=== PATIENT | female | born 1990 | race Caucasian/White ===

== ENCOUNTER 2018-02-10 18:05 | Inpatient (IN) | payer OTHER ==
[~2018-02-10] VITALS: Ht 162.6 cm; Wt 117.5 kg
[2018-02-10 17:45] VITALS: BP 99/73
[2018-02-10 17:46] VITALS: BP 109/77
[2018-02-10] MEDS: LEVETIRACETAM 500 MG (KEPPRA) TAB PO SCH (20:10)
[2018-02-11] MEDS: PANTOPRAZOLE 40 MG (PROTONIX) TAB PO SCH (06:28)
[2018-02-11 06:48] VITALS: BP 114/79
--- NOTE | 2018-02-11 08:59 | Consultation ---
History of Present Illness History of Present Illness Patient Consulted On(lashonda/time) 02/11/18 08:55 Time Seen by Provider: 08:55 History of Present Illness Patient had a hemorrhagic stroke one week after . Patient had a headache severe. Patient took 4 ibuprofen. Patient not able to feel the left side. Ambulance took patient to hospital. Patient states she had her to put in her head. This is patient's second . Patient admits to smoking. Patient not able to move the left lower extremity and upper extremity. Patient unable to make a fist on left side Allergies and Home Medications Allergies Coded Allergies: No Known Drug Allergies (Unverified , 02/10/18) Home Medications No Active Prescriptions or Reported Meds Patient Home Medication List Home Medication List Reviewed: Yes Past Dkgatsl-Wgpebs-Vthpdm Hx Patient Social History Alcohol Use: Denies Use Recreational Drug Use: No Smoking Status: Current Everyday Smoker Type Used: Cigarettes Recent Foreign Travel: No Contact w/Someone Who Travel: No Recent Infectious Disease Expo: No Recent Hopitalizations: Yes Immunizations Up To Date Date of Influenza Vaccine: Dec 04, 2017 Seasonal Allergies Seasonal Allergies: Yes Surgeries History of Surgeries: No Respiratory History of Respiratory Disorde: No Cardiovascular History of Cardiac Disorders: No Neurological History of Neurological Disord: No (Stroke on 01/23/18) Reproductive System : No Genitourinary History of Genitourinary Disor: No Gastrointestinal History of Gastrointestinal Di: No Musculoskeletal History of Musculoskeletal Dis: No Endocrine History of Endocrine Disorders: No HEENT History of HEENT Disorders: No Cancer History of Cancer: No Psychosocial History of Psychiatric Problem: No Integumentary History of Skin or Integumenta: No Blood Transfusions History of Blood Disorders: No Review of Systems-General Constitutional: weakness EENTM: no symptoms reported Respiratory: no symptoms reported Cardiovascular: no symptoms reported Gastrointestinal: no symptoms reported Genitourinary: no symptoms reported Physical Exam-General Problems Physical Exam Vital Signs Vital Signs - First Documented 02/10/18 17:45 Temp 97.8 Pulse 97 Resp 20 B/P (MAP) 99/73 (82) Pulse Ox 96 O2 Delivery Room Air Capillary Refill : General Appearance: WD/WN, no apparent distress Eyes: Bilateral Eye Normal Inspection HEENT: normal ENT inspection Neck: non-tender, full range of motion Respiratory: chest non-tender, lungs clear, normal breath sounds, no respiratory distress, no accessory muscle use Cardiovascular: regular rate, rhythm Gastrointestinal: non tender, soft Assessment/Plan Assessment/Plan Admission Diagnosis/Plan CVA with hemorrhage. Tobacco usage. Stroke on the left side of body. Recency of baby girl Admission Status: Inpatient Order (span 2 midnights) Clinical Quality Measures DVT/VTE Risk/Contraindication: Risk Factor Score Per Nursin RFS Level Per Nursing on Admit: 4+=Very High ASHANTI RUSH DO Feb 11, 2018 08:59
[2018-02-11] MEDS: LEVETIRACETAM 500 MG (KEPPRA) TAB PO SCH ×2 (09:12→20:15)
[2018-02-11] MEDS: amLODIPine 5 MG (NORVASC) TAB PO SCH (09:12)
[2018-02-11] MEDS ORDERED: fluCOnazole (DIFLUCAN) 100 MG TAB PO NR (10:00)
--- NOTE | 2018-02-11 10:29 | Physical Therapy Evaluation ---
PT Evaluation-General Medical Diagnosis Admission Date Feb 10, 2018 at 18:05 Medical Diagnosis: CVA Onset Date: Jan 23, 2018 Therapy Diagnosis Therapy Diagnosis: impaired mobility, strength, endurance, balance Height/Weight Height (Feet): 5 Height (Inches): 4.00 Weight (Pounds): 261 Weight (Ounces): 0.0 Precautions Precautions/Isolations: Seizure, Fall Prevention, Standard Precautions Referral Physician: Mundo Reason for Referral: Evaluation/Treatment Medical History Pertinent Medical History: Smoking Reviewed History: Yes Social History Home: Single Level Current Living Status: Spouse Entry Into Home: Stairs Without Railing PT Steps Into Home: 2 Prior/Core FIM Prior Level of Function Functional [place] Measure 0=Not Assessed/NA 4=Minimal Assistance 1=Total Assistance 5=Supervision or Setup 2=Maximal Assistance 6=Modified [place] 3=Moderate Assistance 7=Complete [place] Bed Mobility: 7 Transfers (B,C,W/C) (FIM): 7 Gait: 7 PT Evaluation-Current Subjective Patient in wheelchair at bedside pre tx, agrees to PT, no complaints of pain. Patient needs to get dressed upper and lower and she does so with max assist. Pt/Family Goals "to get her left side working" Objective Patient Orientation: Person, Place, Situation Attachments: Joiner Catheter ROM/Strength ROM Lower Extremities WNL Strenght Lower Extremities flaccid left lower extremity Integumentary/Posture Bladder Incontinence: Joiner Cath Neuromuscular (Tone, Coordination, Reflexes) increased extensor tone in left leg when laying down, Patient seems to have intact peripheral vision bilaterally and good tracking on the right and fair on the left. Patient does have some left neglect. Sensory Vision: Functional Hearing: Functional Sensation Right Lower Extremit: Intact Sensation Left Lower Extremity: Intact Sensation Lower Extremities Patient has no complaints of numbness or tingling. Transfers Functional [place] Measure 0=Not Assessed/NA 4=Minimal Assistance 1=Total Assistance 5=Supervision or Setup 2=Maximal Assistance 6=Modified [place] 3=Moderate Assistance 7=Complete IndependenceIRFPAI Quality Coding Scale 6 Independent with activity with or without an assistive device 5 Patient requires set up or clean up by helper. Patient completes activity by themselves 4 Supervision or touching assist (CGA). [place] provide cues , steadying assist 3 The helper provides less than half the effort to complete the activity 2 The helper provides more than half the effort to complete the activity 1 Dependent. The helper does all the effort to complete an activity 7 Patient refused to complete or attempt activity 9 The patient did not perform the activity before the current illness or injury 88 Not attempted due to Medical conditions or safety concerns Transfers (B, C, W/C) (FIM): 2 Scootin Rollin Roll Left to Right (QC): 2 Supine to/from Sit: 2 Sit to/from Stand: 2 bed t/f WC(FIM only if WC use): 2 Sit to Lying (QC): 2 Lying to Sitting/Side of Bed(Q: 2 Sit to Stand (QC): 2 Chair/Zsj-xj-Gavcu Xfer(QC): 2 Car Transfer (QC): 2 Patient performs bed mobility and transfers with max assist. She needs cues for positioning and hand placement. Gait Does the Patient Walk?: No and Walking Goal IS indicated Walk 10 feet (QC): 88 Walk 50 ft with 2 Turns(QC): 88 Walk 150 ft (QC): 88 Walking 10ft/uneven surface-QC: 88 Wheelchair Training Wheelchair (FIM): 2 Distance: 50' Wheelchair Level of Assist: 4 Wheel 50 ft with 2 turns (QC): 3 Wheel 150 ft (QC): 88 Type of Wheelchair: Manual Stairs 1 Step (curb) (QC): 88 4 Steps (QC): 88 12 Steps (QC): 88 If not tested on admit;explain Patient is not ambulating and has poor balance, not safe to perform stairs. Balance Sitting Static: Fair Sitting Dynamic: Poor Standing Static: Poor Standing Dynamic: Poor Picking up an Object (QC): 88 Treatment Patient performed bed mobility and transfers, wheelchair mobility, dressing. Patient stood in the parallel bars for about 5 min before needing to sit down. She needed min assist to remain standing and cues for positioning because she turns toward the parallel bar on the right side due to her neglect. Assessment/Needs Patient has impaired mobility,strength, endurance, balance. She has a flaccid left side and left neglect. She is a high fall risk. Rehab Potential: Fair PT Short Term Goals Short Term Goals Time Frame: Feb 18, 2018 Transfers (B,C,W/C) (FIM): 3 Wheelchair (FIM): 4 Wheelchair Distance: 150' Wheelchair Level of Assist: 4 PT Usp Goals Usp Goals PT Usp Goals Time Frame: Mar 04, 2018 Transfers (B,C,W/C) (FIM): 4 Sit to Lying (QC): 3 Lying-Sitting on Side/Bed(QC): 3 Sit to Stand (QC): 3 Rollin Roll Left to Right (QC): 3 Chair/Slq-my-[place]ef[place] Xfer(QC): 3 Car Transfer (QC): 3 Gait (FIM): 1 Distance: 20' Walk 10 feet (QC): 3 Gait Level of Assist: 4 Gait Assistive Device: Walker Gaurav Wheelchair (FIM): 5 Distance: 150' Wheelchair Level of Assist: 5 Wheel 50 feet with 2 turns (QC: 4 PT Plan Problem List Problem List: Activity Tolerance, Functional Strength, Safety, Balance, Gait, Transfer, Bed Mobility, ROM Treatment/Plan Treatment Plan: Continue Plan of Care Treatment Plan: Bed Mobility, Concurrent Therapy, Education, Functional Activity Steven, Functional Strength, Group Therapy, Gait, Safety, Therapeutic Exercise, Transfers Treatment Duration: Mar 04, 2018 Frequency: At least 5 of 7 days/Wk (IRF) Estimated Hrs Per Day: 1.5 hours per day Patient and/or Family Agrees t: Yes Safety Risks/Education Patient Education: Transfer Techniques, Correct Positioning, W/C Management, Disease Process, Safety Issues Teaching Recipient: Patient Teaching Methods: Demonstration, Discussion Response to Teaching: Reinforcement Needed Discharge Recommendations Plan Patient will perform bed mobility and transfer training, balance and endurance training, functional strengthening, stair training, gait training, and education , to improve functional mobility and independence at home. Therapy D/C Recommendations: Home w/ Family Support, Jail (TCU/NH) Time/GCodes Time In: 945 Time Out: 1030 Total Billed Treatment Time: 45 Total Billed Treatment 1 visit EVM 30' FA 15' JENIFER SOUSA PT Feb 11, 2018 10:28
--- NOTE | 2018-02-11 10:57 | Occupational Therapy Eval ---
OT Evaluation-General/PLF Medical Diagnosis Admission Date Feb 10, 2018 at 18:05 Medical Diagnosis: CVA Onset Date: Jan 23, 2018 Therapy Diagnosis Therapy Diagnosis: Weakness, Decreased ADL skills Height/Weight Height (Feet): 5 Height (Inches): 4.00 Weight (Pounds): 261 Weight (Ounces): 0.0 Precautions Precautions/Isolations: Seizure, Fall Prevention, Standard Precautions Safety Interventions: Bed Exit Alarm Weight Bear Status Weight Bearing Restriction: Weight Bearing/Tolerated Referral Physician: Mundo Referral Reason: Activity Tolerance, Self Care, Evaluation/Treatment, Strengthening/ROM Medical History Pertinent Medical History: HTN, Smoking Current History Pt. was 5 days . Had a CVA. Had a ventriculostomy placement with bur hole in left frontal area. Pt. has left sided weakness. Reviewed History: Yes Social History Home: Single Level Current Living Status: Spouse Entry Into Home: Stairs Without Railing Steps Into Home: 2 ADL-Prior Level of Function ADL PLOF Comments Pt. was independent with all tasks previous to CVA. DME/Equipment: Tub/Shower DME/Equipment Comments Pt. has no equipment at home. Drive Self: No OT Current Status Subjective No pain reported. Pt. is tearful however about current situation. Appearance Pt. in bed. Does demonstrate flat affect. Agrees to work with OT. Becomes tearful when talking about her family. Mental Status/Objective Patient Orientation: Person, Place, Time Current Dentures/Partials: Yes Hand Dominance: Right Upper Extremity ROM Right- WFL Left- no active movement noted. Upper Extremity Coordination left- impaired. Upper Extremity Strength Left-flaccid ADL-Treatment Functional [place] Measure 0=Not Assessed/NA 4=Minimal Assistance 1=Total Assistance 5=Supervision or Setup 2=Maximal Assistance 6=Modified [place] 3=Moderate Assistance 7=Complete IndependenceIRFPAI Quality Coding Scale 6 Independent with activity with or without an assistive device 5 Patient requires set up or clean up by helper. Patient completes activity by themselves 4 Supervision or touching assist (CGA). [place] provide cues , steadying assist 3 The helper provides less than half the effort to complete the activity 2 The helper provides more than half the effort to complete the activity 1 Dependent. The helper does all the effort to complete an activity 7 Patient refused to complete or attempt activity 9 The patient did not perform the activity before the current illness or injury 88 Not attempted due to Medical conditions or safety concerns Grooming (FIM): 4 (Min assist overall to brush teeth at sink.) Oral Hygiene (QC): 4 Bathing (FIM): 2 (Pt. required assist to wash under left UE, wash april area in stance, and to wash bilateral feet.) Shower/Bathe Self (QC): 2 Lower Body Dressing (FIM): 2 (Max assist to doff/don socks.) Lower Body Dressing (QC): 2 On/Off Footwear (QC): 2 Transfers (B, C, W/C) (FIM): 2 (Max assist supine-sit, and max sit-stand. Max assist to pivot transfer to wheelchair.) Other Treatments Once up in wheelchair, pt. was able to self propel to therapy gym with min assist. Pt. given tour of rehab area. Pt. states that she likes coffee. Taken to coffee station. Pt. was able to open several sugar packets with her mouth, but overall, OT assisted her. All needs met up in chair and then PT took over. Education OT Patient Education: Correct positioning, Modified ADL techniques, Progress toward Goal/Update tx plan, Purpose of tx/functional activities, Reviewed precautions, Rehab process, Transfer techniques Teaching Recipient: Patient Teaching Methods: Demonstration, Discussion Response to Teaching: Verbalize Understanding, Return Demonstration OT Short Term Goals Short Term Goals Time Frame: Feb 25, 2018 Eating(FIM): 5 Grooming(FIM): 5 Bathing(FIM): 4 Upper Body Dressing(FIM): 4 Lower Body Dressing(FIM): 3 Toileting(FIM): 4 Transfers (B,C,W/C) (FIM): 4 Toilet/Commode Transfer(FIM): 4 Additional Short Term Goals: 1-Demonstrate ADL Tasks, 2-Verbalize Understanding , 3-ImproveStrength/Steven 1=Demonstrate adherence to instructed precautions during ADL tasks. 2=Patient will verbalize/demonstrate understanding of assistive devices/ modifications for ADL. 3=Patient will improve strength/tolerance for activity to enable patient to perform ADL's. OT Tree Trimming Supervisor Goals Correction Goals Time Frame: Mar 11, 2018 Eating (FIM): 6 Eating (QC): 6 Groomin Oral Hygiene (QC): 6 Bathing(FIM): 5 Shower/Bathe Self (QC): 5 Upper Body Dressing(FIM): 6 Upper Body Dressing (QC): 6 Lower Body Dressing(FIM): 6 Lower Body Dressing (QC): 6 On/Off Footwear (QC): 6 Toileting(FIM): 6 Toileting Hygiene (QC): 6 Transfers (B,C,W/C) (FIM): 6 Toilet/Commode Transfer(FIM): 6 Toilet/Commode Transfer (QC): 6 Shower Transfer(FIM): 5 Additional Goals: 1-Demonstrate ADL Tasks, 2-Verbalize Understanding, 3- ImproveStrength/Steven 1=Demonstrate adherence to instructed precautions during ADL tasks. 2=Patient will verbalize/demonstrate understanding of assistive devices/ modifications for ADL. 3=Patient will improve strength/tolerance for activity to enable patient to perform ADL's. OT Education/Plan Problem List/Assessment Assessment: Decreased Activ Tolerance, Decreased UE Strength, Dependent Transfers, Impaired Bed Mobility, Impaired Cognition, Impaired Coordination, Impaired Funct Balance, Impaired I ADL's, Impaired Self-Care Skills, Restricted Funct UE ROM Discharge Recommendations Plan/Recommendations: Continue POC Therapy D/C Recommendations: Home w/ Family Support, Occupational Therapy Home Care, Scheduled Assistance Equpiment Recommendations-D/C: Extended Bath Bench Comment Equipment needs to be determined. Treatment Plan/Plan of Care Treatment,Training & Education: Yes Patient would benefit from OT for education, treatment and training to promote independence in ADL's, mobility, safety and/or upper extremity function for ADL' s. Plan of Care: ADL Retraining, Functional Mobility, Group Exercise/Act as Ind, UE Funct Exercise/Act Treatment Duration: Mar 11, 2018 Frequency: At least 5 of 7 days/Wk (IRF) Estimated Hrs Per Day: 1.5 hours per day Agreement: Yes Rehab Potential: Good Time/GCodes Start Time: 08:30 Stop Time: 09:45 Total Time Billed (hr/min): 75 Billed Treatment Time 1, EVH x 15minutes, ADL x 60minutes QAMAR SIMPSON OT Feb 11, 2018 10:57
--- NOTE | 2018-02-11 12:53 | ST Cognitive Linguistic Eval ---
Speech Evaluation-General Medical Diagnosis CVA Onset Date: Jan 23, 2018 Therapy Diagnosis Therapy Diagnosis: Cognitive Linguistic Skills WNL Precautions Precautions/Isolations: Seizure, Fall Prevention, Standard Precautions Referral Referring Physician: Dr. Deng Flower Reason for Referral: Evaluation/Treatment Cognitive, Speech, Language Evaluation Medical History Pertinent Medical History: HTN, Smoking Current History The patient recently gave to a daughter on January 16, 2018. Per patient , she developed HTN throughout , however, thought her blood pressure had returned to normal following the of her child. The patient recently experienced an ischemic CVA and was admitted to [facility] for additional therapy. At this time, the patient demonstrates left sided flaccidity. Reviewed History: Yes Social History Current Living Status: Spouse (Stefany, FRANK) Speech PLF-Current Status Prior Level of Function The patient denied prior challenges with speech, language, or cognition. Subjective The patient was laying in bed, talking to her on the phone, upon entrance. The patient greeted the clinician appropriately and was agreeable to participation in the cognitive evaluation. Language Eval: Auditory Comprehends Simple Yes/No Ques: Functional Indent/Objects Multiple Domingo: Functional Ident/Pics in Multiple Domingo: Functional Follows 1-Step Commands: Functional Follows Complex Directions: Functional Follows General Conversations: Functional Language Eval: Verbal Language Completes Spontaneous Greeting: Functional Produces Auto, Serial Info: Functional Imitates Simple Words/Phrases: Functional Word Finding: Functional Requests Basic Needs: Functional States Basic Personal Info: Functional Expresses Complex Ideas: Functional To note, the patient demonstrates flat affect throughout conversation and evaluation tasks. The patient did become tearful while discussing the events surrounding the of her daughter. Cognitive Patient Orientation The patient was independently oriented to self, location, rationale for therapy , month, day of week, date, and year. Objective Cognitive Domain Attention: WNL Memory: WNL Problem Solving: Functional Objective Impression The patient demonstrated cognitive linguistic skills appropriate for completion of ADL tasks. Communication/Social Cognition Comprehension: 5 Expression: 5 Social Interaction: 5 Problem Solvin Memory: 6 Speech Patient Assess Expression of Ideas/Wants: Expression (4) Understanding [place] Content: Usually Understands (3) Brief Interview-Mental Status: Yes Repetition of Three Words: Three (3) Temporal Orientation: Year: Correct (3) Temporal Orientation: Month: Accurate within 5 days(2) Temporal Orientation: Day: Correct (1) Recall : Wear to say "Sock": Yes, no cue required (2) Recall : Color: Yes, no cue required (2) Recall : Bed: Yes, no cue required (2) Speech-Plan Treatment Plan Speech Therapy Treatment Plan: Discontinue ST Evaluation, only. Frequency: Modified Program (IRF) Estimated Hrs Per Day: Other Rehab Potential: Good Safety Risks/Education Teaching Recipient: Patient Teaching Methods: Discussion Response to Teaching: Verbalize Understanding Education Topics Provided: Results, Recommendations, Plan of Care Time Speech Therapy Time In: 10:30 Speech Therapy Time Out: 10:45 Total Billed Time: 15 Billed Treatment Time 1, EVE NEVES Feb 11, 2018 12:52
--- NOTE | 2018-02-11 13:32 | Physical Therapy Daily Note ---
PT Daily Note-Current Subjective Patient in bed pre tx, agrees to PT, no complaints of pain. Appearance Patient in wheelchair at bedside post tx, has nurse call, phone, tray, all needs met. Mental Status Patient Orientation: Person, Place, Situation Attachments: Joiner Catheter Transfers Functional [place] Measure 0=Not Assessed/NA 4=Minimal Assistance 1=Total Assistance 5=Supervision or Setup 2=Maximal Assistance 6=Modified [place] 3=Moderate Assistance 7=Complete IndependenceIRFPAI Quality Coding Scale 6 Independent with activity with or without an assistive device 5 Patient requires set up or clean up by helper. Patient completes activity by themselves 4 Supervision or touching assist (CGA). [place] provide cues , steadying assist 3 The helper provides less than half the effort to complete the activity 2 The helper provides more than half the effort to complete the activity 1 Dependent. The helper does all the effort to complete an activity 7 Patient refused to complete or attempt activity 9 The patient did not perform the activity before the current illness or injury 88 Not attempted due to Medical conditions or safety concerns Transfers (B, C, W/C) (FIM): 2 Scootin Rollin Supine to/from Sit: 4 Sit to/from Stand: 2 Bed to/from Chair: 2 Patient performed 4 stand pivot transfers Wheelchair Training Does the Pt Use a Wheelchair?: Yes Wheelchair (FIM): 2 Distance: 75' Wheelchair Level of Assist: 4 Type of Wheelchair: Manual min assist with turning and cues for obstacles and direction Exercises sit to stand from mat 3 sets of 5 Neuromuscular core balance and strengthening, leaning side to side, limits of stability training Treatments wheelchair mobility, functional strengthening, core balance Assessment Current Status: Fair Progress patient has significant left neglect PT Short Term Goals Short Term Goals Time Frame: Feb 18, 2018 Transfers (B,C,W/C) (FIM): 3 Wheelchair (FIM): 4 Wheelchair Distance: 150' Wheelchair Level of Assist: 4 PT Petroleum Geologist Goals Senior Living Goals PT Senior Living Goals Time Frame: Mar 04, 2018 Transfers (B,C,W/C) (FIM): 4 Sit to Lying (QC): 3 Lying-Sitting on Side/Bed(QC): 3 Sit to Stand (QC): 3 Rollin Roll Left to Right (QC): 3 Chair/Mgb-zb-Bsnrx Xfer(QC): 3 Car Transfer (QC): 3 Gait (FIM): 1 Distance: 20' Walk 10 feet (QC): 3 Gait Level of Assist: 4 Gait Assistive Device: Walker Gaurav Wheelchair (FIM): 5 Distance: 150' Wheelchair Level of Assist: 5 Wheel 50 feet with 2 turns (QC: 4 PT Plan Problem List Problem List: Activity Tolerance, Functional Strength, Safety, Balance, Gait, Transfer, Bed Mobility, ROM Treatment/Plan Treatment Plan: Continue Plan of Care Treatment Plan: Bed Mobility, Concurrent Therapy, Education, Functional Activity Steven, Functional Strength, Group Therapy, Gait, Safety, Therapeutic Exercise, Transfers Treatment Duration: Mar 04, 2018 Frequency: At least 5 of 7 days/Wk (IRF) Estimated Hrs Per Day: 1.5 hours per day Patient and/or Family Agrees t: Yes Safety Risks/Education Patient Education: Transfer Techniques, Correct Positioning, W/C Management, Safety Issues Teaching Recipient: Patient Teaching Methods: Demonstration, Discussion Response to Teaching: Reinforcement Needed Time/GCodes Time In: 1300 Time Out: 1330 Total Billed Treatment Time: 30 Total Billed Treatment 1 visit FA 15' EX 15' JENIFER SOUSA PT Feb 11, 2018 13:32
[2018-02-11 13:43] LABS: BILIRUBIN,URINE NEGATIVE (NEGATIVE); CLARITY,URINE SLIGHTLY CLOUDY; COLOR,URINE YELLOW; GLUCOSE, URINE (UA) NEGATIVE (NEGATIVE); KETONES,URINE NEGATIVE (NEGATIVE); LEUKOCYTE ESTERASE ,URINE 3+ (NEGATIVE); NITRITE,URINE POSITIVE (NEGATIVE); PH,URINE 5 (5-9); PROTEIN,URINE 2+ (NEGATIVE); UROBILINOGEN,URINE NORMAL (NORMAL)
[2018-02-11 14:06] LABS: BACTERIA,URINE MODERATE /HPF; WBC,URINE >100 /HPF
--- NOTE | 2018-02-11 14:45 | Occupational Ther Daily Note ---
OT Current Status-Daily Note Subjective No pain reported. Pt. does become tearful when talking about her mother. Appearance Pt. in bed. Agrees to work with OT. Mental Status/Objective Patient Orientation: Person Functional [place] Measure 0=Not Assessed/NA 4=Minimal Assistance 1=Total Assistance 5=Supervision or Setup 2=Maximal Assistance 6=Modified [place] 3=Moderate Assistance 7=Complete [place] ADL-Treatment Functional [place] Measure 0=Not Assessed/NA 4=Minimal Assistance 1=Total Assistance 5=Supervision or Setup 2=Maximal Assistance 6=Modified [place] 3=Moderate Assistance 7=Complete IndependenceIRFPAI Quality Coding Scale 6 Independent with activity with or without an assistive device 5 Patient requires set up or clean up by helper. Patient completes activity by themselves 4 Supervision or touching assist (CGA). [place] provide cues , steadying assist 3 The helper provides less than half the effort to complete the activity 2 The helper provides more than half the effort to complete the activity 1 Dependent. The helper does all the effort to complete an activity 7 Patient refused to complete or attempt activity 9 The patient did not perform the activity before the current illness or injury 88 Not attempted due to Medical conditions or safety concerns Other Treatment Pt. supine in bed. OT asks if okay if left UE is better assessed. Pt. agreeable. Pt. reports feeling all sensations, just no movement. OT performs PROM in all planes, but no active movement noted. Able to achieve full ROM passively. Did note increased muscle tone with movement in left UE. This is involuntary. Pt. does not seem to notice this. Pt. is able to answer all questions appropriately, history questions, but does seem to demonstrate flat affect. Becomes somewhat labile when talking about children and husbands. All needs met in bed and pt. comfortable when OT left room. Education OT Patient Education: Correct positioning, Exercise program, Modified ADL techniques, Progress toward Goal/Update tx plan, Purpose of tx/functional activities, Reviewed precautions, Rehab process, Transfer techniques Teaching Recipient: Patient Teaching Methods: Demonstration, Discussion Response to Teaching: Verbalize Understanding, Return Demonstration OT Short Term Goals Short Term Goals Time Frame: Feb 25, 2018 Eating(FIM): 5 Grooming(FIM): 5 Bathing(FIM): 4 Upper Body Dressing(FIM): 4 Lower Body Dressing(FIM): 3 Toileting(FIM): 4 Transfers (B,C,W/C) (FIM): 3 Toilet/Commode Transfer(FIM): 4 Additional Short Term Goals: 1-Demonstrate ADL Tasks, 2-Verbalize Understanding , 3-ImproveStrength/Steven 1=Demonstrate adherence to instructed precautions during ADL tasks. 2=Patient will verbalize/demonstrate understanding of assistive devices/ modifications for ADL. 3=Patient will improve strength/tolerance for activity to enable patient to perform ADL's. OT Circuit Manager Goals Circuit Manager Goals Time Frame: Mar 11, 2018 Eating (FIM): 6 Eating (QC): 6 Groomin Oral Hygiene (QC): 6 Bathing(FIM): 5 Shower/Bathe Self (QC): 5 Upper Body Dressing(FIM): 6 Upper Body Dressing (QC): 6 Lower Body Dressing(FIM): 6 Lower Body Dressing (QC): 6 On/Off Footwear (QC): 6 Toileting(FIM): 6 Toileting Hygiene (QC): 6 Transfers (B,C,W/C) (FIM): 6 Toilet/Commode Transfer(FIM): 6 Toilet/Commode Transfer (QC): 6 Shower Transfer(FIM): 5 Additional Goals: 1-Demonstrate ADL Tasks, 2-Verbalize Understanding, 3- ImproveStrength/Steven 1=Demonstrate adherence to instructed precautions during ADL tasks. 2=Patient will verbalize/demonstrate understanding of assistive devices/ modifications for ADL. 3=Patient will improve strength/tolerance for activity to enable patient to perform ADL's. OT Education/Plan Problem List/Assessment Assessment: Decreased Activ Tolerance, Decreased Safety Aware, Decreased UE Strength, Dependent Transfers, Impaired Bed Mobility, Impaired Cognition, Impaired Coordination, Impaired Funct Balance, Impaired I ADL's, Impaired Self- Care Skills, Restricted Funct UE ROM, Visual-Perceptual Deficit Discharge Recommendations Plan/Recommendations: Continue POC Therapy D/C Recommendations: Home w/ Family Support, Occupational Therapy Home Care Equpiment Recommendations-D/C: Extended Bath Bench Treatment Plan/Plan of Care Treatment,Training & Education: Yes Patient would benefit from OT for education, treatment and training to promote independence in ADL's, mobility, safety and/or upper extremity function for ADL' s. Plan of Care: ADL Retraining, Functional Mobility, Group Exercise/Act as Ind, UE Funct Exercise/Act Treatment Duration: Mar 11, 2018 Frequency: At least 5 of 7 days/Wk (IRF) Estimated Hrs Per Day: 1.5 hours per day Agreement: Yes Rehab Potential: Good Time/GCodes Start Time: 14:15 Stop Time: 14:30 Total Time Billed (hr/min): 15 Billed Treatment Time 1, EX QAMAR SIMPSON OT Feb 11, 2018 14:45
[2018-02-11] MEDS: NYSTATIN CREAM (MYCOSTATIN) 30 GM TUBE TP SCH ×2 (15:15→20:15)
--- NOTE | 2018-02-11 15:51 | PM&R Post Admission Assessment ---
Post Admission Physician Asses The preadmission screen agrees with the post admission assessment that the patient is a good candidate for inpatient rehabilitation. The patient will have a comprehensive program of inpatient rehabilitation with a goal of maximizing level of functional independence prior to discharge home with spouse. The patient will have PT/OT ninety minutes per day, each discipline, five days a week for gait, strengthening, conditioning, balance, ADLs, any patient/family/caregiver training as necessary. Speech therapy to do cognitive assessment and treat as indicated. Rehabilitation nursing to assist with bowel, bladder, skin, wound care, medication administration, pain management. Transition Advisor to assist with discharge planning, community reentry. SCD's for DVT prophylaxis. She appears to be well motivated to participate in three hours of therapy a day. She should be able to tolerate three hours of therapy a day from a medical standpoint. She should benefit from the three hours of therapy a day. She has a reasonable discharge plan, reasonable discharge rehabilitation goals and a supportive family. She has various comorbidities that need to be closely monitored with medications and treatments adjusted on a daily basis as needed. These include: HTN status Barriers to discharge for this patient who had been independent prior to this are for her to be modified independent to supervision for ADLs and mobility skills prior to discharge home with spouse, so as to lessen the burden of the caregivers. Risks for this patient include: 1. Fall 2. Fracture 3. DVT 4. Pulmonary embolism 5. Poorly controlled HTN 6. Skin breakdown 7. Contractures 8. Poorly controlled pain 9. Urinary retention 10. UTI 11. Respiratory infection 12. Aspiration 13. Recurrent bleed Estimated Length of Stay: 21 days Prognosis: Rehab prognosis appears good for goal of discharge home with spouse modified independent to supervision for ADLs and mobility skills. 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
--- NOTE | 2018-02-11 16:52 | HISTORY AND PHYSICAL ---
DATE OF SERVICE: 02/11/2018 ADMISSION HISTORY AND PHYSICAL CHIEF COMPLAINT: Difficulty with walking. HISTORY OF PRESENT ILLNESS: The patient is a 27-year-old female, who was admitted to [facility] on 01/24/2018, who complains of headache and left-sided weakness. The patient was seen by Dr. Lucia, neurosurgeon on 01/24/2018. At that time, the patient was 5 days . She apparently took some ibuprofen for headache and then was found by her with left-sided weakness. She was transported to the hospital by EMS. She was started on Cardene drip and intubated due to altered mental status. Her reported that she does have hypertension towards the end of her . A CT of the brain was obtained, which showed a large right-sided bleed with ventricular extension. She demonstrated left facial weakness and left-sided weakness, full strength on the right. She was medically stabilized and referred for ongoing stroke rehabilitation. Admission CT angiogram revealed no obvious underlying vascular lesion. Chest x-ray on 01/24/2018, showed bilateral infiltrates, right more than left. She had been independent prior to this and living in [place] with her spouse. She is on Keppra for seizure prophylaxis. Currently, she is min assist for grooming, max assist for bathing, lower body dressing. The patient is max assist for transfers. Her Joiner catheter has just been removed, nursing is attempting a transfer to the bedside commode for her at this point. She is nonambulatory at this time. She is mod assist for wheelchair propulsion. Speech therapy has assessed her and found her to be cognitively intact and they have signed off. PAST MEDICAL HISTORY: Gestational hypertension. PAST SURGICAL HISTORY: Recent delivery. ALLERGIES: No known medication allergies. FAMILY HISTORY: Noncontributory. SOCIAL HISTORY: [place] Medicaid. REVIEW OF SYSTEMS: Ten-point review of systems significant for left-sided weakness, elevated blood pressure during . MEDICATIONS: Nystatin apply sparingly t.i.d. to affected area, Norvasc 5 mg p.o. daily, Protonix 40 mg p.o. daily, Keppra 500 mg p.o. b.i.d., Tylenol 650 mg p.o. q.4h. p.r.n. mild pain or fever. PHYSICAL EXAMINATION: GENERAL: Significant for a somewhat obese female appearing her stated age, sitting up at the side of the bed, in no acute distress. Her BMI is 44.8. VITAL SIGNS: She is afebrile, pulse is 90, respirations 21, blood pressure 114/79, O2 sat 97% on room air. HEENT: Vision, speech, hearing grossly intact. No oral lesion is noted. NECK: Supple without mass. HEART: Regular rhythm. CHEST: Clear. ABDOMEN: Soft, nontender, bowel sounds present. EXTREMITIES: No edema, no calf tenderness. MUSCULOSKELETAL: She has functional passive range of motion in all 4 extremities. NEUROLOGIC: She has normal strength on the right. Cognition, speech, swallow intact. She is fairly flaccid on the left. IMPRESSION: 1. Ambulatory dysfunction secondary to right intracerebral bleed associated with hypertension with a resulting left hemiparesis. 2. Hypertension, controlled with medication. 3. . PLAN: The patient will have comprehensive program with inpatient stroke rehabilitation goal of maximizing level of functional independence prior to discharge home with spouse. The patient will have PT, OT 90 minutes per day 5 days a week as per plan of care and post-admission physician evaluation. Please see that separate document. Speech therapy has done speech, swallow, cognitive assessment with outpatient is functional they have signed off. The patient requesting OB follow up for visit. We will see if we can arrange one of the sas administrator at this facility. We ask Dr. Acosta to follow this patient as well for any medical concerns, hypertension, etc. Social work to assist with discharge planning, community reentry. Rehabilitation nursing assist with bowel, bladder, skin care, medication administration, pain management. ESTIMATED LENGTH OF STAY: Three weeks. PROGNOSIS: Rehab prognosis good for goal of enhancing level of functional dependence prior to discharge home with spouse. Hopefully as the cerebral edema does down, she will have more return of strength on the left. DIET: Regular. CODE STATUS: Full code. ADDITIONAL DIAGNOSIS: Seizure prophylaxis, on Keppra. Job ID: [id number] DocumentID: [id number] Dictated Date: 02/11/2018 15:46:13 Chemical Process Engineer Date: 02/11/2018 16:52:15 Dictated By: ELAINE GIBBS MD
[2018-02-11 17:09] VITALS: BP 110/72
[2018-02-12 05:49] VITALS: BP 98/59
[2018-02-12 05:53] LABS: BASOPHILS % (AUTO) 0 % (0-10); EOSINOPHILS # (AUTO) 0.3 10^3/uL (0.0-0.3); EOSINOPHILS % (AUTO) 3 % (0-10); HEMATOCRIT 39 % (35-52); HEMOGLOBIN 12.4 G/DL (11.5-16.0); LYMPHOCYTES # (AUTO) 3.3 X 10^3 (1.0-4.0); LYMPHOCYTES % (AUTO) 38 % (12-44); MEAN CORPUSCULAR HEMOGLOBIN 29 PG (25-34); MEAN CORPUSCULAR HGB CONC 32 G/DL (32-36); MEAN CORPUSCULAR VOLUME 92 FL (80-99); MEAN PLATELET VOLUME 10.7 FL (7.4-10.4); MONOCYTES # (AUTO) 0.7 X 10^3 (0.0-1.0); MONOCYTES % (AUTO) 8 % (0-12); NEUTROPHILS # (AUTO) 4.4 X 10^3 (1.8-7.8); NEUTROPHILS % (AUTO) 51 % (42-75); PLATELET COUNT 392 10^3/uL (130-400); RED BLOOD COUNT 4.23 10^6/uL (4.35-5.85); RED CELL DISTRIBUTION WIDTH 13.8 % (10.0-14.5); WHITE BLOOD COUNT 8.8 10^3/uL (4.3-11.0)
[2018-02-12 06:06] LABS: ALANINE AMINOTRANSFERASE 40 U/L (0-55); ALKALINE PHOSPHATASE 69 U/L (40-136); BILIRUBIN,TOTAL 0.5 MG/DL (0.1-1.0); BUN/CREATININE RATIO 13; CALCIUM 9.5 MG/DL (8.5-10.1); CARBON DIOXIDE 23 MMOL/L (21-32); CHLORIDE 108 MMOL/L (98-107); CREATININE SERUM 0.77 MG/DL (0.60-1.30); GFR ESTIMATED > 60; GLUCOSE 91 MG/DL (70-105); POTASSIUM 3.8 MMOL/L (3.6-5.0); SODIUM 141 MMOL/L (135-145); TOTAL PROTEIN 6.6 GM/DL (6.4-8.2)
[2018-02-12] MEDS: PANTOPRAZOLE 40 MG (PROTONIX) TAB PO SCH (06:25)
--- NOTE | 2018-02-12 08:19 | Progress Note (SOAP) ---
Subjective Time Seen by Provider: 08:15 Subjective/Events-last exam Patient feeling okay today. Patient looks little depressed. CVA. . infection. Hypertension Objective Exam Vital Signs Date Time Temp Pulse Resp B/P (MAP) Pulse Ox O2 Delivery O2 Flow Rate FiO2 02/12/18 05:49 97.3 81 18 98/59 (72) 98 Room Air 02/11/18 21:00 Room Air 02/11/18 17:09 96.5 73 16 110/72 (85) 98 Room Air 02/11/18 09:45 Room Air I & O 02/12/18 07:00 Intake Total 870 ml Output Total 450 ml Balance 420 ml Capillary Refill : General Appearance: No Apparent Distress, WD/WN Respiratory: No Accessory Muscle Use, No Respiratory Distress Results Lab Laboratory Tests 02/11/18 13:30: Urine Color YELLOW, Urine Clarity SLIGHTLY CLOUDY, Urine pH 5, Urine Specific [place] 1.030H, Urine Protein 2+H, Urine Glucose (UA) NEGATIVE, Urine Ketones NEGATIVE, Urine Nitrite POSITIVEH, Urine Bilirubin NEGATIVE, Urine Urobilinogen NORMAL, Urine Leukocyte Esterase 3+H, Urine RBC (Auto) 4+H, Urine RBC 5-10H, Urine WBC >100H, Urine Squamous Epithelial Cells 2-5, Urine Crystals NONE, Urine Bacteria MODERATEH, Urine Casts NONE, Urine Mucus SMALLH, Urine Culture Indicated YES 02/12/18 05:00: White Blood Count 8.8, Red Blood Count 4.23L, Hemoglobin 12.4, Hematocrit 39, Mean Corpuscular Volume 92, Mean Corpuscular Hemoglobin 29, Mean Corpuscular Hemoglobin Concent 32, Red Cell Distribution Width 13.8, Platelet Count 392, Mean Platelet Volume 10.7H, Neutrophils (%) (Auto) 51, Lymphocytes (%) (Auto) 38 , Monocytes (%) (Auto) 8, Eosinophils (%) (Auto) 3, Basophils (%) (Auto) 0, Neutrophils # (Auto) 4.4, Lymphocytes # (Auto) 3.3, Monocytes # (Auto) 0.7, Eosinophils # (Auto) 0.3, Basophils # (Auto) 0.0, Sodium Level 141, Potassium Level 3.8, Chloride Level 108H, Carbon Dioxide Level 23, Anion Gap 10, Blood Urea Nitrogen 10, Creatinine 0.77, Estimat Glomerular Filtration Rate > 60, BUN/ Creatinine Ratio 13, Glucose Level 91, Calcium Level 9.5, Total Bilirubin 0.5, Aspartate Amino Transf (AST/SGOT) 14, Alanine Aminotransferase (ALT/SGPT) 40, Alkaline Phosphatase 69, Total Protein 6.6, Albumin 4.0 Microbiology 02/11/18 Urine Culture - Preliminary, Resulted Escherichia coli Assessment/Plan Assessment/Plan Assess & Plan/Chief Complaint CVA with hemorrhage. Tobacco usage. Stroke on the left side of body. Recency of baby girl. . 02/15/18. CVA with hemorrhage. Tobacco usage. Hypertension. Stroke on left side of the body. infection Clinical Quality Measures DVT/VTE Risk/Contraindication: Risk Factor Score Per Nursin RFS Level Per Nursing on Admit: 4+=Very High ASHANTI RUSH DO Feb 12, 2018 08:19
[2018-02-12] MEDS: LEVETIRACETAM 500 MG (KEPPRA) TAB PO SCH ×2 (08:58→20:20)
[2018-02-12] MEDS: amLODIPine 5 MG (NORVASC) TAB PO SCH (08:58)
[2018-02-12] MEDS: NYSTATIN CREAM (MYCOSTATIN) 30 GM TUBE TP SCH ×3 (08:58→20:23)
--- NOTE | 2018-02-12 09:30 | PM & R (SOAP) Progress Note ---
Subjective Time Seen by Provider: 08:30 Subjective/Events-last exam Patient was seen in her room this AM Patient with dysuria Discussed with DR Acosta U/A abnormal Awaiting C&S Patient max assist for transfers. Review of Systems Genitourinary: Dysuria Objective Exam Last Set of Vital Signs Vital Signs Date Time Temp Pulse Resp B/P (MAP) Pulse Ox O2 Delivery O2 Flow Rate FiO2 02/12/18 05:49 97.3 81 18 98/59 (72) 98 Room Air Capillary Refill : I&O Intake and Output 02/12/18 00:00 Intake Total 1170 ml Output Total 1150 ml Balance 20 ml Intake Oral 1170 ml Output Urine Total 1150 ml General: Alert, Oriented X3, Cooperative, No Acute Distress HEENT: Atraumatic, PERRLA, EOMI, Mucous Memb Moist/[place] Neck: Supple, No JVD Lungs: Clear to Auscultation Heart: Regular Rate Abdomen: Normal Bowel Sounds, Soft, No Tenderness Extremities: No Edema Neuro: Other (Left HP) Results Lab Laboratory Tests 02/11/18 13:30: Urine Color YELLOW, Urine Clarity SLIGHTLY CLOUDY, Urine pH 5, Urine Specific [place] 1.030H, Urine Protein 2+H, Urine Glucose (UA) NEGATIVE, Urine Ketones NEGATIVE, Urine Nitrite POSITIVEH, Urine Bilirubin NEGATIVE, Urine Urobilinogen NORMAL, Urine Leukocyte Esterase 3+H, Urine RBC (Auto) 4+H, Urine RBC 5-10H, Urine WBC >100H, Urine Squamous Epithelial Cells 2-5, Urine Crystals NONE, Urine Bacteria MODERATEH, Urine Casts NONE, Urine Mucus SMALLH, Urine Culture Indicated YES 02/12/18 05:00: White Blood Count 8.8, Red Blood Count 4.23L, Hemoglobin 12.4, Hematocrit 39, Mean Corpuscular Volume 92, Mean Corpuscular Hemoglobin 29, Mean Corpuscular Hemoglobin Concent 32, Red Cell Distribution Width 13.8, Platelet Count 392, Mean Platelet Volume 10.7H, Neutrophils (%) (Auto) 51, Lymphocytes (%) (Auto) 38 , Monocytes (%) (Auto) 8, Eosinophils (%) (Auto) 3, Basophils (%) (Auto) 0, Neutrophils # (Auto) 4.4, Lymphocytes # (Auto) 3.3, Monocytes # (Auto) 0.7, Eosinophils # (Auto) 0.3, Basophils # (Auto) 0.0, Sodium Level 141, Potassium Level 3.8, Chloride Level 108H, Carbon Dioxide Level 23, Anion Gap 10, Blood Urea Nitrogen 10, Creatinine 0.77, Estimat Glomerular Filtration Rate > 60, BUN/ Creatinine Ratio 13, Glucose Level 91, Calcium Level 9.5, Total Bilirubin 0.5, Aspartate Amino Transf (AST/SGOT) 14, Alanine Aminotransferase (ALT/SGPT) 40, Alkaline Phosphatase 69, Total Protein 6.6, Albumin 4.0 Microbiology 02/11/18 Urine Culture - Preliminary, Resulted Escherichia coli Assessment/Plan Assessment RT ICB with Left HP HTN Abnormal U/A Plan Continue PT/OT ST has signed off Team Conference to be held later today-See report for full functional update and POC and ELOS F/U re UC&S ELAINE GIBBS MD Feb 12, 2018 09:30
--- NOTE | 2018-02-12 10:59 | Physical Therapy Daily Note ---
PT Daily Note-Current Subjective Patient in wheelchair at bedside pre tx, agrees to PT, has no complaints of pain. Appearance Patient in bed post tx, has nurse call, phone, tray, bed alarm on. Mental Status Patient Orientation: Person, Place, Situation Transfers Functional [place] Measure 0=Not Assessed/NA 4=Minimal Assistance 1=Total Assistance 5=Supervision or Setup 2=Maximal Assistance 6=Modified [place] 3=Moderate Assistance 7=Complete IndependenceIRFPAI Quality Coding Scale 6 Independent with activity with or without an assistive device 5 Patient requires set up or clean up by helper. Patient completes activity by themselves 4 Supervision or touching assist (CGA). [place] provide cues , steadying assist 3 The helper provides less than half the effort to complete the activity 2 The helper provides more than half the effort to complete the activity 1 Dependent. The helper does all the effort to complete an activity 7 Patient refused to complete or attempt activity 9 The patient did not perform the activity before the current illness or injury 88 Not attempted due to Medical conditions or safety concerns Transfers (B, C, W/C) (FIM): 2 Scootin Rollin Supine to/from Sit: 3 Sit to/from Stand: 3 Bed to/from Chair: 2 Patient needs cues for safety and hand placement, is impulsive. Gait Training Gait (FIM): 1 Distance: 8'x3 Gait Level of Assist: 2 Gait Persons Needed: 1 Gait Assistive Device: Parallel Bars wheelchair follow, patient impulsive, needs total assist with blocking left leg and advancing it Wheelchair Training Does the Pt Use a Wheelchair?: Yes Wheelchair (FIM): 2 Distance: 50'x2 Wheelchair Level of Assist: 4 Type of Wheelchair: Manual min assist to help around corners and around obstacles Exercises NuStep Minutes: 15 NuStep Workload: 5 Treatments bed mobility and transfers, ambulation, wheelchair mobility, functional strengthening Assessment Current Status: Fair Progress Patient started ambulating today. Patient has left neglect and rarely will she ever even look to her left side. PT Short Term Goals Short Term Goals Time Frame: Feb 18, 2018 Transfers (B,C,W/C) (FIM): 3 Wheelchair (FIM): 4 Wheelchair Distance: 75' Wheelchair Level of Assist: 4 PT Shelter Goals Shelter Goals PT Retail District Manager Goals Time Frame: Mar 04, 2018 Transfers (B,C,W/C) (FIM): 4 Sit to Lying (QC): 3 Lying-Sitting on Side/Bed(QC): 3 Sit to Stand (QC): 3 Rollin Roll Left to Right (QC): 3 Chair/Tdx-td-Behve Xfer(QC): 3 Car Transfer (QC): 3 Gait (FIM): 1 Distance: 20' Walk 10 feet (QC): 3 Gait Level of Assist: 4 Gait Assistive Device: Walker Gaurav Wheelchair (FIM): 5 Distance: 150' Wheelchair Level of Assist: 5 Wheel 50 feet with 2 turns (QC: 4 PT Plan Problem List Problem List: Activity Tolerance, Functional Strength, Safety, Balance, Gait, Transfer, Bed Mobility, ROM Treatment/Plan Treatment Plan: Continue Plan of Care Treatment Plan: Bed Mobility, Concurrent Therapy, Education, Functional Activity Steven, Functional Strength, Group Therapy, Gait, Safety, Therapeutic Exercise, Transfers Treatment Duration: Mar 04, 2018 Frequency: At least 5 of 7 days/Wk (IRF) Estimated Hrs Per Day: 1.5 hours per day Patient and/or Family Agrees t: Yes Safety Risks/Education Patient Education: Gait Training, Transfer Techniques, Correct Positioning, Disease Process, Safety Issues Teaching Recipient: Patient Teaching Methods: Demonstration, Discussion Response to Teaching: Reinforcement Needed Patient has had very little education about CVA. Time/GCodes Time In: 1000 Time Out: 1100 Total Billed Treatment Time: 60 Total Billed Treatment 1 visit EX 15' WCH 15' FA 15' GT 15' JENIFER SOUSA PT Feb 12, 2018 10:58
--- NOTE | 2018-02-12 14:52 | Therapy Group Daily Note ---
Therapy Daily Group Note Patient Education Topic Other List Below Exercises LE Seated Exercise, UE Exercise Other/Notes Pt transported via w/c to OT/PT group. Group consisted of introductions (name, place living, "Remember when..."), socialization, pt led UE/LE seated exercises , education on work simplification and energy conservation. Pt introduced self appropriately and actively listened to peers introduce themselves. Pt verbalized understanding of educational topics and adaptive equipment that was introduced. Pt contributed to conversations throughout therapy and was attentive to peers opinions. Pt was able to direct group in an seated exercise. After group, pt sitting in w/c in room with family. Call light/ phone in reach. All needs met in room. Start Time: 13:00 Stop Time: 14:20 Total Billed Treatment Time: 80 Total Billed Treatment 1-GRP SINA CHIU Feb 12, 2018 14:52
--- NOTE | 2018-02-12 15:44 | Occupational Ther Daily Note ---
OT Current Status-Daily Note Subjective No pain reported. Appearance Pt. in bed. Nursing states that pt. did not sleep well last night. Pt. agrees to treatment. Mental Status/Objective Patient Orientation: Person Functional [place] Measure 0=Not Assessed/NA 4=Minimal Assistance 1=Total Assistance 5=Supervision or Setup 2=Maximal Assistance 6=Modified [place] 3=Moderate Assistance 7=Complete [place] ADL-Treatment Functional [place] Measure 0=Not Assessed/NA 4=Minimal Assistance 1=Total Assistance 5=Supervision or Setup 2=Maximal Assistance 6=Modified [place] 3=Moderate Assistance 7=Complete IndependenceIRFPAI Quality Coding Scale 6 Independent with activity with or without an assistive device 5 Patient requires set up or clean up by helper. Patient completes activity by themselves 4 Supervision or touching assist (CGA). [place] provide cues , steadying assist 3 The helper provides less than half the effort to complete the activity 2 The helper provides more than half the effort to complete the activity 1 Dependent. The helper does all the effort to complete an activity 7 Patient refused to complete or attempt activity 9 The patient did not perform the activity before the current illness or injury 88 Not attempted due to Medical conditions or safety concerns Bathing (FIM): 3 (OT washes rear april area and feet while pt. is on the shower chair. Pt. washes all other parts with CGA at times for balance when she leans forward.) Shower/Bathe Self (QC): 3 Lower Body Dressing (FIM): 2 Lower Body Dressing (QC): 2 On/Off Footwear (QC): 2 Transfers (B, C, W/C) (FIM): 2 (Max assist supine-sit, max assist sit-stand.) Shower Transfer(FIM): 1 Other Treatment After shower, pt. agreed to left UE ROM. Completed gentle PROM in all planes to left UE. Noted tone and tightness in left UE. Education OT Patient Education: Correct positioning, Exercise program, Modified ADL techniques, Progress toward Goal/Update tx plan, Purpose of tx/functional activities, Reviewed precautions, Rehab process, Transfer techniques Teaching Recipient: Patient Teaching Methods: Demonstration Response to Teaching: Verbalize Understanding, Return Demonstration OT Short Term Goals Short Term Goals Time Frame: Feb 25, 2018 Eating(FIM): 5 Grooming(FIM): 5 Bathing(FIM): 4 Upper Body Dressing(FIM): 4 Lower Body Dressing(FIM): 3 Toileting(FIM): 4 Transfers (B,C,W/C) (FIM): 3 Toilet/Commode Transfer(FIM): 4 Additional Short Term Goals: 1-Demonstrate ADL Tasks, 2-Verbalize Understanding , 3-ImproveStrength/Steven 1=Demonstrate adherence to instructed precautions during ADL tasks. 2=Patient will verbalize/demonstrate understanding of assistive devices/ modifications for ADL. 3=Patient will improve strength/tolerance for activity to enable patient to perform ADL's. OT Regional Sales Representative Goals Regional Sales Representative Goals Time Frame: Mar 11, 2018 Eating (FIM): 6 Eating (QC): 6 Groomin Oral Hygiene (QC): 6 Bathing(FIM): 5 Shower/Bathe Self (QC): 5 Upper Body Dressing(FIM): 6 Upper Body Dressing (QC): 6 Lower Body Dressing(FIM): 6 Lower Body Dressing (QC): 6 On/Off Footwear (QC): 6 Toileting(FIM): 6 Toileting Hygiene (QC): 6 Transfers (B,C,W/C) (FIM): 6 Toilet/Commode Transfer(FIM): 6 Toilet/Commode Transfer (QC): 6 Shower Transfer(FIM): 5 Additional Goals: 1-Demonstrate ADL Tasks, 2-Verbalize Understanding, 3- ImproveStrength/Steven 1=Demonstrate adherence to instructed precautions during ADL tasks. 2=Patient will verbalize/demonstrate understanding of assistive devices/ modifications for ADL. 3=Patient will improve strength/tolerance for activity to enable patient to perform ADL's. OT Education/Plan Problem List/Assessment Assessment: Decreased Activ Tolerance, Decreased Safety Aware, Decreased UE Strength, Dependent Transfers, Impaired Bed Mobility, Impaired Cognition, Impaired Coordination, Impaired Funct Balance, Impaired I ADL's, Impaired Self- Care Skills, Restricted Funct UE ROM, Visual-Perceptual Deficit Discharge Recommendations Plan/Recommendations: Continue POC Therapy D/C Recommendations: Home w/ Family Support, Occupational Therapy Home Care Comment Equipment needs and discharge placement to be determined. Treatment Plan/Plan of Care Treatment,Training & Education: Yes Patient would benefit from OT for education, treatment and training to promote independence in ADL's, mobility, safety and/or upper extremity function for ADL' s. Plan of Care: ADL Retraining, Functional Mobility, Group Exercise/Act as Ind, UE Funct Exercise/Act Treatment Duration: Mar 11, 2018 Frequency: At least 5 of 7 days/Wk (IRF) Estimated Hrs Per Day: 1.5 hours per day Agreement: Yes Rehab Potential: Good Time/GCodes Start Time: 08:30 Stop Time: 09:30 Total Time Billed (hr/min): 60 Billed Treatment Time 1, ADL x 45minutes, Ex x 15minutes QAMAR SIMPSON OT Feb 12, 2018 15:44
--- NOTE | 2018-02-12 15:57 | Occupational Ther Daily Note ---
OT Current Status-Daily Note Subjective No pain reported. Pt. asked OT if she could help her get dressed and toilet. Appearance Pt. in bed. Family in room. Mental Status/Objective Patient Orientation: Person Functional [place] Measure 0=Not Assessed/NA 4=Minimal Assistance 1=Total Assistance 5=Supervision or Setup 2=Maximal Assistance 6=Modified [place] 3=Moderate Assistance 7=Complete [place] ADL-Treatment Functional [place] Measure 0=Not Assessed/NA 4=Minimal Assistance 1=Total Assistance 5=Supervision or Setup 2=Maximal Assistance 6=Modified [place] 3=Moderate Assistance 7=Complete IndependenceIRFPAI Quality Coding Scale 6 Independent with activity with or without an assistive device 5 Patient requires set up or clean up by helper. Patient completes activity by themselves 4 Supervision or touching assist (CGA). [place] provide cues , steadying assist 3 The helper provides less than half the effort to complete the activity 2 The helper provides more than half the effort to complete the activity 1 Dependent. The helper does all the effort to complete an activity 7 Patient refused to complete or attempt activity 9 The patient did not perform the activity before the current illness or injury 88 Not attempted due to Medical conditions or safety concerns Upper Body (FIM): 2 (Max assist to don bra and shirt.) Upper Body Dressing (QC): 2 Lower Body Dressing (FIM): 2 (Max assist to don underwear, pants, and socks.) Lower Body Dressing (QC): 2 On/Off Footwear (QC): 2 Toileting (FIM): 2 Toileting Hygiene (QC): 2 Transfers (B, C, W/C) (FIM): 2 Toilet/Commode Transfer (FIM): 2 Toilet Transfer (QC): 2 Education OT Patient Education: Correct positioning, Modified ADL techniques, Progress toward Goal/Update tx plan, Purpose of tx/functional activities, Reviewed precautions, Rehab process, Transfer techniques Teaching Recipient: Patient Teaching Methods: Demonstration, Discussion Response to Teaching: Verbalize Understanding, Return Demonstration OT Short Term Goals Short Term Goals Time Frame: Feb 25, 2018 Eating(FIM): 5 Grooming(FIM): 5 Bathing(FIM): 4 Upper Body Dressing(FIM): 4 Lower Body Dressing(FIM): 3 Toileting(FIM): 4 Transfers (B,C,W/C) (FIM): 3 Toilet/Commode Transfer(FIM): 4 Additional Short Term Goals: 1-Demonstrate ADL Tasks, 2-Verbalize Understanding , 3-ImproveStrength/Steven 1=Demonstrate adherence to instructed precautions during ADL tasks. 2=Patient will verbalize/demonstrate understanding of assistive devices/ modifications for ADL. 3=Patient will improve strength/tolerance for activity to enable patient to perform ADL's. OT Senior Living Goals Regrinder Goals Time Frame: Mar 11, 2018 Eating (FIM): 6 Eating (QC): 6 Groomin Oral Hygiene (QC): 6 Bathing(FIM): 5 Shower/Bathe Self (QC): 5 Upper Body Dressing(FIM): 6 Upper Body Dressing (QC): 6 Lower Body Dressing(FIM): 6 Lower Body Dressing (QC): 6 On/Off Footwear (QC): 6 Toileting(FIM): 6 Toileting Hygiene (QC): 6 Transfers (B,C,W/C) (FIM): 6 Toilet/Commode Transfer(FIM): 6 Toilet/Commode Transfer (QC): 6 Shower Transfer(FIM): 5 Additional Goals: 1-Demonstrate ADL Tasks, 2-Verbalize Understanding, 3- ImproveStrength/Steven 1=Demonstrate adherence to instructed precautions during ADL tasks. 2=Patient will verbalize/demonstrate understanding of assistive devices/ modifications for ADL. 3=Patient will improve strength/tolerance for activity to enable patient to perform ADL's. OT Education/Plan Problem List/Assessment Assessment: Decreased Activ Tolerance, Decreased UE Strength, Dependent Transfers, Impaired Bed Mobility, Impaired Cognition, Impaired Coordination, Impaired Funct Balance, Impaired I ADL's, Impaired Self-Care Skills, Restricted Funct UE ROM, Visual-Perceptual Deficit Discharge Recommendations Plan/Recommendations: Continue POC Therapy D/C Recommendations: Home w/ Family Support, Occupational Therapy Home Care Treatment Plan/Plan of Care Treatment,Training & Education: Yes Patient would benefit from OT for education, treatment and training to promote independence in ADL's, mobility, safety and/or upper extremity function for ADL' s. Plan of Care: ADL Retraining, Functional Mobility, Group Exercise/Act as Ind, UE Funct Exercise/Act Treatment Duration: Mar 11, 2018 Frequency: At least 5 of 7 days/Wk (IRF) Estimated Hrs Per Day: 1.5 hours per day Agreement: Yes Rehab Potential: Good Time/GCodes Start Time: 14:15 Stop Time: 14:40 Total Time Billed (hr/min): 25 Billed Treatment Time 1, ADL x 2 QAMAR SIMPSON OT Feb 12, 2018 15:57
[2018-02-12] MEDS: TRIM/SULFAMETH 160/800 (SEPTRA DS) TAB PO SCH (17:29)
[2018-02-12 18:00] VITALS: BP 122/84
[2018-02-12] MEDS: ALPRAZolam 0.25 MG (XANAX) TAB PO PRN (20:20)
[2018-02-13 05:02] VITALS: BP 114/77
[2018-02-13] MEDS: PANTOPRAZOLE 40 MG (PROTONIX) TAB PO SCH (06:14)
[2018-02-13] MEDS: TRIM/SULFAMETH 160/800 (SEPTRA DS) TAB PO SCH (06:14)
[2018-02-13] MEDS: amLODIPine 5 MG (NORVASC) TAB PO SCH (08:06)
[2018-02-13] MEDS: fluCOnazole (DIFLUCAN) 100 MG TAB PO SCH (08:07)
[2018-02-13] MEDS: NYSTATIN CREAM (MYCOSTATIN) 30 GM TUBE TP SCH ×3 (08:07→19:29)
[2018-02-13] MEDS: LEVETIRACETAM 500 MG (KEPPRA) TAB PO SCH ×2 (08:07→19:29)
--- NOTE | 2018-02-13 08:28 | Occupational Ther Daily Note ---
OT Current Status-Daily Note Subjective Pt alert, lying in bed. Pt agreed to therapy. No c/o pain at this time. Mental Status/Objective Patient Orientation: Person, Place, Situation Functional [place] Measure 0=Not Assessed/NA 4=Minimal Assistance 1=Total Assistance 5=Supervision or Setup 2=Maximal Assistance 6=Modified [place] 3=Moderate Assistance 7=Complete [place] ADL-Treatment Pt declined shower today. Pt did complete sponge bath after set up. Completed april care lying in bed. Mod A to go from supine to sitting. Pt cleansed upper body sitting on EOB. Pt educated on one-handed dressing techniques, reinforcement needed. Max A for upper body dressing. Assist x2 for lower body dressing, 1 person to stand other person to hike pants over hips. Transferred to w/c with max A. Sitting in front of sink, pt able to complete oral care by self. Functional [place] Measure 0=Not Assessed/NA 4=Minimal Assistance 1=Total Assistance 5=Supervision or Setup 2=Maximal Assistance 6=Modified [place] 3=Moderate Assistance 7=Complete IndependenceIRFPAI Quality Coding Scale 6 Independent with activity with or without an assistive device 5 Patient requires set up or clean up by helper. Patient completes activity by themselves 4 Supervision or touching assist (CGA). [place] provide cues , steadying assist 3 The helper provides less than half the effort to complete the activity 2 The helper provides more than half the effort to complete the activity 1 Dependent. The helper does all the effort to complete an activity 7 Patient refused to complete or attempt activity 9 The patient did not perform the activity before the current illness or injury 88 Not attempted due to Medical conditions or safety concerns Grooming (FIM): 6 Oral Hygiene (QC): 6 Upper Body (FIM): 2 Upper Body Dressing (QC): 2 Lower Body Dressing (FIM): 1 Lower Body Dressing (QC): 1 On/Off Footwear (QC): 2 Other Treatment Pt maneuvered w/c from room to therapy gym. Pt transferred with max A from w/c to therapy mat and back. Mod A to lay supine on mat. PROM to L UE for stretch and increasing ROM. Anterior subluxation noted of L shldr. Tightness around shldr girdle, elbow and hand. Wt bearing completed through L elbow. Pt able to right self with CGA when leaning slightly to L. When pt attempts to place L elbow on mat in sitting, pt loses balance back and to the L. Pt then worked on dynamic sitting balance while placing cones on floor, toward R and L side with min A for proper body mechanics. Pt then requested to use arm bike. L hand placed on handle with wrap and assist needed to guide L UE with rotation, 3 min no resistance. Arm skate placed on L forearm to work on AAROM without resistance. No active movement noted, flexor synergy patterning noted. Pt requested to go to bed after therapy. BIGGS encouraged pt to stay up in w/c and move around ARU. Pt stated she would after PT and she wanted to rest before PT. After therapy, pt lying in bed with call light/phone in reach. All needs met in room. Education OT Patient Education: Modified ADL techniques, W/C management Teaching Recipient: Patient Teaching Methods: Demonstration, Discussion Response to Teaching: Reinforcement Needed OT Short Term Goals Short Term Goals Time Frame: Feb 25, 2018 Eating(FIM): 5 Grooming(FIM): 5 Bathing(FIM): 4 Upper Body Dressing(FIM): 4 Lower Body Dressing(FIM): 3 Toileting(FIM): 4 Transfers (B,C,W/C) (FIM): 3 Toilet/Commode Transfer(FIM): 4 Additional Short Term Goals: 1-Demonstrate ADL Tasks, 2-Verbalize Understanding , 3-ImproveStrength/Steven 1=Demonstrate adherence to instructed precautions during ADL tasks. 2=Patient will verbalize/demonstrate understanding of assistive devices/ modifications for ADL. 3=Patient will improve strength/tolerance for activity to enable patient to perform ADL's. OT Cotton Ginner Goals Cotton Ginner Goals Time Frame: Mar 11, 2018 Eating (FIM): 6 Eating (QC): 6 Groomin Oral Hygiene (QC): 6 Bathing(FIM): 5 Shower/Bathe Self (QC): 5 Upper Body Dressing(FIM): 6 Upper Body Dressing (QC): 6 Lower Body Dressing(FIM): 6 Lower Body Dressing (QC): 6 On/Off Footwear (QC): 6 Toileting(FIM): 6 Toileting Hygiene (QC): 6 Transfers (B,C,W/C) (FIM): 6 Toilet/Commode Transfer(FIM): 6 Toilet/Commode Transfer (QC): 6 Shower Transfer(FIM): 5 Additional Goals: 1-Demonstrate ADL Tasks, 2-Verbalize Understanding, 3- ImproveStrength/Steven 1=Demonstrate adherence to instructed precautions during ADL tasks. 2=Patient will verbalize/demonstrate understanding of assistive devices/ modifications for ADL. 3=Patient will improve strength/tolerance for activity to enable patient to perform ADL's. OT Education/Plan Discharge Recommendations Plan/Recommendations: Continue POC Treatment Plan/Plan of Care Patient would benefit from OT for education, treatment and training to promote independence in ADL's, mobility, safety and/or upper extremity function for ADL' s. Plan of Care: ADL Retraining, Functional Mobility, Group Exercise/Act as Ind, UE Funct Exercise/Act Treatment Duration: Mar 11, 2018 Frequency: At least 5 of 7 days/Wk (IRF) Estimated Hrs Per Day: 1.5 hours per day Agreement: Yes Rehab Potential: Good Time/GCodes Start Time: 07:00 Stop Time: 08:30 Total Time Billed (hr/min): 90 Billed Treatment Time 1 visit-ADL 2 (30 min) NM 4 (60 min) SINA CHIU Feb 13, 2018 08:28
--- NOTE | 2018-02-13 08:39 | Progress Note (SOAP) ---
Subjective Time Seen by Provider: 08:40 Subjective/Events-last exam CVA. Patient depressed. Patient put on medicine Objective Exam Vital Signs Date Time Temp Pulse Resp B/P (MAP) Pulse Ox O2 Delivery O2 Flow Rate FiO2 02/13/18 05:02 97.7 71 18 114/77 (89) 99 Room Air 02/12/18 20:20 Room Air 02/12/18 18:00 97.0 88 16 122/84 (97) 96 Room Air 02/12/18 09:00 Room Air I & O 02/13/18 07:00 Intake Total 1310 ml Output Total 600 ml Balance 710 ml Capillary Refill : General Appearance: No Apparent Distress, WD/WN Results Lab Microbiology 02/11/18 Urine Culture - Preliminary, Resulted Escherichia coli Assessment/Plan Assessment/Plan Assess & Plan/Chief Complaint CVA with hemorrhage. Tobacco usage. Stroke on the left side of body. Recency of baby girl. . 02/15/18. CVA with hemorrhage. Tobacco usage. Hypertension. Stroke on left side of the body. infection. . 02/13/18. CVA with hemorrhage. Tobacco usage. Hypertension. infection. Patient depressed Clinical Quality Measures DVT/VTE Risk/Contraindication: Risk Factor Score Per Nursin RFS Level Per Nursing on Admit: 4+=Very High ASHANTI RUSH DO Feb 13, 2018 08:39
--- NOTE | 2018-02-13 11:07 | Physical Therapy Daily Note ---
PT Daily Note-Current Subjective Patient in bed pre tx, agrees to PT, no complaints of pain. Appearance Patient in bed post tx with nurse call, phone, tray, family in room, all needs met. Mental Status Patient Orientation: Person, Place, Situation Transfers Functional [place] Measure 0=Not Assessed/NA 4=Minimal Assistance 1=Total Assistance 5=Supervision or Setup 2=Maximal Assistance 6=Modified [place] 3=Moderate Assistance 7=Complete IndependenceIRFPAI Quality Coding Scale 6 Independent with activity with or without an assistive device 5 Patient requires set up or clean up by helper. Patient completes activity by themselves 4 Supervision or touching assist (CGA). [place] provide cues , steadying assist 3 The helper provides less than half the effort to complete the activity 2 The helper provides more than half the effort to complete the activity 1 Dependent. The helper does all the effort to complete an activity 7 Patient refused to complete or attempt activity 9 The patient did not perform the activity before the current illness or injury 88 Not attempted due to Medical conditions or safety concerns Transfers (B, C, W/C) (FIM): 3 Scootin Rollin Supine to/from Sit: 4 Sit to/from Stand: 4 Bed to/from Chair: 3 Improved stand pivot transfers, mod assist to both sides. Cues for positioning. Transfer training, patient performed a stand pivot transfer x7 to the left and x7 to the right. Wheelchair Training Does the Pt Use a Wheelchair?: Yes Wheelchair (FIM): 4 Distance: 100'x2 Wheelchair Level of Assist: 4 Type of Wheelchair: Manual Less assist but still needs help around obstacles and corners. Exercises PROM LLE in all planes, patient encouraged to assist with leg extension and SAQ x20, sit to stand 3 sets of 5 Treatments bed mobility, transfer training, ROM Assessment Current Status: Fair Progress Patient shows improved sitting balance and required less assist with transfers PT Short Term Goals Short Term Goals Time Frame: Feb 18, 2018 Transfers (B,C,W/C) (FIM): 3 Wheelchair (FIM): 4 Wheelchair Distance: 50'x2 Wheelchair Level of Assist: 4 PT Picker Tender Helper Goals Fpc Goals PT Picker Tender Helper Goals Time Frame: Mar 04, 2018 Transfers (B,C,W/C) (FIM): 4 Sit to Lying (QC): 3 Lying-Sitting on Side/Bed(QC): 3 Sit to Stand (QC): 3 Rollin Roll Left to Right (QC): 3 Chair/Fzd-pf-Iirmi Xfer(QC): 3 Car Transfer (QC): 3 Gait (FIM): 1 Distance: 20' Walk 10 feet (QC): 3 Gait Level of Assist: 4 Gait Assistive Device: Walker Gaurav Wheelchair (FIM): 5 Distance: 150' Wheelchair Level of Assist: 5 Wheel 50 feet with 2 turns (QC: 4 PT Plan Problem List Problem List: Activity Tolerance, Functional Strength, Safety, Balance, Gait, Transfer, Bed Mobility, ROM Treatment/Plan Treatment Plan: Continue Plan of Care Treatment Plan: Bed Mobility, Concurrent Therapy, Education, Functional Activity Steven, Functional Strength, Group Therapy, Gait, Safety, Therapeutic Exercise, Transfers Treatment Duration: Mar 04, 2018 Frequency: At least 5 of 7 days/Wk (IRF) Estimated Hrs Per Day: 1.5 hours per day Patient and/or Family Agrees t: Yes Safety Risks/Education Patient Education: Transfer Techniques, Correct Positioning, W/C Management, Safety Issues Teaching Recipient: Patient Teaching Methods: Demonstration, Discussion Response to Teaching: Reinforcement Needed Time/GCodes Time In: 1000 Time Out: 1100 Total Billed Treatment Time: 60 Total Billed Treatment 1 visit [facility] 15' EX 15' FA 30' JENIFER SOUSA PT Feb 13, 2018 11:07
[2018-02-13] MEDS: NITROFURANTOIN 100 MG (MACROBID) CAPSULE PO SCH ×2 (12:37→19:29)
--- NOTE | 2018-02-13 13:30 | Physical Therapy Daily Note ---
PT Daily Note-Current Subjective Patient in bed pre tx, agrees to PT, no complaints of pain. Appearance Patient in recliner post tx with legs elevated, has nurse call, phone, tray, all needs met. Mental Status Patient Orientation: Person, Place, Situation Transfers Functional [place] Measure 0=Not Assessed/NA 4=Minimal Assistance 1=Total Assistance 5=Supervision or Setup 2=Maximal Assistance 6=Modified [place] 3=Moderate Assistance 7=Complete IndependenceIRFPAI Quality Coding Scale 6 Independent with activity with or without an assistive device 5 Patient requires set up or clean up by helper. Patient completes activity by themselves 4 Supervision or touching assist (CGA). [place] provide cues , steadying assist 3 The helper provides less than half the effort to complete the activity 2 The helper provides more than half the effort to complete the activity 1 Dependent. The helper does all the effort to complete an activity 7 Patient refused to complete or attempt activity 9 The patient did not perform the activity before the current illness or injury 88 Not attempted due to Medical conditions or safety concerns Transfers (B, C, W/C) (FIM): 3 Scootin Rollin Supine to/from Sit: 4 Sit to/from Stand: 4 Bed to/from Chair: 3 Gait Training Gait (FIM): 1 Distance: 8'x3 Gait Level of Assist: 3 Gait Persons Needed: 1 Gait Assistive Device: Parallel Bars Patient needs assist with balance and advancing her left leg and blocking her left knee when stepping with her right leg. Wheelchair Training Does the Pt Use a Wheelchair?: Yes Wheelchair (FIM): 2 Distance: 100'x2 Wheelchair Level of Assist: 4 Type of Wheelchair: Manual Treatments bed mobility and transfers, ambulation, wheelchair mobility Assessment Current Status: Fair Progress improving wheelchair mobility and transfers, PT Short Term Goals Short Term Goals Time Frame: Feb 18, 2018 Transfers (B,C,W/C) (FIM): 3 Wheelchair (FIM): 4 Wheelchair Distance: 100'x2 Wheelchair Level of Assist: 4 PT Director Of Business Services Goals Detention Goals PT Director Of Business Services Goals Time Frame: Mar 04, 2018 Transfers (B,C,W/C) (FIM): 4 Sit to Lying (QC): 3 Lying-Sitting on Side/Bed(QC): 3 Sit to Stand (QC): 3 Rollin Roll Left to Right (QC): 3 Chair/Mej-md-Actco Xfer(QC): 3 Car Transfer (QC): 3 Gait (FIM): 1 Distance: 20' Walk 10 feet (QC): 3 Gait Level of Assist: 4 Gait Assistive Device: Walker Gaurav Wheelchair (FIM): 5 Distance: 150' Wheelchair Level of Assist: 5 Wheel 50 feet with 2 turns (QC: 4 PT Plan Problem List Problem List: Activity Tolerance, Functional Strength, Safety, Balance, Gait, Transfer, Bed Mobility, ROM Treatment/Plan Treatment Plan: Continue Plan of Care Treatment Plan: Bed Mobility, Concurrent Therapy, Education, Functional Activity Steven, Functional Strength, Group Therapy, Gait, Safety, Therapeutic Exercise, Transfers Treatment Duration: Mar 04, 2018 Frequency: At least 5 of 7 days/Wk (IRF) Estimated Hrs Per Day: 1.5 hours per day Patient and/or Family Agrees t: Yes Safety Risks/Education Patient Education: Gait Training, Transfer Techniques, Correct Positioning, W/ C Management, Safety Issues Teaching Recipient: Patient Teaching Methods: Demonstration, Discussion Response to Teaching: Reinforcement Needed Time/GCodes Time In: 1300 Time Out: 1330 Total Billed Treatment Time: 30 Total Billed Treatment 1 visit [facility] 15' GT 15' JENIFER SOUSA PT Feb 13, 2018 13:30
--- NOTE | 2018-02-13 15:38 | Occupational Ther Daily Note ---
OT Current Status-Daily Note Subjective No pain reported. Appearance Pt .in chair. Requests to use BSC and go to bed. Mental Status/Objective Patient Orientation: Person Functional [place] Measure 0=Not Assessed/NA 4=Minimal Assistance 1=Total Assistance 5=Supervision or Setup 2=Maximal Assistance 6=Modified [place] 3=Moderate Assistance 7=Complete [place] ADL-Treatment Functional [place] Measure 0=Not Assessed/NA 4=Minimal Assistance 1=Total Assistance 5=Supervision or Setup 2=Maximal Assistance 6=Modified [place] 3=Moderate Assistance 7=Complete IndependenceIRFPAI Quality Coding Scale 6 Independent with activity with or without an assistive device 5 Patient requires set up or clean up by helper. Patient completes activity by themselves 4 Supervision or touching assist (CGA). [place] provide cues , steadying assist 3 The helper provides less than half the effort to complete the activity 2 The helper provides more than half the effort to complete the activity 1 Dependent. The helper does all the effort to complete an activity 7 Patient refused to complete or attempt activity 9 The patient did not perform the activity before the current illness or injury 88 Not attempted due to Medical conditions or safety concerns Upper Body (FIM): 2 (Pt. required max assist to doff shirt, as she wanted to don hospital gown.) Upper Body Dressing (QC): 2 Lower Body Dressing (FIM): 2 (Max assist needed to doff socks, underwear, and pants.) Lower Body Dressing (QC): 2 On/Off Footwear (QC): 1 Toileting (FIM): 3 (Pt. able to cleanse front april area with wipe after toileting. Assist for clothing management.) Toileting Hygiene (QC): 3 Transfers (B, C, W/C) (FIM): 2 (Max assist to stand and pivot toward strong side to bSC, and then to bed.) Toilet/Commode Transfer (FIM): 2 Toilet Transfer (QC): 2 Education OT Patient Education: Correct positioning, Modified ADL techniques, Progress toward Goal/Update tx plan, Purpose of tx/functional activities, Reviewed precautions, Rehab process Teaching Recipient: Patient Teaching Methods: Demonstration Response to Teaching: Verbalize Understanding, Return Demonstration OT Short Term Goals Short Term Goals Time Frame: Feb 25, 2018 Eating(FIM): 5 Grooming(FIM): 5 Bathing(FIM): 4 Upper Body Dressing(FIM): 4 Lower Body Dressing(FIM): 3 Toileting(FIM): 4 Transfers (B,C,W/C) (FIM): 3 Toilet/Commode Transfer(FIM): 4 Additional Short Term Goals: 1-Demonstrate ADL Tasks, 2-Verbalize Understanding , 3-ImproveStrength/Steven 1=Demonstrate adherence to instructed precautions during ADL tasks. 2=Patient will verbalize/demonstrate understanding of assistive devices/ modifications for ADL. 3=Patient will improve strength/tolerance for activity to enable patient to perform ADL's. OT Care Home Goals Care Home Goals Time Frame: Mar 11, 2018 Eating (FIM): 6 Eating (QC): 6 Groomin Oral Hygiene (QC): 6 Bathing(FIM): 5 Shower/Bathe Self (QC): 5 Upper Body Dressing(FIM): 6 Upper Body Dressing (QC): 6 Lower Body Dressing(FIM): 6 Lower Body Dressing (QC): 6 On/Off Footwear (QC): 6 Toileting(FIM): 6 Toileting Hygiene (QC): 6 Transfers (B,C,W/C) (FIM): 6 Toilet/Commode Transfer(FIM): 6 Toilet/Commode Transfer (QC): 6 Shower Transfer(FIM): 5 Additional Goals: 1-Demonstrate ADL Tasks, 2-Verbalize Understanding, 3- ImproveStrength/Steven 1=Demonstrate adherence to instructed precautions during ADL tasks. 2=Patient will verbalize/demonstrate understanding of assistive devices/ modifications for ADL. 3=Patient will improve strength/tolerance for activity to enable patient to perform ADL's. OT Education/Plan Problem List/Assessment Assessment: Decreased Activ Tolerance, Decreased UE Strength, Dependent Transfers, Impaired Bed Mobility, Impaired Coordination, Impaired Funct Balance , Impaired I ADL's, Impaired Self-Care Skills, Restricted Funct UE ROM, Visual- Perceptual Deficit Discharge Recommendations Plan/Recommendations: Continue POC Therapy D/C Recommendations: Home w/ Family Support, Occupational Therapy Home Care, Scheduled Assistance Treatment Plan/Plan of Care Treatment,Training & Education: Yes Patient would benefit from OT for education, treatment and training to promote independence in ADL's, mobility, safety and/or upper extremity function for ADL' s. Plan of Care: ADL Retraining, Functional Mobility, Group Exercise/Act as Ind, UE Funct Exercise/Act Treatment Duration: Mar 11, 2018 Frequency: At least 5 of 7 days/Wk (IRF) Estimated Hrs Per Day: 1.5 hours per day Agreement: Yes Rehab Potential: Good Time/GCodes Start Time: 14:50 Stop Time: 15:05 Total Time Billed (hr/min): 15 Billed Treatment Time 1, ADL QAMAR SIMPSON OT Feb 13, 2018 15:38
[2018-02-13] MEDS: ACETAMINOPHEN 325 MG TABLET/CAPLET (TYLENOL) PO PRN (17:45)
[2018-02-13 18:00] VITALS: BP 123/68
--- NOTE | 2018-02-13 18:45 | PM & R (SOAP) Progress Note ---
Subjective Time Seen by Provider: 18:20 Subjective/Events-last exam Patient was seen in her room this evening Tolerating Antibiotic for UTI RN reports no BM for several days -See RX Objective Exam Last Set of Vital Signs Vital Signs Date Time Temp Pulse Resp B/P (MAP) Pulse Ox O2 Delivery O2 Flow Rate FiO2 02/13/18 18:00 97.0 70 18 123/68 (86) 99 Room Air Capillary Refill : I&O Intake and Output 02/13/18 00:00 Intake Total 1110 ml Output Total 600 ml Balance 510 ml Intake Oral 1110 ml Output Urine Total 600 ml # Voids 5 # Urine Diapers 1 General: Alert, Oriented X3, Cooperative, No Acute Distress HEENT: Atraumatic, PERRLA, EOMI, Mucous Memb Moist/[place] Neck: Supple, No JVD Lungs: Clear to Auscultation Heart: Regular Rate Abdomen: Normal Bowel Sounds, Soft, No Tenderness Extremities: No Edema Neuro: Other (Left HP) Results Lab Laboratory Tests 02/11/18 13:30: Urine Color YELLOW, Urine Clarity SLIGHTLY CLOUDY, Urine pH 5, Urine Specific [place] 1.030H, Urine Protein 2+H, Urine Glucose (UA) NEGATIVE, Urine Ketones NEGATIVE, Urine Nitrite POSITIVEH, Urine Bilirubin NEGATIVE, Urine Urobilinogen NORMAL, Urine Leukocyte Esterase 3+H, Urine RBC (Auto) 4+H, Urine RBC 5-10H, Urine WBC >100H, Urine Squamous Epithelial Cells 2-5, Urine Crystals NONE, Urine Bacteria MODERATEH, Urine Casts NONE, Urine Mucus SMALLH, Urine Culture Indicated YES 02/12/18 05:00: White Blood Count 8.8, Red Blood Count 4.23L, Hemoglobin 12.4, Hematocrit 39, Mean Corpuscular Volume 92, Mean Corpuscular Hemoglobin 29, Mean Corpuscular Hemoglobin Concent 32, Red Cell Distribution Width 13.8, Platelet Count 392, Mean Platelet Volume 10.7H, Neutrophils (%) (Auto) 51, Lymphocytes (%) (Auto) 38 , Monocytes (%) (Auto) 8, Eosinophils (%) (Auto) 3, Basophils (%) (Auto) 0, Neutrophils # (Auto) 4.4, Lymphocytes # (Auto) 3.3, Monocytes # (Auto) 0.7, Eosinophils # (Auto) 0.3, Basophils # (Auto) 0.0, Sodium Level 141, Potassium Level 3.8, Chloride Level 108H, Carbon Dioxide Level 23, Anion Gap 10, Blood Urea Nitrogen 10, Creatinine 0.77, Estimat Glomerular Filtration Rate > 60, BUN/ Creatinine Ratio 13, Glucose Level 91, Calcium Level 9.5, Total Bilirubin 0.5, Aspartate Amino Transf (AST/SGOT) 14, Alanine Aminotransferase (ALT/SGPT) 40, Alkaline Phosphatase 69, Total Protein 6.6, Albumin 4.0 Microbiology 02/11/18 Urine Culture - Final, Complete Escherichia coli Assessment/Plan Assessment RT ICB with Left HP HTN E COLI UTI Reactive depression med added Constipation meds adjusted Plan Continue PT/OT ST has signed off Team Conference held yesterday-See report for full functional update and POC and ELOS Bowel meds adjusted [facility] to see See orders. ELAINE GIBBS MD Feb 13, 2018 18:45
--- NOTE | 2018-02-13 18:52 | Individualized Plan of Care ---
Individualized Plan of Care Rehab Nursing IPOC Order Admission Date Feb 10, 2018 at 18:05 Current Orders Orders Request Ot Evaluate & Treat (02/10/18 18:29) Ambulate TID (02/10/18 18:29) Sequential Compression Device (02/10/18 18:29) Dvt/Vte Risk - Notifiy Physici 08 (02/10/18 18:29) General/Regular (02/10/18 Dinner) Acetaminophen Tablet/Caplet (Tylenol T (02/10/18 18:45) Amlodipine Tablet (Norvasc Tablet) (02/11/18 09:00) Pantoprazole Tablet (Protonix Tablet) (02/11/18 07:00) Levetiracetam Tablet (Keppra Tablet) (02/10/18 21:00) Consult Physician (02/10/18 18:58) Nursing Communication (Ord) (02/10/18 20:30) Admission Order(Inpt,Obs,Sdc) (02/10/18 17:35) Code/Resuscitation (02/10/18 20:33) Initiate Admission Nursing Pro .admission (02/10/18 20:33) Social Service (02/11/18 01:33) Physical Therapy [place] (02/11/18 08:21) Speech Therapy Orders (02/11/18 08:21) Fluconazole Tablet (Diflucan Tablet) (02/11/18 10:00) Cbc With Automated Diff (02/12/18 06:00) Comprehensive Metabolic Panel (02/12/18 06:00) Ua Culture If Indicated (02/11/18 13:34) Patient Visit (02/11/18 ) Speech Sound Lang Comp (02/11/18 ) Urine Culture (02/11/18 13:30) Catheter(Urinary) Discontinue (02/11/18 14:23) Nystatin Cream (Mycostatin Cream) (02/11/18 14:35) Patient Visit (02/11/18 ) Pt Eval Moderate Complexity (02/11/18 ) Functional Activities, Ea 15 (02/11/18 ) Exercise Therap, Ea 15 Min (02/11/18 ) Alprazolam Tablet (Xanax Tablet) (02/12/18 10:15) Patient Visit (02/12/18 ) Exercise Therap, Ea 15 Min (02/12/18 ) Wheelchair Mgmt/Propulsn 15min (02/12/18 ) Functional Activities, Ea 15 (02/12/18 ) Gait Training, Ea 15 Min (02/12/18 ) Behavorial Health Consult (02/12/18 14:57) Sulfamethoxazole/Trimet Ds Tab (Bactrim (02/12/18 17:00) Fluconazole Tablet (Diflucan Tablet) (02/13/18 09:00) Pharmacy Communication (Pharmacy Communi (02/12/18 15:00) Patient Visit (02/12/18 ) Nitrofurantoin Capsule,Macro (Macrobid C (02/13/18 09:00) Citalopram Tablet (Celexa Tablet) (02/13/18 09:45) Patient Visit (02/13/18 ) Functional Activities, Ea 15 (02/13/18 ) Exercise Therap, Ea 15 Min (02/13/18 ) Wheelchair Mgmt/Propulsn 15min (02/13/18 ) Gait Training, Ea 15 Min (02/13/18 ) Other Nursing Orders: Monitor for constipation and urinary retention and improvement of skin rash PT IPOC Problem List: Activity Tolerance, Functional Strength, Safety, Balance, Gait, Transfer, Bed Mobility, ROM Treatment Plan: Continue Plan of Care Bed Mobility, Concurrent Therapy, Education, Functional Activity Steven, Functional Strength, Group Therapy, Gait, Safety, Therapeutic Exercise, Transfers Treatment Duration: Mar 04, 2018 Frequency: At least 5 of 7 days/Wk (IRF) Estimated Hrs Per Day: 1.5 hours per day OT IPOC Problems: Decreased Activ Tolerance, Decreased UE Strength, Dependent Transfers , Impaired Bed Mobility, Impaired Coordination, Impaired Funct Balance, Impaired I ADL's, Impaired Self-Care Skills, Restricted Funct UE ROM, Visual- Perceptual Deficit OT Treatment, Training and Edu: Yes Plan of Care: ADL Retraining, Functional Mobility, Group Exercise/Act as Ind, UE Funct Exercise/Act Treatment Duration: Mar 11, 2018 Frequency: At least 5 of 7 days/Wk (IRF) Estimated Hrs Per Day: 1.[address] IPOC Speech Therapy Treatment Plan: Discontinue ST Treatment Duration: Feb 13, 2018 Frequency: Modified Program (IRF) Estimated Hrs Per Day: Other Electric Solderer/Case Mgmt Electric Solderer/Case Managemen: Discharge Planning, Patient/Family Counseling Physician IPOC Medical Issues being managed closely and that require the 24 hour availability of a physician: UTI Constipation HTN Reactive depression C CODE 01.1 Etiologic DX RT ICB with Left HP Medical Issues: Bowel/Bladder Function, DVT Prophylaxis, Falls Precautions, Fluid/Electrolyte/Nutrition Balance, Infection Protection, Pain Management, Other (List) (as per above) Brief Synthesis of Preadmission Screen, Post-Admission Evaluation, and Therapy Evaluations: 27 yo female with stroke s/p Delivery with resulting left HP Had been Independent prior to this Now being treated for UTI constipation and HTN [facility] to see re reactive depression.Lives with spouse in [place] Medical Prognosis: good Anticipated Length of Stay: 4-17-18 Rehab Goals Modified Independent to supervision for adls and mobility skills Anticipated discharge destinat: Home with spouse with [facility] ELAINE GIBBS MD Feb 13, 2018 18:52
[2018-02-13] MEDS: ALPRAZolam 0.25 MG (XANAX) TAB PO PRN (20:25)
[2018-02-13] MEDS: SENNA W/DOCUSATE (SENOKOT S) TABLET PO SCH (21:26)
[2018-02-14 05:02] VITALS: BP 119/72
[2018-02-14] MEDS: PANTOPRAZOLE 40 MG (PROTONIX) TAB PO SCH (05:57)
[2018-02-14] MEDS: ACETAMINOPHEN 325 MG TABLET/CAPLET (TYLENOL) PO PRN ×2 (05:57→22:14)
--- NOTE | 2018-02-14 07:51 | Occupational Ther Daily Note ---
OT Current Status-Daily Note Subjective Pt alert, lying in bed. Pt agreed to therapy. No c/o pain. Pt anxious to know how she is doing and how long she will be in rehab. BIGGS discussed what was needed to look at discharge. Mental Status/Objective Patient Orientation: Person, Place, Time Functional [place] Measure 0=Not Assessed/NA 4=Minimal Assistance 1=Total Assistance 5=Supervision or Setup 2=Maximal Assistance 6=Modified [place] 3=Moderate Assistance 7=Complete [place] ADL-Treatment Functional [place] Measure 0=Not Assessed/NA 4=Minimal Assistance 1=Total Assistance 5=Supervision or Setup 2=Maximal Assistance 6=Modified [place] 3=Moderate Assistance 7=Complete IndependenceIRFPAI Quality Coding Scale 6 Independent with activity with or without an assistive device 5 Patient requires set up or clean up by helper. Patient completes activity by themselves 4 Supervision or touching assist (CGA). [place] provide cues , steadying assist 3 The helper provides less than half the effort to complete the activity 2 The helper provides more than half the effort to complete the activity 1 Dependent. The helper does all the effort to complete an activity 7 Patient refused to complete or attempt activity 9 The patient did not perform the activity before the current illness or injury 88 Not attempted due to Medical conditions or safety concerns Grooming (FIM): 5 (Sitting at sink, pt able to complete grooming. Pt required assist to get denture switch cleaner out of package. Pt did open by self.) Oral Hygiene (QC): 5 Bathing (FIM): 4 (Using rolling shower chair with cutout, hand held shower and grabbars pt is able to complete all areas except lower legs and buttocks.) Bathing Location: L Arm, R Arm, L Upper Leg, R Upper Leg, Chest, Abdomen, Buttocks, Perineal Area Shower/Bathe Self (QC): 3 Upper Body (FIM): 3 (After set up, pt requires reminders to don clothing on L UE first. Assist to doff upper body clothing. Pt is able to don over R UE and head.) Upper Body Dressing (QC): 2 Lower Body Dressing (FIM): 1 (Pt continues to work on donning/doffing clothing over feet. Assist to don/doff on feet then assist x2 to hike pants over hips.) Lower Body Dressing (QC): 1 On/Off Footwear (QC): 2 Shower Transfer(FIM): 1 After therapy, pt sitting in w/c with call light/phone in reach. All needs met in room. OT Short Term Goals Short Term Goals Time Frame: Feb 25, 2018 Eating(FIM): 5 Grooming(FIM): 5 Bathing(FIM): 4 Upper Body Dressing(FIM): 4 Lower Body Dressing(FIM): 3 Toileting(FIM): 4 Transfers (B,C,W/C) (FIM): 3 Toilet/Commode Transfer(FIM): 4 Additional Short Term Goals: 1-Demonstrate ADL Tasks, 2-Verbalize Understanding , 3-ImproveStrength/Steven 1=Demonstrate adherence to instructed precautions during ADL tasks. 2=Patient will verbalize/demonstrate understanding of assistive devices/ modifications for ADL. 3=Patient will improve strength/tolerance for activity to enable patient to perform ADL's. OT Shelter Goals Assistant To [employer] Goals Time Frame: Mar 11, 2018 Eating (FIM): 6 Eating (QC): 6 Groomin Oral Hygiene (QC): 6 Bathing(FIM): 5 Shower/Bathe Self (QC): 5 Upper Body Dressing(FIM): 6 Upper Body Dressing (QC): 6 Lower Body Dressing(FIM): 6 Lower Body Dressing (QC): 6 On/Off Footwear (QC): 6 Toileting(FIM): 6 Toileting Hygiene (QC): 6 Transfers (B,C,W/C) (FIM): 6 Toilet/Commode Transfer(FIM): 6 Toilet/Commode Transfer (QC): 6 Shower Transfer(FIM): 5 Additional Goals: 1-Demonstrate ADL Tasks, 2-Verbalize Understanding, 3- ImproveStrength/Steven 1=Demonstrate adherence to instructed precautions during ADL tasks. 2=Patient will verbalize/demonstrate understanding of assistive devices/ modifications for ADL. 3=Patient will improve strength/tolerance for activity to enable patient to perform ADL's. OT Education/Plan Discharge Recommendations Plan/Recommendations: Continue POC Treatment Plan/Plan of Care Patient would benefit from OT for education, treatment and training to promote independence in ADL's, mobility, safety and/or upper extremity function for ADL' s. Plan of Care: ADL Retraining, Functional Mobility, Group Exercise/Act as Ind, UE Funct Exercise/Act Treatment Duration: Mar 11, 2018 Frequency: At least 5 of 7 days/Wk (IRF) Estimated Hrs Per Day: 1.5 hours per day Agreement: Yes Rehab Potential: Good Time/GCodes Start Time: 06:50 Stop Time: 07:50 Total Time Billed (hr/min): 60 Billed Treatment Time 1 visit-ADL 4 (60 min) SINA CHIU Feb 14, 2018 07:51
[2018-02-14] MEDS: SENNA W/DOCUSATE (SENOKOT S) TABLET PO SCH ×2 (08:00→20:23)
[2018-02-14] MEDS: LEVETIRACETAM 500 MG (KEPPRA) TAB PO SCH ×2 (08:00→20:23)
[2018-02-14] MEDS: fluCOnazole (DIFLUCAN) 100 MG TAB PO SCH (08:01)
[2018-02-14] MEDS: amLODIPine 5 MG (NORVASC) TAB PO SCH (08:01)
[2018-02-14] MEDS: NITROFURANTOIN 100 MG (MACROBID) CAPSULE PO SCH ×2 (08:01→20:23)
[2018-02-14] MEDS: NYSTATIN CREAM (MYCOSTATIN) 30 GM TUBE TP SCH ×3 (08:02→20:23)
--- NOTE | 2018-02-14 08:42 | Progress Note (SOAP) ---
Subjective Time Seen by Provider: 08:40 Subjective/Events-last exam CVA. Patient wants to see her own OB doctor. Okay with me for her to do that Objective Exam Vital Signs Date Time Temp Pulse Resp B/P (MAP) Pulse Ox O2 Delivery O2 Flow Rate FiO2 02/14/18 08:00 Room Air 02/14/18 05:02 98.1 81 18 119/72 (88) 93 Room Air 02/13/18 20:00 Room Air 02/13/18 18:00 97.0 70 18 123/68 (86) 99 Room Air 02/13/18 09:00 Room Air I & O 02/14/18 07:00 Intake Total 1450 ml Balance 1450 ml Capillary Refill : General Appearance: No Apparent Distress, WD/WN HEENT: Normal ENT Inspection Neck: Full Range of Motion, Normal Inspection Results Lab Microbiology 02/11/18 Urine Culture - Final, Complete Escherichia coli Assessment/Plan Assessment/Plan Assess & Plan/Chief Complaint CVA with hemorrhage. Tobacco usage. Stroke on the left side of body. Recency of baby girl. . 02/15/18. CVA with hemorrhage. Tobacco usage. Hypertension. Stroke on left side of the body. infection. . 02/13/18. CVA with hemorrhage. Tobacco usage. Hypertension. infection. Patient depressed. . 02/14/18. CVA with hemorrhage. Tobacco usage. Hypertension. infection. Patient talking better today Clinical Quality Measures DVT/VTE Risk/Contraindication: Risk Factor Score Per Nursin RFS Level Per Nursing on Admit: 4+=Very High ASHANTI RUSH DO Feb 14, 2018 08:42
--- NOTE | 2018-02-14 10:32 | PM & R (SOAP) Progress Note ---
Subjective Time Seen by Provider: 10:15 Subjective/Events-last exam Patient was seen in Gym this AM Patient mod assist for transfers. Objective Exam Last Set of Vital Signs Vital Signs Date Time Temp Pulse Resp B/P (MAP) Pulse Ox O2 Delivery O2 Flow Rate FiO2 02/14/18 08:00 Room Air 02/14/18 05:02 98.1 81 18 119/72 (88) 93 Capillary Refill : I&O Intake and Output 02/14/18 00:00 Intake Total 1350 ml Balance 1350 ml Intake Oral 1350 ml # Voids 8 General: Alert, Oriented X3, Cooperative, No Acute Distress HEENT: Atraumatic, PERRLA, EOMI, Mucous Memb Moist/[place] Neck: Supple, No JVD Lungs: Clear to Auscultation Heart: Regular Rate Abdomen: Normal Bowel Sounds, Soft, No Tenderness Extremities: No Edema Neuro: Other (Left HP) Results Lab Laboratory Tests 02/11/18 13:30: Urine Color YELLOW, Urine Clarity SLIGHTLY CLOUDY, Urine pH 5, Urine Specific [place] 1.030H, Urine Protein 2+H, Urine Glucose (UA) NEGATIVE, Urine Ketones NEGATIVE, Urine Nitrite POSITIVEH, Urine Bilirubin NEGATIVE, Urine Urobilinogen NORMAL, Urine Leukocyte Esterase 3+H, Urine RBC (Auto) 4+H, Urine RBC 5-10H, Urine WBC >100H, Urine Squamous Epithelial Cells 2-5, Urine Crystals NONE, Urine Bacteria MODERATEH, Urine Casts NONE, Urine Mucus SMALLH, Urine Culture Indicated YES 02/12/18 05:00: White Blood Count 8.8, Red Blood Count 4.23L, Hemoglobin 12.4, Hematocrit 39, Mean Corpuscular Volume 92, Mean Corpuscular Hemoglobin 29, Mean Corpuscular Hemoglobin Concent 32, Red Cell Distribution Width 13.8, Platelet Count 392, Mean Platelet Volume 10.7H, Neutrophils (%) (Auto) 51, Lymphocytes (%) (Auto) 38 , Monocytes (%) (Auto) 8, Eosinophils (%) (Auto) 3, Basophils (%) (Auto) 0, Neutrophils # (Auto) 4.4, Lymphocytes # (Auto) 3.3, Monocytes # (Auto) 0.7, Eosinophils # (Auto) 0.3, Basophils # (Auto) 0.0, Sodium Level 141, Potassium Level 3.8, Chloride Level 108H, Carbon Dioxide Level 23, Anion Gap 10, Blood Urea Nitrogen 10, Creatinine 0.77, Estimat Glomerular Filtration Rate > 60, BUN/ Creatinine Ratio 13, Glucose Level 91, Calcium Level 9.5, Total Bilirubin 0.5, Aspartate Amino Transf (AST/SGOT) 14, Alanine Aminotransferase (ALT/SGPT) 40, Alkaline Phosphatase 69, Total Protein 6.6, Albumin 4.0 Microbiology 02/11/18 Urine Culture - Final, Complete Escherichia coli Assessment/Plan Assessment RT ICB with Left HP HTN E COLI UTI Reactive depression med added Constipation meds adjusted Vaginal drainage on Diflucan Plan Continue PT/OT ST has signed off Team Conference held 02-12-18-See report for full functional update and POC and ELOS Bowel meds [facility] See orders. Discussed case with SW and RN ELAINE GIBBS MD Feb 14, 2018 10:32
--- NOTE | 2018-02-14 10:58 | Physical Therapy Daily Note ---
PT Daily Note-Current Subjective Patient in wheelchair pre tx, agrees to PT, no complaints of pain. Appearance Patient in bed post tx with nurse call, phone, tray, all needs met. Bed alarm on. Mental Status Patient Orientation: Person, Place, Situation Transfers Functional [place] Measure 0=Not Assessed/NA 4=Minimal Assistance 1=Total Assistance 5=Supervision or Setup 2=Maximal Assistance 6=Modified [place] 3=Moderate Assistance 7=Complete IndependenceIRFPAI Quality Coding Scale 6 Independent with activity with or without an assistive device 5 Patient requires set up or clean up by helper. Patient completes activity by themselves 4 Supervision or touching assist (CGA). [place] provide cues , steadying assist 3 The helper provides less than half the effort to complete the activity 2 The helper provides more than half the effort to complete the activity 1 Dependent. The helper does all the effort to complete an activity 7 Patient refused to complete or attempt activity 9 The patient did not perform the activity before the current illness or injury 88 Not attempted due to Medical conditions or safety concerns Transfers (B, C, W/C) (FIM): 3 Scootin Rollin Sit to/from Stand: 3 Bed to/from Chair: 3 Gait Training Gait (FIM): 1 Distance: 8'x5 Gait Level of Assist: 3 Gait Persons Needed: 1 Gait Assistive Device: Parallel Bars Patient needs assist advancing her left leg and blocking left leg when stepping with her right leg. Patient can be impulsive and needs close guarding and careful directions. Wheelchair Training Does the Pt Use a Wheelchair?: Yes Wheelchair (FIM): 2 Distance: 100'x2 Wheelchair Level of Assist: 4 Type of Wheelchair: Manual Patient has improved a lot with wheelchair mobility but still needs assist around corners or obstacles. 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 Time Frame: Mar 04, 2018 Transfers (B,C,W/C) (FIM): 4 Sit to Lying (QC): 3 Lying-Sitting on Side/Bed(QC): 3 Sit to Stand (QC): 3 Rollin Roll Left to Right (QC): 3 Chair/Dbh-tl-Lijah Xfer(QC): 3 Car Transfer (QC): 3 Gait (FIM): 1 Distance: 20' Walk 10 feet (QC): 3 Gait Level of Assist: 4 Gait Assistive Device: Walker Gaurav Wheelchair (FIM): 5 Distance: 150' Wheelchair Level of Assist: 5 Wheel 50 feet with 2 turns (QC: 4 PT Plan Problem List Problem List: Activity Tolerance, Functional Strength, Safety, Balance, Gait, Transfer, Bed Mobility, ROM Treatment/Plan Treatment Plan: Continue Plan of Care Treatment Plan: Bed Mobility, Concurrent Therapy, Education, Functional Activity Steven, Functional Strength, Group Therapy, Gait, Safety, Therapeutic Exercise, Transfers Treatment Duration: Mar 04, 2018 Frequency: At least 5 of 7 days/Wk (IRF) Estimated Hrs Per Day: 1.5 hours per day Patient and/or Family Agrees t: Yes Safety Risks/Education Patient Education: Gait Training, Transfer Techniques, Correct Positioning, W/ C Management, Disease Process, Safety Issues Teaching Recipient: Patient Teaching Methods: Demonstration, Discussion Response to Teaching: Reinforcement Needed Time/GCodes Time In: 1000 Time Out: 1100 Total Billed Treatment Time: 60 Total Billed Treatment 1 visit [facility] 10' GT 30' FA 20' JENIFER SOUSA PT Feb 14, 2018 10:58
--- NOTE | 2018-02-14 14:56 | Therapy Group Daily Note ---
Therapy Daily Group Note Patient Education Topic Home Safety Exercises LE Seated Exercise, UE Exercise Other/Notes Pt maneuvered w/c to OT/PT group in therapy gym. Group consisted of introductions (name, place living, "My favorite...."), socialization, education on home safety and home resources, home jeopardy game and pt led UE/LE seated exercise. Pt introduced self appropriately and actively listened to peers introductions. Pt contributed to discussions and conversations. Verbalized understanding of each educational topic and was able to give examples of strategies used. After therapy, pt lying in bed with call light/phone. All needs met in room. Start Time: 13:00 Stop Time: 14:10 Total Billed Treatment Time: 70 Total Billed Treatment 1-GRP SINA CHIU Feb 14, 2018 14:56
--- NOTE | 2018-02-14 15:20 | Behavioral Health Consult ---
Consult- Consult Date Seen by Provider: Feb 14, 2018 Time Seen by Provider: 13:50 Patient: Rain Fernandez : 1990 Date: 02/14/2018 Referral: CPT Code: 24072 Psychodiagnostic Examination, 1 unit(s) Start Time: 1350 Stop Time: 1439 Chief Complaint: Depression Referral: Rain Fernandez is a 27 year old female referred by for a clinical diagnostic assessment. Information sources for this evaluation include self-report/observation and medical records. Presenting Problem: The presenting clinical problem is Depression. 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 Rain was transferred to [facility] following treatment at [facility] for a CVA. She had delivered her daughter on 01/16/18 and was discharged home after 24 hours. She reports that she had a migraine five days after her delivery, which she has had in the past, and took some ibuprofen. She later lost functioning on her left side and was taken by ambulance to [facility]. Rain also reports that she had hypertension during her and is a smoker. She plans to stop smoking since she has been without a cigarette now for three weeks. Rain reports that it has been hard for her to be away from her daughter. She also has a 2-year-old son. She states that they are able to visit often and have even spent the night with her. She states that she understands that she needs the rehabilitation so she can take care of them when she gets home. Rain shared that she was very upset prior to her transfer because her baby had slipped off the bed while she was at [place]. She was unable to catch her and felt horrible that she may have been injured, but she was not. She states that she feels better about the situation now and everyone has told her that accidents happen and her baby is doing fine. Rain does not have any speech issues as a result of her CVA. She was very talkative and able to verbalize the different exercises and names of the rehab. staff who have been helping her. She has a strong pili in God and states that he has been with her and she is praying that her recovery will keep progressing. Rain is starting to see some progress in her left side and this does help her mood and give her reassurance. She states that she was started on an antidepressant and she feels it will also help her. Symptoms observed or reported requiring current level of care include depressed mood, frequent tearfulness, guilt, medical problems, and worry. Observations/Mental Status: Rain was assessed in her hospital room at [facility]. The patient was a good historian. Francisco general approach to the evaluation indicated interest. Orientation was intact for person, place, time, and situation. Rain evidenced good understanding of the reason for the appointment. The predominant mood was that of depressed with a flat affect. She did have episodes of tearfulness when stating that she missed being with her baby. Immediate attention and concentration was unremarkable clinically during the interview. Level of intellectual functioning compared to same age peers was average range. Thought processes were found to be generally logical, coherent and goal directed. Thought content appeared normal. Tone of voice was normal and controlled and manner of speech was hesitant. Expressive speech was marked by fluent speech and language. Current destructive behavior patterns: none reported or indicated. Disturbance in sleep patterns: not assessed. Eye contact was good. Insight was average. Francisco style of interacting during the appointment was appropriate and motivated. Current/Previous Mental Health Treatment: Past psychiatric history: none reported. Rain shared that her father takes medication for depression and that her mother has bipolar disorder, but does not take medication. Medical History: Reported medical conditions included: CVA on 01/23/18. Current psychotropic medications: Celexa 20mg daily. Current physician is Dr. Flower. Educational and Vocational Histories: Current level of formal education is high school graduate. Rain states that she graduated from [place], [place] high school. History of learning problems: not assessed. School-based remedial education services: not assessed. In-school behavior problems: not assessed. Family and Social Histories: Rain currently lives with her , 2-year- old son and 1-month-old daughter. Rain plans to return home with her , . Their one-year wedding anniversary is March 19, 2018 and she hopes to be home at that time. Rain verbalizes her motivation to work hard and speed up her progress so she can be with her family. She shared that she has three brothers and three sisters. She is very close to an Aunt and her Mother- in-law. Her has been caring for their children and she feels she has a great deal of support. Summary of Assessment Information/Prognosis: Francisco presenting problem and symptoms appear consistent with a preliminary diagnosis of F43.23 Adjustment Disorder with Mixed Anxiety and Depressed Mood at this point. Current emotional symptoms are of moderate intensity. Strengths/Weaknesses: Strengths/Resources: accepts feedback, articulate, and motivated for change Liabilities/Barriers: deferred Diagnostic Impressions: ICD-10: F43.23 Adjustment Disorder with Mixed Anxiety and Depressed Mood Initial Treatment Plan/Recommendations: The anticipated long-term goal(s) include decrease negative self-statements which contribute to depressed and anxious moods. Rain is recommended to continue with outpatient therapy if she continues to have symptoms of depression following discharge. Rain verbalized understanding of these recommendations and an intention to comply. BONNIE VU Feb 14, 2018 15:20
[2018-02-14 18:23] VITALS: BP 100/66
[2018-02-15] MEDS: ALPRAZolam 0.25 MG (XANAX) TAB PO PRN ×3 (01:52→20:16)
[2018-02-15 04:33] LABS: BILIRUBIN,URINE NEGATIVE (NEGATIVE); CLARITY,URINE CLEAR; COLOR,URINE YELLOW; GLUCOSE, URINE (UA) NEGATIVE (NEGATIVE); KETONES,URINE NEGATIVE (NEGATIVE); LEUKOCYTE ESTERASE ,URINE 3+ (NEGATIVE); NITRITE,URINE NEGATIVE (NEGATIVE); PH,URINE 6 (5-9); PROTEIN,URINE 1+ (NEGATIVE); UROBILINOGEN,URINE NORMAL (NORMAL)
[2018-02-15 04:47] LABS: BACTERIA,URINE FEW /HPF; RBC,URINE 25-50 /HPF
[2018-02-15 05:02] VITALS: BP 111/73
[2018-02-15] MEDS: PANTOPRAZOLE 40 MG (PROTONIX) TAB PO SCH (05:58)
[2018-02-15] MEDS: LEVETIRACETAM 500 MG (KEPPRA) TAB PO SCH ×2 (08:45→20:15)
[2018-02-15] MEDS: SENNA W/DOCUSATE (SENOKOT S) TABLET PO SCH ×2 (08:45→20:15)
[2018-02-15] MEDS: ACETAMINOPHEN 325 MG TABLET/CAPLET (TYLENOL) PO PRN ×2 (08:46→22:22)
[2018-02-15] MEDS: fluCOnazole (DIFLUCAN) 100 MG TAB PO SCH (08:46)
[2018-02-15] MEDS: amLODIPine 5 MG (NORVASC) TAB PO SCH (08:46)
[2018-02-15] MEDS: NITROFURANTOIN 100 MG (MACROBID) CAPSULE PO SCH ×2 (08:46→20:15)
[2018-02-15] MEDS: NYSTATIN CREAM (MYCOSTATIN) 30 GM TUBE TP SCH ×3 (08:47→20:16)
--- NOTE | 2018-02-15 11:58 | Physical Therapy Daily Note ---
PT Daily Note-Current Subjective Pt in bed, very motivated to participate with therapy. Reports (L) calf pain, not rated. Mental Status Patient Orientation: Person, Place, Time, Situation Transfers Functional [place] Measure 0=Not Assessed/NA 4=Minimal Assistance 1=Total Assistance 5=Supervision or Setup 2=Maximal Assistance 6=Modified [place] 3=Moderate Assistance 7=Complete IndependenceIRFPAI Quality Coding Scale 6 Independent with activity with or without an assistive device 5 Patient requires set up or clean up by helper. Patient completes activity by themselves 4 Supervision or touching assist (CGA). [place] provide cues , steadying assist 3 The helper provides less than half the effort to complete the activity 2 The helper provides more than half the effort to complete the activity 1 Dependent. The helper does all the effort to complete an activity 7 Patient refused to complete or attempt activity 9 The patient did not perform the activity before the current illness or injury 88 Not attempted due to Medical conditions or safety concerns Transfers (B, C, W/C) (FIM): 3 Scootin Rollin Roll Left to Right (QC): 2 Supine to/from Sit: 3 Sit to/from Stand: 3 Sit to Lying (QC): 3 Sit to Stand (QC): 3 Chair/Tkt-yv-Firoi Xfer(QC): 3 Bed to/from Chair: 3 Weight Bearing Right Lower Extremity: Right Weight Bearing/Tolerated Left Lower Extremity: Left Weight Bearing/Tolerated Gait Training Does the Patient Walk?: Yes Gait (FIM): 1 Distance (FIM): 1=up to 49 ft Distance: 8 Gait Level of Assist: 1 Gait Persons Needed: 2 Gait Assistive Device: Parallel Bars 3 trips in // bars with [facility] following closely. Skilled VCS for sequencing and weight shift, max A x 1 to advance (L) LE. VCS and tactile cues for activation of hip and knee extension on (L) before attempting to weight bear. Leans forward heavily at times. Wheelchair Training Does the Pt Use a Wheelchair?: Yes Exercises NuStep Minutes: 8 (UE/LE assist on (L)) NuStep Workload: 5 Treatments Transfer training, NuStep for (B) UE/LE integration, and gait training in // bars. Returned to bed with all needs met. Assessment Current Status: Good Progress Pt tolerated well. VCS for safety, attention to (L) side. Unable to advance (L) LE, needs cue to stabilize and weight shift with gait attempt. PT Short Term Goals Short Term Goals Time Frame: Feb 18, 2018 Transfers (B,C,W/C) (FIM): 3 Wheelchair (FIM): 4 Wheelchair Distance: 100'x2 Wheelchair Level of Assist: 4 PT Senior Care Goals Water Quality Analyst Goals PT Senior Care Goals Time Frame: Mar 04, 2018 Transfers (B,C,W/C) (FIM): 4 Sit to Lying (QC): 3 Lying-Sitting on Side/Bed(QC): 3 Sit to Stand (QC): 3 Rollin Roll Left to Right (QC): 3 Chair/Tjy-je-Abvah Xfer(QC): 3 Car Transfer (QC): 3 Gait (FIM): 1 Distance: 20' Walk 10 feet (QC): 3 Gait Level of Assist: 4 Gait Assistive Device: Walker Gaurav Wheelchair (FIM): 5 Distance: 150' Wheelchair Level of Assist: 5 Wheel 50 feet with 2 turns (QC: 4 PT Plan Problem List Problem List: Activity Tolerance, Functional Strength, Safety, Balance, Gait, Transfer, Bed Mobility, ROM Treatment/Plan Treatment Plan: Continue Plan of Care Treatment Plan: Bed Mobility, Concurrent Therapy, Education, Functional Activity Steven, Functional Strength, Group Therapy, Gait, Safety, Therapeutic Exercise, Transfers Treatment Duration: Mar 04, 2018 Frequency: At least 5 of 7 days/Wk (IRF) Estimated Hrs Per Day: 1.5 hours per day Patient and/or Family Agrees t: Yes Safety Risks/Education Patient Education: Gait Training, Transfer Techniques, Safety Issues Teaching Recipient: Patient Teaching Methods: Demonstration, Discussion Response to Teaching: Verbalize Understanding, Return Demonstration, Reinforcement Needed Time/GCodes Time In: 1019 Time Out: 1104 Total Billed Treatment Time: 45 Total Billed Treatment 1, FA x 15', Ex x 8', Gt x 22' G Codes Necessary: JOEL Guthrie DPT Feb 15, 2018 11:58
--- NOTE | 2018-02-15 13:53 | Progress Note-Standard ---
Standard Progress Note Progress Notes/Assess & Plan Date Seen 02/15/18 Time Seen by Provider: 11:30 Assess & Plan/Chief Complaint Patient doing fairly well For DVT lunch Bowels are moving No pain is reported Reviewed chart AFVSS, pleasant, flat affect RRR, CTAB no edema Assessment: Post CVA with hemorrhage now profound disability left sided Tobacco usage. Hypertension. infection post ? Plan: Continue IRF Difficult case CHANTAL ELLIS DO Feb 15, 2018 13:53
[2018-02-15 17:50] VITALS: BP 122/81
[2018-02-16] MEDS: ALPRAZolam 0.25 MG (XANAX) TAB PO PRN ×3 (04:28→17:19)
[2018-02-16] MEDS: ACETAMINOPHEN 325 MG TABLET/CAPLET (TYLENOL) PO PRN ×4 (04:28→17:19)
[2018-02-16 06:09] VITALS: BP 107/71
[2018-02-16] MEDS: PANTOPRAZOLE 40 MG (PROTONIX) TAB PO SCH (06:36)
[2018-02-16] MEDS: NITROFURANTOIN 100 MG (MACROBID) CAPSULE PO SCH ×2 (09:10→20:28)
[2018-02-16] MEDS: amLODIPine 5 MG (NORVASC) TAB PO SCH (09:10)
[2018-02-16] MEDS: SENNA W/DOCUSATE (SENOKOT S) TABLET PO SCH ×2 (09:10→20:28)
[2018-02-16] MEDS: fluCOnazole (DIFLUCAN) 100 MG TAB PO SCH (09:11)
[2018-02-16] MEDS: LEVETIRACETAM 500 MG (KEPPRA) TAB PO SCH ×2 (09:11→20:28)
[2018-02-16] MEDS: NYSTATIN CREAM (MYCOSTATIN) 30 GM TUBE TP SCH ×3 (09:11→20:28)
--- NOTE | 2018-02-16 13:30 | Progress Note-Standard ---
Standard Progress Note Progress Notes/Assess & Plan Date Seen 02/16/18 Time Seen by Provider: 12:30 Assess & Plan/Chief Complaint Patient doing fairly well Are lunch Bowels are moving No pain is reported Reviewed chart Flat affect AFVSS, pleasant, flat affect RRR, CTAB no edema Assessment: Post CVA with hemorrhage now profound disability left sided Tobacco usage. Hypertension. 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
[2018-02-16 18:00] VITALS: BP 121/76
[2018-02-17] MEDS: ALPRAZolam 0.25 MG (XANAX) TAB PO PRN ×2 (01:54→21:50)
[2018-02-17] MEDS: ACETAMINOPHEN 325 MG TABLET/CAPLET (TYLENOL) PO PRN ×2 (01:54→11:34)
[2018-02-17] MEDS: PANTOPRAZOLE 40 MG (PROTONIX) TAB PO SCH (06:12)
[2018-02-17 06:16] VITALS: BP 123/82
[2018-02-17] MEDS: amLODIPine 5 MG (NORVASC) TAB PO SCH (07:47)
[2018-02-17] MEDS: NITROFURANTOIN 100 MG (MACROBID) CAPSULE PO SCH ×2 (07:47→21:50)
[2018-02-17] MEDS: SENNA W/DOCUSATE (SENOKOT S) TABLET PO SCH ×2 (07:47→21:50)
[2018-02-17] MEDS: LEVETIRACETAM 500 MG (KEPPRA) TAB PO SCH ×2 (07:48→21:50)
[2018-02-17] MEDS: NYSTATIN CREAM (MYCOSTATIN) 30 GM TUBE TP SCH ×3 (07:48→21:00)
[2018-02-17] MEDS: fluCOnazole (DIFLUCAN) 100 MG TAB PO SCH (07:48)
--- NOTE | 2018-02-17 08:33 | Progress Note (SOAP) ---
Subjective Time Seen by Provider: 08:30 Subjective/Events-last exam patient feeling okay today. CVA. patient voices no complaints. patient enjoys her PTand OT Objective Exam Vital Signs Date Time Temp Pulse Resp B/P (MAP) Pulse Ox O2 Delivery O2 Flow Rate FiO2 02/17/18 08:21 Room Air 02/17/18 06:16 97.5 66 18 123/82 (96) 98 Room Air 02/16/18 21:11 Room Air 02/16/18 18:00 97.6 80 18 121/76 (91) 97 Room Air 02/16/18 09:00 Room Air I & O 02/17/18 07:00 Intake Total 1460 ml Balance 1460 ml Capillary Refill : General Appearance: No Apparent Distress, WD/WN Results Lab Microbiology 02/15/18 Urine Culture - Preliminary, Resulted Assessment/Plan Assessment/Plan Assess & Plan/Chief Complaint CVA with hemorrhage. Tobacco usage. Stroke on the left side of body. Recency of baby girl. . 02/15/18. CVA with hemorrhage. Tobacco usage. Hypertension. Stroke on left side of the body. infection. . 02/13/18. CVA with hemorrhage. Tobacco usage. Hypertension. infection. Patient depressed. . 02/14/18. CVA with hemorrhage. Tobacco usage. Hypertension. infection. Patient talking better today. . 02/17/18 CVA with hemorrhage. Tobacco usage. Hypertension. infection Patient does not appear depressed today Clinical Quality Measures DVT/VTE Risk/Contraindication: Risk Factor Score Per Nursin RFS Level Per Nursing on Admit: 4+=Very High ASHANTI RUSH DO Feb 17, 2018 08:33
--- NOTE | 2018-02-17 09:57 | Physical Therapy Daily Note ---
PT Daily Note-Current Subjective Patient in bed pre tx, agrees to PT, needs to get dressed upper and lower. She does so with max assist from therapist and nurse. Appearance Patient in wheelchair at bedside post tx with nurse call, phone, tray, all needs met. Mental Status Patient Orientation: Person, Place, Situation Transfers Functional [place] Measure 0=Not Assessed/NA 4=Minimal Assistance 1=Total Assistance 5=Supervision or Setup 2=Maximal Assistance 6=Modified [place] 3=Moderate Assistance 7=Complete IndependenceIRFPAI Quality Coding Scale 6 Independent with activity with or without an assistive device 5 Patient requires set up or clean up by helper. Patient completes activity by themselves 4 Supervision or touching assist (CGA). [place] provide cues , steadying assist 3 The helper provides less than half the effort to complete the activity 2 The helper provides more than half the effort to complete the activity 1 Dependent. The helper does all the effort to complete an activity 7 Patient refused to complete or attempt activity 9 The patient did not perform the activity before the current illness or injury 88 Not attempted due to Medical conditions or safety concerns Transfers (B, C, W/C) (FIM): 4 Scootin Rollin Supine to/from Sit: 4 Sit to/from Stand: 4 Bed to/from Chair: 4 Patient performs bed mobility and transfers with min assist but needs careful guarding due to poor balance and impulsivity. Weight Bearing Right Lower Extremity: Right Weight Bearing/Tolerated Left Lower Extremity: Left Weight Bearing/Tolerated Gait Training Gait (FIM): 1 Distance: 8'x3 Gait Level of Assist: 3 Gait Persons Needed: 1 Gait Assistive Device: Parallel Bars Patient ambulated 8'x3 in the parallel bars with mod assist and wheelchair follow. Patient needs assist with weight shifting and advancing her left leg. Wheelchair Training Does the Pt Use a Wheelchair?: Yes Wheelchair (FIM): 5 Distance: 200'x2 Wheelchair Level of Assist: 5 Type of Wheelchair: Manual Exercises sit to stand 3 sets of 5, LLE stretching/ROM in all planes, AAROM SAQ left side x20 Treatments ROM, functional strengthening, gait training, wheelchair mobility, bed mobility , transfers, dressing Assessment Current Status: Fair Progress improving wheelchair mobility, patient has a lot of crackling in her knees with weight bearing activities, increased extension tone in her left leg PT Short Term Goals Short Term Goals Time Frame: Feb 18, 2018 Transfers (B,C,W/C) (FIM): 3 Wheelchair (FIM): 4 Wheelchair Distance: 100'x2 Wheelchair Level of Assist: 4 PT Jail Goals Floor Inspector Goals PT Jail Goals Time Frame: Mar 04, 2018 Transfers (B,C,W/C) (FIM): 4 Sit to Lying (QC): 3 Lying-Sitting on Side/Bed(QC): 3 Sit to Stand (QC): 3 Rollin Roll Left to Right (QC): 3 Chair/Cnx-zf-Qgpqn Xfer(QC): 3 Car Transfer (QC): 3 Gait (FIM): 1 Distance: 20' Walk 10 feet (QC): 3 Gait Level of Assist: 4 Gait Assistive Device: Walker Gaurav Wheelchair (FIM): 5 Distance: 150' Wheelchair Level of Assist: 5 Wheel 50 feet with 2 turns (QC: 4 PT Plan Problem List Problem List: Activity Tolerance, Functional Strength, Safety, Balance, Gait, Transfer, Bed Mobility, ROM Treatment/Plan Treatment Plan: Continue Plan of Care Treatment Plan: Bed Mobility, Concurrent Therapy, Education, Functional Activity Steven, Functional Strength, Group Therapy, Gait, Safety, Therapeutic Exercise, Transfers Treatment Duration: Mar 04, 2018 Frequency: At least 5 of 7 days/Wk (IRF) Estimated Hrs Per Day: 1.5 hours per day Patient and/or Family Agrees t: Yes Safety Risks/Education Patient Education: Gait Training, Transfer Techniques, Correct Positioning, W/ C Management, Safety Issues Teaching Recipient: Patient Teaching Methods: Demonstration, Discussion Response to Teaching: Reinforcement Needed Time/GCodes Time In: 900 Time Out: 1000 Total Billed Treatment Time: 60 Total Billed Treatment 1 visit [facility] 15' [facility] 20' FA 15' EX 10' JENIFER SOUSA PT Feb 17, 2018 09:57
--- NOTE | 2018-02-17 11:27 | Occupational Ther Daily Note ---
OT Current Status-Daily Note Subjective Pt alert, sitting in w/c. Pt agreed to therapy. Pt c/o soreness in L calf, did not rate. Notified nrsg. Discussed with pt about how standing and activity increases muscle soreness and is working on making her stronger. Mental Status/Objective Patient Orientation: Person, Place, Time, Situation Functional [place] Measure 0=Not Assessed/NA 4=Minimal Assistance 1=Total Assistance 5=Supervision or Setup 2=Maximal Assistance 6=Modified [place] 3=Moderate Assistance 7=Complete [place] ADL-Treatment Pt had dressed earlier. Pt did sit at sink to complete own grooming. Pt had difficulty problem solving how to maneuver w/c out of bathroom. Pt was frustrated with this and continued to run into objects on L side. Pt would stare straight ahead and would not look down to see where she was getting stuck. Pt was transferring with mod A though unable to pivot with L LE. Functional [place] Measure 0=Not Assessed/NA 4=Minimal Assistance 1=Total Assistance 5=Supervision or Setup 2=Maximal Assistance 6=Modified [place] 3=Moderate Assistance 7=Complete IndependenceIRFPAI Quality Coding Scale 6 Independent with activity with or without an assistive device 5 Patient requires set up or clean up by helper. Patient completes activity by themselves 4 Supervision or touching assist (CGA). [place] provide cues , steadying assist 3 The helper provides less than half the effort to complete the activity 2 The helper provides more than half the effort to complete the activity 1 Dependent. The helper does all the effort to complete an activity 7 Patient refused to complete or attempt activity 9 The patient did not perform the activity before the current illness or injury 88 Not attempted due to Medical conditions or safety concerns Grooming (FIM): 6 Oral Hygiene (QC): 6 Other Treatment Pt was able to complete visual perceptual and problem solving fine motor tasks while bearing wt through L elbow. Pt was able to problem solve initial matching sequence though when needed to change sequence pt required assist. Pt then transferred onto therapy mat to work on AAROM for L UE. No active movement noted throughout L UE. Electrical stimulation to L bicep, forearm and tricep, 6 prieto to bicep and forearm activated muscle twitch, 8 prieto to tricep did not activate muscle twitch. Pt requested to go back to bed after therapy. BIGGS encouraged pt to stay sitting up for longer to increase activity tolerance. Pt had been up for 1 hour prior to initial OT treatment. After therapy, pt sitting in w/c with call light/phone in reach. All needs met in room. OT Short Term Goals Short Term Goals Time Frame: Feb 25, 2018 Eating(FIM): 5 Grooming(FIM): 5 Bathing(FIM): 4 Upper Body Dressing(FIM): 4 Lower Body Dressing(FIM): 3 Toileting(FIM): 4 Transfers (B,C,W/C) (FIM): 3 Toilet/Commode Transfer(FIM): 4 Additional Short Term Goals: 1-Demonstrate ADL Tasks, 2-Verbalize Understanding , 3-ImproveStrength/Steven 1=Demonstrate adherence to instructed precautions during ADL tasks. 2=Patient will verbalize/demonstrate understanding of assistive devices/ modifications for ADL. 3=Patient will improve strength/tolerance for activity to enable patient to perform ADL's. OT Radio Talk Show Host Goals Long-Term Goals Time Frame: Mar 11, 2018 Eating (FIM): 6 Eating (QC): 6 Groomin Oral Hygiene (QC): 6 Bathing(FIM): 5 Shower/Bathe Self (QC): 5 Upper Body Dressing(FIM): 6 Upper Body Dressing (QC): 6 Lower Body Dressing(FIM): 6 Lower Body Dressing (QC): 6 On/Off Footwear (QC): 6 Toileting(FIM): 6 Toileting Hygiene (QC): 6 Transfers (B,C,W/C) (FIM): 6 Toilet/Commode Transfer(FIM): 6 Toilet/Commode Transfer (QC): 6 Shower Transfer(FIM): 5 Additional Goals: 1-Demonstrate ADL Tasks, 2-Verbalize Understanding, 3- ImproveStrength/Steven 1=Demonstrate adherence to instructed precautions during ADL tasks. 2=Patient will verbalize/demonstrate understanding of assistive devices/ modifications for ADL. 3=Patient will improve strength/tolerance for activity to enable patient to perform ADL's. OT Education/Plan Discharge Recommendations Plan/Recommendations: Continue POC Treatment Plan/Plan of Care Patient would benefit from OT for education, treatment and training to promote independence in ADL's, mobility, safety and/or upper extremity function for ADL' s. Plan of Care: ADL Retraining, Functional Mobility, Group Exercise/Act as Ind, UE Funct Exercise/Act Treatment Duration: Mar 11, 2018 Frequency: At least 5 of 7 days/Wk (IRF) Estimated Hrs Per Day: 1.5 hours per day Agreement: Yes Rehab Potential: Good Time/GCodes Start Time: 10:15 Stop Time: 11:15 Total Time Billed (hr/min): 60 Billed Treatment Time 1 visit-ADL 4 (60 min) SINA CHIU Feb 17, 2018 11:27
[2018-02-17 14:36] LABS: CLARITY,URINE SLIGHTLY CLOUDY; COLOR,URINE AMBER; GLUCOSE, URINE (UA) NEGATIVE (NEGATIVE); KETONES,URINE NEGATIVE (NEGATIVE); LEUKOCYTE ESTERASE ,URINE 3+ (NEGATIVE); NITRITE,URINE NEGATIVE (NEGATIVE); PH,URINE 5 (5-9); PROTEIN,URINE 2+ (NEGATIVE); UROBILINOGEN,URINE 1 MG/DL (NORMAL)
[2018-02-17 14:48] LABS: BACTERIA,URINE MODERATE /HPF; BILIRUBIN,URINE 1+ (NEGATIVE); CALCIUM OXALATE CRYSTALS,UR FEW /LPF; SQUAMOUS EPITHELIAL CELL,UR 25-50 /HPF; WBC,URINE 50-100 /HPF
--- NOTE | 2018-02-17 15:31 | Therapy Group Daily Note ---
Therapy Daily Group Note Patient Education Topic Other List Below (Recognizing Safety Signs Around Us) Exercises LE Seated Exercise, UE Exercise Other/Notes Pt participated in Group led by FLY WORKER which focused on recognizing the signs around us especially for safety. Group consisted of Introductions (Name, Where you are from & Your favorite Season & Why), Explanation of ARU and how it works for new patient on unit and activity in which pt identified signs and why it is important to recognize them. Pt participated in Seated UE & LE Ex before returning to room to rest at end of Group. Pt actively participated in complete activity and was able to give examples as well as Ex with some assistance. Start Time: 13:00 Stop Time: 14:15 Total Billed Treatment Time: 75 Total Billed Treatment 1, ALVINA MENDOZA PTA Feb 17, 2018 15:31
[2018-02-17 18:00] VITALS: BP 124/76
--- NOTE | 2018-02-17 19:54 | PM & R (SOAP) Progress Note ---
Subjective Time Seen by Provider: 19:50 Subjective/Events-last exam Patient was seen in her room this evening Patient min assist for transfers Repaat Urine culture ordered Culteru shows Ecoli currently and patient on antibiotic Objective Exam Last Set of Vital Signs Vital Signs Date Time Temp Pulse Resp B/P (MAP) Pulse Ox O2 Delivery O2 Flow Rate FiO2 02/17/18 18:00 97.5 74 18 124/76 (92) 98 Room Air Capillary Refill : I&O Intake and Output 02/17/18 00:00 Intake Total 1640 ml Balance 1640 ml Intake Oral 1640 ml # Voids 14 # Urine Diapers 4 General: Alert, Oriented X3, Cooperative, No Acute Distress HEENT: Atraumatic, PERRLA, EOMI, Mucous Memb Moist/[place] Neck: Supple, No JVD Lungs: Clear to Auscultation Heart: Regular Rate Abdomen: Normal Bowel Sounds, Soft, No Tenderness Extremities: No Edema Neuro: Other (Left HP) Results Lab Laboratory Tests 02/15/18 04:25: Urine Color YELLOW, Urine Clarity CLEAR, Urine pH 6, Urine Specific [place] 1.020, Urine Protein 1+H, Urine Glucose (UA) NEGATIVE, Urine Ketones NEGATIVE, Urine Nitrite NEGATIVE, Urine Bilirubin NEGATIVE, Urine Urobilinogen NORMAL, Urine Leukocyte Esterase 3+H, Urine RBC (Auto) 5+H, Urine RBC 25-50H, Urine WBC 2-5, Urine Squamous Epithelial Cells 2-5, Urine Crystals NONE, Urine Bacteria FEWH, Urine Casts NONE, Urine Mucus NEGATIVE, Urine Culture Indicated YES 02/17/18 14:20: Urine Color AMBERH, Urine Clarity SLIGHTLY CLOUDY, Urine pH 5, Urine Specific [place] 1.025H, Urine Protein 2+H, Urine Glucose (UA) NEGATIVE, Urine Ketones NEGATIVE, Urine Nitrite NEGATIVE, Urine Bilirubin 1+H, Urine Urobilinogen 1, Urine Leukocyte Esterase 3+H, Urine RBC (Auto) 5+H, Urine RBC 5-10H, Urine WBC 50-100H, Urine Squamous Epithelial Cells 25-50H, Urine Crystals PRESENTH, Urine Bacteria MODERATEH, Urine Casts NONE, Urine Mucus SMALLH, Urine Culture Indicated YES, Urine Calcium Oxalate Crystals FEWH Microbiology 02/15/18 Urine Culture - Preliminary, Resulted Escherichia coli See Comments Assessment/Plan Assessment RT ICB with Left HP HTN E COLI UTI Reactive depression med added Constipation meds adjusted Vaginal drainage on Diflucan Plan Continue PT/OT ST has signed off Bowel meds adjusted [facility] has seen-Will review their report Next Team Conference 02-19-18 ELAINE GIBBS MD Feb 17, 2018 19:54
[2018-02-18] MEDS: ACETAMINOPHEN 325 MG TABLET/CAPLET (TYLENOL) PO PRN ×2 (05:01→20:07)
[2018-02-18 06:00] VITALS: BP 102/71
[2018-02-18] MEDS: PANTOPRAZOLE 40 MG (PROTONIX) TAB PO SCH (06:45)
--- NOTE | 2018-02-18 08:13 | PM & R (SOAP) Progress Note ---
Subjective Time Seen by Provider: 07:45 Subjective/Events-last exam Patient was seen in her room this AM Patient Mod assist for transfers Appreciate Behav Health consult Patient on antidepressant Objective Exam Last Set of Vital Signs Vital Signs Date Time Temp Pulse Resp B/P (MAP) Pulse Ox O2 Delivery O2 Flow Rate FiO2 02/18/18 06:00 98.9 81 16 102/71 (81) 95 Room Air Capillary Refill : I&O Intake and Output 02/18/18 00:00 Intake Total 1485 ml Balance 1485 ml Intake Oral 1485 ml # Voids 11 General: Alert, Oriented X3, Cooperative, No Acute Distress HEENT: Atraumatic, PERRLA, EOMI, Mucous Memb Moist/[place] Neck: Supple, No JVD Lungs: Clear to Auscultation Heart: Regular Rate Abdomen: Normal Bowel Sounds, Soft, No Tenderness Extremities: No Edema Neuro: Other (Left HP) Results Lab Laboratory Tests 02/17/18 14:20: Urine Color AMBERH, Urine Clarity SLIGHTLY CLOUDY, Urine pH 5, Urine Specific [place] 1.025H, Urine Protein 2+H, Urine Glucose (UA) NEGATIVE, Urine Ketones NEGATIVE, Urine Nitrite NEGATIVE, Urine Bilirubin 1+H, Urine Urobilinogen 1, Urine Leukocyte Esterase 3+H, Urine RBC (Auto) 5+H, Urine RBC 5-10H, Urine WBC 50-100H, Urine Squamous Epithelial Cells 25-50H, Urine Crystals PRESENTH, Urine Calcium Oxalate Crystals FEWH, Urine Bacteria MODERATEH, Urine Casts NONE, Urine Mucus SMALLH, Urine Culture Indicated YES Microbiology 02/17/18 Urine Culture - Preliminary, Resulted Escherichia coli Assessment/Plan Assessment RT ICB with Left HP HTN E COLI UTI Reactive depression med added Constipation meds adjusted Vaginal drainage on Diflucan Plan Continue PT/OT ST has signed off Bowel meds adjusted [facility] has seen-Appreciate their consult Next Team Conference tomorrow 02-19-18 ELAINE GIBBS MD Feb 18, 2018 08:13
--- NOTE | 2018-02-18 08:15 | Progress Note (SOAP) ---
Subjective Time Seen by Provider: 08:15 Subjective/Events-last exam When patient yawns she moves her fingers. CVA. Hypertension. Recent Objective Exam Vital Signs Date Time Temp Pulse Resp B/P (MAP) Pulse Ox O2 Delivery O2 Flow Rate FiO2 02/18/18 06:00 98.9 81 16 102/71 (81) 95 Room Air 02/17/18 21:00 Room Air 02/17/18 18:00 97.5 74 18 124/76 (92) 98 Room Air 02/17/18 08:21 Room Air I & O 02/18/18 07:00 Intake Total 1425 ml Balance 1425 ml Capillary Refill : General Appearance: No Apparent Distress, WD/WN Results Lab Laboratory Tests 02/17/18 14:20: Urine Color AMBERH, Urine Clarity SLIGHTLY CLOUDY, Urine pH 5, Urine Specific [place] 1.025H, Urine Protein 2+H, Urine Glucose (UA) NEGATIVE, Urine Ketones NEGATIVE, Urine Nitrite NEGATIVE, Urine Bilirubin 1+H, Urine Urobilinogen 1, Urine Leukocyte Esterase 3+H, Urine RBC (Auto) 5+H, Urine RBC 5-10H, Urine WBC 50-100H, Urine Squamous Epithelial Cells 25-50H, Urine Crystals PRESENTH, Urine Calcium Oxalate Crystals FEWH, Urine Bacteria MODERATEH, Urine Casts NONE, Urine Mucus SMALLH, Urine Culture Indicated YES Microbiology 02/17/18 Urine Culture - Preliminary, Resulted Escherichia coli Assessment/Plan Assessment/Plan Assess & Plan/Chief Complaint CVA with hemorrhage. Tobacco usage. Stroke on the left side of body. Recency of baby girl. . 02/15/18. CVA with hemorrhage. Tobacco usage. Hypertension. Stroke on left side of the body. infection. . 02/13/18. CVA with hemorrhage. Tobacco usage. Hypertension. infection. Patient depressed. . 02/14/18. CVA with hemorrhage. Tobacco usage. Hypertension. infection. Patient talking better today. . 02/17/18 CVA with hemorrhage. Tobacco usage. Hypertension. infection Patient does not appear depressed today. . 02/18/18. CVA with hemorrhage. Tobacco usage. Hypertension. UTI Clinical Quality Measures DVT/VTE Risk/Contraindication: Risk Factor Score Per Nursin RFS Level Per Nursing on Admit: 4+=Very High ASHANTI RUSH DO Feb 18, 2018 08:15
[2018-02-18] MEDS: amLODIPine 5 MG (NORVASC) TAB PO SCH (08:57)
[2018-02-18] MEDS: fluCOnazole (DIFLUCAN) 100 MG TAB PO SCH (08:57)
[2018-02-18] MEDS: SENNA W/DOCUSATE (SENOKOT S) TABLET PO SCH ×2 (08:57→20:07)
[2018-02-18] MEDS: LEVETIRACETAM 500 MG (KEPPRA) TAB PO SCH ×2 (08:57→20:07)
[2018-02-18] MEDS: NYSTATIN CREAM (MYCOSTATIN) 30 GM TUBE TP SCH ×3 (08:59→20:07)
--- NOTE | 2018-02-18 09:51 | Occupational Ther Daily Note ---
OT Current Status-Daily Note Subjective Pt alert, lying in bed. Pt agreed to therapy. No c/o pain at this time. Mental Status/Objective Patient Orientation: Person, Place, Time, Situation Functional [place] Measure 0=Not Assessed/NA 4=Minimal Assistance 1=Total Assistance 5=Supervision or Setup 2=Maximal Assistance 6=Modified [place] 3=Moderate Assistance 7=Complete [place] ADL-Treatment Pt agreed to shower. Breakfast came in and pt agreed to wait until after therapy. Pt was able to roll toward R side, assist to slide L LE over to edge of bed. Mod A to transfer from EOB to rolling shower chair with cutout. Pt then was transferred with shower chair to shower. Pt was able to complete shower using grabbar, shower chair with cutout and hand held shower. Assist with bathing/drying buttocks and feet, able to complete all other areas. Pt then transferred with mod A from shower chair to w/c. Pt then donned upper body clothing with mod A, cues to pull clothing up over elbow and anchor it with underarm prior to placing R UE into sleeve and pulling over head. Assist to pull clothing down in back. Pt is working on donning pants over L foot while BIGGS standing on L side to assist with sitting balance while pt leans forward. Pt stood with mod A and pt assist with hiking pants over R hip as BIGGS hiked pants over L hip. Dependent with donning/doffing socks. Pt then sat in front of sink to complete grooming. Pt requested assist to open denture tablet package. Pt able to complete brushing teeth by self. Pt then was able to open most of packages and containers for breakfast though did ask for assist when needed. Used regular utensils to cut food and feed self. After therapy, pt sitting in w/c with call light/phone in reach. All needs met in room. Functional [place] Measure 0=Not Assessed/NA 4=Minimal Assistance 1=Total Assistance 5=Supervision or Setup 2=Maximal Assistance 6=Modified [place] 3=Moderate Assistance 7=Complete IndependenceIRFPAI Quality Coding Scale 6 Independent with activity with or without an assistive device 5 Patient requires set up or clean up by helper. Patient completes activity by themselves 4 Supervision or touching assist (CGA). [place] provide cues , steadying assist 3 The helper provides less than half the effort to complete the activity 2 The helper provides more than half the effort to complete the activity 1 Dependent. The helper does all the effort to complete an activity 7 Patient refused to complete or attempt activity 9 The patient did not perform the activity before the current illness or injury 88 Not attempted due to Medical conditions or safety concerns Eating (FIM): 5 Eating (QC): 5 Grooming (FIM): 5 Oral Hygiene (QC): 5 Bathing (FIM): 3 Bathing Location: L Arm, R Arm, L Upper Leg, R Upper Leg, Chest, Abdomen, Perineal Area Shower/Bathe Self (QC): 3 Upper Body (FIM): 3 Upper Body Dressing (QC): 3 Lower Body Dressing (FIM): 3 Lower Body Dressing (QC): 2 On/Off Footwear (QC): 1 Shower Transfer(FIM): 1 OT Short Term Goals Short Term Goals Time Frame: Feb 25, 2018 Eating(FIM): 5 Grooming(FIM): 5 Bathing(FIM): 4 Upper Body Dressing(FIM): 4 Lower Body Dressing(FIM): 3 Toileting(FIM): 4 Transfers (B,C,W/C) (FIM): 3 Toilet/Commode Transfer(FIM): 4 Additional Short Term Goals: 1-Demonstrate ADL Tasks, 2-Verbalize Understanding , 3-ImproveStrength/Steven 1=Demonstrate adherence to instructed precautions during ADL tasks. 2=Patient will verbalize/demonstrate understanding of assistive devices/ modifications for ADL. 3=Patient will improve strength/tolerance for activity to enable patient to perform ADL's. OT Fdc Goals Fdc Goals Time Frame: Mar 11, 2018 Eating (FIM): 6 Eating (QC): 6 Groomin Oral Hygiene (QC): 6 Bathing(FIM): 5 Shower/Bathe Self (QC): 5 Upper Body Dressing(FIM): 6 Upper Body Dressing (QC): 6 Lower Body Dressing(FIM): 6 Lower Body Dressing (QC): 6 On/Off Footwear (QC): 6 Toileting(FIM): 6 Toileting Hygiene (QC): 6 Transfers (B,C,W/C) (FIM): 6 Toilet/Commode Transfer(FIM): 6 Toilet/Commode Transfer (QC): 6 Shower Transfer(FIM): 5 Additional Goals: 1-Demonstrate ADL Tasks, 2-Verbalize Understanding, 3- ImproveStrength/Steven 1=Demonstrate adherence to instructed precautions during ADL tasks. 2=Patient will verbalize/demonstrate understanding of assistive devices/ modifications for ADL. 3=Patient will improve strength/tolerance for activity to enable patient to perform ADL's. OT Education/Plan Discharge Recommendations Plan/Recommendations: Continue POC Treatment Plan/Plan of Care Patient would benefit from OT for education, treatment and training to promote independence in ADL's, mobility, safety and/or upper extremity function for ADL' s. Plan of Care: ADL Retraining, Functional Mobility, Group Exercise/Act as Ind, UE Funct Exercise/Act Treatment Duration: Mar 11, 2018 Frequency: At least 5 of 7 days/Wk (IRF) Estimated Hrs Per Day: 1.5 hours per day Agreement: Yes Rehab Potential: Good Time/GCodes Start Time: 08:10 Stop Time: 09:40 Total Time Billed (hr/min): 90 Billed Treatment Time 1 visit-ADL 6 (90 min) SINA CHIU Feb 18, 2018 09:51
--- NOTE | 2018-02-18 11:17 | Physical Therapy Daily Note ---
PT Daily Note-Current Subjective Patient in wheelchair at bedside pre tx, agrees to PT, no complaints of pain. Appearance Patient in bed post tx with nurse call, phone, tray, bed alarm on. Mental Status Patient Orientation: Person, Place, Situation Transfers Functional [place] Measure 0=Not Assessed/NA 4=Minimal Assistance 1=Total Assistance 5=Supervision or Setup 2=Maximal Assistance 6=Modified [place] 3=Moderate Assistance 7=Complete IndependenceIRFPAI Quality Coding Scale 6 Independent with activity with or without an assistive device 5 Patient requires set up or clean up by helper. Patient completes activity by themselves 4 Supervision or touching assist (CGA). [place] provide cues , steadying assist 3 The helper provides less than half the effort to complete the activity 2 The helper provides more than half the effort to complete the activity 1 Dependent. The helper does all the effort to complete an activity 7 Patient refused to complete or attempt activity 9 The patient did not perform the activity before the current illness or injury 88 Not attempted due to Medical conditions or safety concerns Transfers (B, C, W/C) (FIM): 3 Scootin Rollin Supine to/from Sit: 4 Sit to/from Stand: 4 Bed to/from Chair: 3 Patient performed a stand pivot transfer to the right with min assist and to the left with mod assist. Weight Bearing Right Lower Extremity: Right Weight Bearing/Tolerated Left Lower Extremity: Left Weight Bearing/Tolerated Gait Training Gait (FIM): 1 Distance: 15'x3 Gait Level of Assist: 3 Gait Persons Needed: 1 Gait Assistive Device: Walker Gaurav Patient ambulated 15'x3 with mod assist using a hemiwalker and wheelchair follow. Patient needs assist blocking her left knee when stepping with her right leg and help to advance her left leg and for weight shifting. Wheelchair Training Does the Pt Use a Wheelchair?: Yes Wheelchair (FIM): 2 Distance: 100'x2 Wheelchair Level of Assist: 4 Type of Wheelchair: Manual assist around corners and obstacles Exercises sit to stand at parallel bars 3 sets of 5 (min to mod assist to stand) NuStep Minutes: 10 NuStep Workload: 5 Treatments bed mobility and transfers, ambulation, functional strengthening, wheelchair mobility Assessment Current Status: Fair Progress improving ambulation and overall standing balance PT Short Term Goals Short Term Goals Time Frame: Feb 18, 2018 Transfers (B,C,W/C) (FIM): 3 Wheelchair (FIM): 4 Wheelchair Distance: 200'x2 Wheelchair Level of Assist: 4 PT [facility]ci Goals Team Assembly Line Machine Operator Goals PT [facility] Goals Time Frame: Mar 04, 2018 Transfers (B,C,W/C) (FIM): 4 Sit to Lying (QC): 3 Lying-Sitting on Side/Bed(QC): 3 Sit to Stand (QC): 3 Rollin Roll Left to Right (QC): 3 Chair/[id number] Xfer(QC): 3 Car Transfer (QC): 3 Gait (FIM): 1 Distance: 20' Walk 10 feet (QC): 3 Gait Level of Assist: 4 Gait Assistive Device: Walker Gaurav Wheelchair (FIM): 5 Distance: 150' Wheelchair Level of Assist: 5 Wheel 50 feet with 2 turns (QC: 4 PT Plan Problem List Problem List: Activity Tolerance, Functional Strength, Safety, Balance, Gait, Transfer, Bed Mobility, ROM Treatment/Plan Treatment Plan: Continue Plan of Care Treatment Plan: Bed Mobility, Concurrent Therapy, Education, Functional Activity Steven, Functional Strength, Group Therapy, Gait, Safety, Therapeutic Exercise, Transfers Treatment Duration: Mar 04, 2018 Frequency: At least 5 of 7 days/Wk (IRF) Estimated Hrs Per Day: 1.5 hours per day Patient and/or Family Agrees t: Yes Safety Risks/Education Patient Education: Gait Training, Transfer Techniques, Correct Positioning, W/ C Management, Safety Issues Teaching Recipient: Patient Teaching Methods: Demonstration, Discussion Response to Teaching: Reinforcement Needed Time/GCodes Time In: 1000 Time Out: 1100 Total Billed Treatment Time: 60 Total Billed Treatment 1 visit GT 30' EX 20' WC 10' JENIFER SOUSA PT Feb 18, 2018 11:17
--- NOTE | 2018-02-18 13:59 | Physical Therapy Daily Note ---
PT Daily Note-Current Subjective Patient in bed pre tx, agrees to PT, no complaints of pain. Appearance Patient in bed post tx with nurse call, phone, tray, all needs met. Bed alarm on. Mental Status Patient Orientation: Person, Place, Situation Transfers Functional [place] Measure 0=Not Assessed/NA 4=Minimal Assistance 1=Total Assistance 5=Supervision or Setup 2=Maximal Assistance 6=Modified [place] 3=Moderate Assistance 7=Complete IndependenceIRFPAI Quality Coding Scale 6 Independent with activity with or without an assistive device 5 Patient requires set up or clean up by helper. Patient completes activity by themselves 4 Supervision or touching assist (CGA). [place] provide cues , steadying assist 3 The helper provides less than half the effort to complete the activity 2 The helper provides more than half the effort to complete the activity 1 Dependent. The helper does all the effort to complete an activity 7 Patient refused to complete or attempt activity 9 The patient did not perform the activity before the current illness or injury 88 Not attempted due to Medical conditions or safety concerns Transfers (B, C, W/C) (FIM): 3 Scootin Rollin Supine to/from Sit: 4 Sit to/from Stand: 4 Bed to/from Chair: 3 Patient needs min assist for stand pivot to the left side. Cues for hand placement and safety. Patient had to perform 4 stand pivot transfers and supine <-> sit x4. Weight Bearing Right Lower Extremity: Right Weight Bearing/Tolerated Left Lower Extremity: Left Weight Bearing/Tolerated Wheelchair Training Does the Pt Use a Wheelchair?: Yes Wheelchair (FIM): 2 Distance: 100'x2 Wheelchair Level of Assist: 4 Type of Wheelchair: Manual Exercises AAROM SAQ left side, patient is not able to assist actively yet. PROM/ stretching of left leg in all planes. Patient has increased extensor tone in left leg that can be hard to break through. Treatments bed mobility and transfers, stretching/ROM, functional strengthening Assessment Current Status: Fair Progress improving transfers PT Short Term Goals Short Term Goals Time Frame: Feb 18, 2018 Transfers (B,C,W/C) (FIM): 3 Wheelchair (FIM): 4 Wheelchair Distance: 100'x2 Wheelchair Level of Assist: 4 PT Penitentiary Goals Penitentiary Goals PT Penitentiary Goals Time Frame: Mar 04, 2018 Transfers (B,C,W/C) (FIM): 4 Sit to Lying (QC): 3 Lying-Sitting on Side/Bed(QC): 3 Sit to Stand (QC): 3 Rollin Roll Left to Right (QC): 3 Chair/Uot-qg-Apbpk Xfer(QC): 3 Car Transfer (QC): 3 Gait (FIM): 1 Distance: 20' Walk 10 feet (QC): 3 Gait Level of Assist: 4 Gait Assistive Device: Walker Gaurav Wheelchair (FIM): 5 Distance: 150' Wheelchair Level of Assist: 5 Wheel 50 feet with 2 turns (QC: 4 PT Plan Problem List Problem List: Activity Tolerance, Functional Strength, Safety, Balance, Gait, Transfer, Bed Mobility, ROM Treatment/Plan Treatment Plan: Continue Plan of Care Treatment Plan: Bed Mobility, Concurrent Therapy, Education, Functional Activity Steven, Functional Strength, Group Therapy, Gait, Safety, Therapeutic Exercise, Transfers Treatment Duration: Mar 04, 2018 Frequency: At least 5 of 7 days/Wk (IRF) Estimated Hrs Per Day: 1.5 hours per day Patient and/or Family Agrees t: Yes Safety Risks/Education Patient Education: Transfer Techniques, Correct Positioning, W/C Management, Safety Issues Teaching Recipient: Patient Teaching Methods: Demonstration, Discussion Response to Teaching: Reinforcement Needed Time/GCodes Time In: 1330 Time Out: 1400 Total Billed Treatment Time: 30 Total Billed Treatment 1 visit FA 10' EX 20' JENIFER SOUSA PT Feb 18, 2018 13:59
[2018-02-18 17:34] VITALS: BP 111/78
[2018-02-19] MEDS: ALPRAZolam 0.25 MG (XANAX) TAB PO PRN ×2 (00:17→22:12)
[2018-02-19 05:10] VITALS: BP 118/80
[2018-02-19] MEDS: PANTOPRAZOLE 40 MG (PROTONIX) TAB PO SCH (06:01)
[2018-02-19] MEDS: ACETAMINOPHEN 325 MG TABLET/CAPLET (TYLENOL) PO PRN ×2 (06:35→15:04)
--- NOTE | 2018-02-19 07:54 | Progress Note (SOAP) ---
Subjective Time Seen by Provider: 07:45 Subjective/Events-last exam Patient more positive today. CVA. Hypertension. Right shoulder slight improvement Objective Exam Vital Signs Date Time Temp Pulse Resp B/P (MAP) Pulse Ox O2 Delivery O2 Flow Rate FiO2 02/19/18 05:10 97.7 74 18 118/80 (93) 100 Room Air 02/18/18 20:12 Room Air 02/18/18 17:34 97.8 84 18 111/78 (89) 96 Room Air 02/18/18 09:00 Room Air I & O 02/19/18 07:00 Intake Total 1080 ml Balance 1080 ml Capillary Refill : General Appearance: No Apparent Distress, WD/WN HEENT: Normal ENT Inspection Neck: Full Range of Motion, Normal Inspection Respiratory: Lungs Clear, No Accessory Muscle Use, No Respiratory Distress Results Lab Microbiology 02/17/18 Urine Culture - Final, Complete Escherichia coli Assessment/Plan Assessment/Plan Assess & Plan/Chief Complaint CVA with hemorrhage. Tobacco usage. Stroke on the left side of body. Recency of baby girl. . 02/15/18. CVA with hemorrhage. Tobacco usage. Hypertension. Stroke on left side of the body. infection. . 02/13/18. CVA with hemorrhage. Tobacco usage. Hypertension. infection. Patient depressed. . 02/14/18. CVA with hemorrhage. Tobacco usage. Hypertension. infection. Patient talking better today. . 02/17/18 CVA with hemorrhage. Tobacco usage. Hypertension. infection Patient does not appear depressed today. . 02/18/18. CVA with hemorrhage. Tobacco usage. Hypertension. UTI. . 's 02/19/18. CVA with hemorrhage. Tobacco usage. Hypertension. UTI. Patient working hard Clinical Quality Measures DVT/VTE Risk/Contraindication: Risk Factor Score Per Nursin RFS Level Per Nursing on Admit: 4+=Very High ASHANTI RUSH DO Feb 19, 2018 07:54
[2018-02-19] MEDS: LEVETIRACETAM 500 MG (KEPPRA) TAB PO SCH ×2 (08:50→20:05)
[2018-02-19] MEDS: SENNA W/DOCUSATE (SENOKOT S) TABLET PO SCH ×2 (08:50→20:05)
[2018-02-19] MEDS: amLODIPine 5 MG (NORVASC) TAB PO SCH (08:50)
[2018-02-19] MEDS: NYSTATIN CREAM (MYCOSTATIN) 30 GM TUBE TP SCH ×3 (08:51→20:05)
--- NOTE | 2018-02-19 08:58 | Physical Therapy Daily Note ---
PT Daily Note-Current Subjective Patient in wheelchair at bedside pre tx, agrees to PT, no complaints of pain. Appearance Patient in bed post tx with nurse call, phone, tray, bed alarm on, all needs met. Mental Status Patient Orientation: Person, Place, Situation Transfers Functional [place] Measure 0=Not Assessed/NA 4=Minimal Assistance 1=Total Assistance 5=Supervision or Setup 2=Maximal Assistance 6=Modified [place] 3=Moderate Assistance 7=Complete IndependenceIRFPAI Quality Coding Scale 6 Independent with activity with or without an assistive device 5 Patient requires set up or clean up by helper. Patient completes activity by themselves 4 Supervision or touching assist (CGA). [place] provide cues , steadying assist 3 The helper provides less than half the effort to complete the activity 2 The helper provides more than half the effort to complete the activity 1 Dependent. The helper does all the effort to complete an activity 7 Patient refused to complete or attempt activity 9 The patient did not perform the activity before the current illness or injury 88 Not attempted due to Medical conditions or safety concerns Transfers (B, C, W/C) (FIM): 3 Scootin Rollin Supine to/from Sit: 4 Sit to/from Stand: 4 Bed to/from Chair: 3 Patient performs stand pivot transfer with min assist to the right and mod assist to the left. Cues for safety and hand placement. Weight Bearing Right Lower Extremity: Right Weight Bearing/Tolerated Left Lower Extremity: Left Weight Bearing/Tolerated Gait Training Gait (FIM): 1 Distance: 20'x3 Gait Level of Assist: 3 Gait Persons Needed: 1 Gait Assistive Device: Walker Gaurav Patient needs assist advancing her left leg but did not need blocking of the knee. She is mod assist but just on the verge of min assist. Wheelchair Training Does the Pt Use a Wheelchair?: Yes Wheelchair (FIM): 2 Distance: 100'x2 Wheelchair Level of Assist: 4 Type of Wheelchair: Manual Exercises NuStep Minutes: 15 NuStep Workload: 5 Treatments bed mobility and transfers, ambulation, wheelchair mobility, functional strengthening Assessment Current Status: Fair Progress improving ambulation and transfers PT Short Term Goals Short Term Goals Time Frame: Feb 18, 2018 Transfers (B,C,W/C) (FIM): 3 Wheelchair (FIM): 4 Wheelchair Distance: 100'x2 Wheelchair Level of Assist: 4 PT Fpc Goals [place] Goals PT [place] Goals Time Frame: Mar 04, 2018 Transfers (B,C,W/C) (FIM): 4 Sit to Lying (QC): 3 Lying-Sitting on Side/Bed(QC): 3 Sit to Stand (QC): 3 Rollin Roll Left to Right (QC): 3 Chair/Egg-ih-Lnvia Xfer(QC): 3 Car Transfer (QC): 3 Gait (FIM): 1 Distance: 20' Walk 10 feet (QC): 3 Gait Level of Assist: 4 Gait Assistive Device: Walker Gaurav Wheelchair (FIM): 5 Distance: 150' Wheelchair Level of Assist: 5 Wheel 50 feet with 2 turns (QC: 4 PT Plan Problem List Problem List: Activity Tolerance, Functional Strength, Safety, Balance, Gait, Transfer, Bed Mobility, ROM Treatment/Plan Treatment Plan: Continue Plan of Care Treatment Plan: Bed Mobility, Concurrent Therapy, Education, Functional Activity Steven, Functional Strength, Group Therapy, Gait, Safety, Therapeutic Exercise, Transfers Treatment Duration: Mar 04, 2018 Frequency: At least 5 of 7 days/Wk (IRF) Estimated Hrs Per Day: 1.5 hours per day Patient and/or Family Agrees t: Yes Safety Risks/Education Patient Education: Gait Training, Transfer Techniques, Correct Positioning, W/ C Management, Disease Process, Safety Issues Teaching Recipient: Patient Teaching Methods: Demonstration, Discussion Response to Teaching: Reinforcement Needed Discharge Recommendations Therapy D/C Recommendations: Home w/ Family Support Time/GCodes Time In: 800 Time Out: 900 Total Billed Treatment Time: 60 Total Billed Treatment 1 visit [facility] 10' EX 15' GT 35' JENIFER SOUSA PT Feb 19, 2018 08:58
--- NOTE | 2018-02-19 09:13 | PM & R (SOAP) Progress Note ---
Subjective Time Seen by Provider: 08:20 Subjective/Events-last exam Patient was seen in Gym this AM Patient mod assist for transfers. Objective Exam Last Set of Vital Signs Vital Signs Date Time Temp Pulse Resp B/P (MAP) Pulse Ox O2 Delivery O2 Flow Rate FiO2 02/19/18 05:10 97.7 74 18 118/80 (93) 100 Room Air Capillary Refill : I&O Intake and Output 02/19/18 00:00 Intake Total 1080 ml Balance 1080 ml Intake Oral 1080 ml # Voids 6 # Bowel Movements 1 General: Alert, Oriented X3, Cooperative, No Acute Distress HEENT: Atraumatic, PERRLA, EOMI, Mucous Memb Moist/[place] Neck: Supple, No JVD Lungs: Clear to Auscultation Heart: Regular Rate Abdomen: Normal Bowel Sounds, Soft, No Tenderness Extremities: No Edema Neuro: Other (Left HP) Results Lab Laboratory Tests 02/17/18 14:20: Urine Color AMBERH, Urine Clarity SLIGHTLY CLOUDY, Urine pH 5, Urine Specific [place] 1.025H, Urine Protein 2+H, Urine Glucose (UA) NEGATIVE, Urine Ketones NEGATIVE, Urine Nitrite NEGATIVE, Urine Bilirubin 1+H, Urine Urobilinogen 1, Urine Leukocyte Esterase 3+H, Urine RBC (Auto) 5+H, Urine RBC 5-10H, Urine WBC 50-100H, Urine Squamous Epithelial Cells 25-50H, Urine Crystals PRESENTH, Urine Calcium Oxalate Crystals FEWH, Urine Bacteria MODERATEH, Urine Casts NONE, Urine Mucus SMALLH, Urine Culture Indicated YES Microbiology 02/17/18 Urine Culture - Final, Complete Escherichia coli Assessment/Plan Assessment RT ICB with Left HP HTN E COLI UTI Reactive depression med added Constipation meds adjusted Vaginal drainage on Diflucan Plan Continue PT/OT ST has signed off Bowel meds adjusted [facility] has seen-Appreciate their consult Next Team Conference later today-see report for full functional update and POC and ELAINE BARILLAS MD Feb 19, 2018 09:13
[2018-02-19] MEDS: AMOXICILLIN 500 MG (POLYMOX) CAP PO SCH ×3 (10:01→20:05)
--- NOTE | 2018-02-19 10:16 | Occupational Ther Daily Note ---
OT Current Status-Daily Note Subjective Pt alert, lying in bed finishing breakfast. Pt agreed to therapy. No c/o pain at this time. Mental Status/Objective Patient Orientation: Person, Place, Time, Situation Functional [place] Measure 0=Not Assessed/NA 4=Minimal Assistance 1=Total Assistance 5=Supervision or Setup 2=Maximal Assistance 6=Modified [place] 3=Moderate Assistance 7=Complete [place] ADL-Treatment Pt declined shower at this time. Pt did complete sponge bath. Pt was able to cleanse april area/buttocks supine in bed. With HOB raised pt required mod A to go from supine to sitting EOB. Pt then transferred with mod A from EOB to w/ c with mod A for stand pivot transfer. Pt completed cleansing upper body. BIGGS reviewed one handed dressing technique with shirt/bra. Min A for donning upper body clothing. Mod A for lower body dressing. Pt is able to get clothing over feet with mod A, does loose balance toward L side when bending forward and requires verbal cues to right self. Pt is able to stand while holding onto stable surface then balances self with min A to assist with hiking pants over R hip. Pt is able to complete oral care sitting in w/c. Pt maneuvered w/c out of bathroom then to therapy gym. Functional [place] Measure 0=Not Assessed/NA 4=Minimal Assistance 1=Total Assistance 5=Supervision or Setup 2=Maximal Assistance 6=Modified [place] 3=Moderate Assistance 7=Complete IndependenceIRFPAI Quality Coding Scale 6 Independent with activity with or without an assistive device 5 Patient requires set up or clean up by helper. Patient completes activity by themselves 4 Supervision or touching assist (CGA). [place] provide cues , steadying assist 3 The helper provides less than half the effort to complete the activity 2 The helper provides more than half the effort to complete the activity 1 Dependent. The helper does all the effort to complete an activity 7 Patient refused to complete or attempt activity 9 The patient did not perform the activity before the current illness or injury 88 Not attempted due to Medical conditions or safety concerns Grooming (FIM): 6 Oral Hygiene (QC): 6 Upper Body (FIM): 4 Upper Body Dressing (QC): 3 Lower Body Dressing (FIM): 3 Lower Body Dressing (QC): 2 On/Off Footwear (QC): 4 (Assist to keep L LE on R knee, pt is able to don socks with one handed technique.) Other Treatment Electrical stimulation to L shldr to work on muscle activation to decrease shldr sublux and increase AROM. Electrical stimulation at 8 prieto resistance with trace muscle. Pt worked on scanning toward left side for left neglect. Fine motor dexterity and strength for R UE completed. After therapy, pt sitting in w/c with call light/phone in reach. All needs met in room. OT Short Term Goals Short Term Goals Time Frame: Feb 25, 2018 Eating(FIM): 5 Grooming(FIM): 5 Bathing(FIM): 4 Upper Body Dressing(FIM): 4 Lower Body Dressing(FIM): 3 Toileting(FIM): 4 Transfers (B,C,W/C) (FIM): 3 Toilet/Commode Transfer(FIM): 4 Additional Short Term Goals: 1-Demonstrate ADL Tasks, 2-Verbalize Understanding , 3-ImproveStrength/Steven 1=Demonstrate adherence to instructed precautions during ADL tasks. 2=Patient will verbalize/demonstrate understanding of assistive devices/ modifications for ADL. 3=Patient will improve strength/tolerance for activity to enable patient to perform ADL's. OT Penitentiary Goals Penitentiary Goals Time Frame: Mar 11, 2018 Eating (FIM): 6 Eating (QC): 6 Groomin Oral Hygiene (QC): 6 Bathing(FIM): 5 Shower/Bathe Self (QC): 5 Upper Body Dressing(FIM): 6 Upper Body Dressing (QC): 6 Lower Body Dressing(FIM): 6 Lower Body Dressing (QC): 6 On/Off Footwear (QC): 6 Toileting(FIM): 6 Toileting Hygiene (QC): 6 Transfers (B,C,W/C) (FIM): 6 Toilet/Commode Transfer(FIM): 6 Toilet/Commode Transfer (QC): 6 Shower Transfer(FIM): 5 Additional Goals: 1-Demonstrate ADL Tasks, 2-Verbalize Understanding, 3- ImproveStrength/Steven 1=Demonstrate adherence to instructed precautions during ADL tasks. 2=Patient will verbalize/demonstrate understanding of assistive devices/ modifications for ADL. 3=Patient will improve strength/tolerance for activity to enable patient to perform ADL's. OT Education/Plan Discharge Recommendations Plan/Recommendations: Continue POC Treatment Plan/Plan of Care Patient would benefit from OT for education, treatment and training to promote independence in ADL's, mobility, safety and/or upper extremity function for ADL' s. Plan of Care: ADL Retraining, Functional Mobility, Group Exercise/Act as Ind, UE Funct Exercise/Act Treatment Duration: Mar 11, 2018 Frequency: At least 5 of 7 days/Wk (IRF) Estimated Hrs Per Day: 1.5 hours per day Agreement: Yes Rehab Potential: Good Time/GCodes Start Time: 06:55 Stop Time: 07:55 Total Time Billed (hr/min): 60 Billed Treatment Time 1 visit-ADL 2 (30 min) NM 2 (30 min) SINA CHIU Feb 19, 2018 10:16
--- NOTE | 2018-02-19 14:14 | Speech Therapy Progress Note ---
Therapy Progress Note Speech pathology received request from OT and PT to re-assess the patient's cognitive status due to poor awareness and problem solving, as well as, flat affect. The speech pathologist scheduled a re-assessment for 02/20/2018 at 9:00. As the patient's is present, the clinician visited with him briefly regarding the patient's current cognitive ability and communication. Per , he is not noticing any changes in her personality, communication, cognition, or affect. The patient's stated the patient has been more soft-spoken in the past and "I don't think anything has changed, at least not to me." The clinician will reassess the patient's cognitive ability at the scheduled evaluation time. EVE DE LA ROSA Feb 19, 2018 14:13
--- NOTE | 2018-02-19 15:02 | Therapy Group Daily Note ---
Therapy Daily Group Note Exercises LE Seated Exercise, UE Exercise Other/Notes Pt maneuvered w/c to therapy gym for OT/PT group. Group consisted of introductions (name, place living, favorite place), socialization, seated UE/LE exercises and peer interaction activity with Jeopardy format. Pt was able to introduce self and actively listened to peers while they introduced themselves. Pt contributed to surrounding conversations and interacted appropriately with peers. Pt was able to answer trivia questions during peer interaction activity. Light resistance theraband exercises completed for UE/LE, modified for one arm/leg exercises. After therapy, pt maneuvered w/c to room. All needs met in room. Start Time: 13:05 Stop Time: 14:10 Total Billed Treatment Time: 65 Total Billed Treatment 1-GRP SINA CHIU Feb 19, 2018 15:02
[2018-02-19 18:00] VITALS: BP 109/72
[2018-02-20] MEDS: ACETAMINOPHEN 325 MG TABLET/CAPLET (TYLENOL) PO PRN ×4 (00:40→21:28)
[2018-02-20 05:01] VITALS: BP 98/65
[2018-02-20] MEDS: PANTOPRAZOLE 40 MG (PROTONIX) TAB PO SCH (06:04)
--- NOTE | 2018-02-20 08:05 | Progress Note (SOAP) ---
Subjective Time Seen by Provider: 08:03 Subjective/Events-last exam Patient voices no complaints. Patient needs more work UTI on amoxicillin Objective Exam Vital Signs Date Time Temp Pulse Resp B/P (MAP) Pulse Ox O2 Delivery O2 Flow Rate FiO2 02/20/18 05:01 98.4 72 20 98/65 (76) 92 Room Air 02/19/18 20:05 Room Air 02/19/18 18:00 97.4 69 20 109/72 (84) 94 Room Air 02/19/18 09:00 Room Air I & O 02/20/18 07:00 Intake Total 1500 ml Balance 1500 ml Capillary Refill : General Appearance: No Apparent Distress, WD/WN Results Lab Microbiology 02/17/18 Urine Culture - Final, Complete Escherichia coli Assessment/Plan Assessment/Plan Assess & Plan/Chief Complaint CVA with hemorrhage. Tobacco usage. Stroke on the left side of body. Recency of baby girl. . 02/15/18. CVA with hemorrhage. Tobacco usage. Hypertension. Stroke on left side of the body. infection. . 02/13/18. CVA with hemorrhage. Tobacco usage. Hypertension. infection. Patient depressed. . 02/14/18. CVA with hemorrhage. Tobacco usage. Hypertension. infection. Patient talking better today. . 02/17/18 CVA with hemorrhage. Tobacco usage. Hypertension. infection Patient does not appear depressed today. . 02/18/18. CVA with hemorrhage. Tobacco usage. Hypertension. UTI. . 's 02/19/18. CVA with hemorrhage. Tobacco usage. Hypertension. UTI. Patient working hard. . 02/20/18. CVA with hemorrhage. Tobacco usage. Hypertension. UTI Clinical Quality Measures DVT/VTE Risk/Contraindication: Risk Factor Score Per Nursin RFS Level Per Nursing on Admit: 4+=Very High ASHANTI RUSH DO Feb 20, 2018 08:05
[2018-02-20] MEDS: LEVETIRACETAM 500 MG (KEPPRA) TAB PO SCH ×2 (08:14→20:09)
[2018-02-20] MEDS: AMOXICILLIN 500 MG (POLYMOX) CAP PO SCH ×3 (08:14→20:09)
[2018-02-20] MEDS: NYSTATIN CREAM (MYCOSTATIN) 30 GM TUBE TP SCH ×3 (08:14→20:09)
[2018-02-20] MEDS: ALPRAZolam 0.25 MG (XANAX) TAB PO PRN ×2 (08:14→21:28)
[2018-02-20] MEDS: SENNA W/DOCUSATE (SENOKOT S) TABLET PO SCH ×2 (08:14→20:09)
[2018-02-20] MEDS: amLODIPine 5 MG (NORVASC) TAB PO SCH (08:14)
--- NOTE | 2018-02-20 08:58 | Physical Therapy Daily Note ---
PT Daily Note-Current Subjective Patient in wheelchair at bedside pre tx, agrees to PT, no complaints of pain. Appearance Patient in bed post tx with nurse call, phone, tray, bed alarm on. Mental Status Patient Orientation: Person, Place, Situation Transfers Functional [place] Measure 0=Not Assessed/NA 4=Minimal Assistance 1=Total Assistance 5=Supervision or Setup 2=Maximal Assistance 6=Modified [place] 3=Moderate Assistance 7=Complete IndependenceIRFPAI Quality Coding Scale 6 Independent with activity with or without an assistive device 5 Patient requires set up or clean up by helper. Patient completes activity by themselves 4 Supervision or touching assist (CGA). [place] provide cues , steadying assist 3 The helper provides less than half the effort to complete the activity 2 The helper provides more than half the effort to complete the activity 1 Dependent. The helper does all the effort to complete an activity 7 Patient refused to complete or attempt activity 9 The patient did not perform the activity before the current illness or injury 88 Not attempted due to Medical conditions or safety concerns Transfers (B, C, W/C) (FIM): 4 Scootin Rollin Supine to/from Sit: 4 Sit to/from Stand: 4 Bed to/from Chair: 4 Weight Bearing Right Lower Extremity: Right Weight Bearing/Tolerated Left Lower Extremity: Left Weight Bearing/Tolerated Wheelchair Training Wheelchair (FIM): 5 Distance: 150'x2 Wheelchair Level of Assist: 5 Type of Wheelchair: Manual Exercises stretching/ROM of left leg in all planes, AAROM SAQ left side x20, standing in parallel bars weight bearing on left leg (lifting up right leg) x20 NuStep Minutes: 15 NuStep Workload: 5 Treatments bed mobility and transfers, functional strengthening, ROM Assessment Current Status: Fair Progress patient continues to have increased tone in left leg, attempted to get an AFO for left foot for ambulation but there was not the right size. PT Short Term Goals Short Term Goals Time Frame: Feb 18, 2018 Transfers (B,C,W/C) (FIM): 3 Wheelchair (FIM): 4 Wheelchair Distance: 100'x2 Wheelchair Level of Assist: 4 PT [place] Goals [place] Goals PT [place] Goals Time Frame: Mar 04, 2018 Transfers (B,C,W/C) (FIM): 4 Sit to Lying (QC): 3 Lying-Sitting on Side/Bed(QC): 3 Sit to Stand (QC): 3 Rollin Roll Left to Right (QC): 3 Chair/Tze-ra-Ytxuq Xfer(QC): 3 Car Transfer (QC): 3 Gait (FIM): 1 Distance: 20' Walk 10 feet (QC): 3 Gait Level of Assist: 4 Gait Assistive Device: Walker Gaurav Wheelchair (FIM): 5 Distance: 150' Wheelchair Level of Assist: 5 Wheel 50 feet with 2 turns (QC: 4 PT Plan Problem List Problem List: Activity Tolerance, Functional Strength, Safety, Balance, Gait, Transfer, Bed Mobility, ROM Treatment/Plan Treatment Plan: Continue Plan of Care Treatment Plan: Bed Mobility, Concurrent Therapy, Education, Functional Activity Steven, Functional Strength, Group Therapy, Gait, Safety, Therapeutic Exercise, Transfers Treatment Duration: Mar 04, 2018 Frequency: At least 5 of 7 days/Wk (IRF) Estimated Hrs Per Day: 1.5 hours per day Patient and/or Family Agrees t: Yes Safety Risks/Education Patient Education: Transfer Techniques, Correct Positioning, W/C Management, Safety Issues Teaching Recipient: Patient Teaching Methods: Demonstration, Discussion Response to Teaching: Reinforcement Needed Time/GCodes Time In: 800 Time Out: 900 Total Billed Treatment Time: 60 Total Billed Treatment 1 visit EX 30' [facility] 10' FA 20' JENIFER SOUSA PT Feb 20, 2018 08:58
--- NOTE | 2018-02-20 09:00 | PM & R (SOAP) Progress Note ---
Subjective Time Seen by Provider: 08:00 Subjective/Events-last exam Patient was seen in her room this AM and on common area Patient selfpropelling w /c Independently for short distances Objective Exam Last Set of Vital Signs Vital Signs Date Time Temp Pulse Resp B/P (MAP) Pulse Ox O2 Delivery O2 Flow Rate FiO2 02/20/18 05:01 98.4 72 20 98/65 (76) 92 Room Air Capillary Refill : I&O Intake and Output 02/20/18 00:00 Intake Total 920 ml Balance 920 ml Intake Oral 920 ml # Voids 7 General: Alert, Oriented X3, Cooperative, No Acute Distress HEENT: Atraumatic, PERRLA, EOMI, Mucous Memb Moist/[place] Neck: Supple, No JVD Lungs: Clear to Auscultation Heart: Regular Rate Abdomen: Normal Bowel Sounds, Soft, No Tenderness Extremities: No Edema Neuro: Other (Left HP) Results Lab Laboratory Tests 02/17/18 14:20: Urine Color AMBERH, Urine Clarity SLIGHTLY CLOUDY, Urine pH 5, Urine Specific [place] 1.025H, Urine Protein 2+H, Urine Glucose (UA) NEGATIVE, Urine Ketones NEGATIVE, Urine Nitrite NEGATIVE, Urine Bilirubin 1+H, Urine Urobilinogen 1, Urine Leukocyte Esterase 3+H, Urine RBC (Auto) 5+H, Urine RBC 5-10H, Urine WBC 50-100H, Urine Squamous Epithelial Cells 25-50H, Urine Crystals PRESENTH, Urine Calcium Oxalate Crystals FEWH, Urine Bacteria MODERATEH, Urine Casts NONE, Urine Mucus SMALLH, Urine Culture Indicated YES Microbiology 02/17/18 Urine Culture - Final, Complete Escherichia coli Assessment/Plan Assessment RT ICB with Left HP HTN E COLI UTI Reactive depression med added Constipation meds adjusted Vaginal drainage on Diflucan Plan Continue PT/OT ST has signed off Bowel meds adjusted [facility] has seen-Appreciate their consult Team Conference held yesterday-see report for full functional update and POC and ELAINE BARILLAS MD Feb 20, 2018 09:00
--- NOTE | 2018-02-20 10:19 | ST Cognitive Linguistic Eval ---
Speech Evaluation-General Medical Diagnosis CVA Onset Date: Jan 23, 2018 Therapy Diagnosis Therapy Diagnosis: Mild Cognitive Impairment Precautions Precautions/Isolations: Seizure, Fall Prevention, Standard Precautions Referral Referring Physician: Dr. Deng Flower Reason for Referral: Evaluation/Treatment Cognitive Evaluation Medical History Pertinent Medical History: HTN, Smoking Current History The patient was recently admitted to [facility] following a CVA which resulted in left sided weakness. The patient received speech pathology evaluation upon admission and demonstrated cognitive skills which were grossly within normal limits and "normal" in comparison to the patient's prior level of function (per patient and patient's ). The patient and her denied changes, challenges, or difficulties with her communication following her CVA. Reviewed History: Yes Social History Current Living Status: Spouse ([place], [place]) Speech PLF-Current Status Prior Level of Function Per , he is not noticing any changes in her personality, communication, cognition, or affect. The patient's stated the patient has been more soft-spoken in the past and "I don't think anything has changed, at least not to me." Subjective Speech pathology received request from OT and PT to re-assess the patient's cognitive status due to poor awareness and problem solving, as well as, flat affect. The speech pathologist scheduled a re-assessment on this date. As the patient's was present the prior afternoon, the clinician visited with him briefly regarding the patient's current cognitive ability, communication, and overall personality. Per , he is not noticing any changes in her personality, communication, cognition, or affect. The patient's stated the patient has been more soft-spoken in the past and "I don't think anything has changed, at least not to me." The patient's social work msw stated the patient has completed necessary insurance paperwork with her without difficulty. The patient is agreeable to re-evaluation of cognition. The patient seated herself upright in bed for completion. Language Eval: Auditory Comprehends Simple Yes/No Ques: Functional Indent/Objects Multiple Domingo: Functional Ident/Pics in Multiple Domingo: Functional Follows 1-Step Commands: Functional Follows General Conversations: Functional The patient displays a mild delay in responses and requires increased, intermittent processing time. Language Eval: Verbal Language Completes Spontaneous Greeting: Functional Produces Auto, Serial Info: Functional Imitates Simple Words/Phrases: Functional Word Finding: Functional Requests Basic Needs: Functional States Basic Personal Info: Functional The patient responds with a slightly reduced rate of speech, as well as, flat affect. The patient's affect was discussed with her to aid in comparison to function prior to stroke. Per patient's , the patient has consistently demonstrated a monotonous type of speech. Language Evaluation: Reading Comprehends Single Nouns: Functional Follows Simple Written Direct: Functional Comprehends Multiple Sentences: Functional Language Evaluation: Writing Writes Personal Information: Functional Writes Short Phrases: Functional Writes Detailed Sent/Paragraph: Functional (The patient has transcribed detailed letters to family members, specifically her sister. The communication is complete, without the presence of errors.) Cognitive Patient Orientation The patient is independently oriented to self, location, rationale for therapy services, month, day of week, and year. Objective Cognitive Domain Attention: Mild Memory: WNL Executive Functions: Mild Visuospatial Skills: Mild Composite Severity Rating: Mild Clock Drawing Severity Rating: WNL Score: 3.4/4 Range: 2.5 to 3.4 (mild deficit); 3.5 to 4 (WNL) The patient displayed a minimal to mild composite severity score with cognition. The patient's impacted areas include: - Attention (minimal): 176 (Minimal Range of Severity: 179-125) - Executive Function (mild): 20 (Mild Range of Severity: 23-20) - Visuospatial (mild): 74 (Mild Range of Severity: 81-52) Objective Formal/Standardized Tests The clinician completed the CLQT (Cognitive Linguistic Quick Test) by Savi Jeter Results The patient displayed a minimal to mild composite severity score with cognition. The patient's impacted areas include: - Attention (minimal): 176 (Minimal Range of Severity: 179-125) - Executive Function (mild): 20 (Mild Range of Severity: 23-20) - Visuospatial (mild): 74 (Mild Range of Severity: 81-52) Oral Motor/Speech Production The patient displays minimally reduced left labial retraction upon smiling. Per patient (and patient's ), the weakness "is barely there, I didn't think it was there at all." The patient is 100% intelligible in known and unknown contexts, communicating with a slightly reduced rate of speech. Impression The patient The patient displayed a minimal to mild composite severity score with cognition. The patient's impacted areas include: - Attention (minimal): 176 (Minimal Range of Severity: 179-125) - Executive Function (mild): 20 (Mild Range of Severity: 23-20) - Visuospatial (mild): 74 (Mild Range of Severity: 81-52) The above information correlates to the PT and OT's reports of left sided neglect, which the patient does report awareness off, however, forgetfulness to re-correct. While the patient and patient's report baseline functioning , the clinician will provide services to increase awareness of left neglect through visuospatial strategies. The clinician is concerned the patient's reduced awareness may be a baseline function. Communication/Social Cognition Comprehension: 5 Expression: 5 Social Interaction: 5 Problem Solvin Memory: 4 Speech Patient Assess Expression of Ideas/Wants: Expression (4) Understanding [place] Content: Usually Understands (3) Brief Interview-Mental Status: Yes Repetition of Three Words: Three (3) Temporal Orientation: Year: Correct (3) Temporal Orientation: Month: Accurate within 5 days(2) Temporal Orientation: Day: Correct (1) Recall : Wear to say "Sock": Yes, no cue required (2) Recall : Color: Yes, no cue required (2) Recall : Bed: Yes, no cue required (2) Speech Short Term Goals Short Term Goals Short Term Goals 1. The patient will display recall and demonstrate visuospatial strategies to improve left sided neglect. 2. The patient will accurately sequence ADL tasks with mild clinician verbal prompting. Time Frame-STG: One Week Speech Grating Machine Operator Goals [facility]ci Goals 1. The patient will increase awareness of left sided neglect through visuospatial strategies. Time Frame: Two Weeks Comprehension: 5 Expression: 5 Social Interaction: 5 Problem Solvin Memory: 4 Speech-Plan Treatment Plan Speech Therapy Treatment Plan: Continue Plan of Care Initiate skilled speech pathology services to aid in visuospatial strategies. Treatment Duration: Feb 27, 2018 Frequency: Modified Program (IRF) (three to five times per week) Estimated Hrs Per Day: .5 hour per day Rehab Potential: Good Safety Risks/Education Teaching Recipient: Patient Teaching Methods: Discussion Response to Teaching: Verbalize Understanding Education Topics Provided: Plan of Care, Results of CLQT Time Speech Therapy Time In: 09:00 Speech Therapy Time Out: 09:45 Total Billed Time: 45 Billed Treatment Time 1, EVE NEVES Feb 20, 2018 10:19
--- NOTE | 2018-02-20 11:11 | Occupational Ther Daily Note ---
OT Current Status-Daily Note Subjective Pt alert, lying in bed. Pt agreed to therapy. No c/o pain. Mental Status/Objective Patient Orientation: Person, Place, Time, Situation Functional [place] Measure 0=Not Assessed/NA 4=Minimal Assistance 1=Total Assistance 5=Supervision or Setup 2=Maximal Assistance 6=Modified [place] 3=Moderate Assistance 7=Complete [place] ADL-Treatment Mod A to go from supine to sitting to scoot LE's off of bed, pt pushed upper body to sitting with HOB slightly raised. Pt transferred from EOB to rolling shower chair with cutout, mod A. Pt was transported into shower with shower chair. Using shower chair, grabbars, long handle sponge and hand held shower pt was able to complete with supervision, assist to dry lower legs and buttocks. After set up, pt able to don shirt by self. Assist to manipulate sports bra over L UE then pt able to complete rest of sequence. Pt was able to cross L LE over R knee to don lower body clothing, assist to hold L LE on R knee. Pt required assist to stand while pt hiked pants over R hip then assist to hike over L hip. Pt then sat at sink to complete own grooming. After therapy, pt sitting in recliner with call light/phone in reach. All needs met in room. Functional [place] Measure 0=Not Assessed/NA 4=Minimal Assistance 1=Total Assistance 5=Supervision or Setup 2=Maximal Assistance 6=Modified [place] 3=Moderate Assistance 7=Complete IndependenceIRFPAI Quality Coding Scale 6 Independent with activity with or without an assistive device 5 Patient requires set up or clean up by helper. Patient completes activity by themselves 4 Supervision or touching assist (CGA). [place] provide cues , steadying assist 3 The helper provides less than half the effort to complete the activity 2 The helper provides more than half the effort to complete the activity 1 Dependent. The helper does all the effort to complete an activity 7 Patient refused to complete or attempt activity 9 The patient did not perform the activity before the current illness or injury 88 Not attempted due to Medical conditions or safety concerns Grooming (FIM): 6 Oral Hygiene (QC): 6 Bathing (FIM): 4 Bathing Location: L Arm, R Arm, L Upper Leg, R Upper Leg, L Lower Leg ( including foot), R Lower Leg (including foot), Chest, Abdomen, Buttocks, Perineal Area Shower/Bathe Self (QC): 3 Upper Body (FIM): 4 Upper Body Dressing (QC): 3 Lower Body Dressing (FIM): 3 Lower Body Dressing (QC): 3 On/Off Footwear (QC): 4 Shower Transfer(FIM): 1 OT Short Term Goals Short Term Goals Time Frame: Feb 25, 2018 Eating(FIM): 5 Grooming(FIM): 5 Bathing(FIM): 4 Upper Body Dressing(FIM): 4 Lower Body Dressing(FIM): 3 Toileting(FIM): 4 Transfers (B,C,W/C) (FIM): 3 Toilet/Commode Transfer(FIM): 4 Additional Short Term Goals: 1-Demonstrate ADL Tasks, 2-Verbalize Understanding , 3-ImproveStrength/Steven 1=Demonstrate adherence to instructed precautions during ADL tasks. 2=Patient will verbalize/demonstrate understanding of assistive devices/ modifications for ADL. 3=Patient will improve strength/tolerance for activity to enable patient to perform ADL's. OT Long-Term Goals Long-Term Goals Time Frame: Mar 11, 2018 Eating (FIM): 6 Eating (QC): 6 Groomin Oral Hygiene (QC): 6 Bathing(FIM): 5 Shower/Bathe Self (QC): 5 Upper Body Dressing(FIM): 6 Upper Body Dressing (QC): 6 Lower Body Dressing(FIM): 6 Lower Body Dressing (QC): 6 On/Off Footwear (QC): 6 Toileting(FIM): 6 Toileting Hygiene (QC): 6 Transfers (B,C,W/C) (FIM): 6 Toilet/Commode Transfer(FIM): 6 Toilet/Commode Transfer (QC): 6 Shower Transfer(FIM): 5 Comprehension(FIM): 5 Expression (FIM): 5 Social Interaction(FIM): 5 Problem Solving(FIM): 4 Memory(FIM): 4 Additional Goals: 1-Demonstrate ADL Tasks, 2-Verbalize Understanding, 3- ImproveStrength/Steven 1=Demonstrate adherence to instructed precautions during ADL tasks. 2=Patient will verbalize/demonstrate understanding of assistive devices/ modifications for ADL. 3=Patient will improve strength/tolerance for activity to enable patient to perform ADL's. OT Education/Plan Discharge Recommendations Plan/Recommendations: Continue POC Treatment Plan/Plan of Care Patient would benefit from OT for education, treatment and training to promote independence in ADL's, mobility, safety and/or upper extremity function for ADL' s. Plan of Care: ADL Retraining, Functional Mobility, Group Exercise/Act as Ind, UE Funct Exercise/Act Treatment Duration: Mar 11, 2018 Frequency: At least 5 of 7 days/Wk (IRF) Estimated Hrs Per Day: 1.5 hours per day Agreement: Yes Rehab Potential: Good Time/GCodes Start Time: 06:50 Stop Time: 07:50 Total Time Billed (hr/min): 60 Billed Treatment Time 1 visit-ADL 4 (60 min) SINA CHIU Feb 20, 2018 11:11
--- NOTE | 2018-02-20 11:55 | Physical Therapy Daily Note ---
PT Daily Note-Current Subjective Agreeable to PT. Pain Numeric Pain Scale: 0-No Pain Location: No Pain Reported Transfers Functional [place] Measure 0=Not Assessed/NA 4=Minimal Assistance 1=Total Assistance 5=Supervision or Setup 2=Maximal Assistance 6=Modified [place] 3=Moderate Assistance 7=Complete IndependenceIRFPAI Quality Coding Scale 6 Independent with activity with or without an assistive device 5 Patient requires set up or clean up by helper. Patient completes activity by themselves 4 Supervision or touching assist (CGA). [place] provide cues , steadying assist 3 The helper provides less than half the effort to complete the activity 2 The helper provides more than half the effort to complete the activity 1 Dependent. The helper does all the effort to complete an activity 7 Patient refused to complete or attempt activity 9 The patient did not perform the activity before the current illness or injury 88 Not attempted due to Medical conditions or safety concerns Transfers (B, C, W/C) (FIM): 4 Supine to/from Sit: 4 (occas CGA and skilled cues to sequence and problem solve. ) Sit to Stand (QC): 4 (min assist to stand with skilled cues to sequence and for foot and hand placement.) Chair/Lty-iz-[place] Xfer(QC): 4 Weight Bearing Right Lower Extremity: Right Weight Bearing/Tolerated Left Lower Extremity: Left Weight Bearing/Tolerated Gait Training Does the Patient Walk?: Yes Gait (FIM): 2 Gait Assistive Device: Walker Gaurav Pt ambulated 5 bouts of 15-20 ft each with mod assist at the gait belt, assist to advance the left LE and cues to sequence. Pt able to bear weight through the left side but unable to lift or advance the left LE. Assessment Current Status: Good Progress Pt did well with the transfers and was able to verbalize how to complete, needed occas cues to sequence. She is progressing with gait; occasional loss of attention during gait that could be a safety risk, such as releasing the gaurav walker to wave at someone. Pt is pleasant and cooperative. PT Short Term Goals Short Term Goals Time Frame: Feb 18, 2018 Transfers (B,C,W/C) (FIM): 3 (met) Wheelchair (FIM): 4 Wheelchair Distance: 150'x2 Wheelchair Level of Assist: 4 PT Audit Mgr Goals Audit Mgr Goals PT Audit Mgr Goals Time Frame: Mar 04, 2018 Transfers (B,C,W/C) (FIM): 4 Sit to Lying (QC): 3 Lying-Sitting on Side/Bed(QC): 3 Sit to Stand (QC): 3 Rollin Roll Left to Right (QC): 3 Chair/Mnj-hu-Akxga Xfer(QC): 3 Car Transfer (QC): 3 Gait (FIM): 1 Distance: 20' Walk 10 feet (QC): 3 Gait Level of Assist: 4 Gait Assistive Device: Walker Gaurav Wheelchair (FIM): 5 Distance: 150' Wheelchair Level of Assist: 5 Wheel 50 feet with 2 turns (QC: 4 PT Plan Problem List Problem List: Activity Tolerance, Functional Strength, Safety, Balance, Gait, Transfer, Bed Mobility Treatment/Plan Treatment Plan: Continue Plan of Care Treatment Plan: Bed Mobility, Concurrent Therapy, Education, Functional Activity Steven, Functional Strength, Group Therapy, Gait, Safety, Therapeutic Exercise, Transfers Treatment Duration: Mar 04, 2018 Frequency: At least 5 of 7 days/Wk (IRF) Estimated Hrs Per Day: 1.5 hours per day Patient and/or Family Agrees t: Yes Safety Risks/Education Patient Education: Safety Issues Teaching Recipient: Patient Teaching Methods: Discussion Response to Teaching: Verbalize Understanding, Reinforcement Needed Time/GCodes Time In: 1115 Time Out: 1148 Total Billed Treatment Time: 33 Total Billed Treatment visit GT 33 SINA PAULINO PT Feb 20, 2018 11:55
--- NOTE | 2018-02-20 14:26 | Occupational Ther Daily Note ---
OT Current Status-Daily Note Subjective Pt alert, sitting in w/c in therapy gym. Pt agreed to therapy. No c/o pain at this time. Mental Status/Objective Patient Orientation: Person, Place, Time, Situation Functional [place] Measure 0=Not Assessed/NA 4=Minimal Assistance 1=Total Assistance 5=Supervision or Setup 2=Maximal Assistance 6=Modified [place] 3=Moderate Assistance 7=Complete [place] ADL-Treatment Functional [place] Measure 0=Not Assessed/NA 4=Minimal Assistance 1=Total Assistance 5=Supervision or Setup 2=Maximal Assistance 6=Modified [place] 3=Moderate Assistance 7=Complete IndependenceIRFPAI Quality Coding Scale 6 Independent with activity with or without an assistive device 5 Patient requires set up or clean up by helper. Patient completes activity by themselves 4 Supervision or touching assist (CGA). [place] provide cues , steadying assist 3 The helper provides less than half the effort to complete the activity 2 The helper provides more than half the effort to complete the activity 1 Dependent. The helper does all the effort to complete an activity 7 Patient refused to complete or attempt activity 9 The patient did not perform the activity before the current illness or injury 88 Not attempted due to Medical conditions or safety concerns Other Treatment Electrical stimulation to L shldr and L forearm to promote AROM. Pt had trace movement with L shldr elevation at 8 prieto then good AROM with 5 prieto for wrist and finger flexion. Pt also worked on complex sequencing, math concepts for cognitive problem solving. After therapy, pt lying in bed. Pt assisted with scooting self up in bed. Call light/phone in reach. All needs met in room. OT Short Term Goals Short Term Goals Time Frame: Feb 25, 2018 Eating(FIM): 5 Grooming(FIM): 5 Bathing(FIM): 4 Upper Body Dressing(FIM): 4 Lower Body Dressing(FIM): 3 Toileting(FIM): 4 Transfers (B,C,W/C) (FIM): 3 (met) Toilet/Commode Transfer(FIM): 4 Additional Short Term Goals: 1-Demonstrate ADL Tasks, 2-Verbalize Understanding , 3-ImproveStrength/Steven 1=Demonstrate adherence to instructed precautions during ADL tasks. 2=Patient will verbalize/demonstrate understanding of assistive devices/ modifications for ADL. 3=Patient will improve strength/tolerance for activity to enable patient to perform ADL's. OT Woodwind Instruments Inspector Goals [employer] Inspector Goals Time Frame: Mar 11, 2018 Eating (FIM): 6 Eating (QC): 6 Groomin Oral Hygiene (QC): 6 Bathing(FIM): 5 Shower/Bathe Self (QC): 5 Upper Body Dressing(FIM): 6 Upper Body Dressing (QC): 6 Lower Body Dressing(FIM): 6 Lower Body Dressing (QC): 6 On/Off Footwear (QC): 6 Toileting(FIM): 6 Toileting Hygiene (QC): 6 Transfers (B,C,W/C) (FIM): 6 Toilet/Commode Transfer(FIM): 6 Toilet/Commode Transfer (QC): 6 Shower Transfer(FIM): 5 Comprehension(FIM): 5 Expression (FIM): 5 Social Interaction(FIM): 5 Problem Solving(FIM): 4 Memory(FIM): 4 Additional Goals: 1-Demonstrate ADL Tasks, 2-Verbalize Understanding, 3- ImproveStrength/Steven 1=Demonstrate adherence to instructed precautions during ADL tasks. 2=Patient will verbalize/demonstrate understanding of assistive devices/ modifications for ADL. 3=Patient will improve strength/tolerance for activity to enable patient to perform ADL's. OT Education/Plan Discharge Recommendations Plan/Recommendations: Continue POC Treatment Plan/Plan of Care Patient would benefit from OT for education, treatment and training to promote independence in ADL's, mobility, safety and/or upper extremity function for ADL' s. Plan of Care: ADL Retraining, Functional Mobility, Group Exercise/Act as Ind, UE Funct Exercise/Act Treatment Duration: Mar 11, 2018 Frequency: At least 5 of 7 days/Wk (IRF) Estimated Hrs Per Day: 1.5 hours per day Agreement: Yes Rehab Potential: Good Time/GCodes Start Time: 13:05 Stop Time: 13:35 Total Time Billed (hr/min): 30 Billed Treatment Time 1 visit-NM 2 (30 min) SINA CHIU Feb 20, 2018 14:25
[2018-02-20 18:00] VITALS: BP 113/77
[2018-02-21] MEDS: PANTOPRAZOLE 40 MG (PROTONIX) TAB PO SCH (04:34)
[2018-02-21] MEDS: ACETAMINOPHEN 325 MG TABLET/CAPLET (TYLENOL) PO PRN ×3 (04:34→17:33)
[2018-02-21 04:39] VITALS: BP 109/75
--- NOTE | 2018-02-21 08:05 | Progress Note (SOAP) ---
Subjective Time Seen by Provider: 08:05 Subjective/Events-last exam CVA. Patient voices no complaints. Patient needing more physical therapy and occupational therapy Objective Exam Vital Signs Date Time Temp Pulse Resp B/P (MAP) Pulse Ox O2 Delivery O2 Flow Rate FiO2 02/21/18 04:39 98.2 81 16 109/75 (86) 96 Room Air 02/20/18 20:19 Room Air 02/20/18 18:00 98.8 83 16 113/77 (89) 96 Room Air 02/20/18 09:00 Room Air I & O 02/21/18 07:00 Intake Total 1710 ml Balance 1710 ml Capillary Refill : General Appearance: No Apparent Distress, WD/WN HEENT: Normal ENT Inspection Neck: Full Range of Motion, Normal Inspection Results Lab Microbiology 02/17/18 Urine Culture - Final, Complete Escherichia coli Assessment/Plan Assessment/Plan Assess & Plan/Chief Complaint CVA with hemorrhage. Tobacco usage. Stroke on the left side of body. Recency of baby girl. . 02/15/18. CVA with hemorrhage. Tobacco usage. Hypertension. Stroke on left side of the body. infection. . 02/13/18. CVA with hemorrhage. Tobacco usage. Hypertension. infection. Patient depressed. . 02/14/18. CVA with hemorrhage. Tobacco usage. Hypertension. infection. Patient talking better today. . 02/17/18 CVA with hemorrhage. Tobacco usage. Hypertension. infection Patient does not appear depressed today. . 02/18/18. CVA with hemorrhage. Tobacco usage. Hypertension. UTI. . 's 02/19/18. CVA with hemorrhage. Tobacco usage. Hypertension. UTI. Patient working hard. . 02/20/18. CVA with hemorrhage. Tobacco usage. Hypertension. UTI. . 02/21/18. CVA with hemorrhage. Tobacco usage Hypertension. UTI Clinical Quality Measures DVT/VTE Risk/Contraindication: Risk Factor Score Per Nursin RFS Level Per Nursing on Admit: 4+=Very High ASHANTI RUSH DO Feb 21, 2018 08:05
--- NOTE | 2018-02-21 08:59 | Physical Therapy Daily Note ---
PT Daily Note-Current Subjective Patient in wheelchair in therapy gym pre tx, agrees to PT, no complaints of pain. Appearance Patient in wheelchair post tx at bedside, has ST right after PT, has nurse call , phone, tray, all needs met. Mental Status Patient Orientation: Person, Place, Situation Transfers Functional [place] Measure 0=Not Assessed/NA 4=Minimal Assistance 1=Total Assistance 5=Supervision or Setup 2=Maximal Assistance 6=Modified [place] 3=Moderate Assistance 7=Complete IndependenceIRFPAI Quality Coding Scale 6 Independent with activity with or without an assistive device 5 Patient requires set up or clean up by helper. Patient completes activity by themselves 4 Supervision or touching assist (CGA). [place] provide cues , steadying assist 3 The helper provides less than half the effort to complete the activity 2 The helper provides more than half the effort to complete the activity 1 Dependent. The helper does all the effort to complete an activity 7 Patient refused to complete or attempt activity 9 The patient did not perform the activity before the current illness or injury 88 Not attempted due to Medical conditions or safety concerns Transfers (B, C, W/C) (FIM): 4 Sit to/from Stand: 4 Bed to/from Chair: 4 cues for hand placement, positioning, safety Weight Bearing Right Lower Extremity: Right Weight Bearing/Tolerated Left Lower Extremity: Left Weight Bearing/Tolerated Gait Training Gait (FIM): 1 Distance: 20'x2 Gait Level of Assist: 3 Gait Persons Needed: 1 Gait Assistive Device: Walker Gaurav Patient needs assist advancing her left leg and with weight shifting and balance Wheelchair Training Does the Pt Use a Wheelchair?: Yes Wheelchair (FIM): 2 Distance: 100'x2 Wheelchair Level of Assist: 5 Type of Wheelchair: Manual Exercises sit to stand at parallel bars 3 sets of 5 NuStep Minutes: 15 NuStep Workload: 5 Treatments transfers, ambulation, wheelchair mobility, functional strengthening Assessment Current Status: Fair Progress improving transfers PT Short Term Goals Short Term Goals Time Frame: Feb 18, 2018 Transfers (B,C,W/C) (FIM): 3 (met) Wheelchair (FIM): 4 Wheelchair Distance: 150'x2 Wheelchair Level of Assist: 4 PT Treasury Assistant Goals Treasury Assistant Goals PT Treasury Assistant Goals Time Frame: Mar 04, 2018 Transfers (B,C,W/C) (FIM): 4 Sit to Lying (QC): 3 Lying-Sitting on Side/Bed(QC): 3 Sit to Stand (QC): 3 Rollin Roll Left to Right (QC): 3 Chair/Jrj-wa-Dsmqm Xfer(QC): 3 Car Transfer (QC): 3 Gait (FIM): 1 Distance: 20' Walk 10 feet (QC): 3 Gait Level of Assist: 4 Gait Assistive Device: Walker Gaurav Wheelchair (FIM): 5 Distance: 150' Wheelchair Level of Assist: 5 Wheel 50 feet with 2 turns (QC: 4 PT Plan Problem List Problem List: Activity Tolerance, Functional Strength, Safety, Balance, Gait, Transfer, Bed Mobility, ROM Treatment/Plan Treatment Plan: Continue Plan of Care Treatment Plan: Bed Mobility, Concurrent Therapy, Education, Functional Activity Steven, Functional Strength, Group Therapy, Gait, Safety, Therapeutic Exercise, Transfers Treatment Duration: Mar 04, 2018 Frequency: At least 5 of 7 days/Wk (IRF) Estimated Hrs Per Day: 1.5 hours per day Patient and/or Family Agrees t: Yes Safety Risks/Education Patient Education: Gait Training, Transfer Techniques, Correct Positioning, W/ C Management, Safety Issues Teaching Recipient: Patient Teaching Methods: Demonstration, Discussion Response to Teaching: Reinforcement Needed Time/GCodes Time In: 800 Time Out: 900 Total Billed Treatment Time: 60 Total Billed Treatment 1 visit GT 30' EX 20' WC 10' JENIFER SOUSA PT Feb 21, 2018 08:59
[2018-02-21] MEDS: amLODIPine 5 MG (NORVASC) TAB PO SCH (09:14)
[2018-02-21] MEDS: AMOXICILLIN 500 MG (POLYMOX) CAP PO SCH ×3 (09:14→20:04)
[2018-02-21] MEDS: NYSTATIN CREAM (MYCOSTATIN) 30 GM TUBE TP SCH ×3 (09:14→20:05)
[2018-02-21] MEDS: LEVETIRACETAM 500 MG (KEPPRA) TAB PO SCH ×2 (09:14→20:04)
[2018-02-21] MEDS: SENNA W/DOCUSATE (SENOKOT S) TABLET PO SCH ×2 (09:14→20:04)
--- NOTE | 2018-02-21 09:16 | Occupational Ther Daily Note ---
OT Current Status-Daily Note Subjective Pt alert, lying in bed. Pt agrees to therapy. No c/o pain. Mental Status/Objective Patient Orientation: Person, Place, Time, Situation Functional [place] Measure 0=Not Assessed/NA 4=Minimal Assistance 1=Total Assistance 5=Supervision or Setup 2=Maximal Assistance 6=Modified [place] 3=Moderate Assistance 7=Complete [place] ADL-Treatment Mod A to scoot legs out of bed. Pt pushed self up in bed with HOB elevated. Pt then was able to complete sponge bathe, in supine cleansed april area/ buttocks then sitting EOB pt able to cleanse upper body and upper legs. Pt completed upper body dressing with min A due to bra and shirt rolling up. Pt able to get pants over feet when crossing LE's over knee, assist to keep L foot on knee and keep pt from falling toward L side. When pt was attempting to don sock over L foot with L LE over knee pt kept falling backward. Pt transferred with min A to w/c. Pt then complete grooming by self. Functional [place] Measure 0=Not Assessed/NA 4=Minimal Assistance 1=Total Assistance 5=Supervision or Setup 2=Maximal Assistance 6=Modified [place] 3=Moderate Assistance 7=Complete IndependenceIRFPAI Quality Coding Scale 6 Independent with activity with or without an assistive device 5 Patient requires set up or clean up by helper. Patient completes activity by themselves 4 Supervision or touching assist (CGA). [place] provide cues , steadying assist 3 The helper provides less than half the effort to complete the activity 2 The helper provides more than half the effort to complete the activity 1 Dependent. The helper does all the effort to complete an activity 7 Patient refused to complete or attempt activity 9 The patient did not perform the activity before the current illness or injury 88 Not attempted due to Medical conditions or safety concerns Grooming (FIM): 6 Oral Hygiene (QC): 6 Upper Body (FIM): 4 Upper Body Dressing (QC): 3 Lower Body Dressing (FIM): 3 (Assist to stabilize for balance and assist to hike over hips.) Lower Body Dressing (QC): 3 On/Off Footwear (QC): 4 Other Treatment Electrical stimulation to L bicep completed. 4 prieto to activate flexor muscle. Pt worked on strategic problem solving requiring minimal verbal cues and minimal cues for scanning toward L side due to L neglect. After therapy, pt sitting in w/c in room with call light/phone in reach. All needs met in room. OT Short Term Goals Short Term Goals Time Frame: Feb 25, 2018 Eating(FIM): 5 Grooming(FIM): 5 Bathing(FIM): 4 Upper Body Dressing(FIM): 4 Lower Body Dressing(FIM): 3 Toileting(FIM): 4 Transfers (B,C,W/C) (FIM): 3 (met) Toilet/Commode Transfer(FIM): 4 Additional Short Term Goals: 1-Demonstrate ADL Tasks, 2-Verbalize Understanding , 3-ImproveStrength/Steven 1=Demonstrate adherence to instructed precautions during ADL tasks. 2=Patient will verbalize/demonstrate understanding of assistive devices/ modifications for ADL. 3=Patient will improve strength/tolerance for activity to enable patient to perform ADL's. OT Nurse Anesthetist Goals Nurse Anesthetist Goals Time Frame: Mar 11, 2018 Eating (FIM): 6 Eating (QC): 6 Groomin Oral Hygiene (QC): 6 Bathing(FIM): 5 Shower/Bathe Self (QC): 5 Upper Body Dressing(FIM): 6 Upper Body Dressing (QC): 6 Lower Body Dressing(FIM): 6 Lower Body Dressing (QC): 6 On/Off Footwear (QC): 6 Toileting(FIM): 6 Toileting Hygiene (QC): 6 Transfers (B,C,W/C) (FIM): 6 Toilet/Commode Transfer(FIM): 6 Toilet/Commode Transfer (QC): 6 Shower Transfer(FIM): 5 Comprehension(FIM): 5 Expression (FIM): 5 Social Interaction(FIM): 5 Problem Solving(FIM): 4 Memory(FIM): 4 Additional Goals: 1-Demonstrate ADL Tasks, 2-Verbalize Understanding, 3- ImproveStrength/Steven 1=Demonstrate adherence to instructed precautions during ADL tasks. 2=Patient will verbalize/demonstrate understanding of assistive devices/ modifications for ADL. 3=Patient will improve strength/tolerance for activity to enable patient to perform ADL's. OT Education/Plan Discharge Recommendations Plan/Recommendations: Continue POC Treatment Plan/Plan of Care Patient would benefit from OT for education, treatment and training to promote independence in ADL's, mobility, safety and/or upper extremity function for ADL' s. Plan of Care: ADL Retraining, Functional Mobility, Group Exercise/Act as Ind, UE Funct Exercise/Act Treatment Duration: Mar 11, 2018 Frequency: At least 5 of 7 days/Wk (IRF) Estimated Hrs Per Day: 1.5 hours per day Agreement: Yes Rehab Potential: Good Time/GCodes Start Time: 06:50 Stop Time: 07:50 Total Time Billed (hr/min): 60 Billed Treatment Time 1 visit-ADL 3 (40 min) NM 1 (20 min) SINA CHIU Feb 21, 2018 09:16
--- NOTE | 2018-02-21 09:46 | PM & R (SOAP) Progress Note ---
Subjective Time Seen by Provider: 09:25 Subjective/Events-last exam Patient was seen in her room this AM Patient Mod assist for transfers Objective Exam Last Set of Vital Signs Vital Signs Date Time Temp Pulse Resp B/P (MAP) Pulse Ox O2 Delivery O2 Flow Rate FiO2 02/21/18 09:00 Room Air 02/21/18 04:39 98.2 81 16 109/75 (86) 96 Capillary Refill : I&O Intake and Output 02/21/18 00:00 Intake Total 1840 ml Balance 1840 ml Intake Oral 1840 ml # Voids 8 General: Alert, Oriented X3, Cooperative, No Acute Distress HEENT: Atraumatic, PERRLA, EOMI, Mucous Memb Moist/[place] Neck: Supple, No JVD Lungs: Clear to Auscultation Heart: Regular Rate Abdomen: Normal Bowel Sounds, Soft, No Tenderness Extremities: No Edema Neuro: Other (Left HP) Results Lab Microbiology 02/17/18 Urine Culture - Final, Complete Escherichia coli Assessment/Plan Assessment RT ICB with Left HP HTN E COLI UTI Reactive depression med added Constipation meds adjusted Vaginal drainage on Diflucan Plan Continue PT/OT ST has signed off Bowel meds adjusted [facility] has seen-Appreciate their consult Team Conference held 02-19-18 -see report for full functional update and POC and ELAINE BARILLAS MD Feb 21, 2018 09:46
--- NOTE | 2018-02-21 09:59 | Speech Therapy Daily Note ---
Speech Daily Progress Note Subjective Date Seen by Provider: Feb 21, 2018 Time Seen by Provider: 09:15 The patient was seated upright in her wheelchair upon entrance. The patient greeted the clinician and was agreeable to participation in the cognitive treatment session. Objective Left-Neglect: To work towards improved awareness to the left side, as well as, problem solving/sequencing, the patient was provided various mazes. The patient displayed excellent accuracy with mazes, completing each task with ease. The patient did not demonstrate neglect of the left side of the page/maze throughout the session. Additionally, the patient was composing a letter to a family member. The patient's writing was legible and included the entirety of the page. No verbal prompts were provided on this date. Assessment Assessment Current Status: Good Progress Treatment Plan Continue Plan of Care Communication Comprehension: 5 Expression: 5 Social Cognition Social Interaction: 5 Problem Solvin Memory: 4 Speech Short Term Goals Short Term Goals Short Term Goals 1. The patient will display recall and demonstrate visuospatial strategies to improve left sided neglect. 2. The patient will accurately sequence ADL tasks with mild clinician verbal prompting. Time Frame-STG: One Week Speech Residential Goals Residential Goals 1. The patient will increase awareness of left sided neglect through visuospatial strategies. Time Frame: Two Weeks Comprehension: 5 Expression: 5 Social Interaction: 5 Problem Solvin Memory: 4 Speech-Plan Treatment Plan Speech Therapy Treatment Plan: Continue Plan of Care Continue skilled speech pathology to target functional problem solving and awareness of left neglect. Treatment Duration: Feb 27, 2018 Frequency: Modified Program (IRF) (three to five times per week) Estimated Hrs Per Day: .5 hour per day Rehab Potential: Good Safety Risks/Education Teaching Recipient: Patient Teaching Methods: Discussion Response to Teaching: Verbalize Understanding Education Topics Provided: Strategies for Left Neglect Time Speech Therapy Time In: 09:15 Speech Therapy Time Out: 09:45 Total Billed Time: 30 Billed Treatment Time 1Y[address] Feb 21, 2018 09:59
--- NOTE | 2018-02-21 15:03 | Therapy Group Daily Note ---
Therapy Daily Group Note Patient Education Topic Other List Below (AE for home, ARU description/expectations) Exercises LE Seated Exercise, UE Exercise Other/Notes Pt maneuvered w/c from room to ARU commons area for OT/PT group. Group consisted of introductions (name, place living, telling joke), socialization, UE /LE seated exercises, ARU description/expectations and education on AE for home use and resources. Pt was able to appropriately introduce self though required increased time to remember a funny story to tell. Pt did actively listen to peers introduce themselves. Pt contributed to conversations and discussions throughout group. Completed UE/LE exercises with modifications due to flaccidity of L UE/LE. Pt verbalized understanding of different types of AE that was introduced in group. After group, pt maneuvered w/c to room to visit with family. All needs met in room. Start Time: 13:00 Stop Time: 14:20 Total Billed Treatment Time: 80 Total Billed Treatment 1-GRP SINA CHIU Feb 21, 2018 15:03
[2018-02-21 18:05] VITALS: BP 102/58
[2018-02-21] MEDS: ALPRAZolam 0.25 MG (XANAX) TAB PO PRN (23:04)
[2018-02-22 06:00] VITALS: BP 102/69
[2018-02-22] MEDS: PANTOPRAZOLE 40 MG (PROTONIX) TAB PO SCH (06:34)
[2018-02-22] MEDS: ACETAMINOPHEN 325 MG TABLET/CAPLET (TYLENOL) PO PRN ×3 (06:40→23:40)
[2018-02-22] MEDS: NYSTATIN CREAM (MYCOSTATIN) 30 GM TUBE TP SCH ×3 (08:40→20:43)
[2018-02-22] MEDS: SENNA W/DOCUSATE (SENOKOT S) TABLET PO SCH ×2 (08:40→20:34)
[2018-02-22] MEDS: LEVETIRACETAM 500 MG (KEPPRA) TAB PO SCH ×2 (08:40→20:34)
[2018-02-22] MEDS: AMOXICILLIN 500 MG (POLYMOX) CAP PO SCH ×3 (08:40→20:34)
[2018-02-22] MEDS: amLODIPine 5 MG (NORVASC) TAB PO SCH (08:40)
--- NOTE | 2018-02-22 09:33 | Physical Therapy Daily Note ---
PT Daily Note-Current Subjective "every day that I work hard here is 1 day closer to going home." Pt reprots her family took her outside yesterday and she really enjoyed it. Transfers Functional [place] Measure 0=Not Assessed/NA 4=Minimal Assistance 1=Total Assistance 5=Supervision or Setup 2=Maximal Assistance 6=Modified [place] 3=Moderate Assistance 7=Complete IndependenceIRFPAI Quality Coding Scale 6 Independent with activity with or without an assistive device 5 Patient requires set up or clean up by helper. Patient completes activity by themselves 4 Supervision or touching assist (CGA). [place] provide cues , steadying assist 3 The helper provides less than half the effort to complete the activity 2 The helper provides more than half the effort to complete the activity 1 Dependent. The helper does all the effort to complete an activity 7 Patient refused to complete or attempt activity 9 The patient did not perform the activity before the current illness or injury 88 Not attempted due to Medical conditions or safety concerns Transfers (B, C, W/C) (FIM): 3 Supine to/from Sit: 3 (assist with Upper body.) Sit to Stand (QC): 4 (CGA) Chair/Qnh-zk-Pfpfp Xfer(QC): 4 (min assist) initially, pt began to roll to get out of bed and almost fell out of bed. Pt required assist to roll and to position legs as well as lift her trunk Weight Bearing Right Lower Extremity: Right Weight Bearing/Tolerated Left Lower Extremity: Left Weight Bearing/Tolerated Gait Training Does the Patient Walk?: Yes Gait (FIM): 2 Distance (FIM): 1=up to 49 ft Distance: 25 ft x 4 Gait Assistive Device: Walker Gaurav Min to CGA with sit to stand and requires min assist for initial balance. Pt requires total assist to advance her left LE although she is able to bear weight to maintain knee extension in walking. Treatments Up in wheelchair post treatment with needs met. Assessment Current Status: Good Progress decreased safety awareness and she is impulsive at times. Very motivated and is making functional gains. PT Short Term Goals Short Term Goals Time Frame: Feb 18, 2018 Transfers (B,C,W/C) (FIM): 3 (met) Wheelchair (FIM): 4 Wheelchair Distance: 100'x2 Wheelchair Level of Assist: 4 PT Snf Goals Snf Goals PT Snf Goals Time Frame: Mar 04, 2018 Transfers (B,C,W/C) (FIM): 4 Sit to Lying (QC): 3 Lying-Sitting on Side/Bed(QC): 3 Sit to Stand (QC): 3 Rollin Roll Left to Right (QC): 3 Chair/Loj-sc-Ahofp Xfer(QC): 3 Car Transfer (QC): 3 Gait (FIM): 1 Distance: 20' Walk 10 feet (QC): 3 Gait Level of Assist: 4 Gait Assistive Device: Walker Gaurav Wheelchair (FIM): 5 Distance: 150' Wheelchair Level of Assist: 5 Wheel 50 feet with 2 turns (QC: 4 PT Plan Problem List Problem List: Activity Tolerance, Functional Strength, Safety, Balance, Gait, Transfer, Bed Mobility Treatment/Plan Treatment Plan: Continue Plan of Care Treatment Plan: Bed Mobility, Concurrent Therapy, Education, Functional Activity Steven, Functional Strength, Group Therapy, Gait, Safety, Therapeutic Exercise, Transfers Treatment Duration: Mar 04, 2018 Frequency: At least 5 of 7 days/Wk (IRF) Estimated Hrs Per Day: 1.5 hours per day Patient and/or Family Agrees t: Yes Safety Risks/Education Patient Education: Safety Issues Teaching Recipient: Patient Teaching Methods: Discussion Response to Teaching: Reinforcement Needed Time/GCodes Time In: 845 Time Out: 915 Total Billed Treatment Time: 30 Total Billed Treatment visit FA 10 GT 20 SINA PAULINO PT Feb 22, 2018 09:33
[2018-02-22] MEDS: ALPRAZolam 0.25 MG (XANAX) TAB PO PRN ×2 (13:29→23:40)
--- NOTE | 2018-02-22 16:19 | Progress Note-Standard ---
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 Hypertension. Plan: Continue IRF Difficult case fitter closely CHANTAL ELLIS DO Feb 22, 2018 16:18
[2018-02-22 17:03] VITALS: BP 125/81
[2018-02-23 06:11] VITALS: BP 93/61
[2018-02-23] MEDS: PANTOPRAZOLE 40 MG (PROTONIX) TAB PO SCH (06:36)
[2018-02-23 08:30] VITALS: BP 112/77
[2018-02-23] MEDS: LEVETIRACETAM 500 MG (KEPPRA) TAB PO SCH ×2 (08:30→20:06)
[2018-02-23] MEDS: AMOXICILLIN 500 MG (POLYMOX) CAP PO SCH ×3 (08:30→20:06)
[2018-02-23] MEDS: amLODIPine 5 MG (NORVASC) TAB PO SCH (08:30)
[2018-02-23] MEDS: NYSTATIN CREAM (MYCOSTATIN) 30 GM TUBE TP SCH ×3 (08:31→20:07)
[2018-02-23] MEDS: SENNA W/DOCUSATE (SENOKOT S) TABLET PO SCH ×2 (08:31→20:06)
[2018-02-23] MEDS: ACETAMINOPHEN 325 MG TABLET/CAPLET (TYLENOL) PO PRN (08:32)
[2018-02-23] MEDS: ALPRAZolam 0.25 MG (XANAX) TAB PO PRN (09:13)
[2018-02-23 11:08] VITALS: BP 121/79
--- NOTE | 2018-02-23 11:47 | Progress Note-Standard ---
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 Hypertension. Plan: Continue IRF Difficult pillowcase turner closely CHANTAL ELLIS DO Feb 23, 2018 11:47
[2018-02-23 17:17] VITALS: BP 116/78
[2018-02-24] MEDS: ACETAMINOPHEN 325 MG TABLET/CAPLET (TYLENOL) PO PRN ×4 (01:39→21:28)
[2018-02-24] MEDS: ALPRAZolam 0.25 MG (XANAX) TAB PO PRN (01:39)
[2018-02-24 05:05] VITALS: BP 110/72
[2018-02-24] MEDS: PANTOPRAZOLE 40 MG (PROTONIX) TAB PO SCH (05:18)
[2018-02-24] MEDS: SENNA W/DOCUSATE (SENOKOT S) TABLET PO SCH ×2 (08:11→21:24)
[2018-02-24] MEDS: amLODIPine 5 MG (NORVASC) TAB PO SCH (08:11)
[2018-02-24] MEDS: AMOXICILLIN 500 MG (POLYMOX) CAP PO SCH ×3 (08:11→21:24)
[2018-02-24] MEDS: LEVETIRACETAM 500 MG (KEPPRA) TAB PO SCH ×2 (08:11→21:24)
[2018-02-24] MEDS: NYSTATIN CREAM (MYCOSTATIN) 30 GM TUBE TP SCH ×3 (08:12→21:24)
--- NOTE | 2018-02-24 08:13 | Occupational Ther Daily Note ---
OT Current Status-Daily Note Subjective Pt alert, eating breakfast in bed. Cousin in room. Pt agreed to therapy. No c /o pain. Pt did tell DIAN that she had fallen this weekend. She stated that she did not wait on nrsg to stand then leg gave out and she fell on the floor. No c/o pain from fall. Mental Status/Objective Patient Orientation: Person, Place, Time, Situation Functional [place] Measure 0=Not Assessed/NA 4=Minimal Assistance 1=Total Assistance 5=Supervision or Setup 2=Maximal Assistance 6=Modified [place] 3=Moderate Assistance 7=Complete [place] ADL-Treatment Functional [place] Measure 0=Not Assessed/NA 4=Minimal Assistance 1=Total Assistance 5=Supervision or Setup 2=Maximal Assistance 6=Modified [place] 3=Moderate Assistance 7=Complete IndependenceIRFPAI Quality Coding Scale 6 Independent with activity with or without an assistive device 5 Patient requires set up or clean up by helper. Patient completes activity by themselves 4 Supervision or touching assist (CGA). [place] provide cues , steadying assist 3 The helper provides less than half the effort to complete the activity 2 The helper provides more than half the effort to complete the activity 1 Dependent. The helper does all the effort to complete an activity 7 Patient refused to complete or attempt activity 9 The patient did not perform the activity before the current illness or injury 88 Not attempted due to Medical conditions or safety concerns Grooming (FIM): 6 (Sitting at sink, pt is able to complete own grooming.) Oral Hygiene (QC): 6 Bathing (FIM): 4 (Using tub transfer bench, hand held shower, long handle sponge and grabbars pt able to cleanse most of body. Pt stood with grabbars while assist to cleanse buttocks.) Bathing Location: L Arm, R Arm, L Upper Leg, R Upper Leg, L Lower Leg ( including foot), R Lower Leg (including foot), Chest, Abdomen, Perineal Area Shower/Bathe Self (QC): 3 Upper Body (FIM): 4 (Assist to pull upper body clothing down over back. Pt manipulates clothing over L UE then R UE and head.) Upper Body Dressing (QC): 3 Lower Body Dressing (FIM): 3 (Pt is able to cross LE's over knees with assist to keep L LE sliding off of knee then is able to thread foot and leg through pants. Pull to stand with grabbar and stablize self then assist to hike pants over R hip while BIGGS hikes over L hip. Pt dons/doffs socks by crossing LE's over knees with assist to keep L LE on knee.) Lower Body Dressing (QC): 3 On/Off Footwear (QC): 4 Toileting (FIM): 2 (Pt is able to stand and stabilize self with grabbar while clothing is hiked over hips. Assist to cleanse self after bowel movement.) Toileting Hygiene (QC): 2 Toilet/Commode Transfer (FIM): 3 (Using w/c and grabbar, pt is able to assist to stand pivot transfer to toilet.) Toilet Transfer (QC): 3 Tub Transfer(FIM): 3 (Using tub transfer bench, w/c and grabbar pt required mod A) Other Treatment After therapy pt sitting in w/c finishing grooming. All needs met in room. OT Short Term Goals Short Term Goals Time Frame: Feb 25, 2018 Eating(FIM): 5 Grooming(FIM): 5 Bathing(FIM): 4 Upper Body Dressing(FIM): 4 Lower Body Dressing(FIM): 3 Toileting(FIM): 4 Transfers (B,C,W/C) (FIM): 3 (met) Toilet/Commode Transfer(FIM): 4 Additional Short Term Goals: 1-Demonstrate ADL Tasks, 2-Verbalize Understanding , 3-ImproveStrength/Steven 1=Demonstrate adherence to instructed precautions during ADL tasks. 2=Patient will verbalize/demonstrate understanding of assistive devices/ modifications for ADL. 3=Patient will improve strength/tolerance for activity to enable patient to perform ADL's. OT Assisted Goals Assisted Goals Time Frame: Mar 11, 2018 Eating (FIM): 6 Eating (QC): 6 Groomin Oral Hygiene (QC): 6 Bathing(FIM): 5 Shower/Bathe Self (QC): 5 Upper Body Dressing(FIM): 6 Upper Body Dressing (QC): 6 Lower Body Dressing(FIM): 6 Lower Body Dressing (QC): 6 On/Off Footwear (QC): 6 Toileting(FIM): 6 Toileting Hygiene (QC): 6 Transfers (B,C,W/C) (FIM): 6 Toilet/Commode Transfer(FIM): 6 Toilet/Commode Transfer (QC): 6 Shower Transfer(FIM): 5 Comprehension(FIM): 5 Expression (FIM): 5 Social Interaction(FIM): 5 Problem Solving(FIM): 4 Memory(FIM): 4 Additional Goals: 1-Demonstrate ADL Tasks, 2-Verbalize Understanding, 3- ImproveStrength/Steven 1=Demonstrate adherence to instructed precautions during ADL tasks. 2=Patient will verbalize/demonstrate understanding of assistive devices/ modifications for ADL. 3=Patient will improve strength/tolerance for activity to enable patient to perform ADL's. OT Education/Plan Discharge Recommendations Plan/Recommendations: Continue POC Treatment Plan/Plan of Care Patient would benefit from OT for education, treatment and training to promote independence in ADL's, mobility, safety and/or upper extremity function for ADL' s. Plan of Care: ADL Retraining, Functional Mobility, Group Exercise/Act as Ind, UE Funct Exercise/Act Treatment Duration: Mar 11, 2018 Frequency: At least 5 of 7 days/Wk (IRF) Estimated Hrs Per Day: 1.5 hours per day Agreement: Yes Rehab Potential: Good Time/GCodes Start Time: 07:00 Stop Time: 08:00 Total Time Billed (hr/min): 60 Billed Treatment Time 1 visit-ADL 4 (60 min) SINA CHIU Feb 24, 2018 08:13
--- NOTE | 2018-02-24 08:43 | Progress Note (SOAP) ---
Subjective Time Seen by Provider: 08:40 Subjective/Events-last exam patient had a fall yesterday. No apparent injury. Patient working on left side of body Objective Exam Vital Signs Date Time Temp Pulse Resp B/P (MAP) Pulse Ox O2 Delivery O2 Flow Rate FiO2 02/24/18 05:05 99.2 78 18 110/72 (85) 96 Room Air 02/23/18 20:00 Room Air 02/23/18 17:17 96.8 75 16 116/78 (91) 96 Room Air 02/23/18 11:08 97.4 78 121/79 (93) 02/23/18 09:50 Room Air I & O 02/24/18 07:00 Intake Total 1100 ml Balance 1100 ml Capillary Refill : General Appearance: No Apparent Distress, WD/WN HEENT: Normal ENT Inspection Neck: Full Range of Motion, Normal Inspection Respiratory: No Accessory Muscle Use, No Respiratory Distress Cardiovascular: Regular Rate, Rhythm, No Murmur Results Lab Microbiology 02/17/18 Urine Culture - Final, Complete Escherichia coli Assessment/Plan Assessment/Plan Assess & Plan/Chief Complaint CVA with hemorrhage. Tobacco usage. Stroke on the left side of body. Recency of baby girl. . 02/15/18. CVA with hemorrhage. Tobacco usage. Hypertension. Stroke on left side of the body. infection. . 02/13/18. CVA with hemorrhage. Tobacco usage. Hypertension. infection. Patient depressed. . 02/14/18. CVA with hemorrhage. Tobacco usage. Hypertension. infection. Patient talking better today. . 02/17/18 CVA with hemorrhage. Tobacco usage. Hypertension. infection Patient does not appear depressed today. . 02/18/18. CVA with hemorrhage. Tobacco usage. Hypertension. UTI. . 's 02/19/18. CVA with hemorrhage. Tobacco usage. Hypertension. UTI. Patient working hard. . 02/20/18. CVA with hemorrhage. Tobacco usage. Hypertension. UTI. . 02/21/18. CVA with hemorrhage. Tobacco usage Hypertension. UTI . /01/12. CVA with hemorrhage. Tobacco usage. stroke on the left side of body. recent Clinical Quality Measures DVT/VTE Risk/Contraindication: Risk Factor Score Per Nursin RFS Level Per Nursing on Admit: 4+=Very High ASHANTI RUSH DO Feb 24, 2018 08:43
--- NOTE | 2018-02-24 09:44 | Physical Therapy Daily Note ---
PT Daily Note-Current Subjective Patient in wheelchair in therapy gym pre tx, agrees to PT, no complaints of pain. Appearance Patient in bed post tx with nurse call, phone, tray, bed alarm on. Mental Status Patient Orientation: Person, Place, Situation Transfers Functional [place] Measure 0=Not Assessed/NA 4=Minimal Assistance 1=Total Assistance 5=Supervision or Setup 2=Maximal Assistance 6=Modified [place] 3=Moderate Assistance 7=Complete IndependenceIRFPAI Quality Coding Scale 6 Independent with activity with or without an assistive device 5 Patient requires set up or clean up by helper. Patient completes activity by themselves 4 Supervision or touching assist (CGA). [place] provide cues , steadying assist 3 The helper provides less than half the effort to complete the activity 2 The helper provides more than half the effort to complete the activity 1 Dependent. The helper does all the effort to complete an activity 7 Patient refused to complete or attempt activity 9 The patient did not perform the activity before the current illness or injury 88 Not attempted due to Medical conditions or safety concerns Transfers (B, C, W/C) (FIM): 4 Scootin Rollin Supine to/from Sit: 4 Sit to/from Stand: 4 Bed to/from Chair: 4 Cues for safety and positioning. Needs assist with one leg getting into bed. Weight Bearing Right Lower Extremity: Right Weight Bearing/Tolerated Left Lower Extremity: Left Weight Bearing/Tolerated Gait Training Gait (FIM): 1 Distance: 20'x3 Gait Level of Assist: 4 Gait Persons Needed: 1 Gait Assistive Device: Walker Gaurav Patient needs assist advancing her left leg. She is able to occasionally lift her left foot off the floor but cannot advance it. Wheelchair Training Does the Pt Use a Wheelchair?: Yes Wheelchair (FIM): 5 Distance: 150'x2 Wheelchair Level of Assist: 5 Type of Wheelchair: Manual Exercises Supine Ex: Bridging Supine Reps: 20 sit to stands 3 sets of 5, ROM/stretching of left leg in all planes, AAROM of left leg SAQ x20 Treatments bed mobility and transfers, ambulation, wheelchair mobility, functional strengthening, ROM/stretching Assessment Current Status: Fair Progress improving transfers and wheelchair mobility PT Short Term Goals Short Term Goals Time Frame: Feb 18, 2018 Transfers (B,C,W/C) (FIM): 3 (met) Wheelchair (FIM): 4 Wheelchair Distance: 100'x2 Wheelchair Level of Assist: 4 PT Gas Charger Goals Skilled Nursing Goals PT Skilled Nursing Goals Time Frame: Mar 04, 2018 Transfers (B,C,W/C) (FIM): 4 Sit to Lying (QC): 3 Lying-Sitting on Side/Bed(QC): 3 Sit to Stand (QC): 3 Rollin Roll Left to Right (QC): 3 Chair/Suq-ar-Ddenq Xfer(QC): 3 Car Transfer (QC): 3 Gait (FIM): 1 Distance: 20' Walk 10 feet (QC): 3 Gait Level of Assist: 4 Gait Assistive Device: Walker Gaurav Wheelchair (FIM): 5 Distance: 150' Wheelchair Level of Assist: 5 Wheel 50 feet with 2 turns (QC: 4 PT Plan Problem List Problem List: Activity Tolerance, Functional Strength, Safety, Balance, Gait, Transfer, Bed Mobility, ROM Treatment/Plan Treatment Plan: Continue Plan of Care Treatment Plan: Bed Mobility, Concurrent Therapy, Education, Functional Activity Steven, Functional Strength, Group Therapy, Gait, Safety, Therapeutic Exercise, Transfers Treatment Duration: Mar 04, 2018 Frequency: At least 5 of 7 days/Wk (IRF) Estimated Hrs Per Day: 1.5 hours per day Patient and/or Family Agrees t: Yes Safety Risks/Education Patient Education: Gait Training, Transfer Techniques, Correct Positioning, W/ C Management, Safety Issues Teaching Recipient: Patient Teaching Methods: Demonstration, Discussion Response to Teaching: Reinforcement Needed Time/GCodes Time In: 900 Time Out: 945 Total Billed Treatment Time: 45 Total Billed Treatment 1 visit GT 20' EX 15' FA 10' JENIFER SOUSA PT Feb 24, 2018 09:44
--- NOTE | 2018-02-24 14:34 | Occupational Ther Daily Note ---
OT Current Status-Daily Note Subjective Pt alert, lying in bed. Pt had visitors in room. Agreed to therapy. No c/o pain at this time. Mental Status/Objective Patient Orientation: Person, Place, Time, Situation Functional [place] Measure 0=Not Assessed/NA 4=Minimal Assistance 1=Total Assistance 5=Supervision or Setup 2=Maximal Assistance 6=Modified [place] 3=Moderate Assistance 7=Complete [place] ADL-Treatment Functional [place] Measure 0=Not Assessed/NA 4=Minimal Assistance 1=Total Assistance 5=Supervision or Setup 2=Maximal Assistance 6=Modified [place] 3=Moderate Assistance 7=Complete IndependenceIRFPAI Quality Coding Scale 6 Independent with activity with or without an assistive device 5 Patient requires set up or clean up by helper. Patient completes activity by themselves 4 Supervision or touching assist (CGA). [place] provide cues , steadying assist 3 The helper provides less than half the effort to complete the activity 2 The helper provides more than half the effort to complete the activity 1 Dependent. The helper does all the effort to complete an activity 7 Patient refused to complete or attempt activity 9 The patient did not perform the activity before the current illness or injury 88 Not attempted due to Medical conditions or safety concerns Other Treatment Pt was able to go from supine to sitting EOB with assist to scoot L LE off of bed then was able to come to sit using bedrail. Close SBA during supine to sitting due to pt's close proximity to edge of bed when starting bed mobility. Pt then maneuvered w/c to therapy gym. Electrical stimulation completed to L UE working on completing active movement during functional tasks. Self ROM completed. After therapy, PT took over pt care. All needs met. OT Short Term Goals Short Term Goals Time Frame: Feb 25, 2018 Eating(FIM): 5 Grooming(FIM): 5 Bathing(FIM): 4 Upper Body Dressing(FIM): 4 Lower Body Dressing(FIM): 3 Toileting(FIM): 4 Transfers (B,C,W/C) (FIM): 3 (met) Toilet/Commode Transfer(FIM): 4 Additional Short Term Goals: 1-Demonstrate ADL Tasks, 2-Verbalize Understanding , 3-ImproveStrength/Steven 1=Demonstrate adherence to instructed precautions during ADL tasks. 2=Patient will verbalize/demonstrate understanding of assistive devices/ modifications for ADL. 3=Patient will improve strength/tolerance for activity to enable patient to perform ADL's. OT Editor Department Goals Snf Goals Time Frame: Mar 11, 2018 Eating (FIM): 6 Eating (QC): 6 Groomin Oral Hygiene (QC): 6 Bathing(FIM): 5 Shower/Bathe Self (QC): 5 Upper Body Dressing(FIM): 6 Upper Body Dressing (QC): 6 Lower Body Dressing(FIM): 6 Lower Body Dressing (QC): 6 On/Off Footwear (QC): 6 Toileting(FIM): 6 Toileting Hygiene (QC): 6 Transfers (B,C,W/C) (FIM): 6 Toilet/Commode Transfer(FIM): 6 Toilet/Commode Transfer (QC): 6 Shower Transfer(FIM): 5 Comprehension(FIM): 5 Expression (FIM): 5 Social Interaction(FIM): 5 Problem Solving(FIM): 4 Memory(FIM): 4 Additional Goals: 1-Demonstrate ADL Tasks, 2-Verbalize Understanding, 3- ImproveStrength/Steven 1=Demonstrate adherence to instructed precautions during ADL tasks. 2=Patient will verbalize/demonstrate understanding of assistive devices/ modifications for ADL. 3=Patient will improve strength/tolerance for activity to enable patient to perform ADL's. OT Education/Plan Discharge Recommendations Plan/Recommendations: Continue POC Treatment Plan/Plan of Care Patient would benefit from OT for education, treatment and training to promote independence in ADL's, mobility, safety and/or upper extremity function for ADL' s. Plan of Care: ADL Retraining, Functional Mobility, Group Exercise/Act as Ind, UE Funct Exercise/Act Treatment Duration: Mar 11, 2018 Frequency: At least 5 of 7 days/Wk (IRF) Estimated Hrs Per Day: 1.5 hours per day Agreement: Yes Rehab Potential: Good Time/GCodes Start Time: 13:00 Stop Time: 13:30 Total Time Billed (hr/min): 30 Billed Treatment Time 1 visit-FA 1 (10 min) [place] 1 (20 min) SINA CHIU Feb 24, 2018 14:34
--- NOTE | 2018-02-24 15:54 | Physical Therapy Daily Note ---
PT Daily Note-Current Subjective Agreeable to PT. Transfers Functional [place] Measure 0=Not Assessed/NA 4=Minimal Assistance 1=Total Assistance 5=Supervision or Setup 2=Maximal Assistance 6=Modified [place] 3=Moderate Assistance 7=Complete IndependenceIRFPAI Quality Coding Scale 6 Independent with activity with or without an assistive device 5 Patient requires set up or clean up by helper. Patient completes activity by themselves 4 Supervision or touching assist (CGA). [place] provide cues , steadying assist 3 The helper provides less than half the effort to complete the activity 2 The helper provides more than half the effort to complete the activity 1 Dependent. The helper does all the effort to complete an activity 7 Patient refused to complete or attempt activity 9 The patient did not perform the activity before the current illness or injury 88 Not attempted due to Medical conditions or safety concerns SPT x 3 with min asssit to her right each time. On / off the nu step and to bed. Pt on nu step x 15 minutes. Pt able to propel herself to her room with right U/LE mod indep. Pt requires mod assist to lift her legs into bed. In bed post treatment with needs met. Weight Bearing Right Lower Extremity: Right Weight Bearing/Tolerated Left Lower Extremity: Left Weight Bearing/Tolerated Assessment Current Status: Good Progress PT Short Term Goals Short Term Goals Time Frame: Feb 18, 2018 Transfers (B,C,W/C) (FIM): 3 (met) Wheelchair (FIM): 4 Wheelchair Distance: 150'x2 Wheelchair Level of Assist: 4 PT Information Security Director Goals Information Security Director Goals PT Information Security Director Goals Time Frame: Mar 04, 2018 Transfers (B,C,W/C) (FIM): 4 Sit to Lying (QC): 3 Lying-Sitting on Side/Bed(QC): 3 Sit to Stand (QC): 3 Rollin Roll Left to Right (QC): 3 Chair/Npv-cu-Nsxik Xfer(QC): 3 Car Transfer (QC): 3 Gait (FIM): 1 Distance: 20' Walk 10 feet (QC): 3 Gait Level of Assist: 4 Gait Assistive Device: Walker Gaurav Wheelchair (FIM): 5 Distance: 150' Wheelchair Level of Assist: 5 Wheel 50 feet with 2 turns (QC: 4 PT Plan Problem List Problem List: Activity Tolerance, Functional Strength, Safety, Balance, Gait, Transfer, Bed Mobility Treatment/Plan Treatment Plan: Continue Plan of Care Treatment Plan: Bed Mobility, Concurrent Therapy, Education, Functional Activity Steven, Functional Strength, Group Therapy, Gait, Safety, Therapeutic Exercise, Transfers Treatment Duration: Mar 04, 2018 Frequency: At least 5 of 7 days/Wk (IRF) Estimated Hrs Per Day: 1.5 hours per day Patient and/or Family Agrees t: Yes Safety Risks/Education Patient Education: Safety Issues Teaching Recipient: Patient Teaching Methods: Discussion Response to Teaching: Reinforcement Needed Time/GCodes Time In: 1330 Time Out: 1400 Total Billed Treatment Time: 30 Total Billed Treatment visit Ex 15 FA 15 SINA PAULINO PT Feb 24, 2018 15:54
--- NOTE | 2018-02-24 17:54 | PM & R (SOAP) Progress Note ---
Subjective Time Seen by Provider: 17:45 Subjective/Events-last exam Patient was seen in her room this AM Discussed with RN Patient appears to be having excessive calorie intake Will ask paving stone installer to see.Patient Modified Independent for w/c mobility but stll requires quite abit of assistance for transfers Review of Systems General: Appetite Objective Exam Last Set of Vital Signs Vital Signs Date Time Temp Pulse Resp B/P (MAP) Pulse Ox O2 Delivery O2 Flow Rate FiO2 02/24/18 09:00 Room Air 02/24/18 05:05 99.2 78 18 110/72 (85) 96 Capillary Refill : I&O Intake and Output 02/24/18 00:00 Intake Total 1950 ml Balance 1950 ml Intake Oral 1950 ml # Voids 6 # Bowel Movements 1 General: Alert, Oriented X3, Cooperative, No Acute Distress HEENT: Atraumatic, PERRLA, EOMI, Mucous Memb Moist/[place] Neck: Supple, No JVD Lungs: Clear to Auscultation Heart: Regular Rate Abdomen: Normal Bowel Sounds, Soft, No Tenderness Extremities: No Edema Neuro: Other (Left HP) Results Lab Microbiology 02/17/18 Urine Culture - Final, Complete Escherichia coli Assessment/Plan Assessment RT ICB with Left HP HTN E COLI UTI-on antibiotic Reactive depression med added Constipation meds adjusted Vaginal drainage on Diflucan Plan Continue PT/OT ST has signed off Bowel meds adjusted [facility] has seen-Appreciate their consult Continue antibiotics for UTI Consult Installer Inspector Final re counseling Next Team Conference 02-26-18 See orders. ELAINE GIBBS MD Feb 24, 2018 17:54
[2018-02-24 18:00] VITALS: BP 111/75
[2018-02-25] MEDS: ALPRAZolam 0.25 MG (XANAX) TAB PO PRN (02:40)
[2018-02-25] MEDS: ACETAMINOPHEN 325 MG TABLET/CAPLET (TYLENOL) PO PRN ×2 (02:42→16:54)
[2018-02-25 02:45] LABS: BILIRUBIN,URINE NEGATIVE (NEGATIVE); CLARITY,URINE SLIGHTLY CLOUDY; COLOR,URINE YELLOW; GLUCOSE, URINE (UA) NEGATIVE (NEGATIVE); KETONES,URINE NEGATIVE (NEGATIVE); LEUKOCYTE ESTERASE ,URINE 2+ (NEGATIVE); NITRITE,URINE NEGATIVE (NEGATIVE); PH,URINE 5 (5-9); PROTEIN,URINE NEGATIVE (NEGATIVE); UROBILINOGEN,URINE NORMAL (NORMAL)
[2018-02-25 02:53] LABS: BACTERIA,URINE FEW /HPF; RBC,URINE 0-2 /HPF
[2018-02-25 05:29] VITALS: BP 115/75
[2018-02-25] MEDS: PANTOPRAZOLE 40 MG (PROTONIX) TAB PO SCH (05:33)
--- NOTE | 2018-02-25 08:23 | Progress Note (SOAP) ---
Subjective Time Seen by Provider: 08:20 Subjective/Events-last exam Waiting for urine culture. UA looks better. Still show some white blood cells patient voices no complaints Objective Exam Vital Signs Date Time Temp Pulse Resp B/P (MAP) Pulse Ox O2 Delivery O2 Flow Rate FiO2 02/25/18 05:29 98.7 83 20 115/75 (88) 96 Room Air 02/24/18 21:00 Room Air 02/24/18 18:00 97.6 80 18 111/75 (87) 96 Room Air 02/24/18 09:00 Room Air I & O 02/25/18 07:00 Intake Total 1800 ml Balance 1800 ml Capillary Refill : General Appearance: No Apparent Distress, WD/WN Results Lab Laboratory Tests 02/25/18 02:30: Urine Color YELLOW, Urine Clarity SLIGHTLY CLOUDY, Urine pH 5, Urine Specific [place] 1.020, Urine Protein NEGATIVE, Urine Glucose (UA) NEGATIVE, Urine Ketones NEGATIVE, Urine Nitrite NEGATIVE, Urine Bilirubin NEGATIVE, Urine Urobilinogen NORMAL, Urine Leukocyte Esterase 2+H, Urine RBC (Auto) 2+H, Urine RBC 0-2, Urine WBC 2-5, Urine Squamous Epithelial Cells 10-25H, Urine Crystals NONE, Urine Bacteria FEWH, Urine Casts NONE, Urine Mucus SMALLH, Urine Culture Indicated YES Microbiology 02/17/18 Urine Culture - Final, Complete Escherichia coli Assessment/Plan Assessment/Plan Assess & Plan/Chief Complaint CVA with hemorrhage. Tobacco usage. Stroke on the left side of body. Recency of baby girl. . 02/15/18. CVA with hemorrhage. Tobacco usage. Hypertension. Stroke on left side of the body. infection. . 02/13/18. CVA with hemorrhage. Tobacco usage. Hypertension. infection. Patient depressed. . 02/14/18. CVA with hemorrhage. Tobacco usage. Hypertension. infection. Patient talking better today. . 02/17/18 CVA with hemorrhage. Tobacco usage. Hypertension. infection Patient does not appear depressed today. . 02/18/18. CVA with hemorrhage. Tobacco usage. Hypertension. UTI. . 's 02/19/18. CVA with hemorrhage. Tobacco usage. Hypertension. UTI. Patient working hard. . 02/20/18. CVA with hemorrhage. Tobacco usage. Hypertension. UTI. . 02/21/18. CVA with hemorrhage. Tobacco usage Hypertension. UTI . . CVA with hemorrhage. Tobacco usage. stroke on the left side of body. recent . . 4. CVA with hemorrhage. Tobacco usage. Stroke on left side of body. UTI Clinical Quality Measures DVT/VTE Risk/Contraindication: Risk Factor Score Per Nursin RFS Level Per Nursing on Admit: 4+=Very High ASHANTI RUSH DO Feb 25, 2018 08:23
--- NOTE | 2018-02-25 09:03 | Speech Therapy Daily Note ---
Speech Daily Progress Note Subjective Date Seen by Provider: Feb 25, 2018 Time Seen by Provider: 08:22 The patient was seated upright in wheelchair, eating breakfast upon entrance. The patient greeted the clinician and is agreeable to participation in the cognitive treatment session. Objective Left-Neglect: To work towards improvement of the patient's documented left neglect, the patient and clinician worked through time displayed on an analog clock. The hands of the clock were placed on the left or split between the left and the right. The patient displayed excellent accuracy with this task, completing it with 100% accuracy (independently). Additionally, the patient's breakfast was arranged to include the left side of the tray and plate. The patient consistently included items on the left side of her tray and plate without cues. The patient stated she believes her left sided neglect has improved significantly. Assessment Assessment Current Status: Good Progress Treatment Plan Continue Plan of Care Communication Comprehension: 5 Expression: 5 Social Cognition Social Interaction: 5 Problem Solvin Memory: 4 Speech Short Term Goals Short Term Goals Short Term Goals 1. The patient will display recall and demonstrate visuospatial strategies to improve left sided neglect. 2. The patient will accurately sequence ADL tasks with mild clinician verbal prompting. Time Frame-STG: One Week Speech Prison Goals Financial Services Manager Goals 1. The patient will increase awareness of left sided neglect through visuospatial strategies. Time Frame: Two Weeks Comprehension: 5 Expression: 5 Social Interaction: 5 Problem Solvin Memory: 4 Speech-Plan Treatment Plan Speech Therapy Treatment Plan: Continue Plan of Care Continue skilled speech pathology to continue assessment and monitoring of neglect. Treatment Duration: Feb 27, 2018 Frequency: Modified Program (IRF) (three to five times per week) Estimated Hrs Per Day: .5 hour per day Rehab Potential: Good Safety Risks/Education Teaching Recipient: Patient Teaching Methods: Discussion Response to Teaching: Verbalize Understanding Education Topics Provided: Neglect Strategies Time Speech Therapy Time In: 08:22 Speech Therapy Time Out: 08:52 Total Billed Time: 30 Billed Treatment Time 1YASMINE ELIZABETH ST Feb 25, 2018 09:03
[2018-02-25] MEDS: LEVETIRACETAM 500 MG (KEPPRA) TAB PO SCH ×2 (09:50→21:12)
[2018-02-25] MEDS: amLODIPine 5 MG (NORVASC) TAB PO SCH (09:50)
[2018-02-25] MEDS: AMOXICILLIN 500 MG (POLYMOX) CAP PO SCH ×3 (09:50→21:11)
[2018-02-25] MEDS: NYSTATIN CREAM (MYCOSTATIN) 30 GM TUBE TP SCH ×3 (09:51→21:11)
[2018-02-25] MEDS: SENNA W/DOCUSATE (SENOKOT S) TABLET PO SCH ×2 (09:51→21:12)
--- NOTE | 2018-02-25 09:58 | Physical Therapy Daily Note ---
PT Daily Note-Current Subjective Patient in wheelchair at bedside pre tx, agrees to PT, no complaints of pain. Appearance Patient in bed post tx, has nurse call, phone, tray, all needs met. Mental Status Patient Orientation: Person, Place, Situation Transfers Functional [place] Measure 0=Not Assessed/NA 4=Minimal Assistance 1=Total Assistance 5=Supervision or Setup 2=Maximal Assistance 6=Modified [place] 3=Moderate Assistance 7=Complete IndependenceIRFPAI Quality Coding Scale 6 Independent with activity with or without an assistive device 5 Patient requires set up or clean up by helper. Patient completes activity by themselves 4 Supervision or touching assist (CGA). [place] provide cues , steadying assist 3 The helper provides less than half the effort to complete the activity 2 The helper provides more than half the effort to complete the activity 1 Dependent. The helper does all the effort to complete an activity 7 Patient refused to complete or attempt activity 9 The patient did not perform the activity before the current illness or injury 88 Not attempted due to Medical conditions or safety concerns Transfers (B, C, W/C) (FIM): 4 Scootin Rollin Supine to/from Sit: 4 Sit to/from Stand: 4 Bed to/from Chair: 4 Patient now performs a stand pivot to the right with CGA and to the left with min assist and cues for positioning. Patient also practiced stand pivot transfers 5 to the left and 5 to the right. Weight Bearing Right Lower Extremity: Right Weight Bearing/Tolerated Left Lower Extremity: Left Weight Bearing/Tolerated Gait Training Gait (FIM): 1 Distance: 20'x4 Gait Level of Assist: 3 Gait Persons Needed: 1 Gait Assistive Device: Walker Gaurav Wheelchair follow. Patient needs assist with balance and advancing her left leg. Wheelchair Training Does the Pt Use a Wheelchair?: Yes Wheelchair (FIM): 5 Distance: 150'x2 Type of Wheelchair: Manual Exercises LLE LAQ x20 AAROM, left ankle stretching/ROM Treatments bed mobility, transfers, ambulation, functional strengthening, ROM Assessment Current Status: Fair Progress improving transfers PT Short Term Goals Short Term Goals Time Frame: Feb 18, 2018 Transfers (B,C,W/C) (FIM): 3 (met) Wheelchair (FIM): 4 Wheelchair Distance: 150'x2 Wheelchair Level of Assist: 4 PT Half-Way Goals Data Steward Goals PT Data Steward Goals Time Frame: Mar 04, 2018 Transfers (B,C,W/C) (FIM): 4 Sit to Lying (QC): 3 Lying-Sitting on Side/Bed(QC): 3 Sit to Stand (QC): 3 Rollin Roll Left to Right (QC): 3 Chair/Tiw-ar-Tgnlw Xfer(QC): 3 Car Transfer (QC): 3 Gait (FIM): 1 Distance: 20' Walk 10 feet (QC): 3 Gait Level of Assist: 4 Gait Assistive Device: Walker Gaurav Wheelchair (FIM): 5 Distance: 150' Wheelchair Level of Assist: 5 Wheel 50 feet with 2 turns (QC: 4 PT Plan Problem List Problem List: Activity Tolerance, Functional Strength, Safety, Balance, Gait, Transfer, Bed Mobility, ROM Treatment/Plan Treatment Plan: Continue Plan of Care Treatment Plan: Bed Mobility, Concurrent Therapy, Education, Functional Activity Steven, Functional Strength, Group Therapy, Gait, Safety, Therapeutic Exercise, Transfers Treatment Duration: Mar 04, 2018 Frequency: At least 5 of 7 days/Wk (IRF) Estimated Hrs Per Day: 1.5 hours per day Patient and/or Family Agrees t: Yes Safety Risks/Education Patient Education: Gait Training, Transfer Techniques, Correct Positioning, W/ C Management, Safety Issues Teaching Recipient: Patient Teaching Methods: Demonstration, Discussion Response to Teaching: Reinforcement Needed Time/GCodes Time In: 900 Time Out: 1000 Total Billed Treatment Time: 60 Total Billed Treatment 1 visit EX 10' GT 30' FA 20' JENIFER SOUSA PT Feb 25, 2018 09:58
--- NOTE | 2018-02-25 11:09 | Speech Therapy Progress Note ---
Therapy Progress Note Due to the patient's excellent progress towards goals, the clinician would like to reduce the patient's treatment frequency to three times per week for approximately 30 minutes each session. The clinician believes the patient will discharge from skilled speech pathology at the close of the week (02/28/2018). Thank you. EVE DE LA ROSA Feb 25, 2018 11:08
[2018-02-25 13:49] LABS: HEMOGLOBIN 12.3 G/DL (11.5-16.0); MEAN PLATELET VOLUME 10.6 FL (7.4-10.4); RED BLOOD COUNT 4.18 10^6/uL (4.35-5.85); RED CELL DISTRIBUTION WIDTH 13.3 % (10.0-14.5)
--- NOTE | 2018-02-25 13:56 | Physical Therapy Daily Note ---
PT Daily Note-Current Subjective Patient in wheelchair pre tx, agrees to PT, no complaints of pain. Appearance Patient in bed post tx with nurse call, phone, tray, all needs met. Bed alarm on. Mental Status Patient Orientation: Person, Place, Situation Transfers Functional [place] Measure 0=Not Assessed/NA 4=Minimal Assistance 1=Total Assistance 5=Supervision or Setup 2=Maximal Assistance 6=Modified [place] 3=Moderate Assistance 7=Complete IndependenceIRFPAI Quality Coding Scale 6 Independent with activity with or without an assistive device 5 Patient requires set up or clean up by helper. Patient completes activity by themselves 4 Supervision or touching assist (CGA). [place] provide cues , steadying assist 3 The helper provides less than half the effort to complete the activity 2 The helper provides more than half the effort to complete the activity 1 Dependent. The helper does all the effort to complete an activity 7 Patient refused to complete or attempt activity 9 The patient did not perform the activity before the current illness or injury 88 Not attempted due to Medical conditions or safety concerns Transfers (B, C, W/C) (FIM): 4 Scootin Rollin Supine to/from Sit: 4 Sit to/from Stand: 4 Bed to/from Chair: 4 Weight Bearing Right Lower Extremity: Right Weight Bearing/Tolerated Left Lower Extremity: Left Weight Bearing/Tolerated Wheelchair Training Does the Pt Use a Wheelchair?: Yes Wheelchair (FIM): 6 Distance: 150' Type of Wheelchair: Manual Exercises NuStep Minutes: 15 NuStep Workload: 5 Treatments bed mobility and transfers, wheelchair mobility, functional strengthening Assessment Current Status: Fair Progress improving wheelchair mobility PT Short Term Goals Short Term Goals Time Frame: Feb 18, 2018 Transfers (B,C,W/C) (FIM): 3 (met) Wheelchair (FIM): 4 Wheelchair Distance: 150'x2 Wheelchair Level of Assist: 4 PT [facility] Goals Chemist Intern Goals PT Chemist Intern Goals Time Frame: Mar 04, 2018 Transfers (B,C,W/C) (FIM): 4 Sit to Lying (QC): 3 Lying-Sitting on Side/Bed(QC): 3 Sit to Stand (QC): 3 Rollin Roll Left to Right (QC): 3 Chair/[id number] Xfer(QC): 3 Car Transfer (QC): 3 Gait (FIM): 1 Distance: 20' Walk 10 feet (QC): 3 Gait Level of Assist: 4 Gait Assistive Device: Walker Gaurav Wheelchair (FIM): 5 Distance: 150' Wheelchair Level of Assist: 5 Wheel 50 feet with 2 turns (QC: 4 PT Plan Problem List Problem List: Activity Tolerance, Functional Strength, Safety, Balance, Gait, Transfer, Bed Mobility, ROM Treatment/Plan Treatment Plan: Continue Plan of Care Treatment Plan: Bed Mobility, Concurrent Therapy, Education, Functional Activity Steven, Functional Strength, Group Therapy, Gait, Safety, Therapeutic Exercise, Transfers Treatment Duration: Mar 04, 2018 Frequency: At least 5 of 7 days/Wk (IRF) Estimated Hrs Per Day: 1.5 hours per day Patient and/or Family Agrees t: Yes Safety Risks/Education Patient Education: Transfer Techniques, Correct Positioning, W/C Management, Safety Issues Teaching Recipient: Patient Teaching Methods: Demonstration, Discussion Response to Teaching: Reinforcement Needed Time/GCodes Time In: 1330 Time Out: 1400 Total Billed Treatment Time: 30 Total Billed Treatment 1 visit EX 15' [facility] 15' JENIFER SOUSA PT Feb 25, 2018 13:56
--- NOTE | 2018-02-25 13:58 | PM & R (SOAP) Progress Note ---
Subjective Time Seen by Provider: 07:45 Subjective/Events-last exam Patient was seen in her room this AM Discussed wt reduction diet with patient skyler torres RN briefly Patient mod assist for transfers Objective Exam Last Set of Vital Signs Vital Signs Date Time Temp Pulse Resp B/P (MAP) Pulse Ox O2 Delivery O2 Flow Rate FiO2 02/25/18 05:29 98.7 83 20 115/75 (88) 96 Room Air Capillary Refill : I&O Intake and Output 02/25/18 00:00 Intake Total 1600 ml Balance 1600 ml Intake Oral 1600 ml # Voids 8 # Bowel Movements 1 General: Alert, Oriented X3, Cooperative, No Acute Distress HEENT: Atraumatic, PERRLA, EOMI, Mucous Memb Moist/[place] Neck: Supple, No JVD Lungs: Clear to Auscultation Heart: Regular Rate Abdomen: Normal Bowel Sounds, Soft, No Tenderness Extremities: No Edema Neuro: Other (Left HP) Results Lab Laboratory Tests 02/25/18 02:30: Urine Color YELLOW, Urine Clarity SLIGHTLY CLOUDY, Urine pH 5, Urine Specific [place] 1.020, Urine Protein NEGATIVE, Urine Glucose (UA) NEGATIVE, Urine Ketones NEGATIVE, Urine Nitrite NEGATIVE, Urine Bilirubin NEGATIVE, Urine Urobilinogen NORMAL, Urine Leukocyte Esterase 2+H, Urine RBC (Auto) 2+H, Urine RBC 0-2, Urine WBC 2-5, Urine Squamous Epithelial Cells 10-25H, Urine Crystals NONE, Urine Bacteria FEWH, Urine Casts NONE, Urine Mucus SMALLH, Urine Culture Indicated YES 02/25/18 13:36: White Blood Count 9.0, Red Blood Count 4.18L, Hemoglobin 12.3, Hematocrit 37, Mean Corpuscular Volume 90, Mean Corpuscular Hemoglobin 29, Mean Corpuscular Hemoglobin Concent 33, Red Cell Distribution Width 13.3, Platelet Count 254, Mean Platelet Volume 10.6H Microbiology 02/25/18 Urine Culture - Preliminary, Resulted Gram Negative Scott Assessment/Plan Assessment RT ICB with Left HP HTN E COLI UTI-on antibiotic Reactive depression med added Constipation meds adjusted Vaginal drainage on Diflucan Plan Continue PT/OT ST has signed off Bowel meds adjusted [facility] has seen-Appreciate their consult Continue antibiotics for UTI Consult Vamp Throater re counseling Next Team Conference tomorrow 02-26-18 . ELAINE GIBBS MD Feb 25, 2018 13:58
--- NOTE | 2018-02-25 13:59 | Occupational Ther Daily Note ---
OT Current Status-Daily Note Subjective Pt alert, lying in bed. Pt agreed to therapy. No c/o pain. Mental Status/Objective Patient Orientation: Person, Place, Time, Situation Functional [place] Measure 0=Not Assessed/NA 4=Minimal Assistance 1=Total Assistance 5=Supervision or Setup 2=Maximal Assistance 6=Modified [place] 3=Moderate Assistance 7=Complete [place] ADL-Treatment Pt was eating breakfast at beginning of therapy. Pt was able to set self up with eating, has denture partial. Min A to sit up from supine, assist with moving L LE to EOB. Pt then transferred with min A from EOB to BSC. Pt was able to cleanse self after toileting, pt is able to hike pants over R hip and assist for L hip. Pt then was able to complete UE dressing after set up with min A. Pt was able to don/doff lower body clothing over feet with supervision while crossing LE over knee, assist to stand then pt is able to hike pants over R hip and assisted with L hip. Pt then maneuvered w/c into bathroom to complete own grooming. Then maneuvered w/c to therapy gym. Functional [place] Measure 0=Not Assessed/NA 4=Minimal Assistance 1=Total Assistance 5=Supervision or Setup 2=Maximal Assistance 6=Modified [place] 3=Moderate Assistance 7=Complete IndependenceIRFPAI Quality Coding Scale 6 Independent with activity with or without an assistive device 5 Patient requires set up or clean up by helper. Patient completes activity by themselves 4 Supervision or touching assist (CGA). [place] provide cues , steadying assist 3 The helper provides less than half the effort to complete the activity 2 The helper provides more than half the effort to complete the activity 1 Dependent. The helper does all the effort to complete an activity 7 Patient refused to complete or attempt activity 9 The patient did not perform the activity before the current illness or injury 88 Not attempted due to Medical conditions or safety concerns Eating (FIM): 6 Eating (QC): 6 Grooming (FIM): 6 Oral Hygiene (QC): 6 Upper Body (FIM): 4 Upper Body Dressing (QC): 3 Lower Body Dressing (FIM): 4 Lower Body Dressing (QC): 3 On/Off Footwear (QC): 4 Toileting (FIM): 4 Toileting Hygiene (QC): 3 Toilet/Commode Transfer (FIM): 4 Toilet Transfer (QC): 3 Other Treatment Pt transferred to therapy mat to work on dynamic sitting balance. Pt was able to pickle maker cones from floor in sitting with close SBA. When items were placed toward L side and pt had to twist and reach, LOB occurred and assist to right was needed. Pt did improve during therapy finding how to compensate with L sided weakness and bringing self back to midline. Pt then maneuvered self back to room with w/c. After therapy, pt sitting in w/c with call light/phone in reach. All needs met in room. OT Short Term Goals Short Term Goals Time Frame: Feb 25, 2018 Eating(FIM): 5 Grooming(FIM): 5 Bathing(FIM): 4 Upper Body Dressing(FIM): 4 Lower Body Dressing(FIM): 3 Toileting(FIM): 4 Transfers (B,C,W/C) (FIM): 3 (met) Toilet/Commode Transfer(FIM): 4 Additional Short Term Goals: 1-Demonstrate ADL Tasks, 2-Verbalize Understanding , 3-ImproveStrength/Steven 1=Demonstrate adherence to instructed precautions during ADL tasks. 2=Patient will verbalize/demonstrate understanding of assistive devices/ modifications for ADL. 3=Patient will improve strength/tolerance for activity to enable patient to perform ADL's. OT Correction Goals Correction Goals Time Frame: Mar 11, 2018 Eating (FIM): 6 Eating (QC): 6 Groomin Oral Hygiene (QC): 6 Bathing(FIM): 5 Shower/Bathe Self (QC): 5 Upper Body Dressing(FIM): 6 Upper Body Dressing (QC): 6 Lower Body Dressing(FIM): 6 Lower Body Dressing (QC): 6 On/Off Footwear (QC): 6 Toileting(FIM): 6 Toileting Hygiene (QC): 6 Transfers (B,C,W/C) (FIM): 6 Toilet/Commode Transfer(FIM): 6 Toilet/Commode Transfer (QC): 6 Shower Transfer(FIM): 5 Comprehension(FIM): 5 Expression (FIM): 5 Social Interaction(FIM): 5 Problem Solving(FIM): 4 Memory(FIM): 4 Additional Goals: 1-Demonstrate ADL Tasks, 2-Verbalize Understanding, 3- ImproveStrength/Steven 1=Demonstrate adherence to instructed precautions during ADL tasks. 2=Patient will verbalize/demonstrate understanding of assistive devices/ modifications for ADL. 3=Patient will improve strength/tolerance for activity to enable patient to perform ADL's. OT Education/Plan Discharge Recommendations Plan/Recommendations: Continue POC Treatment Plan/Plan of Care Patient would benefit from OT for education, treatment and training to promote independence in ADL's, mobility, safety and/or upper extremity function for ADL' s. Plan of Care: ADL Retraining, Functional Mobility, Group Exercise/Act as Ind, UE Funct Exercise/Act Treatment Duration: Mar 11, 2018 Frequency: At least 5 of 7 days/Wk (IRF) Estimated Hrs Per Day: 1.5 hours per day Agreement: Yes Rehab Potential: Good Time/GCodes Start Time: 07:00 Stop Time: 08:15 Total Time Billed (hr/min): 75 Billed Treatment Time 1 visit-ADL 3 (50 min) NM 2 (25 min) SINA CHIU Feb 25, 2018 13:59
[2018-02-25 18:00] VITALS: BP 111/80
--- NOTE | 2018-02-25 20:52 | Consultation ---
History of Present Illness History of Present Illness Patient Consulted On(lashonda/time) 02/25/18 20:43 Date Seen by Provider: Feb 25, 2018 Time Seen by Provider: 18:09 History of Present Illness consult requested by Dr. Acosta for donna red blood in stool. Patient is a 27 year old female cva requiring maddison hole which resulted in left sided weakness. Patient with bowel movement was having donna red blood, but she didn't know it. Patient had hard painful bowel movement today when this occurred. Patient states that from time to time in the past with hard stools she would have some pain and blood in stools. Nothing she has tried before made it better that she knows, it always just went away. The hard stools would make it worse. Patient with no other complaints at this time. Denies n/v fever sweats chills shortness of breath or chest pain. Allergies and Home Medications Allergies Coded Allergies: No Known Drug Allergies (Unverified , 02/10/18) Home Medications No Active Prescriptions or Reported Meds Patient Home Medication List Home Medication List Reviewed: Yes Past Aceggio-Atvneq-Dztrdb Hx Patient Social History Alcohol Use: Denies Use Recreational Drug Use: No Smoking Status: Current Everyday Smoker Type Used: Cigarettes Recent Foreign Travel: No Contact w/Someone Who Travel: No Recent Infectious Disease Expo: No Recent Hopitalizations: Yes Physical Abuse Screen: No Sexual Abuse: No Immunizations Up To Date Date of Influenza Vaccine: Dec 04, 2017 Seasonal Allergies Seasonal Allergies: Yes Surgeries History of Surgeries: Yes (maddison hole) Respiratory History of Respiratory Disorde: No Cardiovascular History of Cardiac Disorders: No Neurological History of Neurological Disord: No (Stroke on 01/23/18) Reproductive System : No Genitourinary History of Genitourinary Disor: No Gastrointestinal History of Gastrointestinal Di: No Musculoskeletal History of Musculoskeletal Dis: No Endocrine History of Endocrine Disorders: No HEENT History of HEENT Disorders: No Cancer History of Cancer: No Psychosocial History of Psychiatric Problem: No Integumentary History of Skin or Integumenta: No Blood Transfusions History of Blood Disorders: No Family Medical History Significant Family History: No Pertinent Family Hx Review of Systems-General Constitutional: no symptoms reported EENTM: no symptoms reported Respiratory: no symptoms reported Cardiovascular: no symptoms reported Gastrointestinal: see HPI Genitourinary: no symptoms reported Musculoskeletal: see HPI Skin: no symptoms reported Psychiatric/Neurological: No Symptoms Reported Physical Exam-General Problems Physical Exam Vital Signs Vital Signs - First Documented 02/19/18 05:10 Temp 97.7 Pulse 74 Resp 18 B/P (MAP) 118/80 (93) Pulse Ox 100 O2 Delivery Room Air Capillary Refill : General Appearance: no apparent distress HEENT: PERRL/EOMI, normal ENT inspection Neck: non-tender, supple Respiratory: no respiratory distress, no accessory muscle use Cardiovascular: regular rate, rhythm Gastrointestinal: non tender, soft Rectal: other (posterior anal fissure, increased rectal tone, no palpable masses minimal bright red blood from fissure on rectal exam) Back: no CVA tenderness Extremities: other (left upper and lower ext weakness) Neurologic/Psychiatric: alert, normal mood/affect, oriented x 3 Skin: normal color, warm/dry Lymphatic: no adenopathy Data Review Labs Laboratory Tests 02/25/18 02:30: Urine Color YELLOW, Urine Clarity SLIGHTLY CLOUDY, Urine pH 5, Urine Specific [place] 1.020, Urine Protein NEGATIVE, Urine Glucose (UA) NEGATIVE, Urine Ketones NEGATIVE, Urine Nitrite NEGATIVE, Urine Bilirubin NEGATIVE, Urine Urobilinogen NORMAL, Urine Leukocyte Esterase 2+H, Urine RBC (Auto) 2+H, Urine RBC 0-2, Urine WBC 2-5, Urine Squamous Epithelial Cells 10-25H, Urine Crystals NONE, Urine Bacteria FEWH, Urine Casts NONE, Urine Mucus SMALLH, Urine Culture Indicated YES 02/25/18 13:36: White Blood Count 9.0, Red Blood Count 4.18L, Hemoglobin 12.3, Hematocrit 37, Mean Corpuscular Volume 90, Mean Corpuscular Hemoglobin 29, Mean Corpuscular Hemoglobin Concent 33, Red Cell Distribution Width 13.3, Platelet Count 254, Mean Platelet Volume 10.6H Microbiology 02/25/18 Urine Culture - Preliminary, Resulted Gram Negative Scott Assessment/Plan Assessment/Plan Assessment/Plan Bright red blood per rectum Posterior anal fissure CVA with left sided weakness Tobacco usage. Recency of baby girl Added colace 100 mg po bid High fiber diet and increase water intake. Patient hgb stable, will recheck hgb tomorrow. Feel bleeding is likely from fissure. Will need flexible sigmoidoscopy/colonoscopy as outpatient to evaluate for other causes. Continue medical/rehab management.. Clinical Quality Measures DVT/VTE Risk/Contraindication: Risk Factor Score Per Nursin RFS Level Per Nursing on Admit: 4+=Very High HEIDI VIDAL DO Feb 25, 2018 20:52
[2018-02-25] MEDS: DOCUSATE SODIUM 100 MG (COLACE) CAP PO SCH (21:12)
[2018-02-26 05:08] VITALS: BP 102/69
[2018-02-26 05:09] LABS: HEMOGLOBIN 12.2 G/DL (11.5-16.0); MEAN PLATELET VOLUME 10.4 FL (7.4-10.4); RED BLOOD COUNT 4.18 10^6/uL (4.35-5.85); RED CELL DISTRIBUTION WIDTH 13.4 % (10.0-14.5); WHITE BLOOD COUNT 7.1 10^3/uL (4.3-11.0)
[2018-02-26] MEDS: ACETAMINOPHEN 325 MG TABLET/CAPLET (TYLENOL) PO PRN ×2 (05:24→19:56)
[2018-02-26] MEDS: PANTOPRAZOLE 40 MG (PROTONIX) TAB PO SCH (05:24)
--- NOTE | 2018-02-26 07:52 | Occupational Ther Daily Note ---
OT Current Status-Daily Note Subjective Pt alert, lying in bed. Pt agreed to therapy. No c/o pain at this time. Mental Status/Objective Patient Orientation: Person, Place, Time, Situation Functional [place] Measure 0=Not Assessed/NA 4=Minimal Assistance 1=Total Assistance 5=Supervision or Setup 2=Maximal Assistance 6=Modified [place] 3=Moderate Assistance 7=Complete [place] ADL-Treatment Min A to scoot L LE out of bed. Pt transferred with min A to L side from EOB to w/c. Transferred from w/c to toilet with min A, had hospital gown on to did not have to manipulate clothing. Pt cleansed april area sitting on toilet. In standing pt stabilized self with grabbar and assist to stand as pt cleansed buttocks after toileting. Pt then was taken to large shower room to work on tub transfer and taking bath. Min A for tub transfer then assist to lift L LE into tub. Pt then was able to cleanse most of body using long handle sponge, grabbar, hand held shower and tub transfer bench. Assist in standing to cleanse buttocks. Pt was able to dry most of body except L foot and buttocks. After set up, pt was able to don shirt/bra with assist only to pull down in back. Pt was able to don/doff clothing over feet by crossing LE over a knee, assist to keep L LE in place. Pt stood with assistance and hiked pants over R hip, assist to hike over L hip. Pt then maneuvered w/c from large shower room to bathroom and completed own oral care. After therapy, pt sitting in w/c with call light/phone in reach. All needs met in room. Functional [place] Measure 0=Not Assessed/NA 4=Minimal Assistance 1=Total Assistance 5=Supervision or Setup 2=Maximal Assistance 6=Modified [place] 3=Moderate Assistance 7=Complete IndependenceIRFPAI Quality Coding Scale 6 Independent with activity with or without an assistive device 5 Patient requires set up or clean up by helper. Patient completes activity by themselves 4 Supervision or touching assist (CGA). [place] provide cues , steadying assist 3 The helper provides less than half the effort to complete the activity 2 The helper provides more than half the effort to complete the activity 1 Dependent. The helper does all the effort to complete an activity 7 Patient refused to complete or attempt activity 9 The patient did not perform the activity before the current illness or injury 88 Not attempted due to Medical conditions or safety concerns Eating (FIM): 6 Eating (QC): 6 Grooming (FIM): 6 Oral Hygiene (QC): 6 Bathing (FIM): 4 Bathing Location: L Arm, R Arm, L Upper Leg, R Upper Leg, L Lower Leg ( including foot), R Lower Leg (including foot), Chest, Abdomen, Perineal Area Shower/Bathe Self (QC): 3 Upper Body (FIM): 4 Upper Body Dressing (QC): 3 Lower Body Dressing (FIM): 4 Lower Body Dressing (QC): 4 On/Off Footwear (QC): 4 Toileting (FIM): 4 Toileting Hygiene (QC): 3 Toilet/Commode Transfer (FIM): 4 Tub Transfer(FIM): 4 OT Short Term Goals Short Term Goals Time Frame: Feb 25, 2018 Eating(FIM): 5 Grooming(FIM): 5 Bathing(FIM): 4 Upper Body Dressing(FIM): 4 Lower Body Dressing(FIM): 3 Toileting(FIM): 4 Transfers (B,C,W/C) (FIM): 3 (met) Toilet/Commode Transfer(FIM): 4 Additional Short Term Goals: 1-Demonstrate ADL Tasks, 2-Verbalize Understanding , 3-ImproveStrength/Steven 1=Demonstrate adherence to instructed precautions during ADL tasks. 2=Patient will verbalize/demonstrate understanding of assistive devices/ modifications for ADL. 3=Patient will improve strength/tolerance for activity to enable patient to perform ADL's. OT [facility] Goals Staffing Associate Goals Time Frame: Mar 11, 2018 Eating (FIM): 6 Eating (QC): 6 Groomin Oral Hygiene (QC): 6 Bathing(FIM): 5 Shower/Bathe Self (QC): 5 Upper Body Dressing(FIM): 6 Upper Body Dressing (QC): 6 Lower Body Dressing(FIM): 6 Lower Body Dressing (QC): 6 On/Off Footwear (QC): 6 Toileting(FIM): 6 Toileting Hygiene (QC): 6 Transfers (B,C,W/C) (FIM): 6 Toilet/Commode Transfer(FIM): 6 Toilet/Commode Transfer (QC): 6 Shower Transfer(FIM): 5 Comprehension(FIM): 5 Expression (FIM): 5 Social Interaction(FIM): 5 Problem Solving(FIM): 4 Memory(FIM): 4 Additional Goals: 1-Demonstrate ADL Tasks, 2-Verbalize Understanding, 3- ImproveStrength/Steven 1=Demonstrate adherence to instructed precautions during ADL tasks. 2=Patient will verbalize/demonstrate understanding of assistive devices/ modifications for ADL. 3=Patient will improve strength/tolerance for activity to enable patient to perform ADL's. OT Education/Plan Discharge Recommendations Plan/Recommendations: Continue POC Treatment Plan/Plan of Care Patient would benefit from OT for education, treatment and training to promote independence in ADL's, mobility, safety and/or upper extremity function for ADL' s. Plan of Care: ADL Retraining, Functional Mobility, Group Exercise/Act as Ind, UE Funct Exercise/Act Treatment Duration: Mar 11, 2018 Frequency: At least 5 of 7 days/Wk (IRF) Estimated Hrs Per Day: 1.5 hours per day Agreement: Yes Rehab Potential: Good Time/GCodes Start Time: 06:55 Stop Time: 07:55 Total Time Billed (hr/min): 60 Billed Treatment Time 1 visit-ADL 4 (60 min) SINA CHIU Feb 26, 2018 07:52
--- NOTE | 2018-02-26 08:29 | Progress Note (SOAP) ---
Subjective Time Seen by Provider: 08:28 Subjective/Events-last exam Patient still has bladder infection. Patient put on Cipro which is sensitive to. CVA Objective Exam Vital Signs Date Time Temp Pulse Resp B/P (MAP) Pulse Ox O2 Delivery O2 Flow Rate FiO2 02/26/18 05:08 97.6 67 20 102/69 (80) 97 Room Air 02/25/18 21:24 Room Air 02/25/18 18:00 96.1 72 20 111/80 (90) 97 Room Air 02/25/18 09:00 Room Air I & O 02/26/18 07:00 Intake Total 1640 ml Balance 1640 ml Capillary Refill : General Appearance: No Apparent Distress, WD/WN HEENT: Normal ENT Inspection Respiratory: No Accessory Muscle Use, No Respiratory Distress Results Lab Laboratory Tests 02/25/18 13:36: White Blood Count 9.0, Red Blood Count 4.18L, Hemoglobin 12.3, Hematocrit 37, Mean Corpuscular Volume 90, Mean Corpuscular Hemoglobin 29, Mean Corpuscular Hemoglobin Concent 33, Red Cell Distribution Width 13.3, Platelet Count 254, Mean Platelet Volume 10.6H 02/26/18 04:55: White Blood Count 7.1, Red Blood Count 4.18L, Hemoglobin 12.2, Hematocrit 37, Mean Corpuscular Volume 89, Mean Corpuscular Hemoglobin 29, Mean Corpuscular Hemoglobin Concent 33, Red Cell Distribution Width 13.4, Platelet Count 245, Mean Platelet Volume 10.4 Microbiology 02/25/18 Urine Culture - Preliminary, Resulted Klebsiella pneumoniae Assessment/Plan Assessment/Plan Assess & Plan/Chief Complaint CVA with hemorrhage. Tobacco usage. Stroke on the left side of body. Recency of baby girl. . 02/15/18. CVA with hemorrhage. Tobacco usage. Hypertension. Stroke on left side of the body. infection. . 02/13/18. CVA with hemorrhage. Tobacco usage. Hypertension. infection. Patient depressed. . 02/14/18. CVA with hemorrhage. Tobacco usage. Hypertension. infection. Patient talking better today. . 02/17/18 CVA with hemorrhage. Tobacco usage. Hypertension. infection Patient does not appear depressed today. . 02/18/18. CVA with hemorrhage. Tobacco usage. Hypertension. UTI. . 's 02/19/18. CVA with hemorrhage. Tobacco usage. Hypertension. UTI. Patient working hard. . 02/20/18. CVA with hemorrhage. Tobacco usage. Hypertension. UTI. . 02/21/18. CVA with hemorrhage. Tobacco usage Hypertension. UTI . /01/12. CVA with hemorrhage. Tobacco usage. stroke on the left side of body. recent . . 02/25/18. CVA with hemorrhage. Tobacco usage. Stroke on left side of body. UTI. . 's 02/26/18. CVA with hemorrhage. UTI. Put on Cipro. Tobacco usage Clinical Quality Measures DVT/VTE Risk/Contraindication: Risk Factor Score Per Nursin RFS Level Per Nursing on Admit: 4+=Very High ASHANTI RUSH DO Feb 26, 2018 08:29
[2018-02-26] MEDS: amLODIPine 5 MG (NORVASC) TAB PO SCH (09:02)
[2018-02-26] MEDS: LEVETIRACETAM 500 MG (KEPPRA) TAB PO SCH ×2 (09:02→19:56)
[2018-02-26] MEDS: SENNA W/DOCUSATE (SENOKOT S) TABLET PO SCH ×2 (09:02→19:57)
[2018-02-26] MEDS: DOCUSATE SODIUM 100 MG (COLACE) CAP PO SCH ×2 (09:02→19:57)
[2018-02-26] MEDS: NYSTATIN CREAM (MYCOSTATIN) 30 GM TUBE TP SCH ×3 (09:08→19:57)
[2018-02-26] MEDS: CIPROFLOXACIN 500 MG (CIPRO) TABLET PO SCH ×2 (09:08→19:57)
--- NOTE | 2018-02-26 09:47 | PM & R (SOAP) Progress Note ---
Subjective Time Seen by Provider: 07:45 Subjective/Events-last exam Patient was seen in her room this AM Up in W/C patient mod assist for transfers Objective Exam Last Set of Vital Signs Vital Signs Date Time Temp Pulse Resp B/P (MAP) Pulse Ox O2 Delivery O2 Flow Rate FiO2 02/26/18 05:08 97.6 67 20 102/69 (80) 97 Room Air Capillary Refill : I&O Intake and Output 02/26/18 00:00 Intake Total 1900 ml Balance 1900 ml Intake Oral 1900 ml # Voids 8 # Bowel Movements 1 General: Alert, Oriented X3, Cooperative, No Acute Distress HEENT: Atraumatic, PERRLA, EOMI, Mucous Memb Moist/[place] Neck: Supple, No JVD Lungs: Clear to Auscultation Heart: Regular Rate Abdomen: Normal Bowel Sounds, Soft, No Tenderness Extremities: No Edema Neuro: Other (Left HP) Results Lab Laboratory Tests 02/25/18 02:30: Urine Color YELLOW, Urine Clarity SLIGHTLY CLOUDY, Urine pH 5, Urine Specific [place] 1.020, Urine Protein NEGATIVE, Urine Glucose (UA) NEGATIVE, Urine Ketones NEGATIVE, Urine Nitrite NEGATIVE, Urine Bilirubin NEGATIVE, Urine Urobilinogen NORMAL, Urine Leukocyte Esterase 2+H, Urine RBC (Auto) 2+H, Urine RBC 0-2, Urine WBC 2-5, Urine Squamous Epithelial Cells 10-25H, Urine Crystals NONE, Urine Bacteria FEWH, Urine Casts NONE, Urine Mucus SMALLH, Urine Culture Indicated YES 02/25/18 13:36: White Blood Count 9.0, Red Blood Count 4.18L, Hemoglobin 12.3, Hematocrit 37, Mean Corpuscular Volume 90, Mean Corpuscular Hemoglobin 29, Mean Corpuscular Hemoglobin Concent 33, Red Cell Distribution Width 13.3, Platelet Count 254, Mean Platelet Volume 10.6H 02/26/18 04:55: White Blood Count 7.1, Red Blood Count 4.18L, Hemoglobin 12.2, Hematocrit 37, Mean Corpuscular Volume 89, Mean Corpuscular Hemoglobin 29, Mean Corpuscular Hemoglobin Concent 33, Red Cell Distribution Width 13.4, Platelet Count 245, Mean Platelet Volume 10.4 Microbiology 02/25/18 Urine Culture - Preliminary, Resulted Klebsiella pneumoniae Assessment/Plan Assessment RT ICB with Left HP HTN E COLI UTI-on antibiotic Reactive depression med added Constipation meds adjusted Vaginal drainage on Diflucan Plan Continue PT/OT ST has signed off Bowel meds adjusted [facility]-Appreciate their consult Continue antibiotics for UTI Consult Core Driller Helper re counseling Next Team Conference later today-See report for full functional update and POC and ELOS . ELAINE GIBBS MD Feb 26, 2018 09:47
--- NOTE | 2018-02-26 10:02 | Physical Therapy Daily Note ---
PT Daily Note-Current Subjective Patient in wheelchair pre tx, agrees to PT, no complaints of pain. Appearance Patient in bed post tx with nurse call, phone, tray, bed alarm on. Mental Status Patient Orientation: Person, Place, Situation Transfers Functional [place] Measure 0=Not Assessed/NA 4=Minimal Assistance 1=Total Assistance 5=Supervision or Setup 2=Maximal Assistance 6=Modified [place] 3=Moderate Assistance 7=Complete IndependenceIRFPAI Quality Coding Scale 6 Independent with activity with or without an assistive device 5 Patient requires set up or clean up by helper. Patient completes activity by themselves 4 Supervision or touching assist (CGA). [place] provide cues , steadying assist 3 The helper provides less than half the effort to complete the activity 2 The helper provides more than half the effort to complete the activity 1 Dependent. The helper does all the effort to complete an activity 7 Patient refused to complete or attempt activity 9 The patient did not perform the activity before the current illness or injury 88 Not attempted due to Medical conditions or safety concerns Transfers (B, C, W/C) (FIM): 4 Scootin Rollin Supine to/from Sit: 4 Sit to/from Stand: 4 Bed to/from Chair: 4 Patient now performs a stand pivot transfer to the right with CGA and to the left with min assist. She needs min assist with supine <-> sit to assist with getting left leg into and out of bed. Weight Bearing Right Lower Extremity: Right Weight Bearing/Tolerated Left Lower Extremity: Left Weight Bearing/Tolerated Gait Training Gait (FIM): 1 Distance: 20' Gait Level of Assist: 4 Gait Persons Needed: 1 Gait Assistive Device: Walker Gaurav Wheelchair follow. Patient can ambulate 20'x3 with a hemiwalker with min assist. She needs assist with balance and advancing her left leg. Balance has improved a lot though and she no longer leans to the left but she does need a gentle weight shift to the right when advancing her left leg. Wheelchair Training Does the Pt Use a Wheelchair?: Yes Wheelchair (FIM): 5 Distance: 150'x2 Type of Wheelchair: Manual Exercises LLE stretching/ROM in all planes, bridging x20, AAROM SAQ left side x20, right side LAQ with 3# ankle weight for 5 min NuStep Minutes: 15 NuStep Workload: 5 Treatments bed mobility and transfer training, ambulation, functional strengthening, ROM/ stretching, wheelchair mobility Assessment Current Status: Fair Progress improving transfers PT Short Term Goals Short Term Goals Time Frame: Feb 18, 2018 Transfers (B,C,W/C) (FIM): 3 (met) Wheelchair (FIM): 4 Wheelchair Distance: 150' Wheelchair Level of Assist: 4 PT Adapted Physical Education Specialist Goals Custodial Goals PT Adapted Physical Education Specialist Goals Time Frame: Mar 04, 2018 Transfers (B,C,W/C) (FIM): 4 Sit to Lying (QC): 3 Lying-Sitting on Side/Bed(QC): 3 Sit to Stand (QC): 3 Rollin Roll Left to Right (QC): 3 Chair/Chf-wm-Bfqkg Xfer(QC): 3 Car Transfer (QC): 3 Gait (FIM): 1 Distance: 20' Walk 10 feet (QC): 3 Gait Level of Assist: 4 Gait Assistive Device: Walker Gaurav Wheelchair (FIM): 5 Distance: 150' Wheelchair Level of Assist: 5 Wheel 50 feet with 2 turns (QC: 4 PT Plan Problem List Problem List: Activity Tolerance, Functional Strength, Safety, Balance, Gait, Transfer, Bed Mobility, ROM Treatment/Plan Treatment Plan: Continue Plan of Care Treatment Plan: Bed Mobility, Concurrent Therapy, Education, Functional Activity Steven, Functional Strength, Group Therapy, Gait, Safety, Therapeutic Exercise, Transfers Treatment Duration: Mar 04, 2018 Frequency: At least 5 of 7 days/Wk (IRF) Estimated Hrs Per Day: 1.5 hours per day Patient and/or Family Agrees t: Yes Safety Risks/Education Patient Education: Gait Training, Transfer Techniques, Correct Positioning, W/ C Management, Safety Issues Teaching Recipient: Patient Teaching Methods: Demonstration, Discussion Response to Teaching: Reinforcement Needed Time/GCodes Time In: 900 Time Out: 1000 Total Billed Treatment Time: 60 Total Billed Treatment 1 visit [facility] 10' EX 30' GT 20' JENIFER SOUSA PT Feb 26, 2018 10:02
--- NOTE | 2018-02-26 11:55 | Occupational Ther Daily Note ---
OT Current Status-Daily Note Subjective Pt alert, lying in bed. Pt agreed to therapy. No c/o pain at this time. Mental Status/Objective Patient Orientation: Person, Place, Time, Situation Functional [place] Measure 0=Not Assessed/NA 4=Minimal Assistance 1=Total Assistance 5=Supervision or Setup 2=Maximal Assistance 6=Modified [place] 3=Moderate Assistance 7=Complete [place] ADL-Treatment Functional [place] Measure 0=Not Assessed/NA 4=Minimal Assistance 1=Total Assistance 5=Supervision or Setup 2=Maximal Assistance 6=Modified [place] 3=Moderate Assistance 7=Complete IndependenceIRFPAI Quality Coding Scale 6 Independent with activity with or without an assistive device 5 Patient requires set up or clean up by helper. Patient completes activity by themselves 4 Supervision or touching assist (CGA). [place] provide cues , steadying assist 3 The helper provides less than half the effort to complete the activity 2 The helper provides more than half the effort to complete the activity 1 Dependent. The helper does all the effort to complete an activity 7 Patient refused to complete or attempt activity 9 The patient did not perform the activity before the current illness or injury 88 Not attempted due to Medical conditions or safety concerns Toileting (FIM): 4 (Assist to balance in standing and to stabilize L knee, pt is able to complete toileting.) Toileting Hygiene (QC): 3 Toilet/Commode Transfer (FIM): 4 (Using grabbar, pt is able to stand pivot transfer with min A.) Other Treatment Pt lying supine in bed to complete electrical stimulation gravity eliminated. During electrical stimulation to L UE (wrist ext, bicep flex, tricep ext and shldr elevation) pt demonstrated an increase in movement with all areas of UE. Pt was able to slow movement back to neutral after electrical stimulation pauses. During prior therapies, electrical stimulation was not able to active bicep, tricep and shldr elevation. After therapy, pt lying in bed with call light/phone in reach. All needs met in room. OT Short Term Goals Short Term Goals Time Frame: Feb 25, 2018 Eating(FIM): 5 Grooming(FIM): 5 Bathing(FIM): 4 Upper Body Dressing(FIM): 4 Lower Body Dressing(FIM): 3 Toileting(FIM): 4 Transfers (B,C,W/C) (FIM): 3 (met) Toilet/Commode Transfer(FIM): 4 Additional Short Term Goals: 1-Demonstrate ADL Tasks, 2-Verbalize Understanding , 3-ImproveStrength/Steven 1=Demonstrate adherence to instructed precautions during ADL tasks. 2=Patient will verbalize/demonstrate understanding of assistive devices/ modifications for ADL. 3=Patient will improve strength/tolerance for activity to enable patient to perform ADL's. OT Detention Goals Detention Goals Time Frame: Mar 11, 2018 Eating (FIM): 6 Eating (QC): 6 Groomin Oral Hygiene (QC): 6 Bathing(FIM): 5 Shower/Bathe Self (QC): 5 Upper Body Dressing(FIM): 6 Upper Body Dressing (QC): 6 Lower Body Dressing(FIM): 6 Lower Body Dressing (QC): 6 On/Off Footwear (QC): 6 Toileting(FIM): 6 Toileting Hygiene (QC): 6 Transfers (B,C,W/C) (FIM): 6 Toilet/Commode Transfer(FIM): 6 Toilet/Commode Transfer (QC): 6 Shower Transfer(FIM): 5 Comprehension(FIM): 5 Expression (FIM): 5 Social Interaction(FIM): 5 Problem Solving(FIM): 4 Memory(FIM): 4 Additional Goals: 1-Demonstrate ADL Tasks, 2-Verbalize Understanding, 3- ImproveStrength/Steven 1=Demonstrate adherence to instructed precautions during ADL tasks. 2=Patient will verbalize/demonstrate understanding of assistive devices/ modifications for ADL. 3=Patient will improve strength/tolerance for activity to enable patient to perform ADL's. OT Education/Plan Discharge Recommendations Plan/Recommendations: Continue POC Treatment Plan/Plan of Care Patient would benefit from OT for education, treatment and training to promote independence in ADL's, mobility, safety and/or upper extremity function for ADL' s. Plan of Care: ADL Retraining, Functional Mobility, Group Exercise/Act as Ind, UE Funct Exercise/Act Treatment Duration: Mar 11, 2018 Frequency: At least 5 of 7 days/Wk (IRF) Estimated Hrs Per Day: 1.5 hours per day Agreement: Yes Rehab Potential: Good Time/GCodes Start Time: 10:50 Stop Time: 11:50 Total Time Billed (hr/min): 60 Billed Treatment Time 1 visit-ADL 1 (20 min) NM 3 (40 min) SINA CHIU Feb 26, 2018 11:55
--- NOTE | 2018-02-26 11:57 | Progress Note ---
Subjective Date Seen by Provider: Feb 26, 2018 Time Seen by Provider: 09:07 Subjective/Events-last exam Doing well. No more blood yet. Hgb stable Denies any other complaints. Denies fever sweats chills shortness of breath or chest pain Objective Exam Vital Signs Date Time Temp Pulse Resp B/P (MAP) Pulse Ox O2 Delivery O2 Flow Rate FiO2 02/26/18 09:00 Room Air 02/26/18 05:08 97.6 67 20 102/69 (80) 97 Room Air 02/25/18 21:24 Room Air 02/25/18 18:00 96.1 72 20 111/80 (90) 97 Room Air I & O 02/26/18 07:00 Intake Total 1640 ml Balance 1640 ml Capillary Refill : General Appearance: No Apparent Distress, WD/WN HEENT: Normal ENT Inspection Neck: Full Range of Motion, Normal Inspection Respiratory: No Accessory Muscle Use, No Respiratory Distress Cardiovascular: Regular Rate, Rhythm, No Murmur Gastrointestinal: non tender, soft Extremity: Other (unable to move left side body) Neurologic/Psychiatric: Alert, Oriented x3 Skin: Normal Color Results Lab Laboratory Tests 02/25/18 13:36: White Blood Count 9.0, Red Blood Count 4.18L, Hemoglobin 12.3, Hematocrit 37, Mean Corpuscular Volume 90, Mean Corpuscular Hemoglobin 29, Mean Corpuscular Hemoglobin Concent 33, Red Cell Distribution Width 13.3, Platelet Count 254, Mean Platelet Volume 10.6H 02/26/18 04:55: White Blood Count 7.1, Red Blood Count 4.18L, Hemoglobin 12.2, Hematocrit 37, Mean Corpuscular Volume 89, Mean Corpuscular Hemoglobin 29, Mean Corpuscular Hemoglobin Concent 33, Red Cell Distribution Width 13.4, Platelet Count 245, Mean Platelet Volume 10.4 Microbiology 02/25/18 Urine Culture - Preliminary, Resulted Klebsiella pneumoniae Assessment/Plan Assessment/Plan Assessment/Plan Bright red blood per rectum Posterior anal fissure CVA with left sided weakness Tobacco usage. Recency of baby girl Colace 100 mg po bid High fiber diet and increase water intake. Patient hgb stable, Feel bleeding is likely from fissure. Will need flexible sigmoidoscopy/colonoscopy as outpatient to evaluate for other causes. Will sign off at this time call if needed. Clinical Quality Measures DVT/VTE Risk/Contraindication: Risk Factor Score Per Nursin RFS Level Per Nursing on Admit: 4+=Very High HEIDI VIDAL DO Feb 26, 2018 11:57
[2018-02-26 18:56] VITALS: BP 119/81
[2018-02-27] MEDS: ALPRAZolam 0.25 MG (XANAX) TAB PO PRN ×2 (01:53→22:46)
[2018-02-27 06:33] VITALS: BP 119/74
[2018-02-27] MEDS: PANTOPRAZOLE 40 MG (PROTONIX) TAB PO SCH (06:43)
--- NOTE | 2018-02-27 07:22 | Occupational Ther Daily Note ---
OT Current Status-Daily Note Subjective Pt alert, lying in bed. Pt agreed to therapy. No c/o pain. Discussed with pt about coming to ARU for family training and the AE need for home. Mental Status/Objective Patient Orientation: Person, Place, Time, Situation Functional [place] Measure 0=Not Assessed/NA 4=Minimal Assistance 1=Total Assistance 5=Supervision or Setup 2=Maximal Assistance 6=Modified [place] 3=Moderate Assistance 7=Complete [place] ADL-Treatment Pt able to set self up with breakfast and use regular utensils to feed self. Pt completed april area/buttocks bathing supine in bed. Min A to scoot L LE to EOB with HOB raised. Pt then sat on EOB to complete upper body bathing after set up. Min A to don/doff upper body clothing, needs reminders to pull shirt/ bra up to L armpit prior to completing sequence. Pt is able to wire puller head then requires assist to pull down in back. Pt transfer from EOB to w/c with min A toward R side. Pt then maneuvered w/c to bathroom to complete own grooming. Then pt requested to use toilet. Transfer to toilet with min A using grabbar. Standing with assist for balance pt is able to manipulate pants over R hip and assist for L hips. Pt able to cleanse april area in sitting then assist to stand while cleansing buttocks. After therapy, pt sitting in w/c with call light/phone in reach. All needs met in room. Functional [place] Measure 0=Not Assessed/NA 4=Minimal Assistance 1=Total Assistance 5=Supervision or Setup 2=Maximal Assistance 6=Modified [place] 3=Moderate Assistance 7=Complete IndependenceIRFPAI Quality Coding Scale 6 Independent with activity with or without an assistive device 5 Patient requires set up or clean up by helper. Patient completes activity by themselves 4 Supervision or touching assist (CGA). [place] provide cues , steadying assist 3 The helper provides less than half the effort to complete the activity 2 The helper provides more than half the effort to complete the activity 1 Dependent. The helper does all the effort to complete an activity 7 Patient refused to complete or attempt activity 9 The patient did not perform the activity before the current illness or injury 88 Not attempted due to Medical conditions or safety concerns Eating (FIM): 6 Eating (QC): 6 Grooming (FIM): 6 Oral Hygiene (QC): 6 Upper Body (FIM): 4 Upper Body Dressing (QC): 3 Lower Body Dressing (FIM): 4 Lower Body Dressing (QC): 3 On/Off Footwear (QC): 3 Toileting (FIM): 4 Toileting Hygiene (QC): 3 Toilet/Commode Transfer (FIM): 4 Toilet Transfer (QC): 3 OT Short Term Goals Short Term Goals Time Frame: Feb 25, 2018 Eating(FIM): 5 Grooming(FIM): 5 Bathing(FIM): 4 Upper Body Dressing(FIM): 4 Lower Body Dressing(FIM): 3 Toileting(FIM): 4 Transfers (B,C,W/C) (FIM): 3 (met) Toilet/Commode Transfer(FIM): 4 Additional Short Term Goals: 1-Demonstrate ADL Tasks, 2-Verbalize Understanding , 3-ImproveStrength/Steven 1=Demonstrate adherence to instructed precautions during ADL tasks. 2=Patient will verbalize/demonstrate understanding of assistive devices/ modifications for ADL. 3=Patient will improve strength/tolerance for activity to enable patient to perform ADL's. OT Mcfp Goals Scheduling Administrator Goals Time Frame: Mar 11, 2018 Eating (FIM): 6 Eating (QC): 6 Groomin Oral Hygiene (QC): 6 Bathing(FIM): 5 Shower/Bathe Self (QC): 5 Upper Body Dressing(FIM): 6 Upper Body Dressing (QC): 6 Lower Body Dressing(FIM): 6 Lower Body Dressing (QC): 6 On/Off Footwear (QC): 6 Toileting(FIM): 6 Toileting Hygiene (QC): 6 Transfers (B,C,W/C) (FIM): 6 Toilet/Commode Transfer(FIM): 6 Toilet/Commode Transfer (QC): 6 Shower Transfer(FIM): 5 Comprehension(FIM): 5 Expression (FIM): 5 Social Interaction(FIM): 5 Problem Solving(FIM): 4 Memory(FIM): 4 Additional Goals: 1-Demonstrate ADL Tasks, 2-Verbalize Understanding, 3- ImproveStrength/Steven 1=Demonstrate adherence to instructed precautions during ADL tasks. 2=Patient will verbalize/demonstrate understanding of assistive devices/ modifications for ADL. 3=Patient will improve strength/tolerance for activity to enable patient to perform ADL's. OT Education/Plan Discharge Recommendations Plan/Recommendations: Continue POC Treatment Plan/Plan of Care Patient would benefit from OT for education, treatment and training to promote independence in ADL's, mobility, safety and/or upper extremity function for ADL' s. Plan of Care: ADL Retraining, Functional Mobility, Group Exercise/Act as Ind, UE Funct Exercise/Act Treatment Duration: Mar 11, 2018 Frequency: At least 5 of 7 days/Wk (IRF) Estimated Hrs Per Day: 1.5 hours per day Agreement: Yes Rehab Potential: Good Time/GCodes Start Time: 06:45 Stop Time: 08:00 Total Time Billed (hr/min): 75 Billed Treatment Time 1 visit-ADL 5 (75 min) SINA CHIU Feb 27, 2018 07:22
--- NOTE | 2018-02-27 08:06 | Progress Note (SOAP) ---
Subjective Time Seen by Provider: 08:00 Subjective/Events-last exam UTI. Klebsiella pneumonia. Sensitive to Cipro. CVA. Tobacco usage. Patient voices no complaints Objective Exam Vital Signs Date Time Temp Pulse Resp B/P (MAP) Pulse Ox O2 Delivery O2 Flow Rate FiO2 02/27/18 06:33 98.1 59 17 119/74 (89) 97 Room Air 02/26/18 21:00 Room Air 02/26/18 18:56 96.8 77 16 119/81 (94) 95 Room Air 02/26/18 09:00 Room Air I & O 02/27/18 07:00 Intake Total 1600 ml Balance 1600 ml Capillary Refill : General Appearance: No Apparent Distress, WD/WN Results Lab Microbiology 02/25/18 Urine Culture - Preliminary, Resulted Klebsiella pneumoniae Assessment/Plan Assessment/Plan Assess & Plan/Chief Complaint CVA with hemorrhage. Tobacco usage. Stroke on the left side of body. Recency of baby girl. . 02/15/18. CVA with hemorrhage. Tobacco usage. Hypertension. Stroke on left side of the body. infection. . 02/13/18. CVA with hemorrhage. Tobacco usage. Hypertension. infection. Patient depressed. . 02/14/18. CVA with hemorrhage. Tobacco usage. Hypertension. infection. Patient talking better today. . 02/17/18 CVA with hemorrhage. Tobacco usage. Hypertension. infection Patient does not appear depressed today. . 02/18/18. CVA with hemorrhage. Tobacco usage. Hypertension. UTI. . 's 02/19/18. CVA with hemorrhage. Tobacco usage. Hypertension. UTI. Patient working hard. . 02/20/18. CVA with hemorrhage. Tobacco usage. Hypertension. UTI. . 02/21/18. CVA with hemorrhage. Tobacco usage Hypertension. UTI . /01/12. CVA with hemorrhage. Tobacco usage. stroke on the left side of body. recent . . 02/25/18. CVA with hemorrhage. Tobacco usage. Stroke on left side of body. UTI. . 's 02/26/18. CVA with hemorrhage. UTI. Put on Cipro. Tobacco usage. . 02/27/18. CVA with hemorrhage. UTI. Tobacco usage. Klebsiella pneumonia from urine. Sensitive to Cipro Clinical Quality Measures DVT/VTE Risk/Contraindication: Risk Factor Score Per Nursin RFS Level Per Nursing on Admit: 4+=Very High ASHANTI RUSH DO Feb 27, 2018 08:06
[2018-02-27] MEDS: amLODIPine 5 MG (NORVASC) TAB PO SCH (08:24)
[2018-02-27] MEDS: NYSTATIN CREAM (MYCOSTATIN) 30 GM TUBE TP SCH ×3 (08:24→20:28)
[2018-02-27] MEDS: CIPROFLOXACIN 500 MG (CIPRO) TABLET PO SCH ×2 (08:24→20:28)
[2018-02-27] MEDS: DOCUSATE SODIUM 100 MG (COLACE) CAP PO SCH ×2 (08:24→20:28)
[2018-02-27] MEDS: LEVETIRACETAM 500 MG (KEPPRA) TAB PO SCH ×2 (08:24→20:28)
[2018-02-27] MEDS: SENNA W/DOCUSATE (SENOKOT S) TABLET PO SCH ×2 (08:25→20:28)
--- NOTE | 2018-02-27 08:52 | Physical Therapy Daily Note ---
PT Daily Note-Current Subjective Patient in wheelchair pre tx, agrees to PT, no complaints of pain. Appearance Patient in bed post tx with nurse call, phone, tray, all needs met. Mental Status Patient Orientation: Person, Place, Situation Transfers Functional [place] Measure 0=Not Assessed/NA 4=Minimal Assistance 1=Total Assistance 5=Supervision or Setup 2=Maximal Assistance 6=Modified [place] 3=Moderate Assistance 7=Complete IndependenceIRFPAI Quality Coding Scale 6 Independent with activity with or without an assistive device 5 Patient requires set up or clean up by helper. Patient completes activity by themselves 4 Supervision or touching assist (CGA). [place] provide cues , steadying assist 3 The helper provides less than half the effort to complete the activity 2 The helper provides more than half the effort to complete the activity 1 Dependent. The helper does all the effort to complete an activity 7 Patient refused to complete or attempt activity 9 The patient did not perform the activity before the current illness or injury 88 Not attempted due to Medical conditions or safety concerns Transfers (B, C, W/C) (FIM): 4 Scootin Rollin Supine to/from Sit: 4 Sit to/from Stand: 4 Bed to/from Chair: 4 Weight Bearing Right Lower Extremity: Right Weight Bearing/Tolerated Left Lower Extremity: Left Weight Bearing/Tolerated Gait Training Gait (FIM): 1 Distance: 20'x4 Gait Level of Assist: 4 Gait Persons Needed: 1 Gait Assistive Device: Walker Gaurav Min assist to advance her left leg and assist with balance. Patient cannot advance her left leg yet but is getting better and unloading. Wheelchair Training Does the Pt Use a Wheelchair?: Yes Wheelchair (FIM): 5 Distance: 150'x2 Wheelchair Level of Assist: 5 Type of Wheelchair: Manual Exercises NuStep Minutes: 15 NuStep Workload: 5 Treatments bed mobility and transfers, ambulation, functional strengthening Assessment Current Status: Fair Progress improving transfers, ambulation PT Short Term Goals Short Term Goals Time Frame: Feb 18, 2018 Transfers (B,C,W/C) (FIM): 3 (met) Wheelchair (FIM): 4 Wheelchair Distance: 150'x2 Wheelchair Level of Assist: 4 PT Payroll Accountant Goals Payroll Accountant Goals PT Payroll Accountant Goals Time Frame: Mar 04, 2018 Transfers (B,C,W/C) (FIM): 4 Sit to Lying (QC): 3 Lying-Sitting on Side/Bed(QC): 3 Sit to Stand (QC): 3 Rollin Roll Left to Right (QC): 3 Chair/Msr-sb-Nflvn Xfer(QC): 3 Car Transfer (QC): 3 Gait (FIM): 1 Distance: 20' Walk 10 feet (QC): 3 Gait Level of Assist: 4 Gait Assistive Device: Walker Gaurav Wheelchair (FIM): 5 Distance: 150' Wheelchair Level of Assist: 5 Wheel 50 feet with 2 turns (QC: 4 PT Plan Problem List Problem List: Activity Tolerance, Functional Strength, Safety, Balance, Gait, Transfer, Bed Mobility, ROM Treatment/Plan Treatment Plan: Continue Plan of Care Treatment Plan: Bed Mobility, Concurrent Therapy, Education, Functional Activity Steven, Functional Strength, Group Therapy, Gait, Safety, Therapeutic Exercise, Transfers Treatment Duration: Mar 04, 2018 Frequency: At least 5 of 7 days/Wk (IRF) Estimated Hrs Per Day: 1.5 hours per day Patient and/or Family Agrees t: Yes Safety Risks/Education Patient Education: Gait Training, Transfer Techniques, Correct Positioning, W/ C Management, Safety Issues Teaching Recipient: Patient Teaching Methods: Demonstration, Discussion Response to Teaching: Reinforcement Needed Time/GCodes Time In: 800 Time Out: 900 Total Billed Treatment Time: 60 Total Billed Treatment 1 visit [facility] 10' EX 15' GT 35' JENIFER SOUSA PT Feb 27, 2018 08:52
--- NOTE | 2018-02-27 10:35 | PM & R (SOAP) Progress Note ---
Subjective Time Seen by Provider: 08:50 Subjective/Events-last exam Patient was seen in her room this AM Patient min assist for transfers Discussed case with drop machine operator yesterday re calorie restriction for patient-Will monitor weight Objective Exam Last Set of Vital Signs Vital Signs Date Time Temp Pulse Resp B/P (MAP) Pulse Ox O2 Delivery O2 Flow Rate FiO2 02/27/18 09:01 Room Air 02/27/18 06:33 98.1 59 17 119/74 (89) 97 Capillary Refill : I&O Intake and Output 02/27/18 00:00 Intake Total 1440 ml Balance 1440 ml Intake Oral 1440 ml # Voids 8 # Bowel Movements 2 General: Alert, Oriented X3, Cooperative, No Acute Distress HEENT: Atraumatic, PERRLA, EOMI, Mucous Memb Moist/[place] Neck: Supple, No JVD Lungs: Clear to Auscultation Heart: Regular Rate Abdomen: Normal Bowel Sounds, Soft, No Tenderness Extremities: No Edema Neuro: Other (Left HP) Results Lab Laboratory Tests 02/25/18 02:30: Urine Color YELLOW, Urine Clarity SLIGHTLY CLOUDY, Urine pH 5, Urine Specific [place] 1.020, Urine Protein NEGATIVE, Urine Glucose (UA) NEGATIVE, Urine Ketones NEGATIVE, Urine Nitrite NEGATIVE, Urine Bilirubin NEGATIVE, Urine Urobilinogen NORMAL, Urine Leukocyte Esterase 2+H, Urine RBC (Auto) 2+H, Urine RBC 0-2, Urine WBC 2-5, Urine Squamous Epithelial Cells 10-25H, Urine Crystals NONE, Urine Bacteria FEWH, Urine Casts NONE, Urine Mucus SMALLH, Urine Culture Indicated YES 02/25/18 13:36: White Blood Count 9.0, Red Blood Count 4.18L, Hemoglobin 12.3, Hematocrit 37, Mean Corpuscular Volume 90, Mean Corpuscular Hemoglobin 29, Mean Corpuscular Hemoglobin Concent 33, Red Cell Distribution Width 13.3, Platelet Count 254, Mean Platelet Volume 10.6H 02/26/18 04:55: White Blood Count 7.1, Red Blood Count 4.18L, Hemoglobin 12.2, Hematocrit 37, Mean Corpuscular Volume 89, Mean Corpuscular Hemoglobin 29, Mean Corpuscular Hemoglobin Concent 33, Red Cell Distribution Width 13.4, Platelet Count 245, Mean Platelet Volume 10.4 Microbiology 02/25/18 Urine Culture - Preliminary, Resulted Klebsiella pneumoniae Assessment/Plan Assessment RT ICB with Left HP HTN E COLI UTI-on antibiotic Reactive depression med added Constipation meds adjusted Vaginal drainage on Diflucan Plan Continue PT/OT ST has signed off Bowel meds adjusted [facility] has seen-Appreciate their consult Continue antibiotics for UTI Consult Screen Repairer Crusher re counseling-done Team Conference held yesterday-See report for full functional update and POC and ELOS Monitor weight . ELAINE GIBBS MD Feb 27, 2018 10:35
[2018-02-27] MEDS: ACETAMINOPHEN 325 MG TABLET/CAPLET (TYLENOL) PO PRN (12:17)
--- NOTE | 2018-02-27 12:54 | Occupational Ther Daily Note ---
OT Current Status-Daily Note Subjective Pt alert, lying in bed. Pt agreed to therapy. No c/o pain. Mental Status/Objective Patient Orientation: Person, Place, Time, Situation Functional [place] Measure 0=Not Assessed/NA 4=Minimal Assistance 1=Total Assistance 5=Supervision or Setup 2=Maximal Assistance 6=Modified [place] 3=Moderate Assistance 7=Complete [place] ADL-Treatment Functional [place] Measure 0=Not Assessed/NA 4=Minimal Assistance 1=Total Assistance 5=Supervision or Setup 2=Maximal Assistance 6=Modified [place] 3=Moderate Assistance 7=Complete IndependenceIRFPAI Quality Coding Scale 6 Independent with activity with or without an assistive device 5 Patient requires set up or clean up by helper. Patient completes activity by themselves 4 Supervision or touching assist (CGA). [place] provide cues , steadying assist 3 The helper provides less than half the effort to complete the activity 2 The helper provides more than half the effort to complete the activity 1 Dependent. The helper does all the effort to complete an activity 7 Patient refused to complete or attempt activity 9 The patient did not perform the activity before the current illness or injury 88 Not attempted due to Medical conditions or safety concerns Other Treatment Electrical stimulation applied to pt's L forearm to work on wrist and finger extension, 4 prieto. Applied to pt's bicep for elbow flexion, 6 prieto. Prieto used to activate muscle movement to decreasing though pt is not demonstrating any active movement for those areas. After therapy, pt lying in bed with call light/phone in reach. All needs met in room. OT Short Term Goals Short Term Goals Time Frame: Feb 25, 2018 Eating(FIM): 5 Grooming(FIM): 5 Bathing(FIM): 4 Upper Body Dressing(FIM): 4 Lower Body Dressing(FIM): 3 Toileting(FIM): 4 Transfers (B,C,W/C) (FIM): 3 (met) Toilet/Commode Transfer(FIM): 4 Additional Short Term Goals: 1-Demonstrate ADL Tasks, 2-Verbalize Understanding , 3-ImproveStrength/Steven 1=Demonstrate adherence to instructed precautions during ADL tasks. 2=Patient will verbalize/demonstrate understanding of assistive devices/ modifications for ADL. 3=Patient will improve strength/tolerance for activity to enable patient to perform ADL's. OT Ship Engineer Goals Assisted Goals Time Frame: Mar 11, 2018 Eating (FIM): 6 Eating (QC): 6 Groomin Oral Hygiene (QC): 6 Bathing(FIM): 5 Shower/Bathe Self (QC): 5 Upper Body Dressing(FIM): 6 Upper Body Dressing (QC): 6 Lower Body Dressing(FIM): 6 Lower Body Dressing (QC): 6 On/Off Footwear (QC): 6 Toileting(FIM): 6 Toileting Hygiene (QC): 6 Transfers (B,C,W/C) (FIM): 6 Toilet/Commode Transfer(FIM): 6 Toilet/Commode Transfer (QC): 6 Shower Transfer(FIM): 5 Comprehension(FIM): 5 Expression (FIM): 5 Social Interaction(FIM): 5 Problem Solving(FIM): 4 Memory(FIM): 4 Additional Goals: 1-Demonstrate ADL Tasks, 2-Verbalize Understanding, 3- ImproveStrength/Steven 1=Demonstrate adherence to instructed precautions during ADL tasks. 2=Patient will verbalize/demonstrate understanding of assistive devices/ modifications for ADL. 3=Patient will improve strength/tolerance for activity to enable patient to perform ADL's. OT Education/Plan Discharge Recommendations Plan/Recommendations: Continue POC Treatment Plan/Plan of Care Patient would benefit from OT for education, treatment and training to promote independence in ADL's, mobility, safety and/or upper extremity function for ADL' s. Plan of Care: ADL Retraining, Functional Mobility, Group Exercise/Act as Ind, UE Funct Exercise/Act Treatment Duration: Mar 11, 2018 Frequency: At least 5 of 7 days/Wk (IRF) Estimated Hrs Per Day: 1.5 hours per day Agreement: Yes Rehab Potential: Good Time/GCodes Start Time: 12:45 Stop Time: 13:00 Total Time Billed (hr/min): 15 Billed Treatment Time 1 visit-NM 1 (15 min) SINA CHIU Feb 27, 2018 12:54
--- NOTE | 2018-02-27 13:26 | Physical Therapy Daily Note ---
PT Daily Note-Current Subjective Patient in bed pre tx, has lunch, will perform bed exercises. No complaints of pain. Appearance Patient in bed post tx with nurse call, phone, tray, all needs met. Mental Status Patient Orientation: Normal For Age Transfers Functional [place] Measure 0=Not Assessed/NA 4=Minimal Assistance 1=Total Assistance 5=Supervision or Setup 2=Maximal Assistance 6=Modified [place] 3=Moderate Assistance 7=Complete IndependenceIRFPAI Quality Coding Scale 6 Independent with activity with or without an assistive device 5 Patient requires set up or clean up by helper. Patient completes activity by themselves 4 Supervision or touching assist (CGA). [place] provide cues , steadying assist 3 The helper provides less than half the effort to complete the activity 2 The helper provides more than half the effort to complete the activity 1 Dependent. The helper does all the effort to complete an activity 7 Patient refused to complete or attempt activity 9 The patient did not perform the activity before the current illness or injury 88 Not attempted due to Medical conditions or safety concerns Weight Bearing Right Lower Extremity: Right Weight Bearing/Tolerated Left Lower Extremity: Left Weight Bearing/Tolerated Exercises Supine Ex: Bridging, Ankle pumps (RLE), Quad Set (RLE), Glut sets (RLE), Short Arc Quads (RLE, AAROM LLE), Straight leg raise (RLE), Hip abd/add (RLE) Supine Reps: 20 Stretching/ROM left lower extremity in all planes. Treatments ROM/stretching, functional strengthening Assessment Current Status: Fair Progress patient greg well PT Short Term Goals Short Term Goals Time Frame: Feb 18, 2018 Transfers (B,C,W/C) (FIM): 3 (met) Wheelchair (FIM): 4 Wheelchair Distance: 150'x2 Wheelchair Level of Assist: 4 PT Custodial Goals Rn Pediatric Icu Goals PT Custodial Goals Time Frame: Mar 04, 2018 Transfers (B,C,W/C) (FIM): 4 Sit to Lying (QC): 3 Lying-Sitting on Side/Bed(QC): 3 Sit to Stand (QC): 3 Rollin Roll Left to Right (QC): 3 Chair/[id number]-Aqxsp Xfer(QC): 3 Car Transfer (QC): 3 Gait (FIM): 1 Distance: 20' Walk 10 feet (QC): 3 Gait Level of Assist: 4 Gait Assistive Device: Walker Gaurav Wheelchair (FIM): 5 Distance: 150' Wheelchair Level of Assist: 5 Wheel 50 feet with 2 turns (QC: 4 PT Plan Problem List Problem List: Activity Tolerance, Functional Strength, Safety, Balance, Gait, Transfer, Bed Mobility, ROM Treatment/Plan Treatment Plan: Continue Plan of Care Treatment Plan: Bed Mobility, Concurrent Therapy, Education, Functional Activity Steven, Functional Strength, Group Therapy, Gait, Safety, Therapeutic Exercise, Transfers Treatment Duration: Mar 04, 2018 Frequency: At least 5 of 7 days/Wk (IRF) Estimated Hrs Per Day: 1.5 hours per day Patient and/or Family Agrees t: Yes Safety Risks/Education Patient Education: Correct Positioning, Safety Issues Teaching Recipient: Patient Teaching Methods: Demonstration, Discussion Response to Teaching: Reinforcement Needed Time/GCodes Time In: 1300 Time Out: 1330 Total Billed Treatment Time: 30 Total Billed Treatment 1 visit EX 30' JENIFER SOUSA PT Feb 27, 2018 13:26
[2018-02-27 17:48] VITALS: BP 96/93
[2018-02-28] MEDS: ACETAMINOPHEN 325 MG TABLET/CAPLET (TYLENOL) PO PRN ×3 (01:05→16:27)
[2018-02-28 02:00] VITALS: BP 95/59
[2018-02-28] MEDS: PANTOPRAZOLE 40 MG (PROTONIX) TAB PO SCH (05:35)
--- NOTE | 2018-02-28 07:27 | PM & R (SOAP) Progress Note ---
Subjective Time Seen by Provider: 07:00 Subjective/Events-last exam Patient was seen in her room this Am Patient min assist for transfers Patient self propels w/c independently on unit Objective Exam Last Set of Vital Signs Vital Signs Date Time Temp Pulse Resp B/P (MAP) Pulse Ox O2 Delivery O2 Flow Rate FiO2 02/28/18 02:00 97.6 69 16 95/59 (71) 94 Room Air Capillary Refill : I&O Intake and Output 02/28/18 00:00 Intake Total 1640 ml Balance 1640 ml Intake Oral 1640 ml # Voids 6 # Bowel Movements 1 General: Alert, Oriented X3, Cooperative, No Acute Distress HEENT: Atraumatic, PERRLA, EOMI, Mucous Memb Moist/[place] Neck: Supple, No JVD Lungs: Clear to Auscultation Heart: Regular Rate Abdomen: Normal Bowel Sounds, Soft, No Tenderness Extremities: No Edema Neuro: Other (Left HP) Results Lab Laboratory Tests 02/25/18 13:36: White Blood Count 9.0, Red Blood Count 4.18L, Hemoglobin 12.3, Hematocrit 37, Mean Corpuscular Volume 90, Mean Corpuscular Hemoglobin 29, Mean Corpuscular Hemoglobin Concent 33, Red Cell Distribution Width 13.3, Platelet Count 254, Mean Platelet Volume 10.6H 02/26/18 04:55: White Blood Count 7.1, Red Blood Count 4.18L, Hemoglobin 12.2, Hematocrit 37, Mean Corpuscular Volume 89, Mean Corpuscular Hemoglobin 29, Mean Corpuscular Hemoglobin Concent 33, Red Cell Distribution Width 13.4, Platelet Count 245, Mean Platelet Volume 10.4 Microbiology 02/25/18 Urine Culture - Preliminary, Resulted Klebsiella pneumoniae Assessment/Plan Assessment RT ICB with Left HP HTN E COLI UTI-on antibiotic Reactive depression med added Constipation meds adjusted Vaginal drainage on Diflucan Plan Continue PT/OT ST has signed off Bowel meds adjusted [facility] seen-Appreciate their consult Continue antibiotics for UTI Consult Warranty Administrator re counseling-done Team Conference held 02-26-18-See report for full functional update and POC and ELOS Monitor weight Doing better overall Discharge set for next week to home in [place] with family . ELAINE GIBBS MD Feb 28, 2018 07:27
--- NOTE | 2018-02-28 07:42 | Progress Note (SOAP) ---
Subjective Time Seen by Provider: 07:40 Subjective/Events-last exam Patient more positive. Patient breathing herself today. CVA. Hemorrhagic. Objective Exam Vital Signs Date Time Temp Pulse Resp B/P (MAP) Pulse Ox O2 Delivery O2 Flow Rate FiO2 02/28/18 02:00 97.6 69 16 95/59 (71) 94 Room Air 02/27/18 21:50 Room Air 02/27/18 17:48 97.2 70 16 96/93 (94) 94 Room Air 02/27/18 09:01 Room Air I & O 02/28/18 07:00 Intake Total 1640 ml Balance 1640 ml Capillary Refill : General Appearance: No Apparent Distress, WD/WN Results Lab Microbiology 02/25/18 Urine Culture - Preliminary, Resulted Klebsiella pneumoniae Assessment/Plan Assessment/Plan Assess & Plan/Chief Complaint CVA with hemorrhage. Tobacco usage. Stroke on the left side of body. Recency of baby girl. . 02/15/18. CVA with hemorrhage. Tobacco usage. Hypertension. Stroke on left side of the body. infection. . 02/13/18. CVA with hemorrhage. Tobacco usage. Hypertension. infection. Patient depressed. . 02/14/18. CVA with hemorrhage. Tobacco usage. Hypertension. infection. Patient talking better today. . 02/17/18 CVA with hemorrhage. Tobacco usage. Hypertension. infection Patient does not appear depressed today. . 02/18/18. CVA with hemorrhage. Tobacco usage. Hypertension. UTI. . 's 02/19/18. CVA with hemorrhage. Tobacco usage. Hypertension. UTI. Patient working hard. . 02/20/18. CVA with hemorrhage. Tobacco usage. Hypertension. UTI. . 02/21/18. CVA with hemorrhage. Tobacco usage Hypertension. UTI . /01/12. CVA with hemorrhage. Tobacco usage. stroke on the left side of body. recent . . 02/25/18. CVA with hemorrhage. Tobacco usage. Stroke on left side of body. UTI. . 's 02/26/18. CVA with hemorrhage. UTI. Put on Cipro. Tobacco usage. . 02/27/18. CVA with hemorrhage. UTI. Tobacco usage. Klebsiella pneumonia from urine. Sensitive to Cipro. . 02/28/18. CVA with hemorrhage. UTI. Tobacco usage. Patient more positive about herself Clinical Quality Measures DVT/VTE Risk/Contraindication: Risk Factor Score Per Nursin RFS Level Per Nursing on Admit: 4+=Very High ASHANTI RUSH DO Feb 28, 2018 07:42
--- NOTE | 2018-02-28 08:09 | Occupational Ther Daily Note ---
OT Current Status-Daily Note Subjective Pt alert, lying in bed. Pt agreed to therapy. No c/o pain at this time. Pt was excited about hand and foot extending by themselves with movement at night. Mental Status/Objective Patient Orientation: Person, Place, Time, Situation Functional [place] Measure 0=Not Assessed/NA 4=Minimal Assistance 1=Total Assistance 5=Supervision or Setup 2=Maximal Assistance 6=Modified [place] 3=Moderate Assistance 7=Complete [place] ADL-Treatment Assist to scoot L LE off of bed. Sat on EOB by self. Pt is realizing placement of L foot when transferring and attempts to get it into the correct position. Min A to transfer to the R side. Pt transferred from w/c to toilet using grabbar with min A. Assist to stand and balance while pt completes own hygiene. Pt then maneuvered w/c to large shower room to take bath in tub shower. Min A to transfer from w/c to tub using grabbar and tub transfer bench , assist to lift L LE into tub. Pt then was able to complete most of bathing/ drying using long handle sponge, hand held shower, grabbars and tub transfer bench, assist needed in standing while pt cleansed buttocks. Pt has difficulty getting shirt up onto L UE to stabilize it when completing rest of donning shirt , shirt will fall down to wrist and is difficulty to get over left shldr. Reminders are given, but pt deems it too hard. Pt able to don/doff lower body clothing over feet by crossing LE over knee then assist in standing for balance and L LE support then assist to hike over left hip while pt hikes over right hip. Pt then maneuvered w/c back to room and sat in front of sink to complete own grooming. After therapy, pt sitting in w/c with call light/phone in reach. All needs met in room. Functional [place] Measure 0=Not Assessed/NA 4=Minimal Assistance 1=Total Assistance 5=Supervision or Setup 2=Maximal Assistance 6=Modified [place] 3=Moderate Assistance 7=Complete IndependenceIRFPAI Quality Coding Scale 6 Independent with activity with or without an assistive device 5 Patient requires set up or clean up by helper. Patient completes activity by themselves 4 Supervision or touching assist (CGA). [place] provide cues , steadying assist 3 The helper provides less than half the effort to complete the activity 2 The helper provides more than half the effort to complete the activity 1 Dependent. The helper does all the effort to complete an activity 7 Patient refused to complete or attempt activity 9 The patient did not perform the activity before the current illness or injury 88 Not attempted due to Medical conditions or safety concerns Grooming (FIM): 6 Oral Hygiene (QC): 6 Bathing (FIM): 4 Shower/Bathe Self (QC): 3 Upper Body (FIM): 5 Upper Body Dressing (QC): 4 Lower Body Dressing (FIM): 4 Lower Body Dressing (QC): 3 On/Off Footwear (QC): 4 Toileting (FIM): 3 Toileting Hygiene (QC): 3 Toilet/Commode Transfer (FIM): 4 Toilet Transfer (QC): 3 Tub Transfer(FIM): 4 OT Short Term Goals Short Term Goals Time Frame: Feb 25, 2018 Eating(FIM): 5 Grooming(FIM): 5 Bathing(FIM): 4 Upper Body Dressing(FIM): 4 Lower Body Dressing(FIM): 3 Toileting(FIM): 4 Transfers (B,C,W/C) (FIM): 3 (met) Toilet/Commode Transfer(FIM): 4 Additional Short Term Goals: 1-Demonstrate ADL Tasks, 2-Verbalize Understanding , 3-ImproveStrength/Steven 1=Demonstrate adherence to instructed precautions during ADL tasks. 2=Patient will verbalize/demonstrate understanding of assistive devices/ modifications for ADL. 3=Patient will improve strength/tolerance for activity to enable patient to perform ADL's. OT Manager Integrated Goals Snf Goals Time Frame: Mar 11, 2018 Eating (FIM): 6 Eating (QC): 6 Groomin Oral Hygiene (QC): 6 Bathing(FIM): 5 Shower/Bathe Self (QC): 5 Upper Body Dressing(FIM): 6 Upper Body Dressing (QC): 6 Lower Body Dressing(FIM): 6 Lower Body Dressing (QC): 6 On/Off Footwear (QC): 6 Toileting(FIM): 6 Toileting Hygiene (QC): 6 Transfers (B,C,W/C) (FIM): 6 Toilet/Commode Transfer(FIM): 6 Toilet/Commode Transfer (QC): 6 Shower Transfer(FIM): 5 Comprehension(FIM): 5 Expression (FIM): 5 Social Interaction(FIM): 5 Problem Solving(FIM): 4 Memory(FIM): 4 Additional Goals: 1-Demonstrate ADL Tasks, 2-Verbalize Understanding, 3- ImproveStrength/Steven 1=Demonstrate adherence to instructed precautions during ADL tasks. 2=Patient will verbalize/demonstrate understanding of assistive devices/ modifications for ADL. 3=Patient will improve strength/tolerance for activity to enable patient to perform ADL's. OT Education/Plan Discharge Recommendations Plan/Recommendations: Continue POC Treatment Plan/Plan of Care Patient would benefit from OT for education, treatment and training to promote independence in ADL's, mobility, safety and/or upper extremity function for ADL' s. Plan of Care: ADL Retraining, Functional Mobility, Group Exercise/Act as Ind, UE Funct Exercise/Act Treatment Duration: Mar 11, 2018 Frequency: At least 5 of 7 days/Wk (IRF) Estimated Hrs Per Day: 1.5 hours per day Agreement: Yes Rehab Potential: Good Time/GCodes Start Time: 07:00 Stop Time: 08:30 Total Time Billed (hr/min): 90 Billed Treatment Time 1 visit-ADL 6 (90 min) SINA CHIU Feb 28, 2018 08:09
[2018-02-28] MEDS: LEVETIRACETAM 500 MG (KEPPRA) TAB PO SCH ×2 (08:34→21:12)
[2018-02-28] MEDS: DOCUSATE SODIUM 100 MG (COLACE) CAP PO SCH ×2 (08:34→21:12)
[2018-02-28] MEDS: CIPROFLOXACIN 500 MG (CIPRO) TABLET PO SCH ×2 (08:34→21:12)
[2018-02-28] MEDS: amLODIPine 5 MG (NORVASC) TAB PO SCH (08:34)
[2018-02-28] MEDS: SENNA W/DOCUSATE (SENOKOT S) TABLET PO SCH ×2 (08:34→21:12)
[2018-02-28] MEDS: NYSTATIN CREAM (MYCOSTATIN) 30 GM TUBE TP SCH ×3 (09:12→21:12)
--- NOTE | 2018-02-28 11:47 | Speech Therapy Daily Note ---
Speech Daily Progress Note Subjective Date Seen by Provider: Feb 28, 2018 Time Seen by Provider: 09:00 The patient was seated upright in wheelchair upon entrance. The patient greeted the clinician appropriately and was agreeable to participation in the cognitive treatment session. To note, the patient displays improved affect on this date. The clinician visited with additional treating colleagues, who stated the patient has demonstrated increased spirits throughout the week. The patient consistently smiles and jokes with the clinician throughout the session. Objective Left Neglect/Safety Awareness: To work towards improved awareness of left neglect, as well as, safety the clinician completed mazes and trail-making tasks with the patient. The patient completed each task with ease and 100% accuracy. No prompts were provided by the clinician for the patient to include items on the left side of the page. In addition, self-awareness and safety awareness were discussed in detail. Per patient, "I know I can't just get up. It 's all about foot placement. I didn't know that last week when I tried to stand and I just went to [facility] and I work on where my foot is. When my foot is right, my transfers are much better." Assessment Assessment Current Status: Excellent Progress Treatment Plan Discontinue ST, Goals Met Communication Comprehension: 5 Expression: 6 Social Cognition Social Interaction: 6 (Anti-Depressant) Problem Solvin (The patient continues to require verbal prompting, intermittently, for completion of more complex tasks.) Memory: 5 Speech Short Term Goals Short Term Goals Short Term Goals 1. The patient will display recall and demonstrate visuospatial strategies to improve left sided neglect. MET 2. The patient will accurately sequence ADL tasks with mild clinician verbal prompting. MET Time Frame-STG: One Week Speech Assisted Goals Assisted Goals 1. The patient will increase awareness of left sided neglect through visuospatial strategies. MET Time Frame: Two Weeks Comprehension: 5 (MET) Expression: 5 (MET) Social Interaction: 5 (MET) Problem Solvin (MET) Memory: 4 (MET) Speech-Plan Treatment Plan Speech Therapy Treatment Plan: Discontinue ST, Goals Met Discontinue speech pathology as the patient has met all goals placed by ST. Treatment Duration: Feb 27, 2018 Frequency: Modified Program (IRF) (three to five times per week) Estimated Hrs Per Day: .5 hour per day Rehab Potential: Good Safety Risks/Education Teaching Recipient: Patient Teaching Methods: Discussion Response to Teaching: Verbalize Understanding Education Topics Provided: Neglect Strategies Time Speech Therapy Time In: 09:00 Speech Therapy Time Out: 09:30 Total Billed Time: 30 Billed Treatment Time 1, EVE NEELY Feb 28, 2018 11:47
--- NOTE | 2018-02-28 11:53 | Therapy Team Discharge Summary ---
Therapy Discharge Summary Discharge Recommendations Date of Discharge Therapy D/C Recommendations: Home w/ Family Support Occupational Therapy Decreased Activ Tolerance, Decreased UE Strength, Dependent Transfers, Impaired Bed Mobility, Impaired Coordination, Impaired Funct Balance, Impaired I ADL's, Impaired Self-Care Skills, Restricted Funct UE ROM, Visual-Perceptual Deficit Speech-Language Pathology The patient was recently admitted to [facility] with a diagnosis of CVA with residual left sided weakness. Skilled speech pathology worked towards improvement of left neglect, safety awareness, and social interactions. At this time, the patient all met all goals placed by ST. The patient is aware of strategies to self-improve and correct left neglect, as well as, increased awareness of safety recommendations and protocols (foot placement). The patient is consistently demonstrated increased mood and affect which is improving social interactions with therapists. The patient will be discharged from skilled speech pathology at this time. No additional speech therapy is warranted. PT Accredited Legal Secretary Goals Correction Goals PT Correction Goals Time Frame: Mar 04, 2018 Transfers (B,C,W/C) (FIM): 4 Roll Left to Right (QC): 3 Sit to Lying (QC): 3 Lying-Sitting on Side/Bed(QC): 3 Sit to Stand (QC): 3 Chair/Mqr-im-Qmssm Xfer(QC): 3 Car Transfer (QC): 3 Gait (FIM): 1 Distance: 20' Walk 10 feet (QC): 3 Gait Level of Assist: 4 Gait Assistive Device: Walker Gaurav Wheelchair (FIM): 5 Distance: 150' Wheelchair Level of Assist: 5 Wheel 50 feet with 2 turns (QC: 4 OT Correction Goals Accredited Legal Secretary Goals Time Frame: Mar 11, 2018 Eating (FIM): 6 Eating (QC): 6 Oral Hygiene (QC): 6 Grooming(FIM): 6 Bathing(FIM): 5 Shower/Bathe Self (QC): 5 Upper Body Dressing(FIM): 6 Upper Body Dressing (QC): 6 Lower Body Dressing(FIM): 6 Lower Body Dressing (QC): 6 On/Off Footwear (QC): 6 Toileting(FIM): 6 Toileting Hygiene (QC): 6 Transfers (B,C,W/C) (FIM): 6 Toilet/Commode Transfer(FIM): 6 Toilet/Commode Transfer (QC): 6 Shower Transfer(FIM): 5 Comprehension(FIM): 5 (MET) Expression (FIM): 5 (MET) Social Interaction(FIM): 5 (MET) Problem Solving(FIM): 4 (MET) Memory(FIM): 4 (MET) Additional Goals: 1-Demonstrate ADL Tasks, 2-Verbalize Understanding, 3- ImproveStrength/Steven 1=Demonstrate adherence to instructed precautions during ADL tasks. 2=Patient will verbalize/demonstrate understanding of assistive devices/ modifications for ADL. 3=Patient will improve strength/tolerance for activity to enable patient to perform ADL's. Speech Correction Goals Accredited Legal Secretary Goals 1. The patient will increase awareness of left sided neglect through visuospatial strategies. MET Time Frame: Two Weeks Comprehension: 5 (MET: The patient is able to understand basic needs, such as restroom use and the necessity of the call light.) Expression: 5 (MET (6): The patient expresses complex ideas to others.) Social Interaction: 5 (MET (6): An anti depressant is used, however, the flat affect is rarely present.) Problem Solvin (MET) Memory: 4 (MET (5): The patient uses schedules and prompts in stressful situations to recall safety sequences.) EVE DE LA ROSA Feb 28, 2018 11:53
--- NOTE | 2018-02-28 11:58 | Physical Therapy Daily Note ---
PT Daily Note-Current Subjective Patient in wheelchair pre tx, agrees to PT, no complaints of pain. Appearance Patient in wheelchair at bedside post tx with nurse call, phone, tray, all needs met. Patient had to use the restroom after getting back to her room and she was able to pull up/down her pants with assist on the left side. Mental Status Patient Orientation: Person, Place, Situation Transfers Functional [place] Measure 0=Not Assessed/NA 4=Minimal Assistance 1=Total Assistance 5=Supervision or Setup 2=Maximal Assistance 6=Modified [place] 3=Moderate Assistance 7=Complete IndependenceIRFPAI Quality Coding Scale 6 Independent with activity with or without an assistive device 5 Patient requires set up or clean up by helper. Patient completes activity by themselves 4 Supervision or touching assist (CGA). [place] provide cues , steadying assist 3 The helper provides less than half the effort to complete the activity 2 The helper provides more than half the effort to complete the activity 1 Dependent. The helper does all the effort to complete an activity 7 Patient refused to complete or attempt activity 9 The patient did not perform the activity before the current illness or injury 88 Not attempted due to Medical conditions or safety concerns Transfers (B, C, W/C) (FIM): 4 Sit to/from Stand: 4 Bed to/from Chair: 4 Weight Bearing Right Lower Extremity: Right Weight Bearing/Tolerated Left Lower Extremity: Left Weight Bearing/Tolerated Gait Training Gait (FIM): 1 Distance: 20'x3, 8'x3 Gait Level of Assist: 4 Gait Persons Needed: 1 Gait Assistive Device: Walker Gaurav Patient also ambulated 8'x3 in the parallel bars with min assist, she was instructed to lean excessively to the right in order to lift her left foot so she could try to advance it. She was able to do so a few inches with each step. When she is ambulating with the hemiwalker she needs assist to advance her left leg. Wheelchair Training Does the Pt Use a Wheelchair?: Yes Wheelchair (FIM): 6 Distance: 150'x2 Type of Wheelchair: Manual Exercises NuStep Minutes: 15 NuStep Workload: 5 Treatments transfers, toileting, wheelchair mobility, gait training, functional strengthening Assessment Current Status: Fair Progress improving ambulation PT Short Term Goals Short Term Goals Time Frame: Feb 18, 2018 Transfers (B,C,W/C) (FIM): 3 (met) Wheelchair (FIM): 4 Wheelchair Distance: 150'x2 Wheelchair Level of Assist: 4 PT Drawer Upfitter Goals Halfway Goals PT Drawer Upfitter Goals Time Frame: Mar 04, 2018 Transfers (B,C,W/C) (FIM): 4 Sit to Lying (QC): 3 Lying-Sitting on Side/Bed(QC): 3 Sit to Stand (QC): 3 Rollin Roll Left to Right (QC): 3 Chair/Qgu-lx-Ifixk Xfer(QC): 3 Car Transfer (QC): 3 Gait (FIM): 1 Distance: 20' Walk 10 feet (QC): 3 Gait Level of Assist: 4 Gait Assistive Device: Walker Gaurav Wheelchair (FIM): 5 Distance: 150' Wheelchair Level of Assist: 5 Wheel 50 feet with 2 turns (QC: 4 PT Plan Problem List Problem List: Activity Tolerance, Functional Strength, Safety, Balance, Gait, Transfer, Bed Mobility, ROM Treatment/Plan Treatment Plan: Continue Plan of Care Treatment Plan: Bed Mobility, Concurrent Therapy, Education, Functional Activity Steven, Functional Strength, Group Therapy, Gait, Safety, Therapeutic Exercise, Transfers Treatment Duration: Mar 04, 2018 Frequency: At least 5 of 7 days/Wk (IRF) Estimated Hrs Per Day: 1.5 hours per day Patient and/or Family Agrees t: Yes Safety Risks/Education Patient Education: Gait Training, Transfer Techniques, Correct Positioning, W/ C Management, Safety Issues Teaching Recipient: Patient Teaching Methods: Demonstration, Discussion Response to Teaching: Reinforcement Needed Time/GCodes Time In: 1100 Time Out: 1200 Total Billed Treatment Time: 60 Total Billed Treatment 1 visit EX 15' WCH 10' GT 35' JENIFER SOUSA PT Feb 28, 2018 11:58
--- NOTE | 2018-02-28 14:59 | Therapy Group Daily Note ---
Therapy Daily Group Note Patient Education Topic Energy Cons Exercises LE Seated Exercise, UE Exercise Other/Notes Pt. participated in group PT OT session this date. Pt. came went via w/c. Pt. introduced herself and was very social. Pt. contributed to discussion regarding energy conservation and work simplification. Pt. also participated in seated therex. Pts each shared a single word of encouragement with each other before parting. Pt. to room after with [place] at hand. Start Time: 13:00 Stop Time: 14:15 Total Billed Treatment Time: 75 Total Billed Treatment 1,GRP CARLO ATKINSON SOUBRETTE Feb 28, 2018 14:59
--- NOTE | 2018-02-28 15:10 | Therapy Group Daily Note ---
Therapy Daily Group Note Other/Notes Each patient participated in group therapy in the common area of rehab. Each patient ambulated or was transported to the common area of rehab and place in a [place]. Each patient had to introduce themselves and state where they were from and answer a question that required memory and critical thinking. During group therapy patients intermittently performed upper and lower extremity seated exercises. Patients were then educated and oriented to rehab and the different disciplines. Finally, patients were educated on energy conservation. Patient's then ambulated or were transported back to their room and put in chair or bed with tray, nurse call, phone, and bed alarm on if applicable. Start Time: 13:00 Stop Time: 14:15 Total Billed Treatment Time: 75 Total Billed Treatment 1 visit GRP 75' JENIFER SOUSA PT Feb 28, 2018 15:10
[2018-02-28 17:30] VITALS: BP 117/81
[2018-03-01] MEDS: ALPRAZolam 0.25 MG (XANAX) TAB PO PRN ×2 (01:40→23:54)
[2018-03-01 05:28] VITALS: BP 100/64
[2018-03-01] MEDS: PANTOPRAZOLE 40 MG (PROTONIX) TAB PO SCH (05:34)
[2018-03-01] MEDS: LEVETIRACETAM 500 MG (KEPPRA) TAB PO SCH ×2 (08:42→20:37)
[2018-03-01] MEDS: CIPROFLOXACIN 500 MG (CIPRO) TABLET PO SCH ×2 (08:43→20:37)
[2018-03-01] MEDS: SENNA W/DOCUSATE (SENOKOT S) TABLET PO SCH ×2 (08:45→20:37)
[2018-03-01] MEDS: DOCUSATE SODIUM 100 MG (COLACE) CAP PO SCH ×2 (08:45→20:37)
[2018-03-01] MEDS: amLODIPine 5 MG (NORVASC) TAB PO SCH (08:47)
[2018-03-01] MEDS: NYSTATIN CREAM (MYCOSTATIN) 30 GM TUBE TP SCH ×3 (08:48→20:39)
[2018-03-01] MEDS: ACETAMINOPHEN 325 MG TABLET/CAPLET (TYLENOL) PO PRN ×2 (08:55→18:33)
--- NOTE | 2018-03-01 11:11 | Progress Note-Hospitalist ---
Subjective HPI/CC On Admission Date Seen by Provider: Mar 01, 2018 Time Seen by Provider: 10:30 Subjective/Events-last exam Patient doing well and talking on the phone with her family Noted recurrent UTIs on multiple antibiotic rounds Denies any significant falls or pain Objective Exam Vital Signs Vital Signs Date Time Temp Pulse Resp B/P (MAP) Pulse Ox O2 Delivery O2 Flow Rate FiO2 02/23/18 06:11 97.5 77 19 93/61 (72) 95 Room Air Capillary Refill : General Appearance: No Apparent Distress, WD/WN Respiratory: Chest Non Tender, Lungs Clear, Normal Breath Sounds, No Accessory Muscle Use, No Respiratory Distress Cardiovascular: Regular Rate, Rhythm, No Edema Results/Procedures Lab Patient resulted labs reviewed. 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 Hypertension. Recurrent UTIs Plan: Maintain inpatient rehabilitation protocol Follow-up Urine culture and monitor for recurrent UTIs Clinical Quality Measures DVT/VTE Risk/Contraindication: Risk Factor Score Per Nursin RFS Level Per Nursing on Admit: 4+=Very High CHANTAL ELLIS DO Mar 01, 2018 11:11
--- NOTE | 2018-03-01 12:39 | Physical Therapy Daily Note ---
PT Daily Note-Current Subjective Pt expresses she feels good about starting to walk. Transfers Functional [place] Measure 0=Not Assessed/NA 4=Minimal Assistance 1=Total Assistance 5=Supervision or Setup 2=Maximal Assistance 6=Modified [place] 3=Moderate Assistance 7=Complete IndependenceIRFPAI Quality Coding Scale 6 Independent with activity with or without an assistive device 5 Patient requires set up or clean up by helper. Patient completes activity by themselves 4 Supervision or touching assist (CGA). [place] provide cues , steadying assist 3 The helper provides less than half the effort to complete the activity 2 The helper provides more than half the effort to complete the activity 1 Dependent. The helper does all the effort to complete an activity 7 Patient refused to complete or attempt activity 9 The patient did not perform the activity before the current illness or injury 88 Not attempted due to Medical conditions or safety concerns Weight Bearing Right Lower Extremity: Right Weight Bearing/Tolerated Left Lower Extremity: Left Weight Bearing/Tolerated Gait Training Gait (FIM): 2 Distance (FIM): 1=up to 49 ft Distance: 35 Gait Level of Assist: 2 Gait Persons Needed: 1 Gait Assistive Device: Walker Gaurav 35ft x 10 trials with education and instruction on use of gaurav walker. Practiced wt shift and limb advancement. made 180 degree turns to chair each trial of gait. Pt had one loss of balance incident that required MAX A to recover. Assessment Pt is showing improved gait technique and skill. She will benefit from continued therapy. PT Short Term Goals Short Term Goals Time Frame: Feb 18, 2018 Transfers (B,C,W/C) (FIM): 3 (met) Wheelchair (FIM): 4 Wheelchair Distance: 150'x2 Wheelchair Level of Assist: 4 PT Intermediate Goals Concrete Form Setter And Finisher Goals PT Concrete Form Setter And Finisher Goals Time Frame: Mar 04, 2018 Transfers (B,C,W/C) (FIM): 4 Sit to Lying (QC): 3 Lying-Sitting on Side/Bed(QC): 3 Sit to Stand (QC): 3 Rollin Roll Left to Right (QC): 3 Chair/Dlk-rx-Pcjzg Xfer(QC): 3 Car Transfer (QC): 3 Gait (FIM): 1 Distance: 20' Walk 10 feet (QC): 3 Gait Level of Assist: 4 Gait Assistive Device: Walker Gaurav Wheelchair (FIM): 5 Distance: 150' Wheelchair Level of Assist: 5 Wheel 50 feet with 2 turns (QC: 4 PT Plan Treatment/Plan Treatment Plan: Continue Plan of Care Treatment Plan: Bed Mobility, Concurrent Therapy, Education, Functional Activity Steven, Functional Strength, Group Therapy, Gait, Safety, Therapeutic Exercise, Transfers Treatment Duration: Mar 04, 2018 Frequency: At least 5 of 7 days/Wk (IRF) Estimated Hrs Per Day: 1.5 hours per day Patient and/or Family Agrees t: Yes Time/GCodes Time In: 1115 Time Out: 1145 Total Billed Treatment visit, gait 30 min MAHNAZ GAGE PT Mar 01, 2018 12:39
[2018-03-01 18:15] VITALS: BP 107/73
[2018-03-02] MEDS: ACETAMINOPHEN 325 MG TABLET/CAPLET (TYLENOL) PO PRN (04:46)
[2018-03-02 05:51] VITALS: BP 108/72
[2018-03-02] MEDS: PANTOPRAZOLE 40 MG (PROTONIX) TAB PO SCH (06:10)
[2018-03-02] MEDS: LEVETIRACETAM 500 MG (KEPPRA) TAB PO SCH ×2 (08:04→21:31)
[2018-03-02] MEDS: SENNA W/DOCUSATE (SENOKOT S) TABLET PO SCH ×2 (08:04→21:32)
[2018-03-02] MEDS: DOCUSATE SODIUM 100 MG (COLACE) CAP PO SCH ×2 (08:04→21:32)
[2018-03-02] MEDS: CIPROFLOXACIN 500 MG (CIPRO) TABLET PO SCH ×2 (08:04→21:32)
[2018-03-02] MEDS: amLODIPine 5 MG (NORVASC) TAB PO SCH (08:05)
[2018-03-02] MEDS: NYSTATIN CREAM (MYCOSTATIN) 30 GM TUBE TP SCH ×3 (08:06→21:38)
--- NOTE | 2018-03-02 12:41 | Progress Note-Hospitalist ---
Subjective HPI/CC On Admission Date Seen by Provider: Mar 02, 2018 Time Seen by Provider: 11:30 Subjective/Events-last exam Patient doing about the same and her bowels are moving well Was invited to eat lunch with the fellow patient and her family today a chicken dinner Ready for discharge on Saturday Recurrent UTIs continue to be an issue Objective Exam Vital Signs Vital Signs Date Time Temp Pulse Resp B/P (MAP) Pulse Ox O2 Delivery O2 Flow Rate FiO2 4/2/18 05:05 99.2 78 18 110/72 (85) 96 Room Air Capillary Refill : General Appearance: No Apparent Distress, WD/WN Neck: Full Range of Motion Respiratory: Lungs Clear, Normal Breath Sounds Cardiovascular: Regular Rate, Rhythm Neurologic/Psychiatric: Alert, Oriented x3, Depressed Affect Results/Procedures Lab Patient resulted labs reviewed. 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 Hypertension. Recurrent UTIs Plan: Maintain inpatient rehabilitation protocol Follow-up Urine culture and monitor for recurrent UTIs Clinical Quality Measures DVT/VTE Risk/Contraindication: Risk Factor Score Per Nursin RFS Level Per Nursing on Admit: 4+=Very High CHANTAL ELLIS DO Mar 02, 2018 12:41
[2018-03-02] MEDS: ALPRAZolam 0.25 MG (XANAX) TAB PO PRN ×2 (13:51→22:09)
[2018-03-02 18:00] VITALS: BP 114/79
[2018-03-03 03:10] LABS: BILIRUBIN,URINE NEGATIVE (NEGATIVE); CLARITY,URINE CLEAR; COLOR,URINE YELLOW; GLUCOSE, URINE (UA) NEGATIVE (NEGATIVE); KETONES,URINE NEGATIVE (NEGATIVE); LEUKOCYTE ESTERASE ,URINE NEGATIVE (NEGATIVE); NITRITE,URINE NEGATIVE (NEGATIVE); PH,URINE 5 (5-9); PROTEIN,URINE NEGATIVE (NEGATIVE); UROBILINOGEN,URINE NORMAL (NORMAL)
[2018-03-03 03:31] LABS: BACTERIA,URINE TRACE /HPF
[2018-03-03 03:32] LABS: SQUAMOUS EPITHELIAL CELL,UR 25-50 /HPF
[2018-03-03 05:52] VITALS: BP 107/74
[2018-03-03] MEDS: PANTOPRAZOLE 40 MG (PROTONIX) TAB PO SCH (06:45)
--- NOTE | 2018-03-03 08:13 | Progress Note (SOAP) ---
Subjective Time Seen by Provider: 08:10 Subjective/Events-last exam CVA hemorrhagic. UTI resolved. Patient voices no complaints Objective Exam Vital Signs Date Time Temp Pulse Resp B/P (MAP) Pulse Ox O2 Delivery O2 Flow Rate FiO2 03/03/18 05:52 96.5 62 18 107/74 (85) 97 Room Air 03/02/18 21:00 Room Air 03/02/18 18:00 96.2 80 18 114/79 (91) 97 Room Air 03/02/18 09:00 Room Air I & O 03/03/18 07:00 Intake Total 1750 ml Balance 1750 ml Capillary Refill : General Appearance: No Apparent Distress, WD/WN Results Lab Laboratory Tests 03/03/18 03:00: Urine Color YELLOW, Urine Clarity CLEAR, Urine pH 5, Urine Specific [place] 1.020, Urine Protein NEGATIVE, Urine Glucose (UA) NEGATIVE, Urine Ketones NEGATIVE, Urine Nitrite NEGATIVE, Urine Bilirubin NEGATIVE, Urine Urobilinogen NORMAL, Urine Leukocyte Esterase NEGATIVE, Urine RBC (Auto) NEGATIVE, Urine RBC NONE, Urine WBC NONE, Urine Squamous Epithelial Cells 25-50H, Urine Crystals NONE, Urine Bacteria TRACE, Urine Casts NONE, Urine Mucus NEGATIVE, Urine Culture Indicated NO Microbiology 02/25/18 Urine Culture - Final, Complete Klebsiella pneumoniae Probable Actinomyces Assessment/Plan Assessment/Plan Assess & Plan/Chief Complaint CVA with hemorrhage. Tobacco usage. Stroke on the left side of body. Recency of baby girl. . 02/15/18. CVA with hemorrhage. Tobacco usage. Hypertension. Stroke on left side of the body. infection. . 02/13/18. CVA with hemorrhage. Tobacco usage. Hypertension. infection. Patient depressed. . 02/14/18. CVA with hemorrhage. Tobacco usage. Hypertension. infection. Patient talking better today. . 02/17/18 CVA with hemorrhage. Tobacco usage. Hypertension. infection Patient does not appear depressed today. . 02/18/18. CVA with hemorrhage. Tobacco usage. Hypertension. UTI. . 's 02/19/18. CVA with hemorrhage. Tobacco usage. Hypertension. UTI. Patient working hard. . 02/20/18. CVA with hemorrhage. Tobacco usage. Hypertension. UTI. . 02/21/18. CVA with hemorrhage. Tobacco usage Hypertension. UTI . /01/12. CVA with hemorrhage. Tobacco usage. stroke on the left side of body. recent . . 02/25/18. CVA with hemorrhage. Tobacco usage. Stroke on left side of body. UTI. . 's 02/26/18. CVA with hemorrhage. UTI. Put on Cipro. Tobacco usage. . 02/27/18. CVA with hemorrhage. UTI. Tobacco usage. Klebsiella pneumonia from urine. Sensitive to Cipro.. . . 02/28/18. CVA with hemorrhage. UTI. Tobacco usage. Patient more positive about herself. . 03/03/18. CVA with hemorrhage. UTI resolved. DC the Cipro. Tobacco usage Clinical Quality Measures DVT/VTE Risk/Contraindication: Risk Factor Score Per Nursin RFS Level Per Nursing on Admit: 4+=Very High ASHANTI RUSH DO Mar 03, 2018 08:13
[2018-03-03] MEDS: SENNA W/DOCUSATE (SENOKOT S) TABLET PO SCH ×2 (08:25→21:49)
[2018-03-03] MEDS: amLODIPine 5 MG (NORVASC) TAB PO SCH (08:25)
[2018-03-03] MEDS: DOCUSATE SODIUM 100 MG (COLACE) CAP PO SCH ×2 (08:25→21:49)
[2018-03-03] MEDS: LEVETIRACETAM 500 MG (KEPPRA) TAB PO SCH ×2 (08:25→21:49)
[2018-03-03] MEDS: NYSTATIN CREAM (MYCOSTATIN) 30 GM TUBE TP SCH ×3 (08:26→21:55)
--- NOTE | 2018-03-03 09:25 | Occupational Ther Daily Note ---
OT Current Status-Daily Note Subjective Pt alert, lying in bed. Pt agreed to therapy. No c/o pain. Mental Status/Objective Patient Orientation: Person, Place, Time, Situation Functional [place] Measure 0=Not Assessed/NA 4=Minimal Assistance 1=Total Assistance 5=Supervision or Setup 2=Maximal Assistance 6=Modified [place] 3=Moderate Assistance 7=Complete [place] ADL-Treatment Pt declined shower due to water temperature being only luke warm. Min A to scoot L LE out of bed then pt able to complete rest of supine to sitting EOB. Min A to transfer from EOB to w/c. Pt requested to use bathroom. Min A to transfer pt to toilet using grabbar and w/c. Assist for standing balance and to hike clothing over L hip then assist in standing while pt was able to cleanse self. Then pt was able to maneuvered w/c to sink to complete grooming and rest of sponge bath. Pt then retrieved clothing at w/c level and donned bra with min A to pull down in back and donned shirt by self. Pt then was able to don pants and socks by crossing LE over a knee, assist to keep L LE on R knee. Assist to stand and hike pants over L hip while pt hiked pants over R hip. After therapy, pt sitting in w/c with call light/phone in reach. All needs met in room. Functional [place] Measure 0=Not Assessed/NA 4=Minimal Assistance 1=Total Assistance 5=Supervision or Setup 2=Maximal Assistance 6=Modified [place] 3=Moderate Assistance 7=Complete IndependenceIRFPAI Quality Coding Scale 6 Independent with activity with or without an assistive device 5 Patient requires set up or clean up by helper. Patient completes activity by themselves 4 Supervision or touching assist (CGA). [place] provide cues , steadying assist 3 The helper provides less than half the effort to complete the activity 2 The helper provides more than half the effort to complete the activity 1 Dependent. The helper does all the effort to complete an activity 7 Patient refused to complete or attempt activity 9 The patient did not perform the activity before the current illness or injury 88 Not attempted due to Medical conditions or safety concerns Grooming (FIM): 6 Oral Hygiene (QC): 6 Upper Body (FIM): 4 Upper Body Dressing (QC): 3 Lower Body Dressing (FIM): 4 On/Off Footwear (QC): 4 Toileting (FIM): 4 Toileting Hygiene (QC): 3 Toilet/Commode Transfer (FIM): 4 Toilet Transfer (QC): 3 OT Short Term Goals Short Term Goals Time Frame: Feb 25, 2018 Eating(FIM): 5 Grooming(FIM): 5 Bathing(FIM): 4 Upper Body Dressing(FIM): 4 Lower Body Dressing(FIM): 3 Toileting(FIM): 4 Transfers (B,C,W/C) (FIM): 3 (met) Toilet/Commode Transfer(FIM): 4 Additional Short Term Goals: 1-Demonstrate ADL Tasks, 2-Verbalize Understanding , 3-ImproveStrength/Steven 1=Demonstrate adherence to instructed precautions during ADL tasks. 2=Patient will verbalize/demonstrate understanding of assistive devices/ modifications for ADL. 3=Patient will improve strength/tolerance for activity to enable patient to perform ADL's. OT Fur Finisher Tailor Goals Fur Finisher Tailor Goals Time Frame: Mar 11, 2018 Eating (FIM): 6 Eating (QC): 6 Groomin Oral Hygiene (QC): 6 Bathing(FIM): 5 Shower/Bathe Self (QC): 5 Upper Body Dressing(FIM): 6 Upper Body Dressing (QC): 6 Lower Body Dressing(FIM): 6 Lower Body Dressing (QC): 6 On/Off Footwear (QC): 6 Toileting(FIM): 6 Toileting Hygiene (QC): 6 Transfers (B,C,W/C) (FIM): 6 Toilet/Commode Transfer(FIM): 6 Toilet/Commode Transfer (QC): 6 Shower Transfer(FIM): 5 Comprehension(FIM): 5 (MET: The patient is able to understand basic needs, such as restroom use and the necessity of the call light.) Expression (FIM): 5 (MET (6): The patient expresses complex ideas to others.) Social Interaction(FIM): 5 (MET (6): An anti depressant is used, however, the flat affect is rarely present.) Problem Solving(FIM): 4 (MET) Memory(FIM): 4 (MET (5): The patient uses schedules and prompts in stressful situations to recall safety sequences.) Additional Goals: 1-Demonstrate ADL Tasks, 2-Verbalize Understanding, 3- ImproveStrength/Steven 1=Demonstrate adherence to instructed precautions during ADL tasks. 2=Patient will verbalize/demonstrate understanding of assistive devices/ modifications for ADL. 3=Patient will improve strength/tolerance for activity to enable patient to perform ADL's. OT Education/Plan Discharge Recommendations Plan/Recommendations: Continue POC Treatment Plan/Plan of Care Patient would benefit from OT for education, treatment and training to promote independence in ADL's, mobility, safety and/or upper extremity function for ADL' s. Plan of Care: ADL Retraining, Functional Mobility, Group Exercise/Act as Ind, UE Funct Exercise/Act Treatment Duration: Mar 11, 2018 Frequency: At least 5 of 7 days/Wk (IRF) Estimated Hrs Per Day: 1.5 hours per day Agreement: Yes Rehab Potential: Good Time/GCodes Start Time: 09:00 Stop Time: 10:00 Total Time Billed (hr/min): 60 Billed Treatment Time 1 visit-ADL 4 (60 min) SINA CHIU Mar 03, 2018 09:25
--- NOTE | 2018-03-03 10:15 | Speech Therapy Daily Note ---
Speech Daily Progress Note Subjective Date Seen by Provider: Feb 24, 2018 Time Seen by Provider: 10:00 The patient was seated upright in wheelchair upon entrance. The patient greeted the clinician appropriately and was agreeable to participation in the cognitive treatment session. Objective Left-Neglect: To work towards improvement and awareness of the patient's left side, as well as, problem solving/sequencing, the patient was provided various mazes and tail-making activities. The patient displayed excellent accuracy with mazes, completing each task with ease. The patient did not demonstrate neglect of the left side of the page/maze throughout the session. The patient demonstrated slightly reduced accuracy with trail-making, requiring mild to moderate clinician verbal cueing for accurate sequencing. Assessment Assessment Current Status: Good Progress Treatment Plan Continue Plan of Care Communication Comprehension: 5 Expression: 6 Social Cognition Social Interaction: 6 (Anti-Depressant) Problem Solvin (The patient continues to require verbal prompting, intermittently, for completion of more complex tasks.) Memory: 5 Speech Short Term Goals Short Term Goals Short Term Goals 1. The patient will display recall and demonstrate visuospatial strategies to improve left sided neglect. MET 2. The patient will accurately sequence ADL tasks with mild clinician verbal prompting. MET Time Frame-STG: One Week Speech Snf Goals Night Shift Goals 1. The patient will increase awareness of left sided neglect through visuospatial strategies. MET Time Frame: Two Weeks Comprehension: 5 (MET: The patient is able to understand basic needs, such as restroom use and the necessity of the call light.) Expression: 5 (MET (6): The patient expresses complex ideas to others.) Social Interaction: 5 (MET (6): An anti depressant is used, however, the flat affect is rarely present.) Problem Solvin (MET) Memory: 4 (MET (5): The patient uses schedules and prompts in stressful situations to recall safety sequences.) Speech-Plan Treatment Plan Speech Therapy Treatment Plan: Continue Plan of Care Continue skilled speech pathology for increased awareness of left side. Treatment Duration: Feb 27, 2018 Frequency: Modified Program (IRF) (three to five times per week) Estimated Hrs Per Day: .5 hour per day Rehab Potential: Good Safety Risks/Education Teaching Recipient: Patient Teaching Methods: Demonstration, Discussion Response to Teaching: Verbalize Understanding, Return Demonstration, Reinforcement Needed Education Topics Provided: Left Neglect Strategies Time Speech Therapy Time In: 10:00 Speech Therapy Time Out: 10:30 Total Billed Time: 30 Billed Treatment Time 1, SLTS - Above note is a late entry for therapy provided on 02/24/2018. Thank you. EVE DE LA ROSA Mar 03, 2018 10:15
--- NOTE | 2018-03-03 10:57 | Physical Therapy Daily Note ---
PT Daily Note-Current Subjective Patient in wheelchair pre tx, agrees to PT, no complaints of pain. Appearance Patient sitting EOB post tx with nurse call, phone, tray, all needs met. Patient wanted to sit EOB and finish some of her food. Patient instructed to call nurse when she has to lay back down and to not lay down herself or try to get up. Mental Status Patient Orientation: Person, Place, Situation Transfers Functional [place] Measure 0=Not Assessed/NA 4=Minimal Assistance 1=Total Assistance 5=Supervision or Setup 2=Maximal Assistance 6=Modified [place] 3=Moderate Assistance 7=Complete IndependenceIRFPAI Quality Coding Scale 6 Independent with activity with or without an assistive device 5 Patient requires set up or clean up by helper. Patient completes activity by themselves 4 Supervision or touching assist (CGA). [place] provide cues , steadying assist 3 The helper provides less than half the effort to complete the activity 2 The helper provides more than half the effort to complete the activity 1 Dependent. The helper does all the effort to complete an activity 7 Patient refused to complete or attempt activity 9 The patient did not perform the activity before the current illness or injury 88 Not attempted due to Medical conditions or safety concerns Transfers (B, C, W/C) (FIM): 4 Scootin Supine to/from Sit: 4 Sit to/from Stand: 4 Bed to/from Chair: 4 Weight Bearing Right Lower Extremity: Right Weight Bearing/Tolerated Left Lower Extremity: Left Weight Bearing/Tolerated Gait Training Gait (FIM): 1 Distance: 20'x3 Gait Level of Assist: 4 Gait Persons Needed: 1 Gait Assistive Device: Walker Gaurav Patient is now able to advance her left foot about half a step but not completely through. Wheelchair Training Wheelchair (FIM): 6 Distance: 150'x2 Type of Wheelchair: Manual Exercises LLE PROM/stretching in all planes NuStep Minutes: 15 NuStep Workload: 5 Treatments transfers, ambulation, wheelchair mobility, functional strengthening, ROM Assessment Current Status: Fair Progress improving ambulation PT Short Term Goals Short Term Goals Time Frame: Feb 18, 2018 Transfers (B,C,W/C) (FIM): 3 (met) Wheelchair (FIM): 4 Wheelchair Distance: 150'x2 Wheelchair Level of Assist: 4 PT Settlement Worker Goals Settlement Worker Goals PT Prison Goals Time Frame: Mar 04, 2018 Transfers (B,C,W/C) (FIM): 4 Sit to Lying (QC): 3 Lying-Sitting on Side/Bed(QC): 3 Sit to Stand (QC): 3 Rollin Roll Left to Right (QC): 3 Chair/Xhr-sn-Tuukv Xfer(QC): 3 Car Transfer (QC): 3 Gait (FIM): 1 Distance: 20' Walk 10 feet (QC): 3 Gait Level of Assist: 4 Gait Assistive Device: Walker Gaurav Wheelchair (FIM): 5 Distance: 150' Wheelchair Level of Assist: 5 Wheel 50 feet with 2 turns (QC: 4 PT Plan Problem List Problem List: Activity Tolerance, Functional Strength, Safety, Balance, Gait, Transfer, Bed Mobility, ROM Treatment/Plan Treatment Plan: Continue Plan of Care Treatment Plan: Bed Mobility, Concurrent Therapy, Education, Functional Activity Steven, Functional Strength, Group Therapy, Gait, Safety, Therapeutic Exercise, Transfers Treatment Duration: Mar 04, 2018 Frequency: At least 5 of 7 days/Wk (IRF) Estimated Hrs Per Day: 1.5 hours per day Patient and/or Family Agrees t: Yes Safety Risks/Education Patient Education: Gait Training, Transfer Techniques, Correct Positioning, W/ C Management, Safety Issues Teaching Recipient: Patient Teaching Methods: Demonstration, Discussion Response to Teaching: Reinforcement Needed Time/GCodes Time In: 1000 Time Out: 1100 Total Billed Treatment Time: 60 Total Billed Treatment 1 visit EX 20' WCH 10' GT 30' JENIFER SOUSA PT Mar 03, 2018 10:57
--- NOTE | 2018-03-03 15:16 | Therapy Group Daily Note ---
Therapy Daily Group Note Patient Education Topic Other List Below Other/Notes Pt maneuvered w/c to OT/PT group in [facility]. Group consisted of introductions (name and memory question), socialization, memory education, memory activity and eye/neck exercises. Pt was able to introduce self appropriately and actively listened to peers. Pt was able to answer questions and give feedback on different strategies used for memory. Pt completed eye/ neck exercises without difficulty. After group, pt lying in bed with call light /phone in reach. All needs met in room. Start Time: 13:00 Stop Time: 14:00 Total Billed Treatment Time: 60 Total Billed Treatment 1-GRP SINA CHIU Mar 03, 2018 15:15
[2018-03-03 18:03] VITALS: BP 111/79
--- NOTE | 2018-03-03 19:13 | PM & R (SOAP) Progress Note ---
Subjective Time Seen by Provider: 18:45 Subjective/Events-last exam Patient was seen in her room this evening Patient min assist for transfers Objective Exam Last Set of Vital Signs Vital Signs Date Time Temp Pulse Resp B/P (MAP) Pulse Ox O2 Delivery O2 Flow Rate FiO2 03/03/18 18:03 98.3 77 18 111/79 (90) 97 Room Air Capillary Refill : I&O Intake and Output 03/03/18 00:00 Intake Total 2000 ml Balance 2000 ml Intake Oral 2000 ml # Voids 8 # Bowel Movements 1 General: Alert, Oriented X3, Cooperative, No Acute Distress HEENT: Atraumatic, PERRLA, EOMI, Mucous Memb Moist/[place] Neck: Supple, No JVD Lungs: Clear to Auscultation Heart: Regular Rate Abdomen: Normal Bowel Sounds, Soft, No Tenderness Extremities: No Edema Neuro: Other (Left HP) Results Lab Laboratory Tests 03/03/18 03:00: Urine Color YELLOW, Urine Clarity CLEAR, Urine pH 5, Urine Specific [place] 1.020, Urine Protein NEGATIVE, Urine Glucose (UA) NEGATIVE, Urine Ketones NEGATIVE, Urine Nitrite NEGATIVE, Urine Bilirubin NEGATIVE, Urine Urobilinogen NORMAL, Urine Leukocyte Esterase NEGATIVE, Urine RBC (Auto) NEGATIVE, Urine RBC NONE, Urine WBC NONE, Urine Squamous Epithelial Cells 25-50H, Urine Crystals NONE, Urine Bacteria TRACE, Urine Casts NONE, Urine Mucus NEGATIVE, Urine Culture Indicated NO Microbiology 02/25/18 Urine Culture - Final, Complete Klebsiella pneumoniae Probable Actinomyces Assessment/Plan Assessment RT ICB with Left HP HTN E COLI UTI-on antibiotic Reactive depression med added Constipation meds adjusted Vaginal drainage on Diflucan Plan Continue PT/OT ST has signed off Bowel meds adjusted [facility] has seen-Appreciate their consult Continue antibiotics for UTI Consult [place] P[employer] Supervisor re counseling-done Monitor weight Doing better overall Discharge set for end of week to [place] with family Next Team Conference 03-05-18 . ELAINE GIBBS MD Mar 03, 2018 7:13 pm
[2018-03-03] MEDS: ACETAMINOPHEN 325 MG TABLET/CAPLET (TYLENOL) PO PRN (21:58)
[2018-03-03] MEDS: ALPRAZolam 0.25 MG (XANAX) TAB PO PRN (23:34)
[2018-03-04 06:00] VITALS: BP 97/67
[2018-03-04] MEDS: PANTOPRAZOLE 40 MG (PROTONIX) TAB PO SCH (06:50)
--- NOTE | 2018-03-04 08:13 | Progress Note (SOAP) ---
Subjective Time Seen by Provider: 08:10 Subjective/Events-last exam CVA. Patient continues to work Objective Exam Vital Signs Date Time Temp Pulse Resp B/P (MAP) Pulse Ox O2 Delivery O2 Flow Rate FiO2 03/04/18 06:00 97.7 78 16 97/67 (77) 96 Room Air 03/03/18 21:00 Room Air 03/03/18 18:03 98.3 77 18 111/79 (90) 97 Room Air 03/03/18 09:00 Room Air I & O 03/04/18 07:00 Intake Total 1550 ml Balance 1550 ml Capillary Refill : General Appearance: No Apparent Distress, WD/WN Results Lab Microbiology 02/25/18 Urine Culture - Final, Complete Klebsiella pneumoniae Probable Actinomyces Assessment/Plan Assessment/Plan Assess & Plan/Chief Complaint CVA with hemorrhage. Tobacco usage. Stroke on the left side of body. Recency of baby girl. . 02/15/18. CVA with hemorrhage. Tobacco usage. Hypertension. Stroke on left side of the body. infection. . 02/13/18. CVA with hemorrhage. Tobacco usage. Hypertension. infection. Patient depressed. . 02/14/18. CVA with hemorrhage. Tobacco usage. Hypertension. infection. Patient talking better today. . 02/17/18 CVA with hemorrhage. Tobacco usage. Hypertension. infection Patient does not appear depressed today. . 02/18/18. CVA with hemorrhage. Tobacco usage. Hypertension. UTI. . 's 02/19/18. CVA with hemorrhage. Tobacco usage. Hypertension. UTI. Patient working hard. . 02/20/18. CVA with hemorrhage. Tobacco usage. Hypertension. UTI. . 02/21/18. CVA with hemorrhage. Tobacco usage Hypertension. UTI . /01/12. CVA with hemorrhage. Tobacco usage. stroke on the left side of body. recent . . 02/25/18. CVA with hemorrhage. Tobacco usage. Stroke on left side of body. UTI. . 's 02/26/18. CVA with hemorrhage. UTI. Put on Cipro. Tobacco usage. . 02/27/18. CVA with hemorrhage. UTI. Tobacco usage. Klebsiella pneumonia from urine. Sensitive to Cipro.. . . 02/28/18. CVA with hemorrhage. UTI. Tobacco usage. Patient more positive about herself. . 03/03/18. CVA with hemorrhage. UTI resolved. DC the Cipro. Tobacco usage. . 03/04/18. CVA with hemorrhage. Tobacco usage. Patient to be discharged this week Clinical Quality Measures DVT/VTE Risk/Contraindication: Risk Factor Score Per Nursin RFS Level Per Nursing on Admit: 4+=Very High ASHANTI RUSH DO Mar 04, 2018 08:12
--- NOTE | 2018-03-04 08:27 | PM & R (SOAP) Progress Note ---
Subjective Time Seen by Provider: 07:35 Subjective/Events-last exam Patient was seen in her room this AM Sitting balance good and patient min assist for transfers but limited neurological return in terms of strength Objective Exam Last Set of Vital Signs Vital Signs Date Time Temp Pulse Resp B/P (MAP) Pulse Ox O2 Delivery O2 Flow Rate FiO2 03/04/18 06:00 97.7 78 16 97/67 (77) 96 Room Air Capillary Refill : I&O Intake and Output 03/04/18 00:00 Intake Total 1750 ml Balance 1750 ml Intake Oral 1750 ml # Voids 7 # Bowel Movements 1 General: Alert, Oriented X3, Cooperative, No Acute Distress HEENT: Atraumatic, PERRLA, EOMI, Mucous Memb Moist/[place] Neck: Supple, No JVD Lungs: Clear to Auscultation Heart: Regular Rate Abdomen: Normal Bowel Sounds, Soft, No Tenderness Extremities: No Edema Neuro: Other (Left HP) Results Lab Laboratory Tests 03/03/18 03:00: Urine Color YELLOW, Urine Clarity CLEAR, Urine pH 5, Urine Specific [place] 1.020, Urine Protein NEGATIVE, Urine Glucose (UA) NEGATIVE, Urine Ketones NEGATIVE, Urine Nitrite NEGATIVE, Urine Bilirubin NEGATIVE, Urine Urobilinogen NORMAL, Urine Leukocyte Esterase NEGATIVE, Urine RBC (Auto) NEGATIVE, Urine RBC NONE, Urine WBC NONE, Urine Squamous Epithelial Cells 25-50H, Urine Crystals NONE, Urine Bacteria TRACE, Urine Casts NONE, Urine Mucus NEGATIVE, Urine Culture Indicated NO Microbiology 02/25/18 Urine Culture - Final, Complete Klebsiella pneumoniae Probable Actinomyces Assessment/Plan Assessment RT ICB with Left HP HTN E COLI UTI-on antibiotic Reactive depression med added Constipation meds adjusted Vaginal drainage on Diflucan Plan Continue PT/OT ST has signed off Bowel meds adjusted [facility] has seen-Appreciate their consult Continue antibiotics for UTI Consult [place] [employer] re counseling-done Monitor weight Doing better overall Discharge set for end of week to home in [place] with family Next Team Conference tomorrow 03-05-18 . ELAINE GIBBS MD Mar 04, 2018 08:27
--- NOTE | 2018-03-04 08:37 | Occupational Ther Daily Note ---
OT Current Status-Daily Note Subjective Pt alert, sitting up in bed. Pt agreed to therapy. present in room for family training. No c/o pain. Mental Status/Objective Patient Orientation: Person, Place, Time, Situation Functional [place] Measure 0=Not Assessed/NA 4=Minimal Assistance 1=Total Assistance 5=Supervision or Setup 2=Maximal Assistance 6=Modified [place] 3=Moderate Assistance 7=Complete [place] ADL-Treatment Assist to scoot L LE out of bed then pt able to complete rest of supine to sitting. Min A to go from EOB to w/c then maneuvered w/c to shower. Min A for stand pivot transfer from w/c to shower bench using grabbars. Pt then was able to complete bathing using shower bench, hand held shower, grabbars and long handle sponge with assist in standing for balance while pt cleansed buttocks. Assist to dry feet and in standing while pt dries buttocks. Pt then maneuvered w/c to sink to complete own grooming. Pt retrieved own clothes with w/c. Min A to don bra then donned shirt by self. Pt donned pants over feet by crossing LE's over knee, min A in standing to hike pants over hips. After therapy, pt sitting in w/c with call light/phone in reach. present in room. All needs met in room. Functional [place] Measure 0=Not Assessed/NA 4=Minimal Assistance 1=Total Assistance 5=Supervision or Setup 2=Maximal Assistance 6=Modified [place] 3=Moderate Assistance 7=Complete IndependenceIRFPAI Quality Coding Scale 6 Independent with activity with or without an assistive device 5 Patient requires set up or clean up by helper. Patient completes activity by themselves 4 Supervision or touching assist (CGA). [place] provide cues , steadying assist 3 The helper provides less than half the effort to complete the activity 2 The helper provides more than half the effort to complete the activity 1 Dependent. The helper does all the effort to complete an activity 7 Patient refused to complete or attempt activity 9 The patient did not perform the activity before the current illness or injury 88 Not attempted due to Medical conditions or safety concerns Grooming (FIM): 6 Oral Hygiene (QC): 6 Bathing (FIM): 4 Shower/Bathe Self (QC): 3 Upper Body (FIM): 4 Upper Body Dressing (QC): 3 Lower Body Dressing (FIM): 4 Lower Body Dressing (QC): 3 On/Off Footwear (QC): 6 Shower Transfer(FIM): 4 OT Short Term Goals Short Term Goals Time Frame: Feb 25, 2018 Eating(FIM): 5 Grooming(FIM): 5 Bathing(FIM): 4 Upper Body Dressing(FIM): 4 Lower Body Dressing(FIM): 3 Toileting(FIM): 4 Transfers (B,C,W/C) (FIM): 3 (met) Toilet/Commode Transfer(FIM): 4 Additional Short Term Goals: 1-Demonstrate ADL Tasks, 2-Verbalize Understanding , 3-ImproveStrength/Steven 1=Demonstrate adherence to instructed precautions during ADL tasks. 2=Patient will verbalize/demonstrate understanding of assistive devices/ modifications for ADL. 3=Patient will improve strength/tolerance for activity to enable patient to perform ADL's. OT Government Employee Goals Government Employee Goals Time Frame: Mar 11, 2018 Eating (FIM): 6 Eating (QC): 6 Groomin Oral Hygiene (QC): 6 Bathing(FIM): 5 Shower/Bathe Self (QC): 5 Upper Body Dressing(FIM): 6 Upper Body Dressing (QC): 6 Lower Body Dressing(FIM): 6 Lower Body Dressing (QC): 6 On/Off Footwear (QC): 6 Toileting(FIM): 6 Toileting Hygiene (QC): 6 Transfers (B,C,W/C) (FIM): 6 Toilet/Commode Transfer(FIM): 6 Toilet/Commode Transfer (QC): 6 Shower Transfer(FIM): 5 Comprehension(FIM): 5 (MET: The patient is able to understand basic needs, such as restroom use and the necessity of the call light.) Expression (FIM): 5 (MET (6): The patient expresses complex ideas to others.) Social Interaction(FIM): 5 (MET (6): An anti depressant is used, however, the flat affect is rarely present.) Problem Solving(FIM): 4 (MET) Memory(FIM): 4 (MET (5): The patient uses schedules and prompts in stressful situations to recall safety sequences.) Additional Goals: 1-Demonstrate ADL Tasks, 2-Verbalize Understanding, 3- ImproveStrength/Steven 1=Demonstrate adherence to instructed precautions during ADL tasks. 2=Patient will verbalize/demonstrate understanding of assistive devices/ modifications for ADL. 3=Patient will improve strength/tolerance for activity to enable patient to perform ADL's. OT Education/Plan Discharge Recommendations Plan/Recommendations: Continue POC Treatment Plan/Plan of Care Patient would benefit from OT for education, treatment and training to promote independence in ADL's, mobility, safety and/or upper extremity function for ADL' s. Plan of Care: ADL Retraining, Functional Mobility, Group Exercise/Act as Ind, UE Funct Exercise/Act Treatment Duration: Mar 11, 2018 Frequency: At least 5 of 7 days/Wk (IRF) Estimated Hrs Per Day: 1.5 hours per day Agreement: Yes Rehab Potential: Good Time/GCodes Start Time: 07:45 Stop Time: 08:45 Total Time Billed (hr/min): 60 Billed Treatment Time 1 visit-ADL 4 (60 min) SINA CHIU Mar 04, 2018 08:36
[2018-03-04] MEDS: DOCUSATE SODIUM 100 MG (COLACE) CAP PO SCH ×2 (08:38→20:00)
[2018-03-04] MEDS: amLODIPine 5 MG (NORVASC) TAB PO SCH (08:38)
[2018-03-04] MEDS: LEVETIRACETAM 500 MG (KEPPRA) TAB PO SCH ×2 (08:38→20:00)
[2018-03-04] MEDS: SENNA W/DOCUSATE (SENOKOT S) TABLET PO SCH ×2 (08:38→20:00)
[2018-03-04] MEDS: NYSTATIN CREAM (MYCOSTATIN) 30 GM TUBE TP SCH ×3 (08:39→19:55)
--- NOTE | 2018-03-04 10:57 | Physical Therapy Daily Note ---
PT Daily Note-Current Subjective Patient in wheelchair in therapy gym pre tx, agrees to PT, no complaints of pain. is here and will have family training ambulation, transfers, and bed mobility. Appearance Patient in wheelchair at bedside post tx, has nurse call, phone, tray, family in the room. Mental Status Patient Orientation: Person, Place, Situation Transfers Functional [place] Measure 0=Not Assessed/NA 4=Minimal Assistance 1=Total Assistance 5=Supervision or Setup 2=Maximal Assistance 6=Modified [place] 3=Moderate Assistance 7=Complete IndependenceIRFPAI Quality Coding Scale 6 Independent with activity with or without an assistive device 5 Patient requires set up or clean up by helper. Patient completes activity by themselves 4 Supervision or touching assist (CGA). [place] provide cues , steadying assist 3 The helper provides less than half the effort to complete the activity 2 The helper provides more than half the effort to complete the activity 1 Dependent. The helper does all the effort to complete an activity 7 Patient refused to complete or attempt activity 9 The patient did not perform the activity before the current illness or injury 88 Not attempted due to Medical conditions or safety concerns Transfers (B, C, W/C) (FIM): 4 Scootin Rollin Supine to/from Sit: 5 Sit to/from Stand: 4 Bed to/from Chair: 4 Weight Bearing Right Lower Extremity: Right Weight Bearing/Tolerated Left Lower Extremity: Left Weight Bearing/Tolerated Gait Training Gait (FIM): 1 Distance: 20'x3 Gait Level of Assist: 4 Gait Persons Needed: 1 Gait Assistive Device: Walker Gaurav Patient needs min assist only to help advance her left leg, she can advance her left leg about half way probably 40% of the time. Wheelchair Training Does the Pt Use a Wheelchair?: Yes Wheelchair (FIM): 6 Distance: 150' Type of Wheelchair: Manual Exercises LLE PROM/stretching NuStep Minutes: 15 NuStep Workload: 5 Treatments bed mobility, transfers, ambulation, functional strengthening, ROM Assessment Current Status: Fair Progress improving ambulation, continues to improve with leg leg stepping PT Short Term Goals Short Term Goals Time Frame: Feb 18, 2018 Transfers (B,C,W/C) (FIM): 3 (met) Wheelchair (FIM): 4 Wheelchair Distance: 150'x2 Wheelchair Level of Assist: 4 PT Mcc Goals Mcc Goals PT Supervisor Histology Goals Time Frame: Mar 04, 2018 Transfers (B,C,W/C) (FIM): 4 Sit to Lying (QC): 3 Lying-Sitting on Side/Bed(QC): 3 Sit to Stand (QC): 3 Rollin Roll Left to Right (QC): 3 Chair/Ezz-ij-Ldujq Xfer(QC): 3 Car Transfer (QC): 3 Gait (FIM): 1 Distance: 20' Walk 10 feet (QC): 3 Gait Level of Assist: 4 Gait Assistive Device: Walker Gaurav Wheelchair (FIM): 5 Distance: 150' Wheelchair Level of Assist: 5 Wheel 50 feet with 2 turns (QC: 4 PT Plan Problem List Problem List: Activity Tolerance, Functional Strength, Safety, Balance, Gait, Transfer, Bed Mobility, ROM Treatment/Plan Treatment Plan: Continue Plan of Care Treatment Plan: Bed Mobility, Concurrent Therapy, Education, Functional Activity Steven, Functional Strength, Group Therapy, Gait, Safety, Therapeutic Exercise, Transfers Treatment Duration: Mar 04, 2018 Frequency: At least 5 of 7 days/Wk (IRF) Estimated Hrs Per Day: 1.5 hours per day Patient and/or Family Agrees t: Yes Safety Risks/Education Patient Education: Gait Training, Transfer Techniques, Correct Positioning, W/ C Management, Disease Process, Safety Issues Teaching Recipient: Patient, Significant Other Teaching Methods: Demonstration, Discussion Response to Teaching: Reinforcement Needed family training, with for transfers, ambulation, and bed mobility Time/GCodes Time In: 1000 Time Out: 1100 Total Billed Treatment Time: 60 Total Billed Treatment 1 visit EX 20' WCH 10' FA 10' GT 20' JENIFER SOUSA PT Mar 04, 2018 10:57
--- NOTE | 2018-03-04 13:05 | Occupational Ther Daily Note ---
OT Current Status-Daily Note Subjective Pt alert, sitting in w/c. present in room. Pt agreed to therapy. Mental Status/Objective Patient Orientation: Person, Place, Time, Situation Functional [place] Measure 0=Not Assessed/NA 4=Minimal Assistance 1=Total Assistance 5=Supervision or Setup 2=Maximal Assistance 6=Modified [place] 3=Moderate Assistance 7=Complete [place] ADL-Treatment Functional [place] Measure 0=Not Assessed/NA 4=Minimal Assistance 1=Total Assistance 5=Supervision or Setup 2=Maximal Assistance 6=Modified [place] 3=Moderate Assistance 7=Complete IndependenceIRFPAI Quality Coding Scale 6 Independent with activity with or without an assistive device 5 Patient requires set up or clean up by helper. Patient completes activity by themselves 4 Supervision or touching assist (CGA). [place] provide cues , steadying assist 3 The helper provides less than half the effort to complete the activity 2 The helper provides more than half the effort to complete the activity 1 Dependent. The helper does all the effort to complete an activity 7 Patient refused to complete or attempt activity 9 The patient did not perform the activity before the current illness or injury 88 Not attempted due to Medical conditions or safety concerns Other Treatment Family education for tub bench transfers. Pt's was able to transfer pt for tub transfer with min A. Education on foot placement and taking time for transfers to avoid falls. Pt then transferred back to bed to complete electrical stimulation for L UE. Pt required reminders to work L UE while electrical stimulation. After therapy, pt lying in bed with call light/phone in reach. All needs met in room. OT Short Term Goals Short Term Goals Time Frame: Feb 25, 2018 Eating(FIM): 5 Grooming(FIM): 5 Bathing(FIM): 4 Upper Body Dressing(FIM): 4 Lower Body Dressing(FIM): 3 Toileting(FIM): 4 Transfers (B,C,W/C) (FIM): 3 (met) Toilet/Commode Transfer(FIM): 4 Additional Short Term Goals: 1-Demonstrate ADL Tasks, 2-Verbalize Understanding , 3-ImproveStrength/Steven 1=Demonstrate adherence to instructed precautions during ADL tasks. 2=Patient will verbalize/demonstrate understanding of assistive devices/ modifications for ADL. 3=Patient will improve strength/tolerance for activity to enable patient to perform ADL's. OT Fdc Goals Fdc Goals Time Frame: Mar 11, 2018 Eating (FIM): 6 Eating (QC): 6 Groomin Oral Hygiene (QC): 6 Bathing(FIM): 5 Shower/Bathe Self (QC): 5 Upper Body Dressing(FIM): 6 Upper Body Dressing (QC): 6 Lower Body Dressing(FIM): 6 Lower Body Dressing (QC): 6 On/Off Footwear (QC): 6 Toileting(FIM): 6 Toileting Hygiene (QC): 6 Transfers (B,C,W/C) (FIM): 6 Toilet/Commode Transfer(FIM): 6 Toilet/Commode Transfer (QC): 6 Shower Transfer(FIM): 5 Comprehension(FIM): 5 (MET: The patient is able to understand basic needs, such as restroom use and the necessity of the call light.) Expression (FIM): 5 (MET (6): The patient expresses complex ideas to others.) Social Interaction(FIM): 5 (MET (6): An anti depressant is used, however, the flat affect is rarely present.) Problem Solving(FIM): 4 (MET) Memory(FIM): 4 (MET (5): The patient uses schedules and prompts in stressful situations to recall safety sequences.) Additional Goals: 1-Demonstrate ADL Tasks, 2-Verbalize Understanding, 3- ImproveStrength/Steven 1=Demonstrate adherence to instructed precautions during ADL tasks. 2=Patient will verbalize/demonstrate understanding of assistive devices/ modifications for ADL. 3=Patient will improve strength/tolerance for activity to enable patient to perform ADL's. OT Education/Plan Discharge Recommendations Plan/Recommendations: Continue POC Treatment Plan/Plan of Care Patient would benefit from OT for education, treatment and training to promote independence in ADL's, mobility, safety and/or upper extremity function for ADL' s. Plan of Care: ADL Retraining, Functional Mobility, Group Exercise/Act as Ind, UE Funct Exercise/Act Treatment Duration: Mar 11, 2018 Frequency: At least 5 of 7 days/Wk (IRF) Estimated Hrs Per Day: 1.5 hours per day Agreement: Yes Rehab Potential: Good Time/GCodes Start Time: 11:30 Stop Time: 12:00 Total Time Billed (hr/min): 30 Billed Treatment Time 1 visit-NM 1 (10 min) ALO 1 (20 SINA Matos Mar 04, 2018 13:05
--- NOTE | 2018-03-04 14:41 | Physical Therapy Daily Note ---
PT Daily Note-Current Subjective Patient in bed pre tx, agrees to PT, has no complaints of pain. Appearance Patient in bed post tx with nurse call, phone, tray, all needs met. Mental Status Patient Orientation: Person, Normal For Age Transfers Functional [place] Measure 0=Not Assessed/NA 4=Minimal Assistance 1=Total Assistance 5=Supervision or Setup 2=Maximal Assistance 6=Modified [place] 3=Moderate Assistance 7=Complete IndependenceIRFPAI Quality Coding Scale 6 Independent with activity with or without an assistive device 5 Patient requires set up or clean up by helper. Patient completes activity by themselves 4 Supervision or touching assist (CGA). [place] provide cues , steadying assist 3 The helper provides less than half the effort to complete the activity 2 The helper provides more than half the effort to complete the activity 1 Dependent. The helper does all the effort to complete an activity 7 Patient refused to complete or attempt activity 9 The patient did not perform the activity before the current illness or injury 88 Not attempted due to Medical conditions or safety concerns Transfers (B, C, W/C) (FIM): 4 Scootin Rollin Supine to/from Sit: 4 Sit to/from Stand: 4 Bed to/from Chair: 4 Weight Bearing Right Lower Extremity: Right Weight Bearing/Tolerated Left Lower Extremity: Left Weight Bearing/Tolerated Wheelchair Training Wheelchair (FIM): 6 Distance: 1200'x2 Type of Wheelchair: Manual Patient practiced going outside and going up and down a ramp. With instruction , she needed no assistance to go either up or down. Assessment Current Status: Fair Progress improved wheelchair mobility PT Short Term Goals Short Term Goals Time Frame: Feb 18, 2018 Transfers (B,C,W/C) (FIM): 3 (met) Wheelchair (FIM): 4 Wheelchair Distance: 150' Wheelchair Level of Assist: 4 PT Shelter Goals Entry Specialists Goals PT Entry Specialists Goals Time Frame: Mar 04, 2018 Transfers (B,C,W/C) (FIM): 4 Sit to Lying (QC): 3 Lying-Sitting on Side/Bed(QC): 3 Sit to Stand (QC): 3 Rollin Roll Left to Right (QC): 3 Chair/Img-rq-Swgol Xfer(QC): 3 Car Transfer (QC): 3 Gait (FIM): 1 Distance: 20' Walk 10 feet (QC): 3 Gait Level of Assist: 4 Gait Assistive Device: Walker Gaurav Wheelchair (FIM): 5 Distance: 150' Wheelchair Level of Assist: 5 Wheel 50 feet with 2 turns (QC: 4 PT Plan Problem List Problem List: Activity Tolerance, Functional Strength, Safety, Balance, Gait, Transfer, Bed Mobility, ROM Treatment/Plan Treatment Plan: Continue Plan of Care Treatment Plan: Bed Mobility, Concurrent Therapy, Education, Functional Activity Steven, Functional Strength, Group Therapy, Gait, Safety, Therapeutic Exercise, Transfers Treatment Duration: Mar 04, 2018 Frequency: At least 5 of 7 days/Wk (IRF) Estimated Hrs Per Day: 1.5 hours per day Patient and/or Family Agrees t: Yes Safety Risks/Education Patient Education: Transfer Techniques, Correct Positioning, W/C Management, Safety Issues Teaching Recipient: Patient Teaching Methods: Demonstration, Discussion Response to Teaching: Reinforcement Needed Time/GCodes Time In: 1400 Time Out: 1430 Total Billed Treatment Time: 30 Total Billed Treatment 1 visit FA 10' WC 20' JENIFER SOUSA PT Mar 04, 2018 14:41
[2018-03-04] MEDS ORDERED: PANT40TA3 PO (17:08)
[2018-03-04] MEDS ORDERED: AMLO5TAB2 PO (17:08)
[2018-03-04] MEDS ORDERED: LEVE500T6 PO (17:08)
[2018-03-04] MEDS ORDERED: CITA20TA7 PO (17:08)
[2018-03-04] MEDS ORDERED: ACET325T49 PO (17:08)
[2018-03-04] MEDS ORDERED: ALPR0.254 PO (17:08)
[2018-03-04] MEDS ORDERED: SENN-20 PO (17:08)
[2018-03-04 17:41] VITALS: BP 134/82
[2018-03-04] MEDS: ALPRAZolam 0.25 MG (XANAX) TAB PO PRN (23:16)
[2018-03-05 05:06] VITALS: BP 106/69
[2018-03-05] MEDS: PANTOPRAZOLE 40 MG (PROTONIX) TAB PO SCH (06:05)
--- NOTE | 2018-03-05 07:45 | PM & R (SOAP) Progress Note ---
Subjective Time Seen by Provider: 07:30 Subjective/Events-last exam Patient was seen in shower room with OT Patient all set for discharge Appreciate Dr Falcon note Objective Exam Last Set of Vital Signs Vital Signs Date Time Temp Pulse Resp B/P (MAP) Pulse Ox O2 Delivery O2 Flow Rate FiO2 03/05/18 05:06 97.6 67 16 106/69 (81) 97 Room Air Capillary Refill : I&O Intake and Output 03/05/18 00:00 Intake Total 1450 ml Balance 1450 ml Intake Oral 1450 ml # Voids 6 General: Alert, Oriented X3, Cooperative, No Acute Distress HEENT: Atraumatic, PERRLA, EOMI, Mucous Memb Moist/[place] Neck: Supple, No JVD Lungs: Clear to Auscultation Heart: Regular Rate Abdomen: Normal Bowel Sounds, Soft, No Tenderness Extremities: No Edema Neuro: Other (Left HP) Results Lab Laboratory Tests 03/03/18 03:00: Urine Color YELLOW, Urine Clarity CLEAR, Urine pH 5, Urine Specific [place] 1.020, Urine Protein NEGATIVE, Urine Glucose (UA) NEGATIVE, Urine Ketones NEGATIVE, Urine Nitrite NEGATIVE, Urine Bilirubin NEGATIVE, Urine Urobilinogen NORMAL, Urine Leukocyte Esterase NEGATIVE, Urine RBC (Auto) NEGATIVE, Urine RBC NONE, Urine WBC NONE, Urine Squamous Epithelial Cells 25-50H, Urine Crystals NONE, Urine Bacteria TRACE, Urine Casts NONE, Urine Mucus NEGATIVE, Urine Culture Indicated NO Microbiology 02/25/18 Urine Culture - Final, Complete Klebsiella pneumoniae Probable Actinomyces Assessment/Plan Assessment RT ICB with Left HP HTN E COLI UTI-treated with repeat U/A negiative Reactive depression med added Constipation meds adjusted Vaginal drainage -completed course of diflucan improved Plan Discharge today to home with spouse F/U with PCP in [place] and [employer] Current meds reviewed See orders . ELAINE GIBBS MD Mar 05, 2018 07:45
[2018-03-05] MEDS: DOCUSATE SODIUM 100 MG (COLACE) CAP PO SCH (07:55)
[2018-03-05] MEDS: amLODIPine 5 MG (NORVASC) TAB PO SCH (07:55)
[2018-03-05] MEDS: LEVETIRACETAM 500 MG (KEPPRA) TAB PO SCH (07:55)
[2018-03-05] MEDS: SENNA W/DOCUSATE (SENOKOT S) TABLET PO SCH (07:55)
[2018-03-05] MEDS: NYSTATIN CREAM (MYCOSTATIN) 30 GM TUBE TP SCH ×2 (07:56→13:14)
--- NOTE | 2018-03-05 08:13 | Occupational Ther Daily Note ---
OT Current Status-Daily Note Subjective Pt alert, lying in bed. Pt agreed to therapy. No c/o pain at this time. Mental Status/Objective Patient Orientation: Person, Place, Time, Situation Functional [place] Measure 0=Not Assessed/NA 4=Minimal Assistance 1=Total Assistance 5=Supervision or Setup 2=Maximal Assistance 6=Modified [place] 3=Moderate Assistance 7=Complete [place] ADL-Treatment Pt was able to go from supine to sitting EOB by self. Pt then transferred from EOB to w/c with CGA, placement of L foot needed for transfer. Using w/c, pt is able to retrieve clothing and transport to large shower room. Min A to transfer from w/c to tub transfer bench using grabbars, L foot placement needed. Assist to lift L LE into tub. Pt then was able to complete all bathing except buttocks sitting on tub bench using hand held shower, grabbars, long handle sponge. Assist to stand and block L knee to keep from buckling while pt was able to cleanse and dry buttocks. Pt then was able to don/doff lower body clothing by crossing LE's over knees. Assist to stand while pt hikes pants over R hip and assist to hike over L hip. Pt able to don/doff socks by self. Pt then maneuvered w/c to bathroom to sit at sink to complete own grooming. Pt requires proper L foot placement with transfers and have stability at L knee in case of buckling. Safety concerns with standing. Functional [place] Measure 0=Not Assessed/NA 4=Minimal Assistance 1=Total Assistance 5=Supervision or Setup 2=Maximal Assistance 6=Modified [place] 3=Moderate Assistance 7=Complete IndependenceIRFPAI Quality Coding Scale 6 Independent with activity with or without an assistive device 5 Patient requires set up or clean up by helper. Patient completes activity by themselves 4 Supervision or touching assist (CGA). [place] provide cues , steadying assist 3 The helper provides less than half the effort to complete the activity 2 The helper provides more than half the effort to complete the activity 1 Dependent. The helper does all the effort to complete an activity 7 Patient refused to complete or attempt activity 9 The patient did not perform the activity before the current illness or injury 88 Not attempted due to Medical conditions or safety concerns Eating (FIM): 6 (Pt able to complete set up and use regular utensils though pt will allow assistance if presented to her.) Eating (QC): 6 Grooming (FIM): 6 Oral Hygiene (QC): 6 Bathing (FIM): 4 Shower/Bathe Self (QC): 3 Upper Body (FIM): 4 (Assist to pull bra down in back. Able to don/doff shirt by self.) Upper Body Dressing (QC): 3 Lower Body Dressing (FIM): 4 Lower Body Dressing (QC): 3 On/Off Footwear (QC): 5 (Pt's L foot may fall off of R knee if not assisted.) Toileting (FIM): 3 (Pt manipulates clothing over R hip and requires assist to stand while pt cleanses buttocks. Assist to hike pants over L hip.) Toileting Hygiene (QC): 3 Transfers (B, C, W/C) (FIM): 4 Toilet/Commode Transfer (FIM): 4 Toilet Transfer (QC): 3 Tub Transfer(FIM): 4 Shower Transfer(FIM): 4 OT Short Term Goals Short Term Goals Time Frame: Feb 25, 2018 Eating(FIM): 5 Grooming(FIM): 5 Bathing(FIM): 4 Upper Body Dressing(FIM): 4 Lower Body Dressing(FIM): 3 Toileting(FIM): 4 Transfers (B,C,W/C) (FIM): 3 (met) Toilet/Commode Transfer(FIM): 4 Additional Short Term Goals: 1-Demonstrate ADL Tasks, 2-Verbalize Understanding , 3-ImproveStrength/Steven 1=Demonstrate adherence to instructed precautions during ADL tasks. 2=Patient will verbalize/demonstrate understanding of assistive devices/ modifications for ADL. 3=Patient will improve strength/tolerance for activity to enable patient to perform ADL's. OT Mcfp Goals Form Builder Helper Goals Time Frame: Mar 11, 2018 Eating (FIM): 6 (met-03/05/18) Eating (QC): 6 (met-03/05/18) Groomin (met-03/05/18) Oral Hygiene (QC): 6 (met-03/05/18) Bathing(FIM): 5 Shower/Bathe Self (QC): 5 (not met) Upper Body Dressing(FIM): 6 (not met) Upper Body Dressing (QC): 6 (not met) Lower Body Dressing(FIM): 6 (not met) Lower Body Dressing (QC): 6 (not met) On/Off Footwear (QC): 6 (not met) Toileting(FIM): 6 (not met) Toileting Hygiene (QC): 6 (not met) Transfers (B,C,W/C) (FIM): 6 (not met) Toilet/Commode Transfer(FIM): 6 (not met) Toilet/Commode Transfer (QC): 6 (not met) Shower Transfer(FIM): 5 (not met) Comprehension(FIM): 5 (MET: The patient is able to understand basic needs, such as restroom use and the necessity of the call light.) Expression (FIM): 5 (MET (6): The patient expresses complex ideas to others.) Social Interaction(FIM): 5 (MET (6): An anti depressant is used, however, the flat affect is rarely present.) Problem Solving(FIM): 4 (MET) Memory(FIM): 4 (MET (5): The patient uses schedules and prompts in stressful situations to recall safety sequences.) Additional Goals: 1-Demonstrate ADL Tasks, 2-Verbalize Understanding, 3- ImproveStrength/Steven 1=Demonstrate adherence to instructed precautions during ADL tasks. 2=Patient will verbalize/demonstrate understanding of assistive devices/ modifications for ADL. 3=Patient will improve strength/tolerance for activity to enable patient to perform ADL's. OT Education/Plan Discharge Recommendations Plan/Recommendations: Continue POC Treatment Plan/Plan of Care Patient would benefit from OT for education, treatment and training to promote independence in ADL's, mobility, safety and/or upper extremity function for ADL' s. Plan of Care: ADL Retraining, Functional Mobility, Group Exercise/Act as Ind, UE Funct Exercise/Act Treatment Duration: Mar 11, 2018 Frequency: At least 5 of 7 days/Wk (IRF) Estimated Hrs Per Day: 1.5 hours per day Agreement: Yes Rehab Potential: Good Time/GCodes Start Time: 06:45 Stop Time: 07:45 Total Time Billed (hr/min): 60 Billed Treatment Time 1 visit-ADL 4 (60 min) SINA CHIU Mar 05, 2018 08:13
--- NOTE | 2018-03-05 08:37 | Progress Note (SOAP) ---
Subjective Time Seen by Provider: 08:35 Subjective/Events-last exam Patient voices no complaints. Patient be discharged today. CVA. UTI resolved. Objective Exam Vital Signs Date Time Temp Pulse Resp B/P (MAP) Pulse Ox O2 Delivery O2 Flow Rate FiO2 03/05/18 08:33 Room Air 03/05/18 05:06 97.6 67 16 106/69 (81) 97 Room Air 03/04/18 20:27 Room Air 03/04/18 17:41 97.8 82 18 134/82 (99) 97 Room Air 03/04/18 09:00 Room Air I & O 03/05/18 07:00 Intake Total 1400 ml Balance 1400 ml Capillary Refill : General Appearance: No Apparent Distress, WD/WN Results Lab Microbiology 02/25/18 Urine Culture - Final, Complete Klebsiella pneumoniae Probable Actinomyces Assessment/Plan Assessment/Plan Assess & Plan/Chief Complaint CVA with hemorrhage. Tobacco usage. Stroke on the left side of body. Recency of baby girl. . 02/15/18. CVA with hemorrhage. Tobacco usage. Hypertension. Stroke on left side of the body. infection. . 02/13/18. CVA with hemorrhage. Tobacco usage. Hypertension. infection. Patient depressed. . 02/14/18. CVA with hemorrhage. Tobacco usage. Hypertension. infection. Patient talking better today. . 02/17/18 CVA with hemorrhage. Tobacco usage. Hypertension. infection Patient does not appear depressed today. . 02/18/18. CVA with hemorrhage. Tobacco usage. Hypertension. UTI. . 's 02/19/18. CVA with hemorrhage. Tobacco usage. Hypertension. UTI. Patient working hard. . 02/20/18. CVA with hemorrhage. Tobacco usage. Hypertension. UTI. . 02/21/18. CVA with hemorrhage. Tobacco usage Hypertension. UTI . /01/12. CVA with hemorrhage. Tobacco usage. stroke on the left side of body. recent . . 02/25/18. CVA with hemorrhage. Tobacco usage. Stroke on left side of body. UTI. . 's 02/26/18. CVA with hemorrhage. UTI. Put on Cipro. Tobacco usage. . 02/27/18. CVA with hemorrhage. UTI. Tobacco usage. Klebsiella pneumonia from urine. Sensitive to Cipro.. . . 02/28/18. CVA with hemorrhage. UTI. Tobacco usage. Patient more positive about herself. . 03/03/18. CVA with hemorrhage. UTI resolved. DC the Cipro. Tobacco usage. . 03/04/18. CVA with hemorrhage. Tobacco usage. Patient to be discharged this week. . . CVA with hemorrhage. Tobacco usage. be discharged today Clinical Quality Measures DVT/VTE Risk/Contraindication: Risk Factor Score Per Nursin RFS Level Per Nursing on Admit: 4+=Very High ASHANTI RUSH DO Mar 05, 2018 08:37
--- NOTE | 2018-03-05 11:05 | Physical Therapy Daily Note ---
PT Daily Note-Current Subjective Patient in wheelchair pre tx, agrees to PT, no complaints of pain. Appearance Patient in wheelchair post tx with nurse call, phone, tray, all needs met. Mental Status Patient Orientation: Person, Place, Situation Transfers Functional [place] Measure 0=Not Assessed/NA 4=Minimal Assistance 1=Total Assistance 5=Supervision or Setup 2=Maximal Assistance 6=Modified [place] 3=Moderate Assistance 7=Complete IndependenceIRFPAI Quality Coding Scale 6 Independent with activity with or without an assistive device 5 Patient requires set up or clean up by helper. Patient completes activity by themselves 4 Supervision or touching assist (CGA). [place] provide cues , steadying assist 3 The helper provides less than half the effort to complete the activity 2 The helper provides more than half the effort to complete the activity 1 Dependent. The helper does all the effort to complete an activity 7 Patient refused to complete or attempt activity 9 The patient did not perform the activity before the current illness or injury 88 Not attempted due to Medical conditions or safety concerns Transfers (B, C, W/C) (FIM): 4 Scootin Rollin Roll Left to Right (QC): 4 Supine to/from Sit: 5 Sit to/from Stand: 4 Sit to Lying (QC): 4 Sit to Stand (QC): 4 Chair/Laq-mr-Bymth Xfer(QC): 3 Bed to/from Chair: 4 Car Transfer (QC): 4 Patient performs bed mobility with SBA, sit to stand CGA, transfers with min assist to the left and CGA to the right. Car transfer min assist. Weight Bearing Right Lower Extremity: Right Weight Bearing/Tolerated Left Lower Extremity: Left Weight Bearing/Tolerated Gait Training Gait (FIM): 1 Distance: 8'x10, 20'x3 Walk 10 feet (QC): 3 Gait Level of Assist: 4 Gait Persons Needed: 1 Gait Assistive Device: Walker Gaurav Patient can ambulate 20' with a hemiwalker with min assist to advance her left leg. Balance and improved and she can often advance her right leg a little but not completely. When ambulating in the parallel bars she can weight shift more to the right side and that allows her to advance her left leg more and she can advance it about 3/4 of a complete step. Patient ambulated 8'x10 in the parallel bars. Wheelchair Training Does the Pt Use a Wheelchair?: Yes Wheelchair (FIM): 5 Distance: 150' Wheelchair Level of Assist: 5 Wheel 50 ft with 2 turns (QC): 4 Wheel 150 ft (QC): 4 Type of Wheelchair: Manual Exercises supine PROM/stretching to left LE in all planes Treatments bed mobility, transfers, ambulation, ROM, wheelchair mobility Assessment Current Status: Fair Progress Patient was able to take almost a complete step with her left leg in the parallel bars. PT Short Term Goals Short Term Goals Time Frame: Feb 18, 2018 Transfers (B,C,W/C) (FIM): 3 (met) Wheelchair (FIM): 4 Wheelchair Distance: 1200'x2 Wheelchair Level of Assist: 4 PT Driver Service Technician Goals Driver Service Technician Goals PT Senior Living Goals Time Frame: Mar 04, 2018 Transfers (B,C,W/C) (FIM): 4 (met) Sit to Lying (QC): 3 (met) Lying-Sitting on Side/Bed(QC): 3 (met) Sit to Stand (QC): 3 (met) Rollin (met) Roll Left to Right (QC): 3 (met) Chair/Ybi-ez-Rdubc Xfer(QC): 3 (met) Car Transfer (QC): 3 (met) Gait (FIM): 1 (met) Distance: 20' Walk 10 feet (QC): 3 (met) Gait Level of Assist: 4 (met) Gait Assistive Device: Walker Gaurav Wheelchair (FIM): 5 Distance: 150' Wheelchair Level of Assist: 5 (met) Wheel 50 feet with 2 turns (QC: 4 (met) PT Plan Problem List Problem List: Activity Tolerance, Functional Strength, Safety, Balance, Gait, Transfer, Bed Mobility, ROM Treatment/Plan Treatment Plan: Continue Plan of Care Treatment Plan: Bed Mobility, Concurrent Therapy, Education, Functional Activity Steven, Functional Strength, Group Therapy, Gait, Safety, Therapeutic Exercise, Transfers Treatment Duration: Mar 04, 2018 Frequency: At least 5 of 7 days/Wk (IRF) Estimated Hrs Per Day: 1.5 hours per day Patient and/or Family Agrees t: Yes Safety Risks/Education Patient Education: Gait Training, Transfer Techniques, Reviewed Use of Ice, W/ C Management, Safety Issues Teaching Recipient: Patient Teaching Methods: Demonstration, Discussion Response to Teaching: Reinforcement Needed Time/GCodes Time In: 1000 Time Out: 1100 Total Billed Treatment Time: 60 Total Billed Treatment 1 visit [facility] 10' GT 30' FA 20' JENIFER SOUSA PT Mar 05, 2018 11:05
--- NOTE | 2018-03-05 14:24 | Physical Therapy Daily Note ---
PT Daily Note-Current Subjective Patient in wheelchair pre tx, agrees to PT, no complaints of pain. Appearance Patient in wheelchair post tx at bedside, has nurse call, phone, tray, all needs met. Mental Status Patient Orientation: Person, Place, Situation Transfers Functional [place] Measure 0=Not Assessed/NA 4=Minimal Assistance 1=Total Assistance 5=Supervision or Setup 2=Maximal Assistance 6=Modified [place] 3=Moderate Assistance 7=Complete IndependenceIRFPAI Quality Coding Scale 6 Independent with activity with or without an assistive device 5 Patient requires set up or clean up by helper. Patient completes activity by themselves 4 Supervision or touching assist (CGA). Grant provide cues , steadying assist 3 The helper provides less than half the effort to complete the activity 2 The helper provides more than half the effort to complete the activity 1 Dependent. The helper does all the effort to complete an activity 7 Patient refused to complete or attempt activity 9 The patient did not perform the activity before the current illness or injury 88 Not attempted due to Medical conditions or safety concerns Transfers (B, C, W/C) (FIM): 4 Sit to/from Stand: 4 Bed to/from Chair: 4 Weight Bearing Right Lower Extremity: Right Weight Bearing/Tolerated Left Lower Extremity: Left Weight Bearing/Tolerated Wheelchair Training Wheelchair (FIM): 2 Distance: 100'x2 Type of Wheelchair: Manual Exercises NuStep Minutes: 15 NuStep Workload: 5 Treatments transfers, functional strengthening, wheelchair mobility Assessment Current Status: Fair Progress PT Short Term Goals Short Term Goals Time Frame: Feb 18, 2018 Transfers (B,C,W/C) (FIM): 3 (met) Wheelchair (FIM): 4 Wheelchair Distance: 150' Wheelchair Level of Assist: 4 PT Plate Glass Installer Goals Custodial Goals PT Plate Glass Installer Goals Time Frame: Mar 04, 2018 Transfers (B,C,W/C) (FIM): 4 (met) Sit to Lying (QC): 3 (met) Lying-Sitting on Side/Bed(QC): 3 (met) Sit to Stand (QC): 3 (met) Rollin (met) Roll Left to Right (QC): 3 (met) Chair/Inr-ts-Jjoxr Xfer(QC): 3 (met) Car Transfer (QC): 3 (met) Gait (FIM): 1 (met) Distance: 20' Walk 10 feet (QC): 3 (met) Gait Level of Assist: 4 (met) Gait Assistive Device: Walker Gaurav Wheelchair (FIM): 5 Distance: 150' Wheelchair Level of Assist: 5 (met) Wheel 50 feet with 2 turns (QC: 4 (met) PT Plan Problem List Problem List: Activity Tolerance, Functional Strength, Safety, Balance, Gait, Transfer, Bed Mobility, ROM Treatment/Plan Treatment Plan: Continue Plan of Care Treatment Plan: Bed Mobility, Concurrent Therapy, Education, Functional Activity Steven, Functional Strength, Group Therapy, Gait, Safety, Therapeutic Exercise, Transfers Treatment Duration: Mar 04, 2018 Frequency: At least 5 of 7 days/Wk (IRF) Estimated Hrs Per Day: 1.5 hours per day Patient and/or Family Agrees t: Yes Safety Risks/Education Patient Education: Transfer Techniques, Correct Positioning, W/C Management, Safety Issues Teaching Recipient: Patient Teaching Methods: Demonstration, Discussion Response to Teaching: Reinforcement Needed Time/GCodes Time In: 1400 Time Out: 1425 Total Billed Treatment Time: 25 Total Billed Treatment 1 visit EX 15' FA 10' JENIFER SOUSA PT Mar 05, 2018 14:24
--- NOTE | 2018-03-05 14:29 | Therapy Team Discharge Summary ---
Therapy Discharge Summary Discharge Recommendations Date of Discharge Therapy D/C Recommendations: Home w/ Family Support Physical Therapy Patient came to rehab following CVA. Upon admission patient performed bed mobility and transfers with max assist, and could propel a manual wheelchair 50 ' with min assist. Patient has been performing bed mobility and transfer training, balance and endurance training, functional strengthening, gait training, and education. 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 Now, patient performs bed mobility with SBA, sit to stand CGA , transfers with min assist to the left and CGA to the right, car transfer min assist, ambulates 20' with a hemiwalker with min assist to advance her left leg , and and propel a manual wheelchair 150' with SBA. Patient is discharging from this facility today and will be discharged from PT at this time. Occupational Therapy Decreased Activ Tolerance, Decreased UE Strength, Dependent Transfers, Impaired Bed Mobility, Impaired Coordination, Impaired Funct Balance, Impaired I ADL's, Impaired Self-Care Skills, Restricted Funct UE ROM, Visual-Perceptual Deficit PT Senior Technical Editor Goals Senior Technical Editor Goals PT Senior Technical Editor Goals Time Frame: Mar 04, 2018 Transfers (B,C,W/C) (FIM): 4 (met) Roll Left to Right (QC): 3 (met) Sit to Lying (QC): 3 (met) Lying-Sitting on Side/Bed(QC): 3 (met) Sit to Stand (QC): 3 (met) Chair/Chq-rt-Kdmfv Xfer(QC): 3 (met) Car Transfer (QC): 3 (met) Gait (FIM): 1 (met) Distance: 20' Walk 10 feet (QC): 3 (met) Gait Level of Assist: 4 (met) Gait Assistive Device: Walker Gaurav Wheelchair (FIM): 5 Distance: 150' Wheelchair Level of Assist: 5 (met) Wheel 50 feet with 2 turns (QC: 4 (met) OT Senior Technical Editor Goals Senior Care Goals Time Frame: Mar 11, 2018 Eating (FIM): 6 (met-03/05/18) Eating (QC): 6 (met-03/05/18) Oral Hygiene (QC): 6 (met-03/05/18) Grooming(FIM): 6 (met-03/05/18) Bathing(FIM): 5 Shower/Bathe Self (QC): 5 (not met) Upper Body Dressing(FIM): 6 (not met) Upper Body Dressing (QC): 6 (not met) Lower Body Dressing(FIM): 6 (not met) Lower Body Dressing (QC): 6 (not met) On/Off Footwear (QC): 6 (not met) Toileting(FIM): 6 (not met) Toileting Hygiene (QC): 6 (not met) Transfers (B,C,W/C) (FIM): 6 (not met) Toilet/Commode Transfer(FIM): 6 (not met) Toilet/Commode Transfer (QC): 6 (not met) Shower Transfer(FIM): 5 (not met) Comprehension(FIM): 5 (MET: The patient is able to understand basic needs, such as restroom use and the necessity of the call light.) Expression (FIM): 5 (MET (6): The patient expresses complex ideas to others.) Social Interaction(FIM): 5 (MET (6): An anti depressant is used, however, the flat affect is rarely present.) Problem Solving(FIM): 4 (MET) Memory(FIM): 4 (MET (5): The patient uses schedules and prompts in stressful situations to recall safety sequences.) Additional Goals: 1-Demonstrate ADL Tasks, 2-Verbalize Understanding, 3- ImproveStrength/Steven 1=Demonstrate adherence to instructed precautions during ADL tasks. 2=Patient will verbalize/demonstrate understanding of assistive devices/ modifications for ADL. 3=Patient will improve strength/tolerance for activity to enable patient to perform ADL's. Speech Senior Care Goals Senior Technical Editor Goals 1. The patient will increase awareness of left sided neglect through visuospatial strategies. MET Time Frame: Two Weeks Comprehension: 5 (MET: The patient is able to understand basic needs, such as restroom use and the necessity of the call light.) Expression: 5 (MET (6): The patient expresses complex ideas to others.) Social Interaction: 5 (MET (6): An anti depressant is used, however, the flat affect is rarely present.) Problem Solvin (MET) Memory: 4 (MET (5): The patient uses schedules and prompts in stressful situations to recall safety sequences.) JENIFER SOUSA PT Mar 05, 2018 14:29
--- NOTE | 2018-03-06 11:03 | Therapy Team Discharge Summary ---
Therapy Discharge Summary Discharge Recommendations Date of Discharge Mar 05, 2018 at 15:30 Therapy D/C Recommendations: Home w/ Family Support Occupational Therapy Pt. has been seen by occupational therapy to increase overall strength and independence. Pt. has made significant progress. However, pt. does still require assist for most ADLs. Please see goals met. Pt. is discharging home with spouse. Would benefit from continued skilled OT to work on UE strength and mobility, as well as ADL training. All needed equipment has been set up for pt., and ramp has been built. Decreased Activ Tolerance, Decreased UE Strength, Dependent Transfers, Impaired Bed Mobility, Impaired Coordination, Impaired Funct Balance, Impaired I ADL's, Impaired Self-Care Skills, Restricted Funct UE ROM, Visual-Perceptual Deficit PT Snf Goals Snf Goals PT Snf Goals Time Frame: Mar 04, 2018 Transfers (B,C,W/C) (FIM): 4 (met) Roll Left to Right (QC): 3 (met) Sit to Lying (QC): 3 (met) Lying-Sitting on Side/Bed(QC): 3 (met) Sit to Stand (QC): 3 (met) Chair/Llp-pn-Bwiii Xfer(QC): 3 (met) Car Transfer (QC): 3 (met) Gait (FIM): 1 (met) Distance: 20' Walk 10 feet (QC): 3 (met) Gait Level of Assist: 4 (met) Gait Assistive Device: Walker Gaurav Wheelchair (FIM): 5 Distance: 150' Wheelchair Level of Assist: 5 (met) Wheel 50 feet with 2 turns (QC: 4 (met) OT Personnel Interviewer Goals Snf Goals Time Frame: Mar 11, 2018 Eating (FIM): 6 (met-03/05/18) Eating (QC): 6 (met-03/05/18) Oral Hygiene (QC): 6 (met-03/05/18) Grooming(FIM): 6 (met-03/05/18) Bathing(FIM): 5 (not met) Shower/Bathe Self (QC): 5 (not met) Upper Body Dressing(FIM): 6 (not met) Upper Body Dressing (QC): 6 (not met) Lower Body Dressing(FIM): 6 (not met) Lower Body Dressing (QC): 6 (not met) On/Off Footwear (QC): 6 (not met) Toileting(FIM): 6 (not met) Toileting Hygiene (QC): 6 (not met) Transfers (B,C,W/C) (FIM): 6 (not met) Toilet/Commode Transfer(FIM): 6 (not met) Toilet/Commode Transfer (QC): 6 (not met) Shower Transfer(FIM): 5 (not met) Comprehension(FIM): 5 (MET: The patient is able to understand basic needs, such as restroom use and the necessity of the call light.) Expression (FIM): 5 (MET (6): The patient expresses complex ideas to others.) Social Interaction(FIM): 5 (MET (6): An anti depressant is used, however, the flat affect is rarely present.) Problem Solving(FIM): 4 (MET) Memory(FIM): 4 (MET (5): The patient uses schedules and prompts in stressful situations to recall safety sequences.) Additional Goals: 1-Demonstrate ADL Tasks, 2-Verbalize Understanding, 3- ImproveStrength/Steven 1=Demonstrate adherence to instructed precautions during ADL tasks. 2=Patient will verbalize/demonstrate understanding of assistive devices/ modifications for ADL. 3=Patient will improve strength/tolerance for activity to enable patient to perform ADL's. Speech Snf Goals Snf Goals 1. The patient will increase awareness of left sided neglect through visuospatial strategies. MET Time Frame: Two Weeks Comprehension: 5 (MET: The patient is able to understand basic needs, such as restroom use and the necessity of the call light.) Expression: 5 (MET (6): The patient expresses complex ideas to others.) Social Interaction: 5 (MET (6): An anti depressant is used, however, the flat affect is rarely present.) Problem Solvin (MET) Memory: 4 (MET (5): The patient uses schedules and prompts in stressful situations to recall safety sequences.) QAMAR SIMPSON OT Mar 06, 2018 11:02
== END 2018-03-05 15:30 | disposition home or self-care (01) | DRG 776 ==
PROVIDERS: ADMIT Physical Medicine & Rehabilitation; ATTEND Physical Medicine & Rehabilitation
DX: O99.43 Diseases of the circulatory system complicating the puerperium (principal); I69.354 Hemiplegia and hemiparesis following cerebral infarction affecting left non-dominant side; O99.345 Other mental disorders complicating the puerperium; F53 Mental and behavioral disorders associated with the puerperium, not elsewhere classified; O99.335 Smoking (tobacco) complicating the puerperium; F17.210 Nicotine dependence, cigarettes, uncomplicated; O86.20 Urinary tract infection following delivery, unspecified; O99.63 Diseases of the digestive system complicating the puerperium; K59.00 Constipation, unspecified; O86.13 Vaginitis following delivery; B37.3 Candidiasis of vulva and vagina; O13.5 Gestational [pregnancy-induced] hypertension without significant proteinuria, complicating the puerperium; O99.89 Other specified diseases and conditions complicating pregnancy, childbirth and the puerperium; K60.2 Anal fissure, unspecified; B96.20 Unspecified Escherichia coli [E. coli] as the cause of diseases classified elsewhere; B96.1 Klebsiella pneumoniae [K. pneumoniae] as the cause of diseases classified elsewhere
CPT/HCPCS: 36415; 80053; 81000; 85025; 85027; 87077; 87088; 87186